=== PATIENT | male | born 1955 | race Caucasian/White ===

== ENCOUNTER → 2023-08-10 12:33 | Outpatient (REF) | payer OTHER, SELFPAY | LOC: RAD 12:33 | PROVIDERS: ATTENDING PHYSICIAN Surgery Vascular Surgery | DX: I73.9 Peripheral vascular disease, unspecified (principal); I65.22 Occlusion and stenosis of left carotid artery | CPT/HCPCS: 93880; 93922; 93925 ==

== ENCOUNTER → 2023-08-12 15:56 | Outpatient (REF) | payer OTHER, SELFPAY | LOC: HWRAD 15:56 | PROVIDERS: ATTENDING PHYSICIAN Family Medicine | DX: R19.7 Diarrhea, unspecified (principal) | CPT/HCPCS: 74176 ==

== ENCOUNTER → 2024-09-11 09:49 | Outpatient (REF) | payer OTHER, SELFPAY | LOC: RAD 09:49 | PROVIDERS: ATTENDING PHYSICIAN Surgery Vascular Surgery | DX: I73.9 Peripheral vascular disease, unspecified (principal); I65.22 Occlusion and stenosis of left carotid artery | CPT/HCPCS: 93880; 93922; 93925 ==

== ENCOUNTER 2024-10-18 18:34 | Inpatient (IN) | payer OTHER, SELFPAY ==
[2024-10-18] VITALS (15 sets, daily range): BP systolic 136–200; BP diastolic 73–108; BMI 31.2
--- NOTE | 2024-10-18 12:24 | ED.GENMED ---
History of Present Illness
General
Chief Complaint: Abdominal Pain
Source: patient
Exam Limitations: none
Time Seen by Provider: 10/18/24 12:06
History of Present Illness
History of Present Illness:
69-year-old male with history of A-fib, CHF presents with 4 days worth of nausea vomiting and diarrhea. He notes multiple episodes of loose stool which she describes water like consistency daily. He denies any black color to the vomit of the
stool. He notes chills and sweats but no measurable fever. He notes persistent and worsening lower abdominal pain. He was initially seen at the urgent care and sent in for further evaluation. No known sick contacts. No other complaints at this
time he has a history of diverticulitis requiring colon resection and reanastomosis
Past History
Past History
ED Past Medical History: HTN
ED Past Surgical History: None
Social History
Tobacco: Non-smoker
Alcohol: None
Phy Exam
Physical Exam
Physical Exam:
General: Well-appearing male no acute respiratory distress HEENT: Normocephalic atraumatic
Heart: Regular rate and rhythm
Lungs: Clear no wheeze
Abdomen is soft tender to the right mid abdomen no guarding or rebound tenderness.
Extremities: No cyanosis
Course
Orders/Labs/Results
Orders:
Orders
10/18/24 12:19
Ondansetron Injectable [Zofran] 4 mg IV NOW STA
10/18/24 12:20
CT Abd/pelvis W Iv Cont Urgent
Comment:
Reason For Exam: lower abdominal pain
10/18/24 12:23
Complete Blood Count/With Diff Urgent
Comprehensive Metabolic Panel Urgent
Lipase Urgent
Abnormal Lab Results
10/18/24
12:23
WBC 11.0 H 10^3/uL
(4.8-10.8)
Hgb 18.1 H g/dL
(13.0-18.0)
MCH 32.0 H pg
(27.0-31.0)
Absolute Neuts (auto) 8.1 H 10^3/uL
(1.4-6.5)
Absolute Monos (auto) 1.7 H 10^3/uL
(0.1-0.6)
Lymphocytes % 10.5 L %
(20.5-51.1)
Monocytes % 15.2 H %
(1.7-9.3)
Carbon Dioxide 21 L mmol/L
(22-30)
BUN 25 H mg/dl
(9-20)
Glucose 145 H mg/dl
(70-99)
Total Bilirubin 2.0 H mg/dl
(0.2-1.3)
AST 104 H U/L
(17-59)
ALT 149 H U/L
(0-50)
Alkaline Phosphatase 158 H U/L
(38-126)
Total Protein 8.3 H g/dl
(6.3-8.2)
10/18/24 12:23
10/18/24 12:23
Vital Signs
Initial and Last Documented VS:
Initial Vital Signs
Temp Pulse Resp BP Pulse Ox
97.8 F 113 20 166/93 96
10/18/24 10:59 10/18/24 10:59 10/18/24 10:59 10/18/24 10:59 10/18/24 10:59
Last Documented Vital Signs
Temp Pulse Resp BP Pulse Ox
97.8 F 98 25 172/105 94
10/18/24 10:59 10/18/24 15:00 10/18/24 15:00 10/18/24 15:00 10/18/24 14:45
MDM/Problems Addressed
Differential Diagnosis Includes:
Patient with nausea vomiting diarrhea with abdominal pain. Consider viral illness versus electrolyte abnormality versus bowel obstruction check labs. Fluids ordered Zofran ordered CT pending
*Critical Care Note
Total Time (30-74mins, 75-104mins- exclusive of procedures): Not Applicable
Update Note
Update Note:
Liver functions are elevated. Gallbladder is distended. The common bile duct is also dilated at 1.[address] scan. Lipase is normal no sign of pancreatitis. Reassessment to still provide some tenderness to the right mid to lower abdomen.
Concern for possible common bile duct stone. Will admit to hospital for further evaluation
ED Attending Note
-
Portions of this chart may have been created with voice recognition software.� Occasional wrong word or��sound alike� substitutions may have occurred due to the inherent limitations of voice recognition software.
Discharge Plan
Departure
Patient Disposition: Admit
Date of Disposition: 10/18/24
Time of Disposition: 16:20
Presentation/result/management discussed w/ accepting MD/DO: Hospitalist
Discharge Problem:
Elevated LFTs, Common bile duct dilatation
Prescriptions:
No Action
metformin 500 MG tablet
1,000 mg PO BID
cilostazol 100 MG tablet
100 mg PO BID
glipizide 5 MG tablet
10 mg PO BID
sotalol 80 MG tablet
80 mg PO BID Qty: 60 3RF
metoprolol succinate 50 MG tablet extended release 24 hr
50 mg PO BID
potassium chloride 20 MEQ tablet extended release
20 meq PO DAILY
empagliflozin [Jardiance] 10 MG tablet
10 mg PO DAILY
multivitamin 1 EACH tablet
1 ea PO DAILY
omeprazole [Prilosec] 10 MG capsule,delayed release(DR/EC)
20 mg PO DAILY
methotrexate sodium 2.5 MG tablet
150 mg PO Q7D
Patient Comments:
take 2.5 mg 6 tabs every week
rosuvastatin 5 MG tablet
5 mg PO DAILY
omega 5-dko-yjk-fish oil [Fish Oil] 1 EACH capsule
1 ea PO DAILY
apixaban [Eliquis] 5 MG tablet
5 mg PO BID
clopidogrel 75 MG tablet
75 mg PO DAILY Qty: 30 0RF
prednisone 10 MG tablet
10 mg PO DIRECTED Qty: 45 0RF
Rx Instructions:
5 tab day 1-3, 4 tab day 4-6, 3 tab day 7-9, 2 tab day 10-12, 1 tab day 13-15
albuterol sulfate [Proventil HFA] 90 MCG/PUFF HFA aerosol inhaler
1 puff inhalation Q4HPRN PRN (Reason: shortness of breath) Qty: 1 0RF
Codeine Phosphate/Guaifenesin [Codeine-Guaifen 10-100 Mg/5 Ml] 5 ML Liquid
5 ml PO BID PRN (Reason: Cough) Qty: 1 0RF
Codeine Phosphate/Guaifenesin [Codeine-Guaifen 10-100 Mg/5 Ml] 5 ML Liquid
5 ml PO BID PRN (Reason: cough) Qty: 200 0RF
Referrals:
Romeo Duarte MD [Family Provider] -
Interventions
Interventions:
*Risk Screen - Suicide Last Done: 10/18/24 10:59
*General Assessment Last Done: 10/18/24 10:59
*Neglect/Abuse Screening Last Done: 10/18/24 10:59
*ED- Fall Risk Assessment Last Done: 10/18/24 11:54
QD-Tqvper-Smgwkpuckt Assessment Last Done: 10/18/24 11:54
Discharge Date and Time
Print Language: GEORGIAN
[2024-10-18] MEDS: ZOFRAN 4 MG IV (12:25)
[2024-10-18 12:33] LABS: % Basophils 0.2 % (0-2); % Eosinophils 0.2 % (0-6); % Immature Granulocytes 0.3 % (0-0.5); % Lymphocytes 10.5 % (20.5-51.1); % Monocytes 15.2 % (1.7-9.3); % Neutrophils 73.6 % (42.2-75.2); Absolute Lymphocytes 1.2 10^3/uL (1.2-3.4); Absolute Monocytes 1.7 10^3/uL (0.1-0.6); Absolute Neutrophils 8.1 10^3/uL (1.4-6.5); Hematocrit 51.8 % (39.0-52.0); Hemoglobin 18.1 g/dL (13.0-18.0); Mean Corp Hgb Conc. 34.9 g/dL (33.0-37.0); Mean Corpuscular Volume 91.5 fL (80.0-94.0); Mean Platelet Volume 10.1 fL (7.4-10.4); Nucleated Red Blood Cells % 0 % (-); Platelet Count 200 10^3/uL (130-400); Red Blood Cell Count 5.66 10^6/uL (4.70-6.10); Red Cell Dist. Width 13.1 % (11.5-14.5)
[2024-10-18 13:00] LABS: ALT (SGPT) 149 U/L (0-50); AST (SGOT) 104 U/L (17-59); Albumin 4.8 g/dl (3.5-5.0); Alkaline Phosphatase 158 U/L (38-126); Blood Urea Nitrogen 25 mg/dl (9-20); Calcium 9.5 mg/dl (8.4-10.2); Carbon Dioxide 21 mmol/L (22-30); Chloride 102 mmol/L (98-107); Estimated Creatinine Clearance 105 ml/min; Glucose 145 mg/dl (70-99); Lipase 92 U/L (23-300); Potassium 4.1 mmol/L (3.5-5.1); Sodium 139 mmol/L (135-145); Total Protein 8.3 g/dl (6.3-8.2); eGFR > 60.00
--- NOTE | 2024-10-18 17:28 | HPS.HSE ---
Family Physician
-
Family Physician: Romeo Duarte
Chief Complaint
-
Nausea, vomiting, diarrhea
History of Present Illness
69-year-old male complaining 4 days of nausea, vomiting, diarrhea with multiple episodes of loose stool watery in consistency daily. He reports after eating a meatball sandwich from a temple event he immediately began sick. His and the
neighbor that brought the food are not sick with any of the symptoms. He does state he did have a crab cake the night before on Tuesday. He states the vomiting and diarrhea have subsided today. During his symptoms he also reports chills and
sweats but no fever . He was sent in urgent care sent into the ER for further evaluation. The patient denies fever, chest pain, cough, shortness of breath, urinary symptoms. He denies recent travel, raw foods, IV drug use. He has past medical
history of A-fib paroxysmal Dx 6 years ago on Eliquis, PAD with stent to right leg by Dr. Jauregui, hypertension, diverticulitis requiring colon resection and reanastomosis, class I obesity, former smoker 47-year 3 pack a day stopped 2019, HLD, GERD,
gastric ulcer 10 years ago, DM 2, former alcohol abuse daily drinker stopped early 30s, former cocaine user snorting in his 20s to 30s
Medical History
Past Medical History
Past Medical History: Reports Other
Additional Past Medical History:
A-fib paroxysmal Dx 6 years ago on Eliquis
PAD with stent to right leg by Dr. Jauregui
hypertension,
diverticulitis requiring colon resection and reanastomosis
class I obesity
former smoker 47-year 3 pack a day stopped 2019
HLD,
GERD
gastric ulcer 10 years ago
DM 2
former alcohol abuse daily drinker stopped early 30s
former cocaine user snorting in his 20s to 30s
Past Surgical History: Reports Other
Additional Past Surgical History:
PAD with stent to right leg by Dr. Jauregui
Left femur cliff 1975
Quadricep tendon repair right
Cardiac ablation�A-fib
Social History
Tobacco: Former Smoker (47-year 3 pack a day stopped 2019)
Alcohol: Former (Drink daily alcohol stop end of 30s)
Drug: Cocaine (Snorted frequently during his 20s and 30s)
Personal:
Living: With Family ( Antonietta)
Employment: Retired
Family History
Family History: Other (Mother 72 [place] 20 days after his father, father of pulmonary asbestosis age 72, no family history of gallstones)
Allergies / Home Medications
Allergies reflects when Allergies were last updated in [employer].
Home Medications with original date entered in [employer]
Allergy/Medication List:
Allergies
Allergy/AdvReac Type Severity Reaction Status Date / Time
Penicillins Allergy Itching Verified 10/18/24 11:03
Home Medications
cilostazol 100 mg tablet 100 mg PO BID 08/10/19
sotalol 80 mg tablet 80 mg PO BID #60 tabs 08/20/19
metoprolol succinate 50 mg tablet,extended release 24 hr 100 mg PO DAILY 01/08/20
potassium chloride 20 mEq tablet,extended release 20 meq PO DAILY 01/08/20
apixaban 5 mg tablet (Eliquis) 5 mg PO BID 04/16/20
rosuvastatin 5 mg tablet 5 mg PO DAILY 04/16/20
albuterol sulfate 90 mcg/actuation aerosol inhaler 2 puff inhalation R Q6HPRN PRN sob 10/18/24
clobetasol 0.05 % topical ointment 1 applic topical DAILYPRN PRN psoriasis 10/18/24
empagliflozin 25 mg tablet (Jardiance) 25 mg PO DAILY 10/18/24
glipizide 10 mg tablet, extended release 24 hr 10 mg PO BID 10/18/24
omega 1-byd-uqd-fish oil 1,200 mg (144 mg-216 mg) capsule (Fish Oil) 1 cap PO DAILY 10/18/24
omeprazole magnesium 20 mg tablet,delayed release (Prilosec OTC) 20 mg PO DAILY 10/18/24
risankizumab-rzaa 75 mg/0.83 mL subcutaneous syringe 150 mg SC Q12W 10/18/24
therapeutic multivitamin 1 tab PO DAILY 10/18/24
Review of Systems
-
History Source: Patient
A 12 point ROS was completed and negative except as noted: Yes
Constitutional: Reports Chills; Denies Fever or Fatigue
EENT: Denies Sore Throat or Runny Nose
Respiratory: Denies Cough or Trouble Breathing
Cardiac: Denies Chest Pain, Diaphoresis, Palpitations or Syncope
Abdomen/GI: Reports Nausea, Vomiting and Diarrhea (Watery in color); Denies Constipated, Bloody Stools, Black Stools or Anorexia
: Denies Dysuria, Frequency, Flank Pain, Incontinence, Difficulty Voiding, Urgency or Bleeding
Musculoskeletal: Reports Edema (Bilateral lower legs trace to +1); Denies Joint Pain
Skin: Denies Itching or Rash
Neurological: Denies Dizzy, Headache or Weakness
Endocrine: Reports No Symptoms
Hematologic/Lymphatic: Reports No Symptoms
Psych: Reports Calm
Physical Exam
Vital Signs
Vital Signs
Temp Pulse Resp BP Pulse Ox
97.8 F 98 25 172/105 94
10/18/24 10:59 10/18/24 15:00 10/18/24 15:00 10/18/24 15:00 10/18/24 14:45
Physical Exam
General: Conversant; No Fever or Chills
HEENT: NormoCephalic, Anicteric, Moist mucous membranes, PERRLA, [place] Conjunctivae and No Ptosis
Respiratory: Clear; No Wheezes, Rales or Rhonchi
Cardiac: S1/S2, Regular Rhythm and Peripheral Edema (Bilateral lower legs trace to +1); No Murmur, Rub or Gallop
Breast: Deferred by me
GI: Soft, Normal Bowel Sounds, Tender (Epigastric to left upper quadrant on palpation), Distended (Slight distention but soft) and Other (Protuberant abdomen did not palpate liver or spleen)
Rectal: Deferred by Provider
Genito-urinary: Deferred by me
Musculoskeletal: No Clubbing, No Cyanosis, Edema, Left Lower Extremity (Trace to +1) and Edema, Right Lower Extremity (Trace to +1); No Edema, Left Upper Extremity or Edema, Right Upper Extremity
Skin: Warm and Dry; No Rash or Jaundice
Neuro: AO x 3, No Motor Deficits, Nonfocal/grossly intact, Cranial Nerves Intact and No Sensory Deficits; No Slurred Speech, Facial Droop, Tremors or Sedated
Psych: Calm
Laboratory Results
-
10/18/24 12:23
10/18/24 12:23
Laboratory Results
Total Bilirubin 2.0 mg/dl (0.2-1.3) H 10/18/24 12:23
AST 104 U/L (17-59) H 10/18/24 12:23
ALT 149 U/L (0-50) H 10/18/24 12:23
Alkaline Phosphatase 158 U/L (38-126) H 10/18/24 12:23
Lipase 92 U/L (23-300) 10/18/24 12:23
Impression/Plan
-
Impression/plan:
Admit to MedSurg
#CBD dilation /acute transaminitis concern for obstructing CBD stone
CBD dilation up to 1.3 cm
Follow CMP
- MRI
-MRCP
-N.p.o. except meds
-IV NSS 100 cc per hour
- IV Protonix 40 mg daily
- Check stool cultures, stool WBC if diarrhea returns
- Consult GI Dr. Dk Rowe made aware
CT abdomen/pelvis with IV contrast:
1. Dilation of the common bile duct. Mild intrahepatic biliary dilation. Mild distention of the gallbladder. No common bile duct filling defect identified. All these findings are new as compared with previous examination
and could be further evaluated with MRCP or ERCP.
2. Unchanged benign 3 mm left lower lobe nodule.
3. Hepatomegaly and hepatic fatty infiltration.
4. Diverticulosis without diverticulitis. Post sigmoid resection with anastomosis. No bowel obstruction.
5. Subacute to chronic fracture anterior right seventh rib.
#A-fib paroxysmal Dx 6 years ago
#History of cardiac ablation
- Patient follows with [facility] cardiology
- Hold Eliquis 5 mg twice daily, sotalol 80 mg twice daily with hold parameters
- Continue metoprolol succinate 100 mg daily with hold parameters
#DM2
Accu-Cheks with SSI low
-Hold glipizide 10 mg twice daily, Jardiance 25 mg daily
#PAD with stent to right leg by Dr. Jauregui
- Continue Crestor 5 mg daily
- Continue Pletal
#Subacute or chronic fracture anterior right seventh rib-likely old fracture due to no pain
- No pain right seventh rib area
#Hepatomegaly and hepatic fatty liver
#3 mm left lower lobe nodule unchanged
#Former smoker 47 years 3 pack a day stopped 2019
#HTN�benign
BP 172/105 > 136/84
-cont Metoprolol succinate 100 mg daily
- cont Sotalol 80 mg twice daily
#HLD
Check lipid profile
Continue Crestor 5 mg at bedtime
#GERD
#Hx gastric ulcer 10 years ago had colonoscopy with follow-up
-Hold OTC Prilosec
#Diverticulitis requiring colon resection and reanastomosis.
#Former alcohol abuse daily drinker stopped early 30s
#Former cocaine user�snorting in his 20s and 30s
DVT prophylaxis
Hold Eliquis
SCDs
Full code
--- NOTE | 2024-10-18 18:02 | W.PN.UPDATE ---
Addendum entered and electronically signed by Tadeo Jefferson MD 10/18/24 18:04:
Hold Luis.
Original Note:
Update Note
Progress Note Update
This is an addendum to H&P written by Selena Solano on 10/18/2024. Patient seen and examined independently with THERMITE WELDER.
69-year-old male past medical history of persistent atrial fibrillation, chronic HFpEF, hypertension, hyperlipidemia, diabetes, peripheral arterial disease, diverticulitis status post colon resection reanastomosis, presenting with 4 days of nausea
and vomiting and diarrhea and lower abdominal pain. Symptoms started after eating parm 4 days ago.
Blood pressure 170s. Labs show leukocytosis. Transaminitis with total bilirubin of 2.
CT abdomen pelvis shows dilation of the common bile duct. Mild intrahepatic biliary dilatation. Mild distention of the gallbladder. There is unchanged 3 mm left lower lobe nodule, hepatomegaly and hepatic fatty infiltration. Diverticulosis,
subacute to chronic fracture of the anterior right seventh rib.
Patient with likely viral gastroenteritis. There is also concern for choledocholithiasis. Clear liquid diet as tolerated. Follow LFTs. Check MRI/MRCP. GI consulted.
[2024-10-18 18:29] LABS: HDL Cholesterol 61 mg/dl; LDL Cholesterol, Calculated 77 mg/dl; Total Cholesterol 160 mg/dl (50-199); Triglyceride 113 mg/dl (10-149); Very Low Density Lipoprotein 22 mg/dl (0-30)
--- NOTE | 2024-10-18 21:00 | PTCARENOTE ---
Patient arrived from ED, AAO x 4. Denies pain. Nausea but no vomiting. Last BM 10/18/24--per patient bowel movements have been loose and liquid. Stool sample ordered. OOB ad yumiko. Skin CDI. IVF running at 100 ml/hr. Patient to be NPO in anticipation
of MRI, 10/19. MRI did speak with patient, over the phone, for MRI clearance. Patient oriented to room. SCDs on and working. Bed in lowest position. Call callaway and personal belongings within reach.
[2024-10-18] MEDS: PLETAL 100 MG PO ×2 (21:30)
[2024-10-18] MEDS: BETAPACE 80 MG PO (21:30)
[2024-10-18] MEDS: NSS 1000 IV (21:31)
[2024-10-18 21:47] LABS: Glucose - Point of Care 68 mg/dl (70-99)
--- NOTE | 2024-10-18 21:58 | PTCARENOTE ---
Patient hypoglycemia--BG 68. Patient is NPO. Provider notified. Administering IV dextrose. Recheck accucheck at [phone]
[2024-10-18] MEDS: DEXTROSE 50% SYRINGE 12.5 GRAMS IV (21:59)
[2024-10-18 22:19] LABS: Glucose - Point of Care 113 mg/dl (70-99)
[2024-10-19 00:13] LABS: Glucose - Point of Care 72 mg/dl (70-99)
[2024-10-19] MEDS: D5/0.9% SODIUM CHLORIDE 1000 IV ×3 (00:24→22:38)
--- NOTE | 2024-10-19 00:38 | PTCARENOTE ---
Blood sugar 72 @ 0015. Per protocol, no interventions yet, this RN sent message to provider recommending IV solution with dextrose, in anticipation of hypoglycemia at 0200 finger stick. D5NSS ordered and initiated.
[2024-10-19 02:35] LABS: Glucose - Point of Care 88 mg/dl (70-99)
[2024-10-19 03:49] LABS: Glucose - Point of Care 87 mg/dl (70-99)
[2024-10-19 05:27] VITALS: BMI 31.5
[2024-10-19 06:29] LABS: Glucose - Point of Care 98 mg/dl (70-99)
[2024-10-19 07:00] VITALS: BP 141/91
[2024-10-19 07:20] LABS: Hematocrit 43.5 % (39.0-52.0); Hemoglobin 15.4 g/dL (13.0-18.0); Mean Corp Hgb Conc. 35.4 g/dL (33.0-37.0); Mean Corpuscular Hgb 32.7 pg (27.0-31.0); Mean Corpuscular Volume 92.4 fL (80.0-94.0); Mean Platelet Volume 9.9 fL (7.4-10.4); Platelet Count 141 10^3/uL (130-400); Red Blood Cell Count 4.71 10^6/uL (4.70-6.10); Red Cell Dist. Width 13.2 % (11.5-14.5); White Blood Cell Count 6.8 10^3/uL (4.8-10.8)
[2024-10-19 07:38] LABS: ALT (SGPT) 101 U/L (0-50); AST (SGOT) 48 U/L (17-59); Albumin 3.9 g/dl (3.5-5.0); Alkaline Phosphatase 120 U/L (38-126); Blood Urea Nitrogen 17 mg/dl (9-20); Calcium 8.6 mg/dl (8.4-10.2); Carbon Dioxide 24 mmol/L (22-30); Chloride 105 mmol/L (98-107); Estimated Creatinine Clearance 119 ml/min; Glucose 95 mg/dl (70-99); Potassium 3.5 mmol/L (3.5-5.1); Sodium 140 mmol/L (135-145); Total Bilirubin 1.3 mg/dl (0.2-1.3); Total Protein 6.5 g/dl (6.3-8.2); eGFR > 60.00
--- NOTE | 2024-10-19 08:02 | CON.GI ---
Addendum entered and electronically signed by Adalid Rowe DO 10/19/24 14:41:
I saw and examined the patient.
The SLIP COVER CUTTER's note was reviewed and I agree with the note.
Comment: Mr Young is a 69 y.o male with past medical history as listed below found to have elevated LFTs and recent MRI/MRCP revealing choledocholithiasis. Clinically, he reports improving symptoms and recent LFTs improving on repeat labs. He is
without any other signs or symptoms concerning for cholangitis and remains on IV abx as well. Initially, planning for tentative ERCP tomorrow as would need to allow for 2-day washout for Eliquis (last dose 10/18- ) however given recent dose of Pletal
(Cilostazol) this AM favor holding for two days given need for sphincterotomy with ERCP. Discussed risks and benefits of ERCP with patient this afternoon and amenable to proceeding. Plan for tentative ERCP next week on 10/22/24. Okay for CLD
today. Rest of ongoing supportive care as outlined below.
GI will continue to follow.
Original Note:
Consultation
-
Date/Time Consultation Requested: 10/18/24 1730
Date/Time Consultation Performed: 10/19/24 1030
Requesting Provider: JESSE Mensah
Performing Provider: JESSE Milian, Adalid Rowe DO
Reason for Consultation: abnormal imaging
Medical History
Chief Complaint / HPI
Chief Complaint: nausea, vomiting, abdominal pain, diarrhea
History of Present Illness:
Pt is a 69yo presents with hx Afib On Eliquis, PAD with prior stent, HTN, diverticulitis, obesity, former tobacco use, HLD, GERD, distant hx pancreatitis - ETOH related, fatty liver, bowel resection for diverticular disease, gastric ulcers, DM,
COPD, carotid stenosis, mod MR/TR with onset of abdominal pain, with nausea, vomiting and diarrhea. On admission noted with WBC 11,000, paul 2, AST 104, ALT 149, alk phos 159, lipase 92 with improvement after admission. Ct on admission with
dilation of CBD with mild intrahepatic dilatation and mild GB distention no filling defect, lung nodule, HM with fatty liver, diverticulosis with prior resection, subacute to chronic rib fx. Follow up MRI with choledocholithiasis, cholelithiasis HSM
and hepatic steatosis. follow up MRI/MRCP with choledocholithiasis with intra and extrahepatic biliary dilation, cholelithiasis and HSM with hepatic steatosis.
In review with patient hx similar admission to [place] in 2019 with etiology unclear. He recall EGD but no clear etiology. He now notes symptoms for several days with wt loss, decreased oral intakes, dry heaves/vomiting small amount bile,
yellow liquid stools, RLQ pain but also admit to some epigastric pain. He also admits to periods of sweats and chills prior to admission. He denies issues with odynophagia, GERD, constipation or rectal bleeding. Hx EGD [facility] 2018 did not
recall any abnormality and colonoscopy last 2019 overdue for follow up with new hx brother with stage III colon Ca.
Past Medical History
Past Medical History: Arrhythmias (PAF on Eliquis ), Cancer (left eye ), COPD, GERD, HTN, Hypercholesterolemia, NIDDM, Valvular Disease (moder MR, TR) and Other (PAD with LE stent, diverticulitis, obesity, prior tobacco use, gastric ulcers, former
ETOH use, former cocaine use, carotid stenosis, pancreatitis x 2 in past with ETOH use, fatty liver)
Past Surgical History: Bowel Resection (for diverticular disease ), Cardiac (ablation ) and Orthopedic (femoral cliff 1975, quad tendon repair)
Social History
Tobacco: Former Smoker
Alcohol: Former
Drug: Former User
Personal:
Living: With Family
Employment: Retired
Family History
Family History: Other (brother with stage III colon CA)
Allergies / Home Medications
Allergy/AdvReac Type Severity Reaction Status Date / Time
Penicillins Allergy Itching Verified 10/18/24 11:03
�Medication �Instructions �Recorded
cilostazol 100 mg tablet 100 mg PO BID 08/10/19
sotalol 80 mg tablet 80 mg PO BID #60 tabs 08/20/19
metoprolol succinate 50 mg 100 mg PO DAILY 01/08/20
tablet,extended release 24 hr
potassium chloride 20 mEq 20 meq PO DAILY 01/08/20
tablet,extended release
apixaban 5 mg tablet (Eliquis) 5 mg PO BID 04/16/20
rosuvastatin 5 mg tablet 5 mg PO DAILY 04/16/20
albuterol sulfate 90 mcg/actuation 2 puff inhalation R Q6HPRN PRN sob 10/18/24
aerosol inhaler
clobetasol 0.05 % topical ointment 1 applic topical DAILYPRN PRN 10/18/24
psoriasis
empagliflozin 25 mg tablet 25 mg PO DAILY 10/18/24
(Jardiance)
glipizide 10 mg tablet, extended 10 mg PO BID 10/18/24
release 24 hr
omega 1-ugc-gtx-fish oil 1,200 mg 1 cap PO DAILY 10/18/24
(144 mg-216 mg) capsule (Fish Oil)
omeprazole magnesium 20 mg 20 mg PO DAILY 10/18/24
tablet,delayed release (Prilosec
OTC)
risankizumab-rzaa 75 mg/0.83 mL 150 mg SC Q12W 10/18/24
subcutaneous syringe
therapeutic multivitamin 1 tab PO DAILY 10/18/24
Review of Systems
-
History Source: Patient
Constitutional: Reports Chills (prior to admission)
EENT: Reports No Symptoms
Respiratory: Reports No Symptoms
Cardiac: Reports No Symptoms
Abdomen/GI: Reports Abdominal Pain, Nausea, Vomiting and Diarrhea
: Reports No Symptoms
Musculoskeletal: Reports No Symptoms
Skin: Reports No Symptoms
Neurological: Reports Weakness
Endocrine: Reports No Symptoms
Hematologic/Lymphatic: Reports No Symptoms
Vital Signs
Temp Pulse Resp BP Pulse Ox
97.5 F 84 18 136/73 96
04/17/25 23:30 10/18/24 23:30 10/18/24 23:30 10/18/24 23:30 10/18/24 23:30
Physical Exam
Exam
General: Well Developed, Well Nourished and No Apparent Distress
HEENT: Other (jaundice )
Respiratory: Clear
Cardiac: Regular Rhythm
GI: Soft, Non Distended and Tender (RUQ and epigastric area )
Musculoskeletal: No Clubbing and No Cyanosis
Skin: Warm and Dry
Neuro: Awake, Alert and AO x 3
Psych: Calm
Results
WBC 6.8 10^3/uL (4.8-10.8) 10/19/24 06:31
Hgb 15.4 g/dL (13.0-18.0) 10/19/24 06:31
Hct 43.5 % (39.0-52.0) 10/19/24 06:31
MCV 92.4 fL (80.0-94.0) 10/19/24 06:31
Plt Count 141 10^3/uL (130-400) D 10/19/24 06:31
Absolute Neuts (auto) 8.1 10^3/uL (1.4-6.5) H 10/18/24 12:23
Sodium 140 mmol/L (135-145) 10/19/24 06:31
Potassium 3.5 mmol/L (3.5-5.1) 10/19/24 06:31
Chloride 105 mmol/L (98-107) 10/19/24 06:31
Carbon Dioxide 24 mmol/L (22-30) 10/19/24 06:31
BUN 17 mg/dl (9-20) 10/19/24 06:31
Creatinine 0.8 mg/dL (0.7-1.3) 10/19/24 06:31
Calcium 8.6 mg/dl (8.4-10.2) 10/19/24 06:31
Total Bilirubin 1.3 mg/dl (0.2-1.3) 10/19/24 06:31
AST 48 U/L (17-59) 10/19/24 06:31
ALT 101 U/L (0-50) H 10/19/24 06:31
Alkaline Phosphatase 120 U/L (38-126) 10/19/24 06:31
Lipase 92 U/L (23-300) 10/18/24 12:23
Diagnostic Image Results:
10/18/24 CT Abd/pelvis W Iv Cont
1. Dilation of the common bile duct. Mild intrahepatic biliary dilation. Mild distention of the gallbladder. No common bile duct filling defect identified. All these findings are new as compared with previous examination and could be further
evaluated with MRCP or ERCP.
2. Unchanged benign 3 mm left lower lobe nodule.
3. Hepatomegaly and hepatic fatty infiltration.
4. Diverticulosis without diverticulitis. Post sigmoid resection with anastomosis. No bowel obstruction.
5. Subacute to chronic fracture anterior right seventh rib.
10/19/24 MR Abdomen W/o & W Contrast
MRCP evidence for choledocholithiasis, intrahepatic and extrahepatic bile duct dilatation.
Cholelithiasis.
Hepatosplenomegaly and hepatic steatosis.
Prior GI Procedures:
EGD: 2019 recall as stable at [facility]
Colonoscopy: 2019 recalls as stable
Assessment / Plan
-
Pt is a 69yo presents with hx Afib On Eliquis, PAD with prior stent, HTN, diverticulitis, obesity, former tobacco use, HLD, GERD, distant hx pancreatitis - ETOH related, fatty liver, bowel resection for diverticular disease, gastric ulcers, DM,
COPD, carotid stenosis, mod MR/TR with onset of chills, sweats, abdominal pain, with nausea, vomiting and diarrhea. On admission noted with WBC 11,000, paul 2, AST 104, ALT 149, alk phos 159, lipase 92 with improvement after admission. Ct on
admission with dilation of CBD with mild intrahepatic dilatation and mild GB distention no filling defect, lung nodule, HM with fatty liver, diverticulosis with prior resection, subacute to chronic rib fx. Follow up MRI with choledocholithiasis,
cholelithiasis HSM and hepatic steatosis. follow up MRI/MRCP with choledocholithiasis with intra and extrahepatic biliary dilation, cholelithiasis and HSM with hepatic steatosis. In review with patient hx similar admission to [place] in 2019 with
etiology unclear. He recall EGD but no clear etiology. He now notes symptoms for several days with wt loss, decreased oral intakes, dry heaves/vomiting small amount bile, yellow liquid stools, Hx EGD [facility] 2018 did not recall any abnormality
and colonoscopy last 2019 overdue for follow up with new hx brother with stage III colon Ca.
-choledocholithiasis
-cholelithiasis
-N/V/D/abdomen pain/sweats on admission
-afib on Eliquis prior to admission
-PAD with prior stent on Pletal prior to admission
-leukocytosis
other med problems:
-HTN
-diverticulitis with prior colon resection
-obesity
-GERD
-hx ETOH pancreatitis in past
-gastric ulcer
-COPD
-carotid stenosis
-fatty liver
-MR/TR
PLAN:
etiology of symptoms likely related to CBD stone noted on imaging
will need ERCP- will review timing with Dr. Rowe with recent Eliquis/pletal use
- last Eliquis 10/18 AM, last Pletal 10/19 AM (no placed on hold)
ok for clear diet
LFt's trending down
will consult surgery to eval for dann
reviewed with hospitalist for abx
pt going on cruise 11/03- discussed low fat diet on discharge
OP follow up for colonoscopy
-
-
Thank you for consultation and allowing me to participate in the patient's care. Please call the relationship mgr GI physician during the after hours with any questions or concerns.
[2024-10-19 08:03] LABS: Absolute Neutrophils -Man Diff 4.1 10^3/uL (1.4-6.5); Band Neutrophils 1 % (0-3); Eosinophils 1 % (0-6); Lymphocytes 18 % (20-51); Monocytes 20 % (2-9); Platelets Checked Yes; Segmented Neutrophils 60 % (42-75)
[2024-10-19 08:04] LABS: Normal RBC Morphology Yes; Total Cells Counted 100
--- NOTE | 2024-10-19 08:36 | W.PN.HOSP.TC ---
Addendum entered and electronically signed by Arie Mckeon MD 10/19/24 19:24:
Attending Addendum-
I saw and evaluated the patient. I reviewed the resident�s note and agree with findings and plan as documented in the resident�s note. Sub: Complains of abd pain. Denies N/V fevers chills. Full 12 point ROS reviewed and negative except as documented
Exam: Vitals reviewed in chart GEN-NAD heart RRR lungs clear abd obese soft TTP RLQ and LLQ no rebound/guarding LE no edema
Plan:
#Choledocholithiasis
-MRCP 10/19-choledocholithiasis, intrahepatic and extrahepatic bile duct dilatation. Cholelithiasis.
-no signs of cholangitis
-t bili and LFTs trending down
-advance to clears
-start abx per GI
-ERCP scheduled for 10/22-tuesday
-surg c/s- Laparoscopic cholecystectomy with intraoperative cholangiogram after ERCP during this hospitalization
-hold eliquis and pletal
#A-fib paroxysmal Dx 6 years ago
#History of cardiac ablation
- Patient follows with [facility]
- Hold Eliquis 5
- Continue metoprolol and sotalol
# Prolonged qtc
- avoid qtc prolonging meds
#DM2
-Accu-Checks with SSI low
-Hold glipizide 10 mg twice daily,
-cont Jardiance->farxiga
#PAD with stent to right leg by Dr. Jauregui
- Continue Crestor 5 mg daily
- holdPletal
#Subacute or chronic fracture anterior right seventh rib-likely old fracture due to no pain
- No pain right seventh rib area
#Hepatomegaly and hepatic fatty liver
#3 mm left lower lobe nodule unchanged-d/w patient
#Former smoker 47 years 3 pack a day stopped 2019
#HTN�benign
- cont Metoprolol and sotalol
#HLD
Check lipid profile
Continue Crestor
#GERD
#Hx gastric ulcer 10 years ago had colonoscopy with follow-up
-cont protonix
#Diverticulitis requiring colon resection and reanastomosis.
#Former alcohol abuse daily drinker stopped early 30s
#Former cocaine user�snorting in his 20s and 30s
DVT prophylaxis
Hold Eliquis
SCDs
ACP
Patient consented to discuss, was alone, time spent explanation of advance directives, changes in health status, patient�s health care wishes if the patient becomes unable to make health decisions, goals of care, code status, and prognosis- 16
minutes
Time spent coordinating care, review of plan of care with resident, personally reviewed previous records in EMR, med rec, labs, radiology, d/w nursing, GI, surg, family total time documented is exclusive of any additional time listed that was spent
in advance care planning discussion -�51 minutes
Original Note:
Today's Communication/Plan
-
Plan for ERCP
Hold Eliquis and Pletal
Start Zosyn
Surgery and GI input appreciated
Assessment / Plan
Assessment / Plan
69-year-old former smoker male with history of A-fib on Eliquis, CHF, hypertension, PAD with stent to right leg presenting with 4 days of nausea vomiting and diarrhea - water like consistency daily. He notes chills and sweats but no measurable
fever. Currently reports no fever, chills, abdominal pain.
# Choledocholithiasis and gallstones
- Elevated LFTs, CBD dilation (1.3 cm) on CT scan
- Total Bilirubin 2.0 --> 1.3, AST 104 --> 48, ALT 149 --> 101, Alkaline Phos 158 --> 120
- Lipase normal
- CT abdomen/pelvis with IV contrast: 1. Dilation of the common bile duct. Mild intrahepatic biliary dilation. Mild distention of the gallbladder. No common bile duct filling defect identified.
- Abdomen MRI suggestive of choledocholithiasis, gallstones without wall thickening.
- GI on board, tentative plan for ERCP on Tuesday
- Eliquis and Pletal on hold
- Cleared for clear liquid diet by GI
- Continue zofran prn
- Started IV Zosyn for concern for cholangitis (hx of chills), although less likely with no fever and no leukocytosis. Discussed plan with pharmacy and GI
- Surgery on board, tentative plan for cholecystectomy next week after ERCP
# Diarrhea
- Likely viral gastroenteritis
- s/p IVF
- Stool Cx pending, Stool wbcs neg, norovirus neg
- Continue to monitor electrolytes
# Paroxysmal A-fib
- s/p cardiac ablation
- Patient follows with [facility]
- Continue Sotalol 80 mg twice daily with hold parameters
- Continue metoprolol succinate 100 mg daily with hold parameters
- Eliquis held
# HFpEF
- Continue metoprolol succinate 50 daily, rosuvastatin
- Empagliflozin held
# Diabetes
- Glipizide and empagliflozin held
- Continue SSI, Accu-Checks
- HbA1c pending
# HTN
- Blood pressures stable
- Continue Metoprolol succinate 100 mg daily
# HLD
- Continue Crestor 5 mg at bedtime
#PAD with stent to right leg
- Continue Crestor 5 mg daily
- Pletal held
# GERD, hx gastric ulcer
- on IV protonix
# Tobacco use, former
- 47-year 3 pack a day, quit 2019
- Recommended outpt f/u for 3mm LLL nodule noted on CT
#Diverticulitis requiring colon resection and reanastomosis
- Stable
# Subacute to chronic fracture anterior right seventh rib
- Stable, likely chronic
- Pain management
#Former alcohol abuse daily drinker stopped early 30s
#Hepatomegaly and hepatic fatty liver
#Former cocaine user�snorting in his 20s and 30s
# Polycythemia
- Likely 2/2 tobacco use
# QTc prolonged (506)
- On Sotalol and Pletal (currently held)
- Continue to monitor
DVT prophylaxis
Eliquis held
SCDs
Anticipated Discharge: > 48 hours
Subjective/Interval History
-
Date of Service: October 19, 2024
Objective Data
-
Labs:
Laboratory Results
10/19/24
06:31
WBC 6.8
Hgb 15.4
Hct 43.5
Plt Count 141 D
Sodium 140
Potassium 3.5
Chloride 105
Carbon Dioxide 24
BUN 17
Creatinine 0.8
Glucose 95
Calcium 8.6
Total Bilirubin 1.3
AST 48
ALT 101 H
Alkaline Phosphatase 120
Vital Signs:
Vital Signs
Temp Pulse Resp BP Pulse Ox
97.5 F 84 18 136/73 96
10/18/24 23:30 10/18/24 23:30 10/18/24 23:30 10/18/24 23:30 10/18/24 23:30
I&O
10/18/24 10/19/24 10/20/24
06:59 06:59 06:59
Intake Total 60 / 60
Balance 60 / 60
Review of Systems
-
History Source: Patient
Constitutional: Reports No Symptoms; Denies Fever or Chills
EENT: Reports No Symptoms Reported
Respiratory: Reports No Symptoms
Cardiac: Reports No Symptoms
Abdomen/GI: Reports Diarrhea (watery bowel movements); Denies Nausea or Vomiting
Breast: Reports No Symptoms
Genitourinary: Reports No Symptoms
Musculoskeletal: Reports No Symptoms
Skin: Reports No Symptoms
Neuro: Reports No Symptoms
Endocrine: Reports No Symptoms
Hematologic / Lymphatic: Reports No Symptoms
Allergy / Immunology: Reports No Symptoms
Physical Exam
-
General: Well Developed, Well Nourished, No Apparent Distress and Comfortable; Negative Pain, Fever or Chills
HEENT: Normocephalic
Respiratory: Clear to Auscultation
Cardiac: Regular Rhythm and S1/S2
GI: Soft, Nondistended, Normal Bowel Sounds, Tender (RLQ and LLQ, without rebound/guarding) and Organomegaly
Genito-urinary: No Costovertebral Tender
Musculoskeletal: No Clubbing, No Cyanosis and No Edema
Skin: Warm and Rash (Psoriatic rashes on b/l LE)
Neuro: Awake, Alert, Oriented and AO x 3
Psych: Calm
[2024-10-19 09:19] LABS: Glycohemoglobin (HgbA1c) 7.3 % (4.0-5.6)
[2024-10-19] MEDS: TOPROL XL 100 MG PO (09:57)
[2024-10-19] MEDS: THERAGRAN 1 TABLET PO (09:57)
[2024-10-19] MEDS: FARXIGA 10 MG PO (09:57)
[2024-10-19] MEDS: PROTONIX IV 40 MG IV (10:01)
[2024-10-19] MEDS: NSS (PRESERVATIVE FREE) 10 ML IV (10:03)
[2024-10-19] MEDS: FLUSH (NSS) 1 FLUSH IV (10:04)
[2024-10-19] MEDS: PLETAL 100 MG PO (10:07)
[2024-10-19] MEDS: BETAPACE 80 MG PO ×2 (10:09→20:30)
[2024-10-19 11:00] VITALS: BP 141/77
[2024-10-19 11:07] VITALS: BMI 31.5
[2024-10-19 11:48] LABS: Glucose - Point of Care 121 mg/dl (70-99)
--- NOTE | 2024-10-19 11:53 | CON.GS ---
Addendum entered and electronically signed by Dk Paula MD 10/19/24 16:57:
Patient seen and examined with surgical RESIDENTIAL SALES MANAGER in follow-up consultation. at bedside.
HPI: 69-year-old male who developed the acute onset of epigastric and mid abdominal pain radiating to the back after eating meatball sandwich. His symptoms improved a bit but then he had banana pudding which caused the symptoms to return with
nausea/vomiting and diarrhea. This prompted emergency department evaluation which is notable for cholelithiasis and choledocholithiasis. He is on therapeutic anticoagulation and took his last dose of Eliquis yesterday.
Past medical history notable for P A-fib, CHF with preserved ejection fraction, COPD, GERD, hypertension, NIDDM, hepatic steatosis, PAD, carotid stenosis. Retinal artery embolism and psoriatic arthritis.
Past abdominal surgical history notable for open sigmoidectomy. Multiple additional orthopedic procedures.
AFVSS
NAD AAO x 3
ABD: Soft, obese but not distended. Tenderness to palpation supraumbilical and right upper quadrant. No rebound or guarding. Lower midline laparotomy surgical scar from suprapubic to umbilicus.
CT/MR imaging reviewed. Cholelithiasis but no signs of acute calculus cholecystitis. Choledocholithiasis.
Assessment/plan: 69-year-old male with choledocholithiasis and cholelithiasis.
Reviewed with patient and his indications for consideration of cholecystectomy. We discussed the typical timing of surgery which is after clearance of the common bile duct with ERCP but at this index hospitalization which is his preference.
Laparoscopic cholecystectomy with intraoperative cholangiogram was reviewed in detail including the operative technique utilizing a diagram and drawing, alternative treatment options benefits and potential risks.
Timing of surgery pending ERCP completion with GI service
Will follow peripherally pending the above and reengage to schedule cholecystectomy after ERCP
Original Note:
Consultation
-
Date/Time Consultation Performed: 10/19/24 5905
Medical History
-
Chief Complaint: abdominal pain
History of Present Illness:
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
abdominal pain for the past 5 days which developed after eating a meatball sandwich accompanied by nausea, vomiting and diarrhea. He denies fevers or chills. He was initially seen at an urgent care but referred to the ER for further work up and
treatment. He has noted tenderness currently to the epigastrium. He is currently without complaints of nausea.
Past Medical History
Past Medical History: Arrhythmias (PAF on Eliquis LD 10/18/24 ), Cancer (left eye), CHF (HFpEF), COPD, Diverticulitis, GERD, HTN, NIDDM and Other (PUD, pancreatitis, hepatic steatosis, PAD, obesity, Carotid stenosis, Embolism involving retinal
artery, Arthropathic psoriasis on Skyrizi)
Past Surgical History: Bowel Resection (sigmoid resection (open)), Orthopedic (femoral cliff 1975, quad tendon repair) and Other (right SFA PTCA /stent 2019)
Social History
Tobacco: Former Smoker (prior heavy smoker, quit 2019)
Alcohol: Former
Drug: Former User (cocaine)
Personal:
Living: With Family
Family History
Family History: Reviewed & Not Pertinent
Allergies / Home Medications
Allergy/AdvReac Type Severity Reaction Status Date / Time
Penicillins Allergy Itching Verified 10/18/24 11:03
�Medication �Instructions �Recorded �Confirmed �Type
cilostazol 100 mg tablet 100 mg PO BID 08/10/19 10/18/24 History
sotalol 80 mg tablet 80 mg PO BID #60 tabs 08/20/19 10/18/24 Rx
metoprolol succinate 50 mg 100 mg PO DAILY 01/08/20 10/18/24 History
tablet,extended release 24 hr
potassium chloride 20 mEq 20 meq PO DAILY 01/08/20 10/18/24 History
tablet,extended release
apixaban 5 mg tablet (Eliquis) 5 mg PO BID 10/14/20 04/17/25 History
rosuvastatin 5 mg tablet 5 mg PO DAILY 04/16/20 10/18/24 History
albuterol sulfate 90 mcg/actuation 2 puff inhalation R Q6HPRN PRN sob 10/18/24 10/18/24 History
aerosol inhaler
clobetasol 0.05 % topical ointment 1 applic topical DAILYPRN PRN 10/18/24 10/18/24 History
psoriasis
empagliflozin 25 mg tablet 25 mg PO DAILY 10/18/24 10/18/24 History
(Jardiance)
glipizide 10 mg tablet, extended 10 mg PO BID 10/18/24 10/18/24 History
release 24 hr
omega 5-qco-vxj-fish oil 1,200 mg 1 cap PO DAILY 10/18/24 10/18/24 History
(144 mg-216 mg) capsule (Fish Oil)
omeprazole magnesium 20 mg 20 mg PO DAILY 10/18/24 10/18/24 History
tablet,delayed release (Prilosec
OTC)
risankizumab-rzaa 75 mg/0.83 mL 150 mg SC Q12W 10/18/24 10/18/24 History
subcutaneous syringe
therapeutic multivitamin 1 tab PO DAILY 10/18/24 10/18/24 History
Review of Systems
-
History Source: Patient
All other systems: Negative unless noted
A 10 point review of systems was completed, and was negative except as per HPI.
Physical Exam
Vital Signs
Temp Pulse Resp BP Pulse Ox
97.5 F 86 18 141/91 95
10/19/24 07:00 10/19/24 07:00 10/19/24 07:00 10/19/24 07:00 10/19/24 07:00
10/18/24 10/19/24 10/20/24
06:59 06:59 06:59
Actual Weight 111.215 kg
Body Mass Index (BMI) 31.5
Lab Results
10/19/24 06:31
10/19/24:
WBC 6.8 10^3/uL (4.8-10.8) 10/19/24 06:
Hgb 15.4 g/dL (13.0-18.0) 10/19/24 06:
Hct 43.5 % (39.0-52.0) 10/19/24 06:
Plt Count 141 10^3/uL (130-400) D 10/19/24:
Abs Immat Gran (auto) 0.0 10^3/uL (0-0.05) 10/18/24 12:23
Neutrophils % 73.6 % (42.2-75.2) 10/18/24 12:23
Physical Exam
General: Well Developed and Well Nourished
HEENT: Moist Mucous Membranes
Respiratory: Non Labored Respirations
GI: Soft and Tender (epigastrium)
Skin: Warm and Dry
Neuro: Awake, Alert and AO x 3
Psych: Calm
Data Reviewed
-
CT Scan: Image Personally Visualized and interpreted, Report Reviewed by me, Discussed with Physician and Discussed with Patient
MRI: Image Personally Visualized and interpreted, Report Reviewed by me, Discussed with Physician and Discussed with Patient
Labs: Labs Reviewed by me, Discussed with Physician and Discussed with Patient
Old Records: Reviewed
Assessment / Plan
-
69 yo male presenting with 5 days of epigastric/upper abdominal pain with intermittent n/v/d. Mild leukocytosis on presentation, now resolved off abx. Bilirubin elevated to 2.0 on admission, now down to 1.3. Mild transaminitis. Lipase wnl. CT with
cholelithiasis and some mild gallbladder distention but no evidence of cholecystitis such as wall thickening or pericholecystic stranding. CBD/intrahepatic ducts with dilation. Incidentally, there is a subacute right 7th rib fracture. MRCP in
follow up demonstrating choledocholithiasis, again no cholecystitis noted. Afebrile with stable vital signs. Tender to the epigastrium, no RUQ tenderness.
Discussed with GI MAL, ERCP being scheduled tentatively this vs Tuesday after Eliquis washout. Pletal now on hold as well.
Discussed the role of cholecystectomy with patient for prevention of future episodes. Timing TBD. ERCP will need to be first. He would like to proceed with surgery this admission.
--Continue with Eliquis/Pletal on hold
--Diet as per GI
--Timing of cholecystectomy TBD pending ERCP findings
--- NOTE | 2024-10-19 12:53 | CM ---
CM reviewed chart, patient seen bedside, initial assessment completed. Patient resides with his in a split level home, two steps to enter. Patient is independent with ADLs/IADLs, denies use of DME. Patient denies history of VN/SNF. Patient PCP
Romeo Duarte, patient reports he will changing providers soon. Patient confirms pharmacy [facility] in [place], confirms prescription coverage. CM will continue to follow for all discharge planning needs.
Plan; home no needs likely.
[2024-10-19 15:00] VITALS: BP 149/76
[2024-10-19 17:12] LABS: Glucose - Point of Care 90 mg/dl (70-99)
[2024-10-19] MEDS: ZOSYN 50 IV (18:36)
[2024-10-19 20:17] VITALS: BP 132/70
[2024-10-19 22:24] LABS: Glucose - Point of Care 144 mg/dl (70-99)
[2024-10-19 23:09] VITALS: BP 132/80
[2024-10-20] VITALS (8 sets, daily range): BP systolic 141–188; BP diastolic 78–107; BMI 31.5
[2024-10-20] MEDS: ZOSYN 50 IV ×5 (00:24→23:10)
--- NOTE | 2024-10-20 06:31 | PTCARENOTE ---
IV fluids at 0859. Once bag is completed, order is to be discontinued.
[2024-10-20] MEDS: D5/0.9% SODIUM CHLORIDE IV (06:38)
[2024-10-20 07:24] LABS: Hematocrit 41.8 % (39.0-52.0); Hemoglobin 14.6 g/dL (13.0-18.0); Mean Corp Hgb Conc. 34.9 g/dL (33.0-37.0); Mean Corpuscular Hgb 32.6 pg (27.0-31.0); Mean Corpuscular Volume 93.3 fL (80.0-94.0); Platelet Count 137 10^3/uL (130-400); Red Blood Cell Count 4.48 10^6/uL (4.70-6.10); Red Cell Dist. Width 12.9 % (11.5-14.5); White Blood Cell Count 5.8 10^3/uL (4.8-10.8)
[2024-10-20 07:43] LABS: ALT (SGPT) 72 U/L (0-50); AST (SGOT) 33 U/L (17-59); Albumin 3.5 g/dl (3.5-5.0); Alkaline Phosphatase 108 U/L (38-126); Blood Urea Nitrogen 8 mg/dl (9-20); Calcium 8.6 mg/dl (8.4-10.2); Carbon Dioxide 26 mmol/L (22-30); Chloride 104 mmol/L (98-107); Estimated Creatinine Clearance 119 ml/min; Glucose 127 mg/dl (70-99); Potassium 3.5 mmol/L (3.5-5.1); Sodium 140 mmol/L (135-145); Total Bilirubin 1.1 mg/dl (0.2-1.3); Total Protein 6.1 g/dl (6.3-8.2); eGFR > 60.00
[2024-10-20 07:55] LABS: Glucose - Point of Care 129 mg/dl (70-99)
[2024-10-20] MEDS: BETAPACE 80 MG PO ×2 (07:59→20:01)
[2024-10-20] MEDS: THERAGRAN 1 TABLET PO (07:59)
[2024-10-20] MEDS: NSS (PRESERVATIVE FREE) 10 ML IV (07:59)
[2024-10-20] MEDS: PROTONIX IV 40 MG IV (07:59)
[2024-10-20] MEDS: FARXIGA 10 MG PO (07:59)
[2024-10-20] MEDS: TOPROL XL 100 MG PO (07:59)
[2024-10-20 08:01] LABS: INR 1.08; PT 14.3 Sec (11.4-14.6)
--- NOTE | 2024-10-20 08:34 | W.PN.HOSP.TC ---
Addendum entered and electronically signed by Kandice Pickering MD 10/20/24 12:16:
Addendum
Pt is having pain after eating
will cut back to full liquid
will give PRN IV Dilaudid
Original Note:
Today's Communication/Plan
-
IV Abx
Stop IVF
Assessment / Plan
Assessment / Plan
Physical Exam
General: Well Developed, Well Nourished, No Apparent Distress and Comfortable; Negative Pain, Fever or Chills
HEENT: Normocephalic
Respiratory: Clear to Auscultation
Cardiac: Regular Rhythm and S1/S2
GI: Soft, Nondistended, Normal Bowel Sounds, not Tender
Genito-urinary: No Costovertebral Tender
Musculoskeletal: No Clubbing, No Cyanosis and No Edema
Skin: Warm and Rash (Psoriatic rashes on b/l LE)
Neuro: Awake, Alert, Oriented and AO x 3
Psych: Calm
69-year-old former smoker male with history of A-fib on Eliquis, CHF, hypertension, PAD with stent to right leg presenting with 4 days of nausea vomiting and diarrhea - water like consistency daily. He notes chills and sweats but no measurable
fever. Currently reports no fever, chills, abdominal pain.
# Choledocholithiasis and gallstones
No abdominal pain over night, no nausea, tolerating oral intake
- Elevated LFTs, CBD dilation (1.3 cm) on CT scan
- Total Bilirubin 2.0 --> 1.3, AST 104 --> 48, ALT 149 --> 101, Alkaline Phos 158 --> 120
- Lipase normal
- CT abdomen/pelvis with IV contrast: 1. Dilation of the common bile duct. Mild intrahepatic biliary dilation. Mild distention of the gallbladder. No common bile duct filling defect identified.
- Abdomen MRI suggestive of choledocholithiasis, gallstones without wall thickening.
- GI on board, tentative plan for ERCP on Tuesday after Eliquis washout
- Eliquis and Pletal on hold
- Cleared for clear liquid diet by GI
- Continue zofran prn
-Stop IVF
- Started IV Zosyn for concern for cholangitis (hx of chills), although less likely with no fever and no leukocytosis. Discussed plan with pharmacy and GI
- Surgery on board, tentative plan for cholecystectomy next week after ERCP
# Diarrhea
- Likely viral gastroenteritis
- s/p IVF
- Stool Cx pending, Stool wbcs neg, norovirus neg
- Continue to monitor electrolytes
# Paroxysmal A-fib
- s/p cardiac ablation
- Patient follows with [facility]ology
- Continue Sotalol 80 mg twice daily with hold parameters
- Continue metoprolol succinate 100 mg daily with hold parameters
- Eliquis held
# HFpEF
- Continue metoprolol succinate 50 daily, rosuvastatin
- Empagliflozin held
# Diabetes
- Glipizide and empagliflozin held
- Continue SSI, Accu-Checks
- HbA1c pending
# Essential HTN
- Continue Metoprolol succinate 100 mg daily
# HLD
- Continue Crestor 5 mg at bedtime
#PAD with stent to right leg
- Holding Crestor 5 mg daily
- Pletal held
# GERD, hx gastric ulcer
- on IV Protonix
# Tobacco use, former
- 47-year 3 pack a day, quit 2019
- Recommended outpt f/u for 3mm LLL nodule noted on CT
#Diverticulitis requiring colon resection and reanastomosis
# Subacute to chronic fracture anterior right seventh rib
- Stable, likely chronic
- Pain management
#Former alcohol abuse daily drinker stopped early 30s
#Hepatomegaly and hepatic fatty liver
#Former cocaine user�snorting in his 20s and 30s
# Polycythemia
- Likely 2/2 tobacco use
# QTc prolonged (506)
- On Sotalol and Pletal (currently held)
- Continue to monitor
DVT prophylaxis
Eliquis held
SCDs
Total time spent to see the patient, examine the patient, review data and lab result, discuss treatment plan with patient, nursing staff around 55 minutes
Anticipated Discharge: > 48 hours
Subjective/Interval History
-
Date of Service: October 20, 2024
No abd pain
No sob
No nausea
Tolerating oral intake
Objective Data
-
Labs:
Laboratory Results
10/20/24
06:59
WBC 5.8
Hgb 14.6
Hct 41.8
Plt Count 137
PT 14.3
INR 1.08
Sodium 140
Potassium 3.5
Chloride 104
Carbon Dioxide 26
BUN 8 L
Creatinine 0.8
Glucose 127 H
Calcium 8.6
Total Bilirubin 1.1
AST 33
ALT 72 H
Alkaline Phosphatase 108
Vital Signs:
Vital Signs
Temp Pulse Resp BP Pulse Ox
97.9 F 88 18 141/78 96
10/20/24 03:45 10/20/24 03:45 10/20/24 03:45 10/20/24 03:45 10/20/24 03:45
I&O
10/19/24 10/20/24 10/21/24
06:59 06:59 06:59
Intake Total 60 60 4635 / 4635
Balance 60 / 60 4635 / 4635
--- NOTE | 2024-10-20 10:06 | W.PN.GI.CBS2 ---
Today's Communication / Plan
-
LFTs improving without worsening abd pain. Plan for ERCP on Tuesday, 10/22, for further management of choledocholithiasis. See rest of care as outlined below.
Assessment / Plan
-
Mr. Young is a 69yo presents with hx Afib On Eliquis, PAD with prior stent, HTN, diverticulitis, obesity, former tobacco use, HLD, GERD, distant hx pancreatitis - ETOH related, fatty liver, bowel resection for diverticular disease, gastric
ulcers, DM, COPD, carotid stenosis, mod MR/TR with onset of chills, sweats, abdominal pain, with nausea, vomiting and diarrhea. On admission noted with WBC 11,000, paul 2, AST 104, ALT 149, alk phos 159, lipase 92 with improvement after admission.
Ct on admission with dilation of CBD with mild intrahepatic dilatation and mild GB distention no filling defect, lung nodule, HM with fatty liver, diverticulosis with prior resection, subacute to chronic rib fx. Follow up MRI with
choledocholithiasis, cholelithiasis HSM and hepatic steatosis. follow up MRI/MRCP with choledocholithiasis with intra and extrahepatic biliary dilation, cholelithiasis and HSM with hepatic steatosis. In review with patient hx similar admission to
[place] in 2018 with etiology unclear. He recall EGD but no clear etiology. He now notes symptoms for several days with wt loss, decreased oral intakes, dry heaves/vomiting small amount bile, yellow liquid stools, Hx EGD [place] 2018 did not
recall any abnormality and colonoscopy last 2019 overdue for follow up with new hx brother with stage III colon Ca.
#Choledocholithiasis
#Cholelithiasis
#Nausea/Vomiting #Abd Pain
#A Fib (on Eliquis, last dose 10/18- )
#PAD (on Pletal, last dose 10/19- )
#Leukocytosis- Resolved
Impression: have elevated LFTs and recent MRI/MRCP revealing choledocholithiasis. Clinically, he reports improving symptoms and recent LFTs improving on repeat labs. He is without any other signs or symptoms concerning for cholangitis and remains on
IV abx as well along with down-trending LFTs without worsening hyperbilirubinemia.
Recommendations:
- Okay for low-fat diet as tolerated over weekend. Keep NPO on Tuesday at [place]
- If worsening abd pain, would de-escalate back to liquids
- Trend serial LFTs and total fractionated T bili
- Continue empiric IV abx for now
- Plan for ERCP for further management of choledocholithiasis tentatively on Tuesday, 10/22.
- Continue to hold eliquis and pletal
- Surgery following for lap dann this admission
- Pain control and anti-emetics PRN
- Rest of care as per primary team
Discussed with primary internal medicine team this AM. GI will continue to follow.
Subjective
Subjective
Date of Service: October 20, 2024
- No acute events overnight, remains afebrile and HD-stable
- LFTs improving on repeat AM labs
Feeling well, resting comfortably this AM. Still with mild epigastric and RUQ abd discomfort but no other nausea or vomiting. Tolerating diet without difficulty. No other fevers, chills or other constitutional symptoms.
Objective
Data Reviewed
Laboratory Data:
Laboratory Results
10/20/24 06:59
10/20/24 06:59
Laboratory Results
PT 14.3 Sec (11.4-14.6) 10/20/24 06:59
INR 1.08 10/20/24 06:59
Total Bilirubin 1.1 mg/dl (0.2-1.3) 10/20/24 06:59
AST 33 U/L (17-59) 10/20/24 06:59
ALT 72 U/L (0-50) H 10/20/24 06:59
Alkaline Phosphatase 108 U/L (38-126) 10/20/24 06:59
Lipase 92 U/L (23-300) 10/18/24 12:23
Vital Signs and I&O:
Vital Signs
Temp Pulse Resp BP Pulse Ox
97.8 F 80 20 161/87 95
10/20/24 07:45 10/20/24 07:45 10/20/24 07:45 10/20/24 07:45 10/20/24 07:45
I&O
10/19/24 10/20/24 10/21/24
06:59 06:59 06:59
Intake Total 60 / 60 4635 / 4635
Balance 60 / 60 4635 / 4635
Physical Exam
Physical Exam
HEENT: Anicteric and Moist mucous membranes
Cardiology: Normal Sinus Rhythm
Pulmonary: Other (Normal WOB on room air)
GI: Soft, Distended (Protuberant, obese abdomen) and Tender (Mild TTP in epigastric region)
Extremities: Warm
Neuro: Non Focal
[2024-10-20 10:17] LABS: Absolute Neutrophils -Man Diff 3.1 10^3/uL (1.4-6.5); Band Neutrophils 0 % (0-3); Eosinophils 4 % (0-6); Lymphocytes 29 % (20-51); Monocytes 12 % (2-9); Platelets Checked Yes; Segmented Neutrophils 55 % (42-75)
[2024-10-20 10:18] LABS: Normal RBC Morphology Yes; Total Cells Counted 100
[2024-10-20 11:55] LABS: Glucose - Point of Care 128 mg/dl (70-99)
[2024-10-20] MEDS: ZOFRAN 4 MG IV (12:20)
[2024-10-20] MEDS: DILAUDID 0.5 MG IV ×3 (12:21→22:19)
--- NOTE | 2024-10-20 15:01 | PTCARENOTE ---
Reports 02/10 'chest pain' but pointing to epigastric area, the same place where he reported abdominal pain earlier in day. BP elevated. Dr. Pickering aware, ordered PRN Dilaudid, given. Patient reports a tolerable level of pain now, 09/10. BP remains
elevated, 185/107. Dr. Pickering aware.
[2024-10-20] MEDS: APRESOLINE 5 MG PO (15:16)
[2024-10-20 16:15] LABS: Glucose - Point of Care 133 mg/dl (70-99)
--- NOTE | 2024-10-20 16:43 | W.PN.UPDATE ---
Update Note
Progress Note Update
Worsening epigastric pain after eating
Went to see the patient because he is having abdominal pain
Patient started to have upper epigastric abdominal pain since eating. Given Dilaudid but still having discomfort. Mild nausea but no vomiting.
Will rule out cardiac origin due to location of the pain/lower chest/upper epigastric blood pressure elevated 185 /107 . He received low-dose oral hydralazine
Order stat troponin, CT angio of the chest to rule out blood clots/aortic dissection
Stat EKG, unchanged from prior with right bundle branch block
Will give IV hydralazine and press on pain control. Diet was discontinued.
Will follow
[2024-10-20] MEDS: APRESOLINE 10 MG IV (17:19)
[2024-10-20] MEDS: NSS 1000 IV (17:22)
--- NOTE | 2024-10-20 17:29 | PTCARENOTE ---
Dr. Pickering assessed patient at bedside. EKG taken, troponins drawn and pending. CT chest ordered, taken awaiting results. BP remains elevated, 199/116, HR 90s. Medicated w/ x1 dose hydralazine and dilaudid for 6/10 epigastric pain.
[2024-10-20 17:46] LABS: Troponin I 0.032 ng/ml
[2024-10-20] MEDS: COZAAR 50 MG PO (18:44)
[2024-10-20 21:27] LABS: Glucose - Point of Care 118 mg/dl (70-99)
[2024-10-20 22:06] LABS: Troponin I 0.084 ng/ml
[2024-10-21] VITALS (8 sets, daily range): BP systolic 145–169; BP diastolic 76–87; BMI 30.9
[2024-10-21] MEDS: APRESOLINE 10 MG IV ×3 (03:07→20:25)
[2024-10-21 04:04] LABS: % Basophils 0.4 % (0-2); % Immature Granulocytes 0.3 % (0-0.5); % Lymphocytes 14.7 % (20.5-51.1); % Monocytes 15.1 % (1.7-9.3); % Neutrophils 68.5 % (42.2-75.2); Absolute Eosinophils 0.1 10^3/uL (0-0.7); Absolute Lymphocytes 1.1 10^3/uL (1.2-3.4); Absolute Monocytes 1.2 10^3/uL (0.1-0.6); Absolute Neutrophils 5.3 10^3/uL (1.4-6.5); Hematocrit 43.9 % (39.0-52.0); Hemoglobin 15.6 g/dL (13.0-18.0); Mean Corp Hgb Conc. 35.5 g/dL (33.0-37.0); Mean Corpuscular Hgb 32.6 pg (27.0-31.0); Mean Corpuscular Volume 91.8 fL (80.0-94.0); Mean Platelet Volume 9.9 fL (7.4-10.4); Nucleated Red Blood Cells % 0 % (-); Platelet Count 146 10^3/uL (130-400); Red Blood Cell Count 4.78 10^6/uL (4.70-6.10); Red Cell Dist. Width 12.8 % (11.5-14.5); White Blood Cell Count 7.8 10^3/uL (4.8-10.8)
[2024-10-21 04:18] LABS: ALT (SGPT) 271 U/L (0-50); AST (SGOT) 200 U/L (17-59); Albumin 3.9 g/dl (3.5-5.0); Alkaline Phosphatase 320 U/L (38-126); Blood Urea Nitrogen 8 mg/dl (9-20); Calcium 8.9 mg/dl (8.4-10.2); Carbon Dioxide 22 mmol/L (22-30); Chloride 103 mmol/L (98-107); Estimated Creatinine Clearance > 125 ml/min; Glucose 89 mg/dl (70-99); Potassium 3.3 mmol/L (3.5-5.1); Sodium 140 mmol/L (135-145); Total Bilirubin 3.2 mg/dl (0.2-1.3); Total Protein 6.6 g/dl (6.3-8.2); eGFR > 60.00
[2024-10-21 04:26] LABS: Troponin I 0.068 ng/ml
[2024-10-21] MEDS: ZOSYN 50 IV ×3 (05:42→18:07)
[2024-10-21 06:08] LABS: Glucose - Point of Care 95 mg/dl (70-99)
[2024-10-21] MEDS: NOVOLOG FLEXPEN-LOW RESISTANCE SC ×3 (06:10→18:12)
--- NOTE | 2024-10-21 06:36 | W.PN.GI.CBS2 ---
Today's Communication / Plan
-
Suspect worsening biliary colic from previous solid food with rise in LFTs, likely from ball-valving CBD stones. Still without signs of cholangitis. Plan for ERCP tomorrow, 10/22/24, and keep NPO at [place]. See rest of care as outlined below.
Assessment / Plan
-
Mr. Young is a 69yo presents with hx Afib On Eliquis, PAD with prior stent, HTN, diverticulitis, obesity, former tobacco use, HLD, GERD, distant hx pancreatitis - ETOH related, fatty liver, bowel resection for diverticular disease, gastric
ulcers, DM, COPD, carotid stenosis, mod MR/TR with onset of chills, sweats, abdominal pain, with nausea, vomiting and diarrhea. On admission noted with WBC 11,000, paul 2, AST 104, ALT 149, alk phos 159, lipase 92 with improvement after admission.
Ct on admission with dilation of CBD with mild intrahepatic dilatation and mild GB distention no filling defect, lung nodule, HM with fatty liver, diverticulosis with prior resection, subacute to chronic rib fx. Follow up MRI with
choledocholithiasis, cholelithiasis HSM and hepatic steatosis. follow up MRI/MRCP with choledocholithiasis with intra and extrahepatic biliary dilation, cholelithiasis and HSM with hepatic steatosis. In review with patient hx similar admission to
[place] in 2019 with etiology unclear. He recall EGD but no clear etiology. He now notes symptoms for several days with wt loss, decreased oral intakes, dry heaves/vomiting small amount bile, yellow liquid stools, Hx EGD [place] 2018 did not
recall any abnormality and colonoscopy last 2019 overdue for follow up with new hx brother with stage III colon Ca.
#Choledocholithiasis
#Cholelithiasis
#Nausea/Vomiting #Abd Pain
#A Fib (on Eliquis, last dose 10/18- )
#PAD (on Pletal, last dose 10/19- )
#Leukocytosis- Resolved
Impression: have elevated LFTs and recent MRI/MRCP revealing choledocholithiasis. Clinically, he reports improving symptoms and recent LFTs improving on repeat labs. He is without any other signs or symptoms concerning for cholangitis and remains on
IV abx as well along with down-trending LFTs without worsening hyperbilirubinemia. However, developed worsening epigastric pain and rise in LFTs after eating solid food concerning ball-valving CBD stones resulting in symptoms. Otherwise, remains
afebrile without leukocytosis.
Recommendations:
- Okay with sips of clears, keep NPO at [place]
- Trend serial LFTs and total fractionated T bili
- Continue empiric IV abx for now
- Discussed/reviewed risks and benefits of ERCP with patient this AM
- Plan for ERCP for further management of choledocholithiasis tentatively tomorrow on 10/22
- Continue to hold eliquis and pletal
- Surgery following for lap dann this admission
- Pain control and anti-emetics PRN
- Rest of care as per primary team
Discussed with both patient and primary internal medicine team this AM. GI will continue to follow.
Subjective
Subjective
Date of Service: October 21, 2024
- Worsening epigastric pain after eating, CT Chest (-) PE, aortic dissection/aneurysm, or pneumonia, elevated troponin 0.084 -> 0.068
- Rise in LFTs with T Bili 1.1 -> 3.2 and mild increase in transaminases, otherwise no leukocytosis and remains afebrile
Feeling better this morning, reports less abdominal / epigastric discomfort without any nausea/vomiting. No other fevers or chills or other constitutional symptoms.
Objective
Data Reviewed
Laboratory Data:
Laboratory Results
10/21/24 03:53
10/21/24 03:53
Laboratory Results
PT 14.3 Sec (11.4-14.6) 10/20/24 06:59
INR 1.08 10/20/24 06:59
Total Bilirubin 3.2 mg/dl (0.2-1.3) H D 10/21/24 03:53
AST 200 U/L (17-59) H 10/21/24 03:53
ALT 271 U/L (0-50) H 10/21/24 03:53
Alkaline Phosphatase 320 U/L (38-126) H 10/21/24 03:53
Lipase 92 U/L (23-300) 10/18/24 12:23
Vital Signs and I&O:
Vital Signs
Temp Pulse Resp BP Pulse Ox
97.9 F 81 14 163/84 96
10/21/24 03:38 10/21/24 03:38 10/21/24 03:38 10/21/24 03:38 10/21/24 03:38
I&O
10/19/24 10/20/24 10/21/24
06:59 06:59 06:59
Intake Total 60 / 60 4635 / 4635 1405 / 1405
Balance 60 / 60 4635 / 4635 1405 / 1405
Physical Exam
Physical Exam
HEENT: Anicteric and Moist mucous membranes
Pulmonary: Other (Normal WOB on room air)
GI: Soft, Distended (Protuberant obese abdomen) and Tender (Mild to moderate TTP in epigastric region)
Extremities: No Edema
Neuro: Non Focal
[2024-10-21 07:36] LABS: Glucose - Point of Care 88 mg/dl (70-99)
[2024-10-21] MEDS: COZAAR 50 MG PO (08:00)
[2024-10-21] MEDS: KCL 20 MEQ PO (08:00)
[2024-10-21] MEDS: FARXIGA 10 MG PO (08:00)
[2024-10-21] MEDS: NSS 1000 IV ×2 (08:00→20:26)
[2024-10-21] MEDS: BETAPACE 80 MG PO ×2 (08:00→20:19)
[2024-10-21] MEDS: KCL 270 MEQ IV (08:00)
[2024-10-21] MEDS: THERAGRAN 1 TABLET PO (08:01)
[2024-10-21] MEDS: PROTONIX IV 40 MG IV (08:01)
[2024-10-21] MEDS: TOPROL XL 100 MG PO (08:01)
[2024-10-21] MEDS: NSS (PRESERVATIVE FREE) 10 ML IV (08:01)
--- NOTE | 2024-10-21 08:49 | W.PN.HOSP.TC ---
Addendum entered and electronically signed by Kandice Pickering MD 10/21/24 09:04:
Hypokalemia
Original Note:
Today's Communication/Plan
-
Replace K
c/w IV Abx
c/w BB & Losartan
Aspirin, will discuss
IVF/ NPO ( ok for medications and sips)
Assessment / Plan
Assessment / Plan
Physical Exam
General: Well Developed, Well Nourished, No Apparent Distress and Comfortable; Negative Pain, Fever or Chills
HEENT: Normocephalic
Respiratory: Clear to Auscultation
Cardiac: Regular Rhythm and S1/S2
GI: Soft, Nondistended, Normal Bowel Sounds, mild discomfort in RUQ
Genito-urinary: No Costovertebral Tender
Musculoskeletal: No Clubbing, No Cyanosis and No Edema
Skin: Warm and Rash (Psoriatic rashes on b/l LE)
Neuro: Awake, Alert, Oriented and AO x 3
Psych: Calm
69-year-old former smoker male with history of A-fib on Eliquis, CHF, hypertension, PAD with stent to right leg presenting with 4 days of nausea vomiting and diarrhea - water like consistency daily. He notes chills and sweats but no measurable
fever. Currently reports no fever, chills, abdominal pain.
# HTN Urgency
Started on losartan
Continue with metoprolol, continue with as needed hydralazine
# Positive troponin
Patient started to have chest pain. It was hard to distinguish because at the same time he was having biliary pain
With elevation in bilirubin and liver enzyme it seems consistent with biliary issue
Patient has significant coronary artery disease,. Per patient, has blockages 60 to 70%, no records available
Troponin elevation consistent with nonischemic myocardial injury
Will consult cardiology, appreciate input
EKG underlying conduction defect with bundle branch block
Troponin peaked at 0.08 and then came down to 0.06
# Choledocholithiasis and gallstones
Patient did not tolerate diet and like to abdominal pain with worsening liver function tests and hyperbilirubinemia
N.p.o. with sips of clear
Continue with IV antibiotic
As needed pain medicine and as needed nausea medicine
Discussed with GI doctor, plan for ERCP Tuesday after Eliquis washout
# Diarrhea
Resolved
Negative norovirus
# Paroxysmal A-fib
- s/p cardiac ablation
- Patient follows with [facility] cardiology
- Continue Sotalol 80 mg twice daily with hold parameters
- Continue metoprolol succinate 100 mg daily with hold parameters
- Eliquis held
# Chronic HFpEF
- Continue metoprolol succinate 50 daily, rosuvastatin
- Empagliflozin held
# Diabetes
- Glipizide on hold
- Continue SSI, Accu-Checks
- HbA1c 7.3
# HLD
Holding Crestor with elevation liver enzymes
#PAD with stent to right leg
- Holding Crestor 5 mg daily
- Pletal held
# GERD, hx gastric ulcer
- on IV Protonix
# Tobacco use, former
- 49-year 3 pack a day, quit 2019
- Recommended outpt f/u for 3mm LLL nodule noted on CT
#Diverticulitis requiring colon resection and reanastomosis
# Subacute to chronic fracture anterior right seventh rib
- Stable, likely chronic
- Pain management
#Former alcohol abuse daily drinker stopped early 30s
#Hepatomegaly and hepatic fatty liver
#Former cocaine user�snorting in his 20s and 30s
# Polycythemia
- Likely 2/2 tobacco use
# QTc prolonged (506)
- On Sotalol and Pletal (currently held)
- Continue to monitor
DVT prophylaxis
Eliquis held
SCDs
Total time spent to see the patient, examine the patient, review data and lab result, discuss treatment plan with patient, GI doctor, nursing staff around 57 minutes
Anticipated Discharge: > 48 hours
Subjective/Interval History
-
Date of Service: October 21, 2024
No chest pain
No sob
Less abdominal discomfort
Objective Data
-
Labs:
Laboratory Results
10/21/24
03:53
WBC 7.8
Hgb 15.6
Hct 43.9
Plt Count 146
Sodium 140
Potassium 3.3 L
Chloride 103
Carbon Dioxide 22
BUN 8 L
Creatinine 0.7
Glucose 89
Calcium 8.9
Total Bilirubin 3.2 H D
AST 200 H
ALT 271 H
Alkaline Phosphatase 320 H
Vital Signs:
Vital Signs
Temp Pulse Resp BP Pulse Ox
97.5 F 74 20 147/76 96
10/21/24 07:58 10/21/24 07:58 10/21/24 07:58 10/21/24 07:58 10/21/24 07:58
I&O
10/20/24 10/21/24 10/22/24
06:59 06:59 06:59
Intake Total 4635 / 4635 1405 / 1405
Balance 4635 / 4635 1405 / 1405
[2024-10-21 11:54] LABS: Glucose - Point of Care 90 mg/dl (70-99)
--- NOTE | 2024-10-21 13:11 | CON.CAR ---
Addendum entered and electronically signed by Liu Hill MD 10/21/24 15:57:
ECG with new RBBB. Should have stress test outpatient. This does not need to be done prior to ERCP.
Original Note:
Consultation
Consultation Request
Date/Time Consultation Requested: 10/21/24 @ 6:37
Date/Time Consultation Performed: 10/21/24 @ 1:11 PM
Requesting Provider: Cami Pickering MD
Performing Provider: Liu Hill MD
Reason for Consultation: troponin elevation
Medical History
-
Chief Complaint: Trop elevation
History of Present Illness:
Eze Young is a 69-year-old gentleman with HFpEF, paroxysmal atrial fibrillation (s/p PVI '20), long-standing diabetes, dyslipidemia, PAD (Dr. Jauregui), hypertension, STACI (can't tolerate CPAP), and incomplete right bundle-branch block.� He presented
with abdominal pain found to have choledocholithiasis. Cardiology is consulted for elevated troponin. He reports that when he first developed abdominal pain, he could not tell if it was chest or abdominal pain. His pain has improved. Prior to
developing the abdominal pain, he had been in his usual state of health without any chest pain/pressure or dyspnea on exertion. He walked the halls today and was asymptomatic.
Past Medical History
Past Medical History: Other (As above)
Social History
Living: With Family
Family History
Family History: Reviewed & Not Pertinent
Allergies / Home Medications
Allergy/AdvReac Type Severity Reaction Status Date / Time
Penicillins Allergy Itching Verified 10/18/24 11:03
�Medication �Instructions �Recorded �Confirmed �Type
cilostazol 100 mg tablet 100 mg PO BID 08/10/19 10/18/24 History
sotalol 80 mg tablet 80 mg PO BID #60 tabs 08/20/19 10/18/24 Rx
metoprolol succinate 50 mg 100 mg PO DAILY 01/08/20 10/18/24 History
tablet,extended release 24 hr
potassium chloride 20 mEq 20 meq PO DAILY 01/08/20 10/18/24 History
tablet,extended release
apixaban 5 mg tablet (Eliquis) 5 mg PO BID 04/16/20 10/18/24 History
rosuvastatin 5 mg tablet 5 mg PO DAILY 04/16/20 10/18/24 History
albuterol sulfate 90 mcg/actuation 2 puff inhalation R Q6HPRN PRN sob 10/18/24 10/18/24 History
aerosol inhaler
clobetasol 0.05 % topical ointment 1 applic topical DAILYPRN PRN 10/18/24 10/18/24 History
psoriasis
empagliflozin 25 mg tablet 25 mg PO DAILY 10/18/24 10/18/24 History
(Jardiance)
glipizide 10 mg tablet, extended 10 mg PO BID 10/18/24 10/18/24 History
release 24 hr
omega 8-roi-zya-fish oil 1,200 mg 1 cap PO DAILY 10/18/24 10/18/24 History
(144 mg-216 mg) capsule (Fish Oil)
omeprazole magnesium 20 mg 20 mg PO DAILY 10/18/24 10/18/24 History
tablet,delayed release (Prilosec
OTC)
risankizumab-rzaa 75 mg/0.83 mL 150 mg SC Q12W 10/18/24 10/18/24 History
subcutaneous syringe
therapeutic multivitamin 1 tab PO DAILY 10/18/24 10/18/24 History
Review of Systems
-
All other systems: Negative unless noted
Physical Exam
Vital Signs
Temp Pulse Resp BP Pulse Ox
97.5 F 70 16 154/80 97
10/21/24 11:10 10/21/24 11:53 10/21/24 11:10 10/21/24 11:53 10/21/24 11:10
Lab Results
10/21/24 03:53
10/21/24 03:53
Troponin I 0.068 ng/ml H* 10/21/24 03:53
Physical Exam
General: Well Developed and Well Nourished
Respiratory: Clear
Cardiac: S1/S2 and Regular Rhythm; Negative Murmur or Peripheral Edema
Neuro: AO x 3
Impression / Plan
-
Eze Young is a 69-year-old gentleman with HFpEF, paroxysmal atrial fibrillation (s/p PVI '20), long-standing diabetes, dyslipidemia, PAD (Dr. Jauregui), hypertension, STACI (can't tolerate CPAP), and incomplete right bundle-branch block.� He presented
with abdominal pain found to have choledocholithiasis. Cardiology is consulted for elevated troponin.
Elevated troponin
-Likely nonischemic myocardial injury due to infection with choledocholithiasis and hypertension. Troponin 0.032 -> 0.084 -> 0.068. Asymptomatic. ECG nonischemic.
-Okay to stop trending
-He is able to complete 4 METS of activity without symptoms and does not need any further cardiovascular testing prior to ERCP tomorrow
Chronic HFpEF
-Examines euvolemic
- Continue SGLT2 inhibitor
Hypertension
-BP has been high here
-Continue metoprolol 100 mg daily and losartan 50 mg daily. Uptitrate as tolerated.
Paroxysmal atrial fibrillation
-Continue sotalol and metoprolol
-Apixaban held. Does not need heparin bridging. Resume when safe from a GI standpoint
Dyslipidemia: Continue statin
Cardiology will sign off at this time. Please call with any additional questions or concerns.
Data Reviewed
-
EKG: Tracing Personally Visualized and interpreted, Discussed with Physician and Discussed with Patient
CT Scan: Report Reviewed by me
Medical Tests (Nuc Med, Echo etc): Report Reviewed by me
Labs: Labs Reviewed by me, Discussed with Physician and Discussed with Patient
Old Records: Reviewed
[2024-10-21 18:11] LABS: Glucose - Point of Care 78 mg/dl (70-99)
[2024-10-21 18:47] LABS: Glucose - Point of Care 90 mg/dl (70-99)
[2024-10-21] MEDS: DILAUDID 0.5 MG IV (22:43)
[2024-10-21 23:59] LABS: Glucose - Point of Care 79 mg/dl (70-99)
[2024-10-22] VITALS (13 sets, daily range): BP systolic 144–197; BP diastolic 75–108; BMI 30.6
[2024-10-22] MEDS: NOVOLOG FLEXPEN-LOW RESISTANCE SC ×4 (00:17→17:02)
[2024-10-22] MEDS: ZOSYN 50 IV ×5 (00:18→23:07)
[2024-10-22 05:59] LABS: Glucose - Point of Care 84 mg/dl (70-99)
--- NOTE | 2024-10-22 07:03 | W.PN.HOSP.TC ---
Addendum entered and electronically signed by Yohannes Blevins MD 10/23/24 15:46:
S/p lap dann with surgery
Returned with postoperative labs demonstrating a metabolic acidosis start bicarb drip once bicarb around 18 can go ahead discontinue.
Has no abdominal pain the lipase is greater than 4000. This is likely related to ERCP. Resident team discussed this with who recommend LR to reduce bacterial translocation into acid base normalization. Discontinue bicarb drip
Start clear liquid diet
Per GI hold Eliquis until 72 hours post ERCP
Original Note:
Today's Communication/Plan
-
ERCP
Continue IV antibiotic
Assessment / Plan
Assessment / Plan
69-year-old former smoker male with history of A-fib on Eliquis, CHF, hypertension, PAD with stent to right leg presenting with 4 days of nausea vomiting and diarrhea - water like consistency daily. He notes chills and sweats but no measurable
fever. Currently reports no fever, chills, abdominal pain.
# Choledocholithiasis and gallstones
- Patient did not tolerate low-fat diet over the weekend, developed increased abdominal pain with worsening liver function tests and hyperbilirubinemia
- N.p.o. with sips of clear for ERCP today
- Continue with empiric IV antibiotic
- Can start clear liquid diet after ERCP today
- Continue to hold Eliquis for 72 hours post ERCP
# Diarrhea
- Now resolved
- Negative norovirus, stool culture
# Paroxysmal A-fib
- s/p cardiac ablation
- Patient follows with [facility]
- Continue Sotalol 80 mg twice daily with hold parameters
- Continue metoprolol succinate 100 mg daily with hold parameters
- Continue to hold Eliquis for 72 hours post ERCP
# HTN urgency
- Started on losartan
- Continue with metoprolol, continue with as needed hydralazine
# Nonischemic myocardial injury
- Patient had chest pain over the weekend
- Troponin elevated (peaked at 0.08), EKG no ischemic changes but new RBBB, consistent with nonischemic myocardial injury
- Cardiology recommending outpatient stress test
# Chronic HFpEF
- Continue metoprolol succinate 50 daily, rosuvastatin, Farxiga
- Empagliflozin held
# Diabetes
- Glipizide on hold
- Continue SSI, Accu-Checks
- HbA1c 7.3
# HLD
- Holding Crestor with elevation liver enzymes
#PAD with stent to right leg
- Holding Crestor 5 mg daily
- Pletal held
# GERD, hx gastric ulcer
- on IV Protonix
# Tobacco use, former
- 47-year 3 pack a day, quit 2019
- Recommended outpt f/u for 3mm LLL nodule noted on CT
#Diverticulitis requiring colon resection and reanastomosis
# Subacute to chronic fracture anterior right seventh rib
- Stable, likely chronic
- Pain management
#Former alcohol abuse daily drinker stopped early 30s
#Hepatomegaly and hepatic fatty liver
#Former cocaine user�snorting in his 20s and 30s
# Polycythemia
- Likely 2/2 tobacco use
# QTc prolonged (506)
- On Sotalol and Pletal (currently held)
- Continue to monitor
DVT prophylaxis
Eliquis held
SCDs
Total time spent to see the patient, examine the patient, review data and lab result, discuss treatment plan with patient, GI doctor, nursing staff around 57 minutes
Anticipated Discharge: > 48 hours
Subjective/Interval History
-
Date of Service: October 22, 2024
Objective Data
-
Labs:
Laboratory Results
10/22/24
06:00
WBC Pending
Hgb Pending
Hct Pending
Plt Count Pending
Sodium Pending
Potassium Pending
Chloride Pending
Carbon Dioxide Pending
BUN Pending
Creatinine Pending
Glucose Pending
Calcium Pending
Total Bilirubin Pending
AST Pending
ALT Pending
Alkaline Phosphatase Pending
Vital Signs:
Vital Signs
Temp Pulse Resp BP Pulse Ox
97.5 F 70 14 153/75 96
10/22/24 03:42 10/22/24 03:42 10/22/24 03:42 10/22/24 03:42 10/22/24 03:42
I&O
10/21/24 10/22/24 10/23/24
06:59 06:59 06:59
Intake Total 1405 / 1405 1330 / 1330
Balance 1405 / 1405 1330 / 1330
Physical Exam
-
General: Well Developed, Well Nourished, No Apparent Distress and Comfortable
HEENT: Normocephalic
Respiratory: Clear to Auscultation
Cardiac: Regular Rhythm and S1/S2
GI: Soft, Nondistended, Normal Bowel Sounds and Tender (Left lower quadrant and right upper quadrant, without guarding or rebound tenderness)
Musculoskeletal: No Clubbing, No Cyanosis and No Edema
Skin: Warm and Rash (Psoriatic rashes on bilateral lower extremities)
Neuro: Awake, Alert, Oriented and AO x 3
Psych: Calm
[2024-10-22] MEDS: COZAAR 50 MG PO (08:07)
[2024-10-22] MEDS: THERAGRAN 1 TABLET PO (08:07)
[2024-10-22] MEDS: BETAPACE 80 MG PO ×2 (08:07→20:01)
[2024-10-22] MEDS: TOPROL XL 100 MG PO (08:07)
[2024-10-22] MEDS: FARXIGA 10 MG PO (08:07)
[2024-10-22] MEDS: PROTONIX IV 40 MG IV (08:08)
[2024-10-22] MEDS: NSS (PRESERVATIVE FREE) 10 ML IV (08:08)
[2024-10-22 09:32] LABS: Hematocrit 46.2 % (39.0-52.0); Mean Corp Hgb Conc. 34.6 g/dL (33.0-37.0); Mean Corpuscular Hgb 32.5 pg (27.0-31.0); Mean Corpuscular Volume 93.7 fL (80.0-94.0); Platelet Count 153 10^3/uL (130-400); Red Blood Cell Count 4.93 10^6/uL (4.70-6.10); Red Cell Dist. Width 13.1 % (11.5-14.5); White Blood Cell Count 6.2 10^3/uL (4.8-10.8)
[2024-10-22] MEDS: NSS 1000 IV (09:39)
[2024-10-22 09:52] LABS: % Basophils 0.3 % (0-2); % Eosinophils 2.3 % (0-6); % Immature Granulocytes 0.5 % (0-0.5); % Lymphocytes 19.7 % (20.5-51.1); % Monocytes 12.6 % (1.7-9.3); % Neutrophils 64.6 % (42.2-75.2); Absolute Eosinophils 0.1 10^3/uL (0-0.7); Absolute Lymphocytes 1.2 10^3/uL (1.2-3.4); Absolute Monocytes 0.8 10^3/uL (0.1-0.6); Nucleated Red Blood Cells % 0 % (-)
[2024-10-22 09:55] LABS: ALT (SGPT) 288 U/L (0-50); AST (SGOT) 197 U/L (17-59); Albumin 3.9 g/dl (3.5-5.0); Alkaline Phosphatase 370 U/L (38-126); Blood Urea Nitrogen 9 mg/dl (9-20); Calcium 8.7 mg/dl (8.4-10.2); Carbon Dioxide 24 mmol/L (22-30); Chloride 101 mmol/L (98-107); Estimated Creatinine Clearance > 125 ml/min; Glucose 96 mg/dl (70-99); Potassium 3.8 mmol/L (3.5-5.1); Sodium 139 mmol/L (135-145); Total Bilirubin 2.3 mg/dl (0.2-1.3); Total Protein 6.6 g/dl (6.3-8.2); eGFR > 60.00
[2024-10-22 12:19] LABS: Glucose - Point of Care 89 mg/dl (70-99)
--- NOTE | 2024-10-22 14:57 | CM ---
CM reviewed chart, patient off floor. CM received call from Thao, nurse mental health case manager through [facility] regarding assistance with discharge planning ([phone]). CM will continue to follow for all discharge planning needs.
Plan; home no needs likely
[2024-10-22 14:58] LABS: Glucose - Point of Care 111 mg/dl (70-99)
[2024-10-22 15:49] LABS: Glucose - Point of Care 105 mg/dl (70-99)
[2024-10-22] MEDS: APRESOLINE 10 MG IV ×2 (16:00→23:07)
[2024-10-22] MEDS: ZOFRAN 4 MG IV (17:39)
[2024-10-22 20:48] LABS: Glucose - Point of Care 122 mg/dl (70-99)
[2024-10-22] MEDS: DILAUDID 0.5 MG IV (21:27)
[2024-10-23] VITALS (11 sets, daily range): BP systolic 105–157; BP diastolic 62–88; BMI 29.9
[2024-10-23] MEDS: NOVOLOG FLEXPEN-LOW RESISTANCE SC ×2 (00:30→17:26)
[2024-10-23 05:46] LABS: Glucose - Point of Care 161 mg/dl (70-99)
[2024-10-23] MEDS: NOVOLOG FLEXPEN-LOW RESISTANCE 1 UNITS SC ×2 (05:46→12:05)
[2024-10-23] MEDS: ZOSYN 50 IV ×4 (05:47→23:10)
[2024-10-23] MEDS: ZOFRAN 4 MG IV ×2 (05:50→23:09)
--- NOTE | 2024-10-23 06:01 | W.PN.GI.CBS2 ---
Today's Communication / Plan
-
Repeat labs still pending this AM. Plan for lap dann this AM with general surgery. See rest of care as outlined below.
Assessment / Plan
-
Mr. Young is a 69yo presents with hx Afib On Eliquis, PAD with prior stent, HTN, diverticulitis, obesity, former tobacco use, HLD, GERD, distant hx pancreatitis - ETOH related, fatty liver, bowel resection for diverticular disease, gastric
ulcers, DM, COPD, carotid stenosis, mod MR/TR with onset of chills, sweats, abdominal pain, with nausea, vomiting and diarrhea. On admission noted with WBC 11,000, paul 2, AST 104, ALT 149, alk phos 159, lipase 92 with improvement after admission.
Ct on admission with dilation of CBD with mild intrahepatic dilatation and mild GB distention no filling defect, lung nodule, HM with fatty liver, diverticulosis with prior resection, subacute to chronic rib fx. Follow up MRI with
choledocholithiasis, cholelithiasis HSM and hepatic steatosis. follow up MRI/MRCP with choledocholithiasis with intra and extrahepatic biliary dilation, cholelithiasis and HSM with hepatic steatosis. In review with patient hx similar admission to
[place] in 2019 with etiology unclear. He recall EGD but no clear etiology. He now notes symptoms for several days with wt loss, decreased oral intakes, dry heaves/vomiting small amount bile, yellow liquid stools, Hx EGD [place] 2018 did not
recall any abnormality and colonoscopy last 2019 overdue for follow up with new hx brother with stage III colon Ca.
#Choledocholithiasis
#Cholelithiasis
#Nausea/Vomiting #Abd Pain
#A Fib (on Eliquis, last dose 10/18- )
#PAD (on Pletal, last dose 10/19- )
#Leukocytosis- Resolved
Impression: Found to have elevated LFTs and recent MRI/MRCP revealing choledocholithiasis. Clinically, he reports improving symptoms and recent LFTs improving on repeat labs. He is without any other signs or symptoms concerning for cholangitis and
remains on IV abx as well along with down-trending LFTs without worsening hyperbilirubinemia. However, developed worsening epigastric pain and rise in LFTs after eating solid food concerning ball-valving CBD stones resulting in symptoms. Otherwise,
remains afebrile without leukocytosis.
S/p ERCP 10/22: Choledocholithiasis was found within the distal CBD resulting in proximal biliary dilation, managed with biliary sphincterotomy and balloon extraction where four stones and sludge were removed.
Pending repeat LFTs this AM with plans for lap dann with general surgery on 10/23. Mild nausea overnight but improved and without any worsening abdominal pain or epigastric discomfort after ERCP.
Recommendations:
- NPO, okay to restart diet as per general surgery after lap dann
- F/u repeat LFTs and T Bili on AM labs, continue to trend daily
- Continue empiric IV abx Zosyn
- Plan for lap dann today with Dr. Jackson, will f/u surgical note later today
- Continue to hold eliquis and pletal after recent sphincterotomy, okay to restart in 72 hrs from ERCP given sphincterotomy (may resume on 10/25)
- Surgery following, appreciate recs
- Pain control and anti-emetics PRN
- Rest of care as per primary team
Subjective
Subjective
Date of Service: October 23, 2024
- S/p ERCP 10/22: Choledocholithiasis was found within the distal CBD resulting in proximal biliary dilation, managed with biliary sphincterotomy and balloon extraction where four stones and sludge were removed
- Mild nausea overnight, otherwise no acute events overnight
- Repeat labs this AM still pending
Seen in pre-op area prior to planned lap dann with general surgery. Resting comfortably and denies any epigastric discomfort or abdominal pain. No further nausea or episodes of emesis this AM. Notes recent fall in bathroom as he notes he was dizzy,
has been NPO all day yesterday. Denies LOC. No chest pain or SOB.
Objective
Data Reviewed
Laboratory Data:
Laboratory Results
PT 14.3 Sec (11.4-14.6) 10/20/24 06:59
INR 1.08 10/20/24 06:59
Total Bilirubin 2.3 mg/dl (0.2-1.3) H 10/22/24 08:34
AST 197 U/L (17-59) H 10/22/24 08:34
ALT 288 U/L (0-50) H 10/22/24 08:34
Alkaline Phosphatase 370 U/L (38-126) H 10/22/24 08:34
Lipase 92 U/L (23-300) 10/18/24 12:23
Vital Signs and I&O:
Vital Signs
Temp Pulse Resp BP Pulse Ox
97.4 F 89 18 151/84 97
10/23/24 03:37 10/23/24 03:37 10/23/24 03:37 10/23/24 03:37 10/23/24 03:37
I&O
10/21/24 10/22/24 10/23/24
06:59 06:59 06:59
Intake Total 1405 / 1405 1330 / 1330 680 / 680
Balance 1405 / 1405 1330 / 1330 680 / 680
Physical Exam
Physical Exam
HEENT: Anicteric and Moist mucous membranes
Cardiology: Other (RR on tele)
Pulmonary: Other (Normal WOB on room air)
GI: Soft, Distended (Protuberant obese abdomen) and Non Tender
Extremities: No Edema and Warm
Neuro: Non Focal
--- NOTE | 2024-10-23 07:24 | W.SUR.PREOP ---
Pre-Operative Surgical Note
-
I have examined this patient prior to the performance of the scheduled procedure.
The patient's condition is unchanged from the time of the current History and
Physical and the patient is able to undergo the scheduled procedure.
--- NOTE | 2024-10-23 07:24 | W.PN.GS2 ---
Today's Communication / Plan
-
-- Laparoscopic cholecystectomy with possible IOC
Assessment / Plan
-
Patient is a 69 yo M p/w choledocholithiasis and likely chronic cholecystitis
AVSS
Repeat labs pending
No worsening abdominal pain post ERCP
The natural history and pathophysiology of biliary and stone disease was discussed. Anatomy and workup and management during this admission were reviewed. Role of cholecystectomy in preventing future episodes of cholecystitis, choledocholithiasis,
or gallstone pancreatitis were reviewed. Recommend and plan for a laparoscopic cholecystectomy.
Plan for a laparoscopic cholecystectomy with possible cholangiogram. The procedure itself, as well as the risks, benefits, and alternatives was discussed. Specifically, we discussed the risks of bleeding, infection, injury to surrounding
structures (bowel, bile ducts), CBD injury, need for open procedure. Typical postprocedural recovery including activity restrictions and a 10 to 20% risks of fluctuations in GI function with fatty foods was discussed. All questions answered.
Consent signed.
-- Laparoscopic cholecystectomy with possible IOC
-- NPO, IVF
-- Antibiotics: Zosyn
Subjective Data
-
Date of Service: October 23, 2024
Denies any worsening abdominal pain. No nausea or vomiting. No fevers. States that current episode initially began last Tuesday. He is lost significant amount of weight over the past week. Denies any chest pain or shortness of breath.
Objective Data
-
Intake and Output
10/22/24 10/23/24 10/24/24
06:59 06:59 06:59
Intake Total 1330 / 1330 680 / 680
Balance 1330 / 1330 680 / 680
Intake:
Oral fluids 480 / 480 480 / 480
IV fluids (Total) 800 / 800 100 / 100
LR 100 / 100
IV piggybacks 50 / 50 100 / 100
Other:
Number of approximated MODERATE 3 2
amounts of urine
Vital Signs
Temp Pulse Resp BP Pulse Ox
97.4 F 89 18 151/84 97
10/23/24 03:37 10/23/24 03:37 10/23/24 03:37 10/23/24 03:37 10/23/24 03:37
Calcium 8.7 mg/dl (8.4-10.2) 10/22/24 08:34
Total Bilirubin 2.3 mg/dl (0.2-1.3) H 10/22/24 08:34
AST 197 U/L (17-59) H 10/22/24 08:34
ALT 288 U/L (0-50) H 10/22/24 08:34
Alkaline Phosphatase 370 U/L (38-126) H 10/22/24 08:34
Total Protein 6.6 g/dl (6.3-8.2) 10/22/24 08:34
Albumin 3.9 g/dl (3.5-5.0) 10/22/24 08:34
Physical Exam
-
Gen: NAD
Abd: soft, obese, NT, ND, non-peritoneal, prior lower midline incision well healed
Patient has a mcgee catheter: No
Patient has a central line: No
--- NOTE | 2024-10-23 08:51 | W.PN.HOSP.TC ---
Addendum entered and electronically signed by Yohannes Blevins MD 10/23/24 15:46:
S/p lap dann with surgery
Returned with postoperative labs demonstrating a metabolic acidosis start bicarb drip once bicarb around 18 can go ahead discontinue.
Has no abdominal pain the lipase is greater than 4000. This is likely related to ERCP. Resident team discussed this with who recommend LR to reduce bacterial translocation into acid base normalization. Discontinue bicarb drip
Start clear liquid diet
Per GI hold Eliquis until 72 hours post ERCP
Original Note:
Today's Communication/Plan
-
Plan for laparoscopic cholecystectomy today
Assessment / Plan
Assessment / Plan
69-year-old former smoker male with history of A-fib on Eliquis, CHF, hypertension, PAD with stent to right leg presenting with 4 days of nausea vomiting and diarrhea - water like consistency daily. He notes chills and sweats but no measurable
fever. Currently reports no fever, chills, abdominal pain.
# Choledocholithiasis and gallstones
- Status post ERCP, without complications
- Continue with empiric IV antibiotic
- Continue to hold Eliquis for 72 hours post ERCP
- N.p.o. for lap cholecystectomy today
# Diarrhea
- Now resolved
- Negative norovirus, stool culture
# Paroxysmal A-fib
- s/p cardiac ablation
- Patient follows with [facility]
- Continue Sotalol 80 mg twice daily with hold parameters
- Continue metoprolol succinate 100 mg daily with hold parameters
- Continue to hold Eliquis for 72 hours post ERCP
# HTN urgency
- Started on losartan
- Continue with metoprolol, continue with as needed hydralazine
# Nonischemic myocardial injury
- Patient had chest pain over the weekend
- Troponin elevated (peaked at 0.08), EKG no ischemic changes but new RBBB, consistent with nonischemic myocardial injury
- Cardiology recommending outpatient stress test
# Chronic HFpEF
- Continue metoprolol succinate 50 daily, rosuvastatin, Farxiga
- Empagliflozin held
# Diabetes
- Glipizide on hold
- Continue SSI, Accu-Checks
- HbA1c 7.3
# HLD
- Holding Crestor with elevation liver enzymes
#PAD with stent to right leg
- Holding Crestor 5 mg daily
- Pletal held
# GERD, hx gastric ulcer
- on IV Protonix
# Tobacco use, former
- 49-year 3 pack a day, quit 2019
- Recommended outpt f/u for 3mm LLL nodule noted on CT
#Diverticulitis requiring colon resection and reanastomosis
# Subacute to chronic fracture anterior right seventh rib
- Stable, likely chronic
- Pain management
#Former alcohol abuse daily drinker stopped early 30s
#Hepatomegaly and hepatic fatty liver
#Former cocaine user�snorting in his 20s and 30s
# Polycythemia
- Likely 2/2 tobacco use
# QTc prolonged (506)
- On Sotalol and Pletal (currently held)
- Continue to monitor
DVT prophylaxis
Eliquis held
SCDs
Total time spent to see the patient, examine the patient, review data and lab result, discuss treatment plan with patient, GI doctor, nursing staff around 57 minutes
Anticipated Discharge: Within 24 hours
Subjective/Interval History
-
Date of Service: October 23, 2024
Objective Data
-
Labs:
Laboratory Results
10/23/24
06:00
WBC Pending
Hgb Pending
Hct Pending
Plt Count Pending
Sodium Pending
Potassium Pending
Chloride Pending
Carbon Dioxide Pending
BUN Pending
Creatinine Pending
Glucose Pending
Calcium Pending
Total Bilirubin Pending
AST Pending
ALT Pending
Alkaline Phosphatase Pending
Vital Signs:
Vital Signs
Temp Pulse Resp BP Pulse Ox
97.4 F 89 18 151/84 97
10/23/24 03:37 10/23/24 03:37 10/23/24 03:37 10/23/24 03:37 10/23/24 03:37
I&O
10/22/24 10/23/24 10/24/24
06:59 06:59 06:59
Intake Total 1330 / 1330 680 / 680
Balance 1330 / 1330 680 / 680
Review of Systems
-
History Source: Patient
Constitutional: Reports Sleep Disturbance
Respiratory: Reports No Symptoms
Cardiac: Reports No Symptoms
Abdomen/GI: Reports Abdominal Pain (Not worsened post ERCP) and Nausea
Breast: Reports No Symptoms
Genitourinary: Reports No Symptoms
Musculoskeletal: Reports No Symptoms
Skin: Reports No Symptoms
Neuro: Reports No Symptoms
Endocrine: Reports No Symptoms
Hematologic / Lymphatic: Reports No Symptoms
Allergy / Immunology: Reports No Symptoms
Physical Exam
-
General: Well Developed, Well Nourished, No Apparent Distress and Comfortable
HEENT: Normocephalic
Respiratory: Clear to Auscultation
Cardiac: Regular Rhythm and S1/S2
GI: Soft, Nondistended and Normal Bowel Sounds
Genito-urinary: No Costovertebral Tender
Musculoskeletal: No Clubbing, No Cyanosis and No Edema
Skin: Warm
Neuro: Awake, Alert, Oriented and AO x 3
Psych: Calm
--- NOTE | 2024-10-23 08:59 | W.IMMPOSTOP ---
Surgical Immed Post Op Note
-
Primary Surgeon: Renetta
Assisting Surgeon: None
Pre-op Diagnosis: Choledocholithiasis
Post-op Diagnosis: Choledocholithiasis
Procedure Performed: Laparoscopic cholecystectomy, modified 22 obesity
Anesthesia Type: General
Specimen / Cultures:
1. Gallbladder
Estimated Blood Loss: 7 cc
Complications: None
Operative Findings:
1. Fatty liver, retroperitoneal fat limiting exposure and visualization
2. Gallbladder distended, thin wall, fatty infiltrate, no acute inflammation
3. Critical view of safety
4. Duct and artery taken with clips
[2024-10-23 09:08] LABS: Glucose - Point of Care 174 mg/dl (70-99)
[2024-10-23] MEDS: NSS 1000 IV (09:51)
[2024-10-23] MEDS: NSS (PRESERVATIVE FREE) 10 ML IV (09:55)
[2024-10-23] MEDS: PROTONIX IV 40 MG IV (09:56)
[2024-10-23 10:55] LABS: % Basophils 0.3 % (0-2); % Eosinophils 0.1 % (0-6); % Lymphocytes 4.7 % (20.5-51.1); % Monocytes 8.4 % (1.7-9.3); % Neutrophils 85.5 % (42.2-75.2); Absolute Basophils 0.1 10^3/uL (0-0.2); Absolute Immature Granulocytes 0.2 10^3/uL (0-0.05); Absolute Lymphocytes 0.9 10^3/uL (1.2-3.4); Absolute Monocytes 1.6 10^3/uL (0.1-0.6); Absolute Neutrophils 15.9 10^3/uL (1.4-6.5); Hematocrit 51.1 % (39.0-52.0); Hemoglobin 17.3 g/dL (13.0-18.0); Mean Corp Hgb Conc. 33.9 g/dL (33.0-37.0); Mean Corpuscular Hgb 32.2 pg (27.0-31.0); Mean Platelet Volume 9.8 fL (7.4-10.4); Nucleated Red Blood Cells % 0 % (-); Platelet Count 187 10^3/uL (130-400); Red Blood Cell Count 5.38 10^6/uL (4.70-6.10); Red Cell Dist. Width 13.5 % (11.5-14.5); White Blood Cell Count 18.6 10^3/uL (4.8-10.8)
[2024-10-23 11:18] LABS: Glucose - Point of Care 156 mg/dl (70-99)
[2024-10-23 11:50] LABS: Alkaline Phosphatase 300 U/L (38-126); Blood Urea Nitrogen 25 mg/dl (9-20); Chloride 105 mmol/L (98-107); Estimated Creatinine Clearance 64 ml/min; Glucose 192 mg/dl (70-99); Potassium 4.5 mmol/L (3.5-5.1); Sodium 141 mmol/L (135-145); eGFR > 60.00
[2024-10-23 11:51] LABS: ALT (SGPT) 315 U/L (0-50); AST (SGOT) 173 U/L (17-59); Albumin 3.9 g/dl (3.5-5.0); Calcium 8.9 mg/dl (8.4-10.2); Total Bilirubin 5.1 mg/dl (0.2-1.3)
[2024-10-23 11:53] LABS: Carbon Dioxide 9 mmol/L (22-30)
[2024-10-23] MEDS: THERAGRAN 1 TABLET PO (12:01)
[2024-10-23] MEDS: COZAAR 50 MG PO (12:01)
[2024-10-23] MEDS: FARXIGA 10 MG PO (12:02)
[2024-10-23] MEDS: TYLENOL 650 MG PO ×4 (12:02→23:09)
[2024-10-23] MEDS: TOPROL XL 100 MG PO (12:04)
[2024-10-23] MEDS: BETAPACE 80 MG PO ×3 (12:09→19:59)
[2024-10-23] MEDS: TORADOL 10 MG IV (12:10)
[2024-10-23 13:17] LABS: Venous Blood Gas B.E. -12.6 mmol/L (-4 to +4); Venous Blood Gas pCO2 45 mmHg (35-48); Venous Blood Gas pO2 46 mmHg (30-50)
[2024-10-23 13:19] LABS: Venous Blood Gas pH 7.16 (7.32-7.43)
[2024-10-23 13:30] LABS: Lactic Acid 1.3 mmol/L (0.7-2.0)
[2024-10-23 13:32] LABS: Blood Urea Nitrogen 23 mg/dl (9-20); Carbon Dioxide 14 mmol/L (22-30); Chloride 104 mmol/L (98-107); Estimated Creatinine Clearance 69 ml/min; Glucose 164 mg/dl (70-99); Potassium 4.6 mmol/L (3.5-5.1); Sodium 142 mmol/L (135-145); eGFR > 60.00
[2024-10-23 13:53] LABS: Lipase > 4000 U/L (23-300)
[2024-10-23] MEDS: SODIUM BICARBONATE 1050 MEQ IV (14:05)
[2024-10-23] MEDS: ROXICODONE 5 MG PO ×2 (15:13→23:10)
--- NOTE | 2024-10-23 16:01 | W.PN.UPDATE ---
Update Note
Progress Note Update
Brief GI Note:
Re-evaluated patient later this afternoon around 1300 along with general surgery this afternoon given recent labs after lap-dann. Reviewed op-note as well. Patient continues to feel well except for mild discomfort near his incisions from recent lap
dann and nausea. Denied any epigastric pain or worsening nausea/vomiting, although did have nausea overnight. Abdominal exam also reassuring this afternoon without any epigastric TTP or other rebound tenderness / guarding. Lactic acid also
reassuring. Suspect elevated lipase in setting of small/flat papilla along with multiple sweeps given significant debris/stones resulting in papillary edema. He reports feeling better this afternoon and denies any fevers, chills, night sweats or
other constitutional or localizing symptoms. D/w primary internal medicine team as well this afternoon and agree with IV LR for volume expansion along with trending serial LFTs. Okay to continue to have CLD and would defer from advancing until
tomorrow pending patient's clinical course.
GI will continue to follow.
[2024-10-23] MEDS: LOVENOX 40 MG SC (17:21)
[2024-10-23 17:27] LABS: Glucose - Point of Care 143 mg/dl (70-99)
[2024-10-23 17:53] LABS: ALT (SGPT) 300 U/L (0-50); AST (SGOT) 131 U/L (17-59); Alkaline Phosphatase 291 U/L (38-126); Blood Urea Nitrogen 23 mg/dl (9-20); Calcium 8.9 mg/dl (8.4-10.2); Carbon Dioxide 11 mmol/L (22-30); Chloride 106 mmol/L (98-107); Estimated Creatinine Clearance 76 ml/min; Glucose 174 mg/dl (70-99); Potassium 4.5 mmol/L (3.5-5.1); Sodium 140 mmol/L (135-145); Total Protein 6.8 g/dl (6.3-8.2); eGFR > 60.00
[2024-10-23] MEDS: LR 1000 IV (18:39)
[2024-10-23] MEDS: BICITRA 30 ML PO (20:00)
[2024-10-23 21:37] LABS: Glucose - Point of Care 186 mg/dl (70-99)
[2024-10-24] MEDS: DILAUDID 0.5 MG IV ×4 (01:36→15:40)
[2024-10-24] MEDS: LR 1000 IV ×3 (01:36→16:48)
[2024-10-24 03:18] VITALS: BP 124/68
[2024-10-24] MEDS: ZOSYN 50 IV ×3 (05:26→17:42)
[2024-10-24] MEDS: BICITRA 30 ML PO ×2 (05:26→11:28)
[2024-10-24] MEDS: TYLENOL 650 MG PO ×4 (05:26→20:31)
--- NOTE | 2024-10-24 05:51 | W.PN.GI.CBS2 ---
Addendum entered and electronically signed by JESSE Turk 10/24/24 09:56:
labs with improved WBC 18.6--- 15, improved LFT's now bili 3, d bili 2,.1. AST 86, ALT 243, alk phos 281. Still with some mild abdominal pain, back pain but ambulating and slow improvement. Encouraged OOB, ambulation, clear diet. Will continue to
follow. All questions answered.
Original Note:
Today's Communication / Plan
-
Symptoms appear to be improving pending repeat LFTs and T Bili from AM labs. Continue CLD and IV LR along with rest of supportive care as below. Continue to hold eliquis today. See rest of care as outlined below.
Assessment / Plan
-
Mr. Young is a 69yo presents with hx Afib On Eliquis, PAD with prior stent, HTN, diverticulitis, obesity, former tobacco use, HLD, GERD, distant hx pancreatitis - ETOH related, fatty liver, bowel resection for diverticular disease, gastric
ulcers, DM, COPD, carotid stenosis, mod MR/TR with onset of chills, sweats, abdominal pain, with nausea, vomiting and diarrhea. On admission noted with WBC 11,000, paul 2, AST 104, ALT 149, alk phos 159, lipase 92 with improvement after admission.
Ct on admission with dilation of CBD with mild intrahepatic dilatation and mild GB distention no filling defect, lung nodule, HM with fatty liver, diverticulosis with prior resection, subacute to chronic rib fx. Follow up MRI with
choledocholithiasis, cholelithiasis HSM and hepatic steatosis. follow up MRI/MRCP with choledocholithiasis with intra and extrahepatic biliary dilation, cholelithiasis and HSM with hepatic steatosis. In review with patient hx similar admission to
[place] in 2019 with etiology unclear. He recall EGD but no clear etiology. He now notes symptoms for several days with wt loss, decreased oral intakes, dry heaves/vomiting small amount bile, yellow liquid stools, Hx EGD [place] 2018 did not
recall any abnormality and colonoscopy last 2019 overdue for follow up with new hx brother with stage III colon Ca.
#Choledocholithiasis
#Cholelithiasis
#Nausea/Vomiting #Abd Pain
#A Fib (on Eliquis, last dose 10/18- )
#PAD (on Pletal, last dose 10/19- )
#Leukocytosis- Resolved
Impression: Found to have elevated LFTs and recent MRI/MRCP revealing choledocholithiasis. Clinically, he reports improving symptoms and recent LFTs improving on repeat labs. He is without any other signs or symptoms concerning for cholangitis and
remains on IV abx as well along with down-trending LFTs without worsening hyperbilirubinemia. However, developed worsening epigastric pain and rise in LFTs after eating solid food concerning ball-valving CBD stones resulting in symptoms. Otherwise,
remains afebrile without leukocytosis.
S/p ERCP 10/22: Choledocholithiasis was found within the distal CBD resulting in proximal biliary dilation, managed with biliary sphincterotomy and balloon extraction where four stones and sludge were removed. S/p eventual lap dann with general
surgery on 10/23. Found to have an elevated lipase and abdominal discomfort concerning for post-ERCP pancreatitis after lap dann on 10/23. Suspect secondary to edema from small/flat papilla and multiple stones/sludge requiring multiple balloon
sweeps. Fortunately, his abdominal exam is reassuring and tolerating CLD along with a down-trending leukocytosis secondary to suspected mild PEP and pending repeat LFTs this AM.
Recommendations:
- Continue CLD today, would defer advancing for now
- Continue IV Lactated Ringers to maintain euvolemia / volume expansion
- F/u AM labs still pending repeat LFTs and T Bili, suspect slight bump in T bili from contrast injection
- No IOC performed during lap dann on 10/23, previous cholangiogram during ERCP (-) for additional filling defects
- Continue empiric IV abx Zosyn
- Hold eliquis and okay to restart in 72 hrs from ERCP given sphincterotomy (may resume on 10/25)
- Pain control and IV anti-emetics as needed
- Surgery following, appreciate recs
- Rest of care as per primary team
Discussed with primary internal medicine team this AM. GI will continue to follow while inpatient.
Subjective
Subjective
Date of Service: October 24, 2024
- No acute events overnight
Resting comfortably, denies any worsening epigastric abdominal pain or recent vomiting. Reports improving nausea without any fevers, chills, night sweats or other constitutional symptoms. Still with RUQ discomfort from his recent surgery and
epigastric pain. Remains on IVF and tolerated water nice last evening.
Objective
Data Reviewed
Laboratory Data:
Laboratory Results
PT 14.3 Sec (11.4-14.6) 10/20/24 06:59
INR 1.08 10/20/24 06:59
Total Bilirubin 5.0 mg/dl (0.2-1.3) H 10/23/24 17:20
AST 131 U/L (17-59) H 10/23/24 17:20
ALT 300 U/L (0-50) H 10/23/24 17:20
Alkaline Phosphatase 291 U/L (38-126) H 10/23/24 17:20
Lipase > 4000 U/L (23-300) H* 10/23/24 13:02
Vital Signs and I&O:
Vital Signs
Temp Pulse Resp BP Pulse Ox
97.4 F 78 16 124/68 95
10/24/24 03:18 10/24/24 03:18 10/24/24 03:18 10/24/24 03:18 10/24/24 03:18
I&O
10/22/24 10/23/24 10/24/24
06:59 06:59 06:59
Intake Total 1330 / 1330 680 / 680 340 / 340
Output Total 500 / 500
Balance 1330 / 1330 680 / 680 -160 / -160
Physical Exam
Physical Exam
HEENT: Anicteric and Moist mucous membranes
Cardiology: Normal Sinus Rhythm, S1, S2 and Other
Pulmonary: Other (Normal WOB on room air)
GI: Soft, Non Distended and Tender (Mild to moderate TTP in RUQ and epigastric region, incisions c/d/i )
Extremities: No Edema and Warm
Neuro: Non Focal
[2024-10-24 06:00] VITALS: BMI 30.4
[2024-10-24] MEDS: PROTONIX IV 40 MG IV (07:12)
[2024-10-24] MEDS: NSS (PRESERVATIVE FREE) 10 ML IV (07:12)
[2024-10-24 07:13] LABS: Glucose - Point of Care 127 mg/dl (70-99)
[2024-10-24 07:41] VITALS: BP 184/97
[2024-10-24] MEDS: NOVOLOG FLEXPEN-LOW RESISTANCE SC ×2 (08:09→16:47)
[2024-10-24] MEDS: FARXIGA 10 MG PO (08:10)
[2024-10-24] MEDS: COZAAR 50 MG PO (08:10)
[2024-10-24] MEDS: TOPROL XL 100 MG PO (08:10)
[2024-10-24] MEDS: THERAGRAN 1 TABLET PO (08:10)
--- NOTE | 2024-10-24 08:10 | W.PN.GS2 ---
Today's Communication / Plan
-
s/o
Assessment / Plan
-
Patient is a 69 yo M p/w choledocholithiasis and likely chronic cholecystitis POD1 s/p lap dann now with post-ERCP pancreatitis
AVSS
Repeat labs pending
-- OK for CLD
-- Antibiotics: Zosyn, OK to DC 24 hrs post-op
-- Pancreatitis mgmt per GI
-- Pls call with ?s
Subjective Data
-
Date of Service: October 24, 2024
AFVSS, abd pain and nausea remain, feels 'about the same,' no issues with CLD
Objective Data
-
Intake and Output
10/23/24 10/24/24 10/25/24
06:59 06:59 06:59
Intake Total 680 / 680 2720 / 2720
Output Total 850 / 850
Balance 680 / 680 1870 / 1870
Intake:
Oral fluids 480 / 480 720 / 720
IV fluids (Total) 100 / 100 1850 / 1850
LR 100 / 100
normosol 50 / 50
IV piggybacks 100 / 100 150 / 150
Output:
Urine, Voided 850 / 850
Other:
Number of approximated MODERATE 2 3
amounts of urine
Vital Signs
Temp Pulse Resp BP Pulse Ox
98.3 F 81 21 184/97 96
10/24/24 07:41 10/24/24 07:41 10/24/24 07:41 10/24/24 07:41 10/24/24 07:41
Calcium Cancelled 10/23/24 18:00
Total Bilirubin 5.0 mg/dl (0.2-1.3) H 10/23/24 17:20
AST 131 U/L (17-59) H 10/23/24 17:20
ALT 300 U/L (0-50) H 10/23/24 17:20
Alkaline Phosphatase 291 U/L (38-126) H 10/23/24 17:20
Total Protein 6.8 g/dl (6.3-8.2) 10/23/24 17:20
Albumin 4.0 g/dl (3.5-5.0) 10/23/24 17:20
Physical Exam
-
Gen: NAd
Abd: soft, mild-mod ttp to epigastrium and RUQ, incisions cdi with glue
Patient has a mcgee catheter: No
Patient has a central line: No
[2024-10-24] MEDS: BETAPACE 80 MG PO ×2 (08:21→20:31)
[2024-10-24 08:27] LABS: % Basophils 0.3 % (0-2); % Eosinophils 0.1 % (0-6); % Immature Granulocytes 0.7 % (0-0.5); % Lymphocytes 3.9 % (20.5-51.1); % Monocytes 5.3 % (1.7-9.3); % Neutrophils 89.7 % (42.2-75.2); Absolute Immature Granulocytes 0.1 10^3/uL (0-0.05); Absolute Lymphocytes 0.6 10^3/uL (1.2-3.4); Absolute Monocytes 0.8 10^3/uL (0.1-0.6); Absolute Neutrophils 13.4 10^3/uL (1.4-6.5); Hematocrit 47.6 % (39.0-52.0); Hemoglobin 16.8 g/dL (13.0-18.0); Mean Corp Hgb Conc. 35.3 g/dL (33.0-37.0); Mean Corpuscular Hgb 32.8 pg (27.0-31.0); Mean Platelet Volume 9.8 fL (7.4-10.4); Nucleated Red Blood Cells % 0 % (-); Platelet Count 143 10^3/uL (130-400); Red Blood Cell Count 5.12 10^6/uL (4.70-6.10); Red Cell Dist. Width 13.6 % (11.5-14.5)
[2024-10-24 09:14] LABS: ALT (SGPT) 243 U/L (0-50); AST (SGOT) 86 U/L (17-59); Albumin 3.6 g/dl (3.5-5.0); Alkaline Phosphatase 281 U/L (38-126); Blood Urea Nitrogen 20 mg/dl (9-20); Calcium 8.7 mg/dl (8.4-10.2); Carbon Dioxide 18 mmol/L (22-30); Chloride 106 mmol/L (98-107); Direct Bilirubin 2.1 mg/dl (0.0-0.4); Estimated Creatinine Clearance 104 ml/min; Glucose 131 mg/dl (70-99); Potassium 3.7 mmol/L (3.5-5.1); Sodium 140 mmol/L (135-145); Total Protein 6.4 g/dl (6.3-8.2); eGFR > 60.00
--- NOTE | 2024-10-24 10:42 | CM ---
CM reviewed chart, patient seen bedside, reports no needs to CM at this time. Plan remains home no needs at this time, will continue to follow for all discharge planning needs.
Plan; home no needs.
[2024-10-24 10:54] LABS: Glucose - Point of Care 173 mg/dl (70-99)
[2024-10-24 11:05] VITALS: BP 181/105
[2024-10-24] MEDS: NOVOLOG FLEXPEN-LOW RESISTANCE 1 UNITS SC (11:27)
[2024-10-24] MEDS: APRESOLINE 10 MG IV ×3 (11:29→22:32)
[2024-10-24 14:55] VITALS: BP 173/97
[2024-10-24 15:13] LABS: Blood Urea Nitrogen 16 mg/dl (9-20); Calcium 8.6 mg/dl (8.4-10.2); Carbon Dioxide 21 mmol/L (22-30); Chloride 104 mmol/L (98-107); Estimated Creatinine Clearance 117 ml/min; Glucose 113 mg/dl (70-99); Potassium 3.5 mmol/L (3.5-5.1); Sodium 140 mmol/L (135-145); eGFR > 60.00
--- NOTE | 2024-10-24 15:44 | W.PN.HOSP.TC ---
Addendum entered and electronically signed by Yohannes Blevins MD 10/24/24 16:05:
S/p lap dann. Tolerated procedure well. Has some pain.
Passed gas once earlier this morning however not since then.
Has not had a bowel movement.
Tolerating clear liquid diet well
Abdomen is soft nondistended nontender
Metabolic acidosis with a delta gap of greater than 10 demonstrating a high anion gap metabolic acidosis with a primary metabolic alkalosis. Suspect related to surgery with normal osmole and CO2 cephalization. Initially started on bicarb drip
however this was discontinued per GI recommendation started on LR. Since then LR has been continued for for treatment of acute pancreatitis. In terms of the acidemia Bicitra was added with improvement in serum bicarb. Therefore at this time is
greater than 18 we will go ahead and discontinue oral Bicitra and monitor acidosis
Dispo Home
Original Note:
Today's Communication/Plan
-
Continue IV antibiotic
Clear liquid diet
Continue LR
Assessment / Plan
Assessment / Plan
69-year-old former smoker male with history of A-fib on Eliquis, CHF, hypertension, PAD with stent to right leg presenting with 4 days of nausea vomiting and diarrhea - water like consistency daily. He notes chills and sweats but no measurable
fever. Currently reports no fever, chills, abdominal pain.
# Choledocholithiasis and gallstones
- Status post ERCP, without complications
- S/p laparoscopic cholecystectomy
- Continue with empiric IV antibiotic
- Continue to hold Eliquis for today
- GI and surgery following, continue clear diet
# Postop metabolic acidosis
- Likely secondary to Normosol during cholecystectomy
- Initially started on bicarb drip, now discontinued
- Started Bicitra and LR in discussion with GI
- Bicarb improving
# Constipation, postop
- Passed flatus, no bowel movement
- Obstruction series shows mild gaseous distention of the small bowel and colon favored to represent adynamic ileus
- Advised ambulation
- Per GI, okay to start MiraLAX
# Paroxysmal A-fib
- s/p cardiac ablation
- Patient follows with [facility]
- Continue Sotalol 80 mg twice daily with hold parameters
- Continue metoprolol succinate 100 mg daily with hold parameters
- Continue to hold Eliquis for today
# HTN urgency
- Started on losartan
- Continue with metoprolol, continue with as needed hydralazine
# Nonischemic myocardial injury
- Patient had chest pain over the weekend
- Troponin elevated (peaked at 0.08), EKG no ischemic changes but new RBBB, consistent with nonischemic myocardial injury
- Cardiology recommending outpatient stress test
# Chronic HFpEF
- Continue metoprolol succinate 50 daily, rosuvastatin, Farxiga
- Empagliflozin held
# Diabetes
- Glipizide on hold
- Continue SSI, Accu-Checks
- HbA1c 7.3
# HLD
- Holding Crestor with elevation liver enzymes
#PAD with stent to right leg
- Holding Crestor 5 mg daily
- Pletal held
# GERD, hx gastric ulcer
- on IV Protonix
# Tobacco use, former
- 47-year 3 pack a day, quit 2019
- Recommended outpt f/u for 3mm LLL nodule noted on CT
#Diverticulitis requiring colon resection and reanastomosis
# Subacute to chronic fracture anterior right seventh rib
- Stable, likely chronic
- Pain management
#Former alcohol abuse daily drinker stopped early 30s
#Hepatomegaly and hepatic fatty liver
#Former cocaine user�snorting in his 20s and 30s
# Polycythemia
- Likely 2/2 tobacco use
# QTc prolonged (506)
- On Sotalol and Pletal (currently held)
- Continue to monitor
DVT prophylaxis
Eliquis held
SCDs
Total time spent to see the patient, examine the patient, review data and lab result, discuss treatment plan with patient, GI doctor, nursing staff around 57 minutes
Anticipated Discharge: Within 24 hours
Subjective/Interval History
-
Date of Service: October 24, 2024
Objective Data
-
Labs:
Laboratory Results
10/24/24 10/24/24
07:34 14:38
WBC 15.0 H
Hgb 16.8
Hct 47.6
Plt Count 143 D
Sodium 140 140
Potassium 3.7 3.5
Chloride 106 104
Carbon Dioxide 18 L 21 L
BUN 20 16
Creatinine 0.9 0.8
Glucose 131 H 113 H
Calcium 8.7 8.6
Total Bilirubin 3.0 H
AST 86 H
ALT 243 H
Alkaline Phosphatase 281 H
Vital Signs:
Vital Signs
Temp Pulse Resp BP Pulse Ox
98.1 F 87 18 173/97 98
10/24/24 14:55 10/24/24 14:55 10/24/24 14:55 10/24/24 14:55 10/24/24 14:55
I&O
10/23/24 10/24/24 10/25/24
06:59 06:59 06:59
Intake Total 680 / 680 2720 / 2720
Output Total 850 / 850
Balance 680 / 680 1870 / 1870
Review of Systems
-
History Source: Patient
EENT: Reports No Symptoms Reported
Respiratory: Reports No Symptoms
Cardiac: Reports No Symptoms
Abdomen/GI: Reports Abdominal Pain and Constipated; Denies Nausea or Vomiting
Genitourinary: Reports No Symptoms
Musculoskeletal: Reports No Symptoms
Skin: Reports No Symptoms
Neuro: Reports No Symptoms
Endocrine: Reports No Symptoms
Hematologic / Lymphatic: Reports No Symptoms
Allergy / Immunology: Reports No Symptoms
Physical Exam
-
General: Well Developed, Well Nourished, No Apparent Distress and Comfortable
HEENT: Normocephalic
Respiratory: Clear to Auscultation
Cardiac: Regular Rhythm and S1/S2
GI: Soft, Normal Bowel Sounds, Tender (RUQ tenderness, no guarding/rebound) and Distended
Musculoskeletal: No Clubbing, No Cyanosis and No Edema
Skin: Warm
Neuro: Awake, Alert, Oriented and AO x 3
Psych: Calm
[2024-10-24] MEDS: TYLENOL PO (16:32)
[2024-10-24 16:42] LABS: Glucose - Point of Care 110 mg/dl (70-99)
[2024-10-24] MEDS: ROXICODONE 5 MG PO (16:51)
[2024-10-24] MEDS: LOVENOX 40 MG SC (17:42)
[2024-10-24 19:40] VITALS: BP 161/87
[2024-10-24 22:26] LABS: Glucose - Point of Care 86 mg/dl (70-99)
[2024-10-24] MEDS: FLUSH (NSS) 2 FLUSH IV ×2 (22:32→22:45)
[2024-10-24] MEDS: TORADOL 10 MG IV (22:44)
[2024-10-24] MEDS: MIRALAX 17 GRAMS PO (22:46)
[2024-10-24 23:24] VITALS: BP 172/98
[2024-10-25] VITALS (8 sets, daily range): BP systolic 99–190; BP diastolic 70–98; BMI 30.6
[2024-10-25] MEDS: LR 1000 IV ×4 (00:05→20:11)
[2024-10-25] MEDS: TYLENOL 650 MG PO ×6 (00:05→20:11)
[2024-10-25] MEDS: ZOSYN 50 IV ×5 (00:06→23:50)
--- NOTE | 2024-10-25 01:27 | PTCARENOTE ---
Patient continues to c/o epigastric pain. He is not passing flatus. Activity encouraged and patient did ambulate in shen. Miralax per prn order. +BS, Abdomen round distended. Sleeping after prn Toradol. Now states discomfort to lower
quadrants and is passing flatus. Offer of additional pain med declined. IVF and Abx per order.
--- NOTE | 2024-10-25 03:24 | DOWNTIME ---
There was a [employer] Clerk Downtime on 10/25/2024 from 0200 to 10/26/2023 at 0318 . Downtime documentation of patient's care, including medication administrations, has been reconciled in the electronic record per guidelines. Refer to the
patient's paper chart under the miscellaneous tab to see printed paper medication records and downtime forms.
[2024-10-25] MEDS: TORADOL 10 MG IV ×2 (05:30→21:24)
[2024-10-25] MEDS: FLUSH (NSS) 2 FLUSH IV (05:31)
--- NOTE | 2024-10-25 07:24 | W.PN.HOSP.TC ---
Addendum entered and electronically signed by Yohannes Blevins MD 10/25/24 16:20:
NAD
Scleral Anicteric
MMM
No JVD
CTABL
RRR, S1/S2
Soft, NT, ND, BS+
Warm, Dry
Choledocholithiasis with evidence concerning for cholecystitis
S/p ERCP without complications and laparoscopic cholecystectomy
Transaminitis improving as expected
Abdominal exam reassuring
Passing some flatus, no bowel movement though he does have a mild ileus
Continue empiric IV antibiotics
Plan to resume Eliquis tomorrow morning
Per GI can start MiraLAX
Clear liquid diet advance diet as tolerated to low flat
Postop metabolic acidosis
As bicarb began trending down again today after discontinuation of Bicitra will go ahead resume at lower dose of 15 mg every 8 hours
Leukocytosis likely reactive in the setting of ileus however low caution on the side of her obtain blood cultures though remains afebrile
Consult infectious diseases
Continue IV antibiotics
If worsening white count or febrile would obtain repeat CAT scan of abdomen pelvis
Hypokalemia
Replete
Paroxysmal atrial fibrillation
S/p ablation continue sotalol beta-fide
Plan to remove Eliquis tomorrow
Chronic HFpEF
Continue beta-fide
SGLT2 inhibitor on hold as of right now, can likely resume in the a.m.
Can start MRA as hypertensive but would do low-dose as this hypertension could be related to pain
Hypertension
Continue with hypertensives
Original Note:
Today's Communication/Plan
-
ID consult
Blood cultures sent
Continue clear diet, advance as tolerated
Restart Bicitra 15 q8
Replete potassium
Assessment / Plan
Assessment / Plan
69-year-old former smoker male with history of A-fib on Eliquis, CHF, hypertension, PAD with stent to right leg presenting with 4 days of nausea vomiting and diarrhea - water like consistency daily. He notes chills and sweats but no measurable
fever. Currently reports no fever, chills, abdominal pain.
# Choledocholithiasis and gallstones
- Status post ERCP, without complications
- S/p laparoscopic cholecystectomy
- Continue with empiric IV antibiotic
- Continue to hold Eliquis for today
- GI and surgery following, continue clear diet, advance as tolerated
- LFTs continue to downtrend
# Postop metabolic acidosis
- Likely secondary to Normosol during cholecystectomy
- Initially started on bicarb drip, now discontinued
- Started Bicitra and LR in discussion with GI
- Bicarb improving --> downtrended after discontinuing Bicitra, will resume Bicitra 15 mg q8h
# Leukocytosis
- White count trending up, 18.5 today
- No change on exam, no fever detected
- On Zosyn, will consult ID for further management
- Blood cultures x 2 sent
# Hypokalemia
- Likely secondary to poor oral intake
- Replete as needed
# Constipation, postop
- Passed flatus, no bowel movement
- Obstruction series shows mild gaseous distention of the small bowel and colon favored to represent adynamic ileus
- Advised ambulation
- Per GI, okay to start MiraLAX
# Paroxysmal A-fib
- s/p cardiac ablation
- Patient follows with [facility]
- Continue Sotalol 80 mg twice daily with hold parameters
- Continue metoprolol succinate 100 mg daily with hold parameters
- Continue to hold Eliquis for today
# HTN urgency
- Started on losartan
- Continue with metoprolol, continue with as needed hydralazine
# Nonischemic myocardial injury
- Patient had chest pain over the weekend
- Troponin elevated (peaked at 0.08), EKG no ischemic changes but new RBBB, consistent with nonischemic myocardial injury
- Cardiology recommending outpatient stress test
# Chronic HFpEF
- Continue metoprolol succinate 50 daily, rosuvastatin, Farxiga
- Empagliflozin held
# Diabetes
- Glipizide on hold
- Continue SSI, Accu-Checks
- HbA1c 7.3
# HLD
- Holding Crestor with elevation liver enzymes
#PAD with stent to right leg
- Holding Crestor 5 mg daily
- Pletal held
# GERD, hx gastric ulcer
- on IV Protonix
# Tobacco use, former
- 47-year 3 pack a day, quit 2019
- Recommended outpt f/u for 3mm LLL nodule noted on CT
#Diverticulitis requiring colon resection and reanastomosis
# Subacute to chronic fracture anterior right seventh rib
- Stable, likely chronic
- Pain management
#Former alcohol abuse daily drinker stopped early 30s
#Hepatomegaly and hepatic fatty liver
#Former cocaine user�snorting in his 20s and 30s
# Polycythemia
- Likely 2/2 tobacco use
# QTc prolonged (506)
- On Sotalol and Pletal (currently held)
- Continue to monitor
DVT prophylaxis
Eliquis held
SCDs
Total time spent to see the patient, examine the patient, review data and lab result, discuss treatment plan with patient, GI doctor, nursing staff around 57 minutes
Anticipated Discharge: 24 - 48 hours
Subjective/Interval History
-
Date of Service: October 25, 2024
Objective Data
-
Labs:
Laboratory Results
10/25/24
06:00
WBC Pending
Hgb Pending
Hct Pending
Plt Count Pending
Sodium Pending
Potassium Pending
Chloride Pending
Carbon Dioxide Pending
BUN Pending
Creatinine Pending
Glucose Pending
Calcium Pending
Total Bilirubin Pending
AST Pending
ALT Pending
Alkaline Phosphatase Pending
Vital Signs:
Vital Signs
Temp Pulse Resp BP Pulse Ox
97.0 F 91 18 149/75 98
10/25/24 03:57 10/25/24 03:57 10/25/24 03:57 10/25/24 03:57 10/25/24 03:57
I&O
10/24/24 10/25/24 10/26/24
06:59 06:59 06:59
Intake Total 2720 / 2720 3190 / 3190
Output Total 850 / 850
Balance 187 / 1870 3190 / 3190
Review of Systems
-
History Source: Patient
Constitutional: Denies Fever
EENT: Reports No Symptoms Reported
Respiratory: Reports No Symptoms
Cardiac: Reports No Symptoms
Abdomen/GI: Reports Abdominal Pain; Denies Nausea or Vomiting
Genitourinary: Reports No Symptoms
Musculoskeletal: Reports No Symptoms
Skin: Reports No Symptoms
Neuro: Reports No Symptoms
Endocrine: Reports No Symptoms
Hematologic / Lymphatic: Reports No Symptoms
Physical Exam
-
General: Well Developed, Well Nourished, No Apparent Distress, Comfortable and Pain; Negative Fever
HEENT: Normocephalic
Respiratory: Clear to Auscultation
Cardiac: Regular Rhythm and S1/S2
GI: Soft, Normal Bowel Sounds, Tender (No guarding or rebound tenderness) and Distended
Musculoskeletal: No Clubbing, No Cyanosis and Edema, Right Upper Extrem
Skin: Warm
Neuro: Awake, Alert, Oriented and AO x 3
[2024-10-25] MEDS: BETAPACE 80 MG PO ×2 (07:59→20:10)
[2024-10-25] MEDS: FARXIGA 10 MG PO (07:59)
[2024-10-25] MEDS: TOPROL XL 100 MG PO (07:59)
[2024-10-25] MEDS: COZAAR 50 MG PO (08:00)
[2024-10-25] MEDS: THERAGRAN 1 TABLET PO (08:00)
[2024-10-25] MEDS: PROTONIX IV 40 MG IV (08:00)
[2024-10-25] MEDS: NSS (PRESERVATIVE FREE) 10 ML IV (08:00)
[2024-10-25] MEDS: NOVOLOG FLEXPEN-LOW RESISTANCE SC ×3 (08:07→16:36)
[2024-10-25 08:08] LABS: Glucose - Point of Care 90 mg/dl (70-99)
[2024-10-25 09:04] LABS: % Basophils 0.1 % (0-2); % Eosinophils 0.3 % (0-6); % Immature Granulocytes 0.5 % (0-0.5); % Monocytes 6.2 % (1.7-9.3); % Neutrophils 87.9 % (42.2-75.2); Absolute Eosinophils 0.1 10^3/uL (0-0.7); Absolute Immature Granulocytes 0.1 10^3/uL (0-0.05); Absolute Lymphocytes 0.9 10^3/uL (1.2-3.4); Absolute Monocytes 1.2 10^3/uL (0.1-0.6); Absolute Neutrophils 16.3 10^3/uL (1.4-6.5); Hematocrit 44.7 % (39.0-52.0); Hemoglobin 15.5 g/dL (13.0-18.0); Mean Corp Hgb Conc. 34.7 g/dL (33.0-37.0); Mean Corpuscular Hgb 32.4 pg (27.0-31.0); Mean Corpuscular Volume 93.3 fL (80.0-94.0); Mean Platelet Volume 10.8 fL (7.4-10.4); Nucleated Red Blood Cells % 0 % (-); Platelet Count 130 10^3/uL (130-400); Red Blood Cell Count 4.79 10^6/uL (4.70-6.10); Red Cell Dist. Width 13.6 % (11.5-14.5); White Blood Cell Count 18.5 10^3/uL (4.8-10.8)
[2024-10-25 09:56] LABS: ALT (SGPT) 155 U/L (0-50); AST (SGOT) 50 U/L (17-59); Albumin 3.4 g/dl (3.5-5.0); Alkaline Phosphatase 256 U/L (38-126); Blood Urea Nitrogen 11 mg/dl (9-20); Calcium 8.5 mg/dl (8.4-10.2); Carbon Dioxide 16 mmol/L (22-30); Chloride 104 mmol/L (98-107); Estimated Creatinine Clearance > 125 ml/min; Glucose 83 mg/dl (70-99); Potassium 3.4 mmol/L (3.5-5.1); Sodium 137 mmol/L (135-145); Total Bilirubin 2.1 mg/dl (0.2-1.3); Total Protein 6.1 g/dl (6.3-8.2); eGFR > 60.00
--- NOTE | 2024-10-25 10:14 | W.PN.GI.CBS2 ---
Addendum entered and electronically signed by Adalid Rowe DO 10/25/24 13:57:
I saw and examined the patient.
The REFUSE LABORER's note was reviewed and I agree with the note.
Comment: Appears to be improving slowly from a GI standpoint, does note improving abdominal discomfort and passing flatus this morning. LFTs continuing to improve and down-trending T Bili. Suspect previous slight bump/rise from previous contrast
injection given significant dilatation within distal CBD to ensure no further filling defects during cholangiogram. Still with persistent leukocytosis but suspect reactive from post-ERCP pancreatitis (PEP). Otherwise, his abdominal exam is
reassuring and without any worsening abdominal pain, nausea/vomiting, fevers/chills or other localizing symptoms at this time and would defer further cross-sectional imaging. Would continue CLD and slowly advance as tolerated to low-fat diet.
Encourage frequent ambulation as tolerated and ongoing bowel regimen for treatment of mild ileus likely secondary from anesthesia and component of opioids as well. May resume anticoagulation today along with pletal. Continue ongoing supportive care
and hopeful for ongoing improvement in the next 24-48 hrs. See rest of recommendations as outlined below.
GI will continue to follow while inpatient.
Original Note:
Today's Communication / Plan
-
slow improvement in LFT's and pain but still some hiccups and has not tolerated much liquid without fever and slight rise in WBC's
abdominal exam stable with some pain but no distension and passing flatus
abd film 10/24 with mild ileus
encouraged to trial clears-- then advance as tolerated
cont IVF per medical team with metabolic acidosis -
replete K per medical team
ok to resume Pletal/Eliquis from GI standpoint
encouraged OOB, ambulate, limit narcs as able ok to cont Lovenox
trend CBC
surgery following
Assessment / Plan
-
Mr. Young is a 69yo presents with hx Afib On Eliquis, PAD -Pletal with prior stent, HTN, diverticulitis, obesity, former tobacco use, HLD, GERD, distant hx pancreatitis - ETOH related, fatty liver, bowel resection for diverticular disease,
gastric ulcers, DM, COPD, carotid stenosis, mod MR/TR with onset of chills, sweats, abdominal pain, with nausea, vomiting and diarrhea. On admission noted with WBC 11,000, paul 2, AST 104, ALT 149, alk phos 159, lipase 92 with improvement after
admission. Ct on admission with dilation of CBD with mild intrahepatic dilatation and mild GB distention no filling defect, lung nodule, HM with fatty liver, diverticulosis with prior resection, subacute to chronic rib fx. Follow up MRI with
choledocholithiasis, cholelithiasis HSM and hepatic steatosis. follow up MRI/MRCP with choledocholithiasis with intra and extrahepatic biliary dilation, cholelithiasis and HSM with hepatic steatosis. In review with patient hx similar admission to
[place] in 2019 with etiology unclear. He recall EGD but no clear etiology. He now notes symptoms for several days with wt loss, decreased oral intakes, dry heaves/vomiting small amount bile, yellow liquid stools, Hx EGD [place] 2018 did not
recall any abnormality and colonoscopy last 2019 overdue for follow up with new hx brother with stage III colon Ca.
S/p ERCP 10/22: Choledocholithiasis was found within the distal CBD resulting in proximal biliary dilation, managed with biliary sphincterotomy and balloon extraction where four stones and sludge were removed. S/p eventual lap dann with general
surgery on 10/23. Found to have an elevated lipase and abdominal discomfort concerning for post-ERCP pancreatitis after lap dann on 10/23.- No IOC performed during lap dann on 10/23, previous cholangiogram during ERCP (-) for additional filling
defects
10/24/24 obs series
Mild gaseous distention of the small bowel and colon favored to represent adynamic ileus.
#Choledocholithiasis with some rise in lipase Suspect secondary to edema from small/flat papilla and multiple stones/sludge requiring multiple balloon sweeps vs post ERCP panc
#Cholelithiasis
# metabolic acidosis
#Nausea/Vomiting
#Abd Pain slow improvement
#A Fib (on Eliquis, last dose 10/18- )
#PAD (on Pletal, last dose 10/19- )
#Leukocytosis
# mild ileus per imaging
PLAN:
slow improvement in LFT's and pain but still some hiccups and has not tolerated much liquid without fever and slight rise in WBC's
abdominal exam stable with some pain but no distension and passing flatus
abd film 10/24 with mild ileus
encouraged to trial clears-- then advance as tolerated
cont IVF per medical team with metabolic acidosis -
replete K per medical team
ok to resume Pletal/Eliquis from GI standpoint
encouraged OOB, ambulate, limit narcs as able ok to cont Lovenox
trend CBC
surgery following
Subjective
Subjective
Date of Service: October 25, 2024
still with some pain and nausea but admits to slow improvement, no stool but + flatus + hiccups-- willing to try liquid diet again as did not tolerate much yesterday
Objective
Data Reviewed
Laboratory Data:
Laboratory Results
10/25/24 07:42
10/25/24 07:42
Laboratory Results
PT 14.3 Sec (11.4-14.6) 10/20/24 06:59
INR 1.08 10/20/24 06:59
Total Bilirubin 2.1 mg/dl (0.2-1.3) H 10/25/24 07:42
AST 50 U/L (17-59) 10/25/24 07:42
ALT 155 U/L (0-50) H 10/25/24 07:42
Alkaline Phosphatase 256 U/L (38-126) H 10/25/24 07:42
Lipase > 4000 U/L (23-300) H* 10/23/24 13:02
Vital Signs and I&O:
Vital Signs
Temp Pulse Resp BP Pulse Ox
97.4 F 84 18 190/98 97
10/25/24 07:15 10/25/24 07:59 10/25/24 07:15 10/25/24 07:59 10/25/24 07:15
I&O
10/24/24 10/25/24 10/26/24
06:59 06:59 06:59
Intake Total 2720 / 2720 3190 / 3190
Output Total 850 / 850
Balance 1870 / 1870 3190 / 3190
Physical Exam
Physical Exam
HEENT: Other (less jaundice )
Cardiology: Normal Sinus Rhythm
Pulmonary: Clear
GI: Soft, Non Distended and Tender (mild at incision sites )
Extremities: No Edema
Neuro: Non Focal
[2024-10-25] MEDS: KCL 40 MEQ PO (10:28)
--- NOTE | 2024-10-25 11:29 | VATNOTE ---
patient right arm swollen 3/5. denies pain, numbness/tingling, change in sensation. two peripheral IV's removed and restarted one in the left arm. Primary RN aware to continue monitoring the right arm- elevated. Possible U/S order needed if swelling
does not resolve by end of day.
[2024-10-25] MEDS: LR IV (12:10)
[2024-10-25 12:28] LABS: Glucose - Point of Care 102 mg/dl (70-99)
[2024-10-25] MEDS: APRESOLINE 10 MG IV ×2 (15:37→21:27)
[2024-10-25 16:08] LABS: Glucose - Point of Care 122 mg/dl (70-99)
--- NOTE | 2024-10-25 17:20 | CON.ID ---
Consultation
-
Date/Time Consultation Requested: 10/25/24 10:11
Date/Time Consultation Performed: 10/25/24 17:29
Requesting Provider: Dr Hopkins
Performing Provider: Dr Cortes
Reason for Consultation: choledocolithiasis
Chief Complaint / Past History
Chief Complaint
Nausea, vomiting, diarrhea
History of Present Illness
Mr Young is a 69 y.o male with past medical history notable for diverticulitis s/p partial bowel resection, prior pancreatitis due to EtOH use, found to have elevated LFTs and recent MRI/MRCP revealing choledocholithiasis; he does recall a similar
presentation at [place] [id number] and EGD then nonrevealing. On arrival here with weight loss, decreased oral intake, dry heaves/vomiting small amount of bile, yellow liquid stools, RLQ pain and some epigastric pain. He also admits to periods of
sweats and chills prior to admission.
Has a reported penicillin allergy - pruritus but has been tolerating zosyn without apparent adverse effect.
Since arrival here he underwent ERCP 10/22. Since then he has been afebrile, bp stable to hypertensive, post operatively with leukocytosis that has persisted, hgb 15, plt 130, L shift is noted, t bili 2.1, ast 50, alt 155, alk phos downtrending to
256, lipse 10/23 >4000; reports some mild onoing abdominal pain at this point. On zosyn which he is tolerating. ID is consutled for assistance with management.
Past History
Additional Past Medical History:
Arrhythmias (PAF on Eliquis ), Cancer (left eye ), COPD, GERD, HTN, Hypercholesterolemia, NIDDM, Valvular Disease (moder MR, TR) and Other (PAD with LE stent, diverticulitis, obesity, prior tobacco use, gastric ulcers, former ETOH use, former
cocaine use, carotid stenosis, pancreatitis x 2 in past with ETOH use, fatty liver)
Additional Past Surgical History:
Bowel Resection (for diverticular disease 1980's ), Cardiac (ablation ) and Orthopedic (femoral cliff 1975, quad tendon repair)
Allergy History:
Penicillins Allergy (Mild, Verified 10/25/24 15:05)
Itching
Medications Reviewed: Yes
Social History
Tobacco: Former Smoker
Alcohol: Former
Drug: Former User
Family History
Family History: Not Pertinent
Review of Systems
Review of Systems
General: Negative Fever or Chills
All systems: All other systems were reviewed and were negative
Vital Signs
Temp Pulse Resp BP Pulse Ox
97.3 F 87 18 183/87 96
10/25/24 15:35 10/25/24 15:37 10/25/24 15:35 10/25/24 15:37 10/25/24 15:35
Physical Exam
Physical Exam
Constitutional: No Acute Distress
Cardiovascular: Regular Rate and S1/S2; Negative Murmur or Rub
Pulmonary: Clear and Symmetric; Negative Wheezes, Rales or Rhonchi
Gastrointestinal: Soft, Tender, Non Distended and Normal Bowel Sounds
Skin: Warm and Dry; Negative Rash or Jaundice
Lab / Diagnostic Study Results
10/25/24 07:42
10/25/24 07:42
Abs Immat Gran (auto) 0.1 10^3/uL (0-0.05) H 10/25/24 07:42
Absolute Neuts (auto) 16.3 10^3/uL (1.4-6.5) H 10/25/24 07:42
Absolute Lymphs (auto) 0.9 10^3/uL (1.2-3.4) L 10/25/24 07:42
Absolute Monos (auto) 1.2 10^3/uL (0.1-0.6) H 10/25/24 07:42
Absolute Basos (auto) 0.0 10^3/uL (0-0.2) 10/25/24 07:42
Total Counted 100 10/20/24 06:59
Immature Gran % 0.5 % (0-0.5) 10/25/24 07:42
Neutrophils % 87.9 % (42.2-75.2) H 10/25/24 07:42
Lymphocytes % 5.0 % (20.5-51.1) L 10/25/24 07:42
Monocytes % 6.2 % (1.7-9.3) 10/25/24 07:42
Eosinophils % 0.3 % (0-6) 10/25/24 07:42
Basophils % 0.1 % (0-2) 10/25/24 07:42
Abs Neuts (Manual) 3.1 10^3/uL (1.4-6.5) 10/20/24 06:59
Segmented Neutrophils 55 % (42-75) 10/20/24 06:59
Band Neutrophils 0 % (0-3) 10/20/24 06:59
Lymphocytes (Manual) 29 % (20-51) 10/20/24 06:59
Eosinophils (Manual) 4 % (0-6) 10/20/24 06:59
PT 14.3 Sec (11.4-14.6) 10/20/24 06:59
INR 1.08 10/20/24 06:59
Lactic Acid 1.3 mmol/L (0.7-2.0) 10/23/24 13:02
Microbiology Results
Micro:
10/25/24 11:52 Blood Culture - Pending
Blood/Venous
10/25/24 11:09 Blood Culture - Pending
Blood/Venous
10/19/24 00:42 Salmonella/Shigella Culture - Final
Feces/Stool No Salmonella, Shigella, Aeromonas or Plesiomonas species
isolated.
Campylobacter Culture - Final
No Campylobacter species isolated.
Shiga Toxin Test - Final
No E. coli Shiga Toxin 1 or 2 detected.
10/19/24 00:42 - Final
Feces/Stool Negative for Norovirus GI and GII.
10/19/24 00:42 Stool Leukocytes - Final
Feces/Stool
Assessment / Plan
Post Operative Leukocytosis
Choledocolithiasis s/p ERCP 10/23
Gallstone Pancreatitis
Reported low risk penicillin allergy - tolerating zosyn
- blood cultures x2 in progress no growth to date
- leukocytosis expected post operatively and with pancreatitis
- tolerating zosyn, may consider challenge with augmentin in the coming days vs alternatives vs completing a course; plan to continue antibiotics at least 5 days post operatively through 10/28
Care Review
Plan reviewed with: Physician (Dr Rowe - abx selection, leukocytosis)
[2024-10-25] MEDS: BICITRA 15 ML PO ×2 (17:34→22:24)
[2024-10-25] MEDS: ALDACTONE 12.5 MG PO (17:36)
[2024-10-25] MEDS: LOVENOX 40 MG SC (17:39)
[2024-10-25] MEDS: DILAUDID 0.5 MG IV (22:27)
[2024-10-25 22:36] LABS: Glucose - Point of Care 101 mg/dl (70-99)
[2024-10-25] MEDS: TYLENOL PO (23:53)
[2024-10-26] MEDS: ROXICODONE 5 MG PO (00:26)
[2024-10-26] MEDS: DILAUDID 0.5 MG IV ×4 (02:41→23:26)
[2024-10-26] MEDS: LR 1000 IV (02:41)
[2024-10-26 03:28] VITALS: BP 173/71
[2024-10-26] MEDS: TYLENOL 650 MG PO ×6 (04:06→23:26)
[2024-10-26] MEDS: ZOSYN 50 IV (05:45)
[2024-10-26 06:00] VITALS: BMI 30.8
[2024-10-26] MEDS: APRESOLINE 10 MG IV ×3 (06:48→23:24)
[2024-10-26 07:13] VITALS: BP 182/89
[2024-10-26 07:47] LABS: Glucose - Point of Care 105 mg/dl (70-99)
--- NOTE | 2024-10-26 07:52 | W.PN.HOSP.TC ---
Addendum entered and electronically signed by Yohannes Blevins MD 10/27/24 10:11:
Read, reviewed, and agree. See same day progress note for additional details. Time spent reviewing records in EMR, med rec, consults, notes, d/w consultants, nursing, family, and CM
Original Note:
Today's Communication/Plan
-
Advance diet as tolerated
Discontinue Zosyn and switch to Augmentin
Discontinue IV fluids
Replete potassium as needed, recheck BMP this p.m.
Assessment / Plan
Assessment / Plan
69-year-old former smoker male with history of A-fib on Eliquis, CHF, hypertension, PAD with stent to right leg presenting with 4 days of nausea vomiting and diarrhea - water like consistency daily. He notes chills and sweats but no measurable
fever. Currently reports no fever, chills, abdominal pain.
# Choledocholithiasis and gallstones
- Status post ERCP, without complications
- S/p laparoscopic cholecystectomy
- Continue with empiric IV antibiotic --> ID consulted, suggesting transition to Augmentin. Will discontinue Zosyn and start Augmentin today.
- Restarted Eliquis
- GI and surgery following, advance diet to full liquids and low-fat as tolerated
- LFTs continue to downtrend
# Postop metabolic acidosis
- Likely secondary to Normosol during cholecystectomy
- Initially started on bicarb drip, now discontinued
- Bicarb improving --> will discontinue Bicitra and IV fluids
# Hypokalemia
- Likely secondary to poor oral intake and Bicitra
- Replete as needed
- Check BMP this p.m.
# Leukocytosis
- White count downtrending, 15.9 today
- No change on exam, no fever detected
- ID following
- Blood cultures no growth in 24 hours
# Hypokalemia
- Likely secondary to poor oral intake
- Replete as needed
# Constipation, postop
- On bowel regimen
- Now resolved, has had 3 bowel movements since yesterday
- Obstruction series shows mild gaseous distention of the small bowel and colon favored to represent adynamic ileus
- Advised ambulation
# Paroxysmal A-fib
- s/p cardiac ablation
- Patient follows with [facility]
- Continue Sotalol 80 mg twice daily with hold parameters
- Continue metoprolol succinate 100 mg daily with hold parameters
- Resumed Eliquis today
# HTN urgency
- Started on losartan
- Continue with metoprolol, continue with as needed hydralazine
# Nonischemic myocardial injury
- Patient had chest pain over the weekend
- Troponin elevated (peaked at 0.08), EKG no ischemic changes but new RBBB, consistent with nonischemic myocardial injury
- Cardiology recommending outpatient stress test
# Chronic HFpEF
- Continue metoprolol succinate 50 daily, rosuvastatin, Farxiga
- Empagliflozin held
- Started on dapagliflozin
# Diabetes
- Glipizide on hold
- Continue SSI, Accu-Checks
- HbA1c 7.3
# HLD
- Holding Crestor with elevation liver enzymes
#PAD with stent to right leg
- Holding Crestor 5 mg daily
- Resumed Pletal per GI
# GERD, hx gastric ulcer
- on IV Protonix
# Tobacco use, former
- 49-year 3 pack a day, quit 2019
- Recommended outpt f/u for 3mm LLL nodule noted on CT
#Diverticulitis requiring colon resection and reanastomosis
# Subacute to chronic fracture anterior right seventh rib
- Stable, likely chronic
- Pain management
#Former alcohol abuse daily drinker stopped early 30s
#Hepatomegaly and hepatic fatty liver
#Former cocaine user�snorting in his 20s and 30s
# Polycythemia
- Likely 2/2 tobacco use
# QTc prolonged (506)
- On Sotalol and Pletal (currently held)
- Continue to monitor
DVT prophylaxis
Eliquis
Total time spent to see the patient, examine the patient, review data and lab result, discuss treatment plan with patient, GI doctor, nursing staff around 57 minutes
Anticipated Discharge: Within 24 hours
Subjective/Interval History
-
Date of Service: October 26, 2024
Objective Data
-
Labs:
Laboratory Results
10/26/24
07:16
WBC Pending
Hgb Pending
Hct Pending
Plt Count Pending
Sodium Pending
Potassium Pending
Chloride Pending
Carbon Dioxide Pending
BUN Pending
Creatinine Pending
Glucose Pending
Calcium Pending
Total Bilirubin Pending
AST Pending
ALT Pending
Alkaline Phosphatase Pending
Vital Signs:
Vital Signs
Temp Pulse Resp BP Pulse Ox
98.0 F 85 16 169/87 96
10/26/24 03:28 10/26/24 06:48 10/26/24 03:28 10/26/24 06:48 10/26/24 03:28
I&O
10/25/24 10/26/24 10/27/24
06:59 06:59 06:59
Intake Total 3190 / 3190 2860 / 2860
Balance 3190 / 3190 2860 / 2860
Review of Systems
-
History Source: Patient
Constitutional: Reports No Symptoms
EENT: Reports No Symptoms Reported
Respiratory: Reports No Symptoms
Cardiac: Reports No Symptoms
Abdomen/GI: Reports Abdominal Pain; Denies Nausea, Vomiting or Constipated
Genitourinary: Reports No Symptoms
Musculoskeletal: Reports No Symptoms
Skin: Reports No Symptoms
Neuro: Reports No Symptoms
Endocrine: Reports No Symptoms
Hematologic / Lymphatic: Reports No Symptoms
Physical Exam
-
General: Well Developed, Well Nourished, No Apparent Distress and Comfortable
HEENT: Normocephalic
Respiratory: Clear to Auscultation
Cardiac: Regular Rhythm and S1/S2
GI: Soft, Nondistended, Normal Bowel Sounds and Tender (No guarding or rebound)
Genito-urinary: No Costovertebral Tender
Musculoskeletal: No Clubbing, No Cyanosis and No Edema
Skin: Warm
Neuro: Awake, Alert, Oriented and AO x 3
Psych: Calm
[2024-10-26] MEDS: NOVOLOG FLEXPEN-LOW RESISTANCE SC ×2 (08:15→16:31)
[2024-10-26] MEDS: ALDACTONE 12.5 MG PO ×2 (08:32→09:59)
[2024-10-26] MEDS: THERAGRAN 1 TABLET PO (08:32)
[2024-10-26] MEDS: PROTONIX IV 40 MG IV (08:32)
[2024-10-26] MEDS: FARXIGA 10 MG PO (08:32)
[2024-10-26] MEDS: BICITRA 15 ML PO ×3 (08:32→22:19)
[2024-10-26] MEDS: NSS (PRESERVATIVE FREE) 10 ML IV (08:32)
[2024-10-26] MEDS: BETAPACE 80 MG PO ×2 (08:33→20:04)
[2024-10-26] MEDS: COZAAR 50 MG PO (08:33)
[2024-10-26] MEDS: TOPROL XL 100 MG PO (08:33)
[2024-10-26 08:38] LABS: Hemoglobin 14.9 g/dL (13.0-18.0); Mean Corp Hgb Conc. 34.7 g/dL (33.0-37.0); Mean Corpuscular Hgb 32.3 pg (27.0-31.0); Mean Corpuscular Volume 93.1 fL (80.0-94.0); Mean Platelet Volume 10.3 fL (7.4-10.4); Platelet Count 119 10^3/uL (130-400); Red Blood Cell Count 4.62 10^6/uL (4.70-6.10); Red Cell Dist. Width 13.8 % (11.5-14.5); White Blood Cell Count 15.9 10^3/uL (4.8-10.8)
[2024-10-26 09:15] LABS: ALT (SGPT) 108 U/L (0-50); AST (SGOT) 32 U/L (17-59); Albumin 3.2 g/dl (3.5-5.0); Alkaline Phosphatase 220 U/L (38-126); Blood Urea Nitrogen 7 mg/dl (9-20); Calcium 8.5 mg/dl (8.4-10.2); Carbon Dioxide 18 mmol/L (22-30); Chloride 102 mmol/L (98-107); Estimated Creatinine Clearance > 125 ml/min; Glucose 75 mg/dl (70-99); Sodium 137 mmol/L (135-145); Total Bilirubin 1.9 mg/dl (0.2-1.3); Total Protein 5.9 g/dl (6.3-8.2); eGFR > 60.00
[2024-10-26] MEDS: LR IV (09:43)
[2024-10-26] MEDS: KCL 40 MEQ PO (09:56)
[2024-10-26] MEDS: KCL 270 MEQ IV (09:56)
[2024-10-26] MEDS: ELIQUIS 5 MG PO ×2 (09:56→20:01)
--- NOTE | 2024-10-26 10:19 | W.PN.GI.CBS2 ---
Today's Communication / Plan
-
advance diet, monitor labs
Assessment / Plan
-
Mr. Young is a 69yo presents with hx Afib On Eliquis, PAD -Pletal with prior stent, HTN, diverticulitis, obesity, former tobacco use, HLD, GERD, distant hx pancreatitis - ETOH related, fatty liver, bowel resection for diverticular disease,
gastric ulcers, DM, COPD, carotid stenosis, mod MR/TR with onset of chills, sweats, abdominal pain, with nausea, vomiting and diarrhea. On admission noted with WBC 11,000, paul 2, AST 104, ALT 149, alk phos 159, lipase 92 with improvement after
admission. Ct on admission with dilation of CBD with mild intrahepatic dilatation and mild GB distention no filling defect, lung nodule, HM with fatty liver, diverticulosis with prior resection, subacute to chronic rib fx. Follow up MRI with
choledocholithiasis, cholelithiasis HSM and hepatic steatosis. follow up MRI/MRCP with choledocholithiasis with intra and extrahepatic biliary dilation, cholelithiasis and HSM with hepatic steatosis. In review with patient hx similar admission to
[facility] in 2019 with etiology unclear. He recall EGD but no clear etiology. He now notes symptoms for several days with wt loss, decreased oral intakes, dry heaves/vomiting small amount bile, yellow liquid stools, Hx EGD [facility] 2019 did not
recall any abnormality and colonoscopy last 2019 overdue for follow up with new hx brother with stage III colon Ca.
S/p ERCP 10/22: Choledocholithiasis was found within the distal CBD resulting in proximal biliary dilation, managed with biliary sphincterotomy and balloon extraction where four stones and sludge were removed. S/p eventual lap dann with general
surgery on 10/23. Found to have an elevated lipase and abdominal discomfort concerning for post-ERCP pancreatitis after lap dann on 10/23.- No IOC performed during lap dann on 10/23, previous cholangiogram during ERCP (-) for additional filling
defects
10/24/24 obs series
Mild gaseous distention of the small bowel and colon favored to represent adynamic ileus.
#Choledocholithiasis with some rise in lipase Suspect secondary to edema from small/flat papilla and multiple stones/sludge requiring multiple balloon sweeps vs post ERCP panc
#Cholelithiasis
# metabolic acidosis
#Nausea/Vomiting
#Abd Pain slow improvement
#A Fib (on Eliquis, resumed)
#PAD (on Pletal, resumed )
#Leukocytosis
# mild ileus per imaging
PLAN:
slow improvement in LFT's
Pain improving - advance to full liquids if tolerates adv to low fat
abd film 10/24 with mild ileus but passing flatus and small stool
encouraged to trial clears-- then advance as tolerated
encouraged OOB, ambulate, limit narcs as able ok to cont Lovenox
WBC improving, ID consulted as well by primary team, on antibiotics
If continues to improve potential discharge over weekend
Subjective
Subjective
Date of Service: October 26, 2024
Pain improving
No n/v tolerating clears
No fevers
Objective
Data Reviewed
Laboratory Data:
Laboratory Results
10/26/24 07:16
Laboratory Results
PT 14.3 Sec (11.4-14.6) 10/20/24 06:59
INR 1.08 10/20/24 06:59
Total Bilirubin 1.9 mg/dl (0.2-1.3) H 10/26/24 07:16
AST 32 U/L (17-59) 10/26/24 07:16
ALT 108 U/L (0-50) H 10/26/24 07:16
Alkaline Phosphatase 220 U/L (38-126) H 10/26/24 07:16
Lipase > 4000 U/L (23-300) H* 10/23/24 13:02
Vital Signs and I&O:
Vital Signs
Temp Pulse Resp BP Pulse Ox
97.4 F 96 20 173/95 98
10/26/24 07:13 10/26/24 09:59 10/26/24 07:13 10/26/24 09:59 10/26/24 07:13
I&O
10/25/24 10/26/24 10/27/24
06:59 06:59 06:59
Intake Total 3190 / 3190 2860 / 2860
Balance 3190 / 3190 2860 / 2860
Physical Exam
Physical Exam
GI: Non Distended, Non Tender and Normal Bowel Sounds
[2024-10-26 11:11] VITALS: BP 183/95
--- NOTE | 2024-10-26 11:36 | VATNOTE ---
Swelling to right arm has diminished per patient. Continues to deny any discomfort. Right upper extremity continues to have slight swelling. Arm soft and warm to touch.
[2024-10-26 11:58] LABS: Glucose - Point of Care 165 mg/dl (70-99)
--- NOTE | 2024-10-26 12:03 | CM ---
CM reviewed chart, plan advance diet. Plan remains home no needs when stable for discharge. CM will continue to follow for all discharge planning needs.
Plan; home no needs when stable.
[2024-10-26] MEDS: TORADOL 10 MG IV (12:06)
[2024-10-26] MEDS: NOVOLOG FLEXPEN-LOW RESISTANCE 1 UNITS SC (12:07)
[2024-10-26] MEDS: ZOSYN IV (12:26)
--- NOTE | 2024-10-26 15:06 | W.PN.UPDATE ---
Update Note
Progress Note Update
I got called by nursing patient having 8 out of 10 abdominal pain unable to tolerate p.o. Will get CT scan to ensure no necrotizing pancreatitis or other complication. I sent an update to the team as well.
--- NOTE | 2024-10-26 15:08 | W.PN.ID1 ---
Date of Service
Date of Service: October 26, 2024
Today's Communication
Continue antibiotics.
Assessment / Plan
Post Operative Leukocytosis
Choledocholithiasis; s/p ERCP 10/23
Gallstone Pancreatitis
Reported low risk penicillin allergy - tolerating zosyn
- blood cultures x2 in progress no growth to date
- leukocytosis expected post operatively and with pancreatitis; improved today.
- tolerating zosyn, may consider challenge with augmentin in the coming days vs alternatives vs completing a course; plan to continue antibiotics at least 5 days post operatively through 10/28
- Await findings from repeat CT given abdominal pain today.
Chief Complaint
-: Other (Choledocholithiasis)
Subjective / Review of Systems
Patient seen and examined. No difficulty with antibiotics. Abdominal pain noted today.
Vital Signs / Physical Exam
Vital Signs
Vital Signs
Temp Pulse Resp BP Pulse Ox
97.7 F 87 20 183/95 97
10/26/24 11:11 10/26/24 11:11 10/26/24 11:11 10/26/24 11:11 10/26/24 11:11
Physical Exam
Constitutional: No Acute Distress, Comfortable and Non-toxic
Eyes: Sclera Anicteric
Cardiovascular: S1/S2; Negative S3/S4
Pulmonary: Coarse and Non Labored
Gastrointestinal: Soft, Distended, No Rebound and No Guarding
Skin: Negative Rash
Neurological: Awake and Alert
Psychological: Calm
Objective Data
Lab Data
Lab Results
10/26/24 07:16
PT 14.3 Sec (11.4-14.6) 10/20/24 06:59
INR 1.08 10/20/24 06:59
Estimated Creat Clear > 125 ml/min 10/26/24 07:16
Lactic Acid 1.3 mmol/L (0.7-2.0) 10/23/24 13:02
Total Bilirubin 1.9 mg/dl (0.2-1.3) H 10/26/24 07:16
AST 32 U/L (17-59) 10/26/24 07:16
ALT 108 U/L (0-50) H 10/26/24 07:16
Alkaline Phosphatase 220 U/L (38-126) H 10/26/24 07:16
Most recent labs reviewed.
Micro Results:
10/25/24 11:52 Blood Culture - Preliminary
Blood/Venous No Growth in 24 hours- Final report to follow
10/25/24 11:09 Blood Culture - Preliminary
Blood/Venous No Growth in 24 hours- Final report to follow
10/19/24 00:42 Salmonella/Shigella Culture - Final
Feces/Stool No Salmonella, Shigella, Aeromonas or Plesiomonas species
isolated.
Campylobacter Culture - Final
No Campylobacter species isolated.
Shiga Toxin Test - Final
No E. coli Shiga Toxin 1 or 2 detected.
10/19/24 00:42 - Final
Feces/Stool Negative for Norovirus GI and GII.
10/19/24 00:42 Stool Leukocytes - Final
Feces/Stool
[2024-10-26 15:13] LABS: Blood Urea Nitrogen 6 mg/dl (9-20); Calcium 8.4 mg/dl (8.4-10.2); Carbon Dioxide 22 mmol/L (22-30); Chloride 104 mmol/L (98-107); Estimated Creatinine Clearance > 125 ml/min; Glucose 96 mg/dl (70-99); Potassium 3.9 mmol/L (3.5-5.1); Sodium 137 mmol/L (135-145); eGFR > 60.00
[2024-10-26 15:56] VITALS: BP 173/86
[2024-10-26] MEDS: OMNIPAQUE 50 ML PO (16:08)
[2024-10-26 16:26] LABS: Glucose - Point of Care 120 mg/dl (70-99)
[2024-10-26 19:00] VITALS: BP 188/95
[2024-10-26] MEDS: AUGMENTIN 500 MG/125 MG 1 TABLET PO (20:01)
[2024-10-26] MEDS: SENOKOT-S 1 TABLET PO (20:05)
[2024-10-26] MEDS: PLETAL 100 MG PO (20:05)
[2024-10-26 21:53] LABS: Glucose - Point of Care 163 mg/dl (70-99)
[2024-10-26 23:23] VITALS: BP 167/93
[2024-10-27] MEDS: DILAUDID 0.5 MG IV ×7 (02:26→21:22)
[2024-10-27] MEDS: TYLENOL 650 MG PO ×6 (03:12→23:27)
[2024-10-27 03:13] VITALS: BP 127/76
[2024-10-27 06:00] VITALS: BMI 30.4
[2024-10-27 07:11] VITALS: BP 155/87
[2024-10-27 07:46] LABS: Glucose - Point of Care 107 mg/dl (70-99)
[2024-10-27] MEDS: NOVOLOG FLEXPEN-LOW RESISTANCE SC ×3 (08:09→17:00)
[2024-10-27] MEDS: PROTONIX IV 40 MG IV (08:25)
[2024-10-27] MEDS: NSS (PRESERVATIVE FREE) 10 ML IV (08:25)
[2024-10-27] MEDS: THERAGRAN 1 TABLET PO (08:26)
[2024-10-27] MEDS: AUGMENTIN 500 MG/125 MG 1 TABLET PO (08:26)
[2024-10-27] MEDS: BETAPACE 80 MG PO ×2 (08:26→20:09)
[2024-10-27] MEDS: ALDACTONE 25 MG PO (08:26)
[2024-10-27] MEDS: COZAAR 50 MG PO (08:26)
[2024-10-27] MEDS: TOPROL XL 100 MG PO (08:26)
[2024-10-27] MEDS: FARXIGA 10 MG PO (08:26)
[2024-10-27] MEDS: BICITRA 15 ML PO ×3 (08:26→21:20)
[2024-10-27] MEDS: SENOKOT-S 1 TABLET PO ×2 (08:26→20:11)
[2024-10-27] MEDS: ELIQUIS 5 MG PO ×2 (08:27→20:11)
[2024-10-27] MEDS: PLETAL 100 MG PO ×2 (08:27→20:11)
[2024-10-27] MEDS: FLUSH (NSS) 1 FLUSH IV (08:34)
[2024-10-27 08:52] LABS: % Basophils 0.2 % (0-2); % Immature Granulocytes 0.5 % (0-0.5); % Lymphocytes 8.5 % (20.5-51.1); % Monocytes 10.2 % (1.7-9.3); % Neutrophils 79.6 % (42.2-75.2); Absolute Eosinophils 0.2 10^3/uL (0-0.7); Absolute Immature Granulocytes 0.1 10^3/uL (0-0.05); Absolute Lymphocytes 1.2 10^3/uL (1.2-3.4); Absolute Monocytes 1.5 10^3/uL (0.1-0.6); Absolute Neutrophils 11.6 10^3/uL (1.4-6.5); Hematocrit 43.4 % (39.0-52.0); Hemoglobin 15.1 g/dL (13.0-18.0); Mean Corp Hgb Conc. 34.8 g/dL (33.0-37.0); Mean Corpuscular Hgb 32.2 pg (27.0-31.0); Mean Corpuscular Volume 92.5 fL (80.0-94.0); Mean Platelet Volume 9.6 fL (7.4-10.4); Nucleated Red Blood Cells % 0 % (-); Platelet Count 143 10^3/uL (130-400); Red Blood Cell Count 4.69 10^6/uL (4.70-6.10); Red Cell Dist. Width 13.6 % (11.5-14.5); White Blood Cell Count 14.6 10^3/uL (4.8-10.8)
[2024-10-27 09:02] LABS: ALT (SGPT) 82 U/L (0-50); AST (SGOT) 28 U/L (17-59); Alkaline Phosphatase 214 U/L (38-126); Blood Urea Nitrogen 6 mg/dl (9-20); Calcium 8.9 mg/dl (8.4-10.2); Carbon Dioxide 19 mmol/L (22-30); Chloride 102 mmol/L (98-107); Estimated Creatinine Clearance > 125 ml/min; Glucose 98 mg/dl (70-99); Potassium 3.3 mmol/L (3.5-5.1); Sodium 137 mmol/L (135-145); Total Bilirubin 1.4 mg/dl (0.2-1.3); Total Protein 5.9 g/dl (6.3-8.2); eGFR > 60.00
--- NOTE | 2024-10-27 10:11 | W.PN.HOSP.TC ---
Addendum entered and electronically signed by Yohannes Blevins MD 10/27/24 12:26:
Evidence of necrosis. Did not mean Evidence of abscess. This was a dictation error
Original Note:
Today's Communication/Plan
-
Assessment / Plan
Assessment / Plan
NAD
Scleral Anicteric
MMM
No JVD
CTABL
RRR, S1/S2
Soft, epigastric tenderness, ND, BS+
Warm, Dry
AAOx3
Calm
New�acute pancreatitis
- Clear liquid diet
- IV fluids with LR at a rate of 200 cc/h
- Evidence of abscess therefore p.o. antibiotics were discontinued started on IV antibiotics and ID ordered meropenem
- GI following
Choledocholithiasis and gallstone pancreatitis
- S/p ERCP with stones and sludge removed
- S/p lap dann on 10/23
- Surgery following
Metabolic acidosis
Improving continue Bicitra
Expect further improvement with being initiated on LR in the setting of pancreatitis
Hypokalemia in the setting of receiving alkali therapy
Replete
Paroxysmal atrial fibrillation
S/p ablation continue sotalol beta-fide
Plan to remove Eliquis tomorrow
Chronic HFpEF
Continue beta-fide
SGLT2 inhibitor on hold as of right now, can likely resume in the a.m.
Can start MRA as hypertensive but would do low-dose as this hypertension could be related to pain
Hypertension
Continue with hypertensives
Anticipated Discharge: > 48 hours
Subjective/Interval History
-
Date of Service: October 27, 2024
Seen and examined. No new concern. No acute overnight events.
Still having abdominal pain however is tolerating his diet
Reviewed CT findings with him about acute pancreatitis
Objective Data
-
Labs:
Laboratory Results
04/26/25
08:12
WBC 14.6 H
Hgb 15.1
Hct 43.4
Plt Count 143 D
Sodium 137
Potassium 3.3 L
Chloride 102
Carbon Dioxide 19 L
BUN 6 L
Creatinine 0.5 L
Glucose 98
Calcium 8.9
Total Bilirubin 1.4 H
AST 28
ALT 82 H
Alkaline Phosphatase 214 H
Vital Signs:
Vital Signs
Temp Pulse Resp BP Pulse Ox
97.6 F 94 18 155/87 97
10/27/24 07:11 10/27/24 07:11 10/27/24 07:11 10/27/24 07:11 10/27/24 07:11
I&O
10/26/24 10/27/24 10/28/24
06:59 06:59 06:59
Intake Total 2860 / 2860 480 / 480
Balance 2860 / 2860 480 / 480
--- NOTE | 2024-10-27 10:32 | W.PN.ID1 ---
Date of Service
Date of Service: October 27, 2024
Today's Communication
Start meropenem.
Assessment / Plan
New necrotizing pancreatitis
Gallstone Pancreatitis
Leukocytosis -persists
Choledocholithiasis; s/p ERCP 10/23
- blood cultures x2 in progress no growth to date
- DC amoxicillin/clav.
- Start meropenem 500mg IV q6h.
- If condition worsens, fine needle aspiration of necrotic fluid.
- Follow wbc/temps and clinically.
Chief Complaint
-: Other (Choledocholithiasis, pancreatitis)
Subjective / Review of Systems
+ abdominal pain
Vital Signs / Physical Exam
Vital Signs
Vital Signs
Temp Pulse Resp BP Pulse Ox
97.6 F 94 18 155/87 97
10/27/24 07:11 10/27/24 07:11 10/27/24 07:11 10/27/24 07:11 10/27/24 07:11
Objective Data
Lab Data
Lab Results
10/27/24 08:12
10/27/24 08:12
PT 14.3 Sec (11.4-14.6) 10/20/24 06:59
INR 1.08 10/20/24 06:59
Estimated Creat Clear > 125 ml/min 10/27/24 08:12
Lactic Acid 1.3 mmol/L (0.7-2.0) 10/23/24 13:02
Total Bilirubin 1.4 mg/dl (0.2-1.3) H 10/27/24 08:12
AST 28 U/L (17-59) 10/27/24 08:12
ALT 82 U/L (0-50) H 10/27/24 08:12
Alkaline Phosphatase 214 U/L (38-126) H 10/27/24 08:12
Most recent labs reviewed.
Micro Results:
10/25/24 11:52 Blood Culture - Preliminary
Blood/Venous No Growth in 24 hours- Final report to follow
10/25/24 11:09 Blood Culture - Preliminary
Blood/Venous No Growth in 24 hours- Final report to follow
10/19/24 00:42 Salmonella/Shigella Culture - Final
Feces/Stool No Salmonella, Shigella, Aeromonas or Plesiomonas species
isolated.
Campylobacter Culture - Final
No Campylobacter species isolated.
Shiga Toxin Test - Final
No E. coli Shiga Toxin 1 or 2 detected.
10/19/24 00:42 - Final
Feces/Stool Negative for Norovirus GI and GII.
10/19/24 00:42 Stool Leukocytes - Final
Feces/Stool
10/26/24 CT a/p: ACUTE PANCREATITIS which appears new from 10/19/2024. Acute peripancreatic necrotic fluid collections superior to the pancreatic neck and body. Mild extrahepatic biliary dilatation with suggestion of acute cholangitis.
Care Review
Plan reviewed with: Physician (Dr. Rafi Blevins)
[2024-10-27] MEDS: STERILE WATER FOR INJECTION 10 ML IV ×3 (10:39→21:22)
[2024-10-27] MEDS: LR 1000 IV ×3 (10:39→20:13)
[2024-10-27] MEDS: MERREM 500 MG IV ×3 (10:39→21:22)
--- NOTE | 2024-10-27 11:10 | W.PN.GI.CBS2 ---
Today's Communication / Plan
-
monitor pain, fever/wbc curve, clears for now
Assessment / Plan
-
Mr. Young is a 69yo presents with hx Afib On Eliquis, PAD -Pletal with prior stent, HTN, diverticulitis, obesity, former tobacco use, HLD, GERD, distant hx pancreatitis - ETOH related, fatty liver, bowel resection for diverticular disease,
gastric ulcers, DM, COPD, carotid stenosis, mod MR/TR with onset of chills, sweats, abdominal pain, with nausea, vomiting and diarrhea. On admission noted with WBC 11,000, paul 2, AST 104, ALT 149, alk phos 159, lipase 92 with improvement after
admission. Ct on admission with dilation of CBD with mild intrahepatic dilatation and mild GB distention no filling defect, lung nodule, HM with fatty liver, diverticulosis with prior resection, subacute to chronic rib fx. Follow up MRI with
choledocholithiasis, cholelithiasis HSM and hepatic steatosis. follow up MRI/MRCP with choledocholithiasis with intra and extrahepatic biliary dilation, cholelithiasis and HSM with hepatic steatosis. In review with patient hx similar admission to
[place] in 2019 with etiology unclear. He recall EGD but no clear etiology. He now notes symptoms for several days with wt loss, decreased oral intakes, dry heaves/vomiting small amount bile, yellow liquid stools, Hx EGD [place] 2018 did not
recall any abnormality and colonoscopy last 2019 overdue for follow up with new hx brother with stage III colon Ca.
S/p ERCP 10/22: Choledocholithiasis was found within the distal CBD resulting in proximal biliary dilation, managed with biliary sphincterotomy and balloon extraction where four stones and sludge were removed. S/p eventual lap dann with general
surgery on 10/23. Found to have an elevated lipase and abdominal discomfort concerning for post-ERCP pancreatitis after lap dann on 10/23.- No IOC performed during lap dann on 10/23, previous cholangiogram during ERCP (-) for additional filling
defects
10/24/24 obs series
Mild gaseous distention of the small bowel and colon favored to represent adynamic ileus.
10/26 CT
1. ACUTE PANCREATITIS which appears new from 10/19/2024.
2. Acute peripancreatic necrotic fluid collections superior to the pancreatic neck and body.
3. Mild extrahepatic biliary dilatation with suggestion of acute cholangitis.
4. Recent cholecystectomy.
5. Severe diffuse hepatic steatosis.
6. Mild hepatosplenomegaly.
7. Previous sigmoidectomy.
8. Mildly enlarged prostate gland and mildly distended urinary bladder.
9. Severe calcific atherosclerotic plaque in the abdominal aorta, renal, and common iliac arteries.
10. Minimal bilateral pleural effusions.
11. Severe lower lumbar discogenic degenerative disease and facet joint arthrosis.
Patient with post ERCP pancreatitis due to difficult anatomy. Underwent CT scan as above which shows necrosis which I do not think is infected. His white blood cell count is trending down and he has no fever; no gas on CT.
Had BM yesterday.
Recommendations:
- Clears today will try advancing tomorrow; add on Ensure clears; if cannot tolerate diet may need NGT Tuesday
- Pain control
- I d/w ID. Likely meropenem not needed at this juncture as do not think he has infected necrotic pancreatitis as above but we can continue until he improves/inflammation calms down
- Will need repeat imaging to re-evaluate the peripancreatic fluid collections outpatient 4-8 weeks
Subjective
Subjective
Date of Service: October 27, 2024
I was messaged last night by the nurse that patient was having 8 out of 10 abdominal pain unable to tolerate the liquid diet. Therefore, I ordered CT scan as below. Discussed with patient today, pain persist unchanged also with hiccups.
Objective
Data Reviewed
Laboratory Data:
Laboratory Results
10/27/24 08:12
10/27/24 08:12
Laboratory Results
PT 14.3 Sec (11.4-14.6) 10/20/24 06:59
INR 1.08 10/20/24 06:59
Total Bilirubin 1.4 mg/dl (0.2-1.3) H 10/27/24 08:12
AST 28 U/L (17-59) 10/27/24 08:12
ALT 82 U/L (0-50) H 10/27/24 08:12
Alkaline Phosphatase 214 U/L (38-126) H 10/27/24 08:12
Lipase > 4000 U/L (23-300) H* 10/23/24 13:02
Vital Signs and I&O:
Vital Signs
Temp Pulse Resp BP Pulse Ox
97.6 F 94 18 155/87 97
10/27/24 07:11 10/27/24 07:11 10/27/24 07:11 10/27/24 07:11 10/27/24 07:11
I&O
10/26/24 10/27/24 10/28/24
06:59 06:59 06:59
Intake Total 2860 / 2860 480 / 480
Balance 2860 / 2860 480 / 480
Physical Exam
Physical Exam
GI: Distended and Tender (epigastric)
[2024-10-27] MEDS: KCL 270 MEQ IV (11:32)
[2024-10-27 11:45] VITALS: BP 136/67
[2024-10-27 12:02] LABS: Glucose - Point of Care 129 mg/dl (70-99)
[2024-10-27 15:53] VITALS: BP 151/82
[2024-10-27 17:00] LABS: Glucose - Point of Care 95 mg/dl (70-99)
[2024-10-27 19:00] VITALS: BP 155/84
[2024-10-27 22:29] LABS: Glucose - Point of Care 94 mg/dl (70-99)
[2024-10-27 23:35] VITALS: BP 176/92
[2024-10-27] MEDS: APRESOLINE 10 MG IV (23:37)
[2024-10-28] MEDS: DILAUDID 0.5 MG IV ×7 (00:27→23:14)
[2024-10-28] MEDS: LR 1000 IV ×5 (01:16→23:15)
[2024-10-28 03:00] VITALS: BP 174/87
[2024-10-28] MEDS: MERREM 500 MG IV ×4 (03:31→21:49)
[2024-10-28] MEDS: STERILE WATER FOR INJECTION 10 ML IV ×4 (03:32→21:49)
[2024-10-28] MEDS: TYLENOL 650 MG PO ×6 (03:37→23:14)
[2024-10-28] MEDS: APRESOLINE 10 MG IV ×2 (03:45→16:36)
[2024-10-28 06:00] VITALS: BMI 30.7
[2024-10-28 07:00] VITALS: BP 160/85
[2024-10-28 08:05] LABS: Glucose - Point of Care 104 mg/dl (70-99)
[2024-10-28] MEDS: PLETAL 100 MG PO ×2 (08:09→20:12)
[2024-10-28] MEDS: THERAGRAN 1 TABLET PO (08:09)
[2024-10-28] MEDS: BETAPACE 80 MG PO ×2 (08:09→20:11)
[2024-10-28] MEDS: SENOKOT-S 1 TABLET PO ×2 (08:09→20:11)
[2024-10-28] MEDS: BICITRA 15 ML PO ×3 (08:09→21:49)
[2024-10-28] MEDS: COZAAR 50 MG PO (08:10)
[2024-10-28] MEDS: PROTONIX IV 40 MG IV (08:11)
[2024-10-28] MEDS: ELIQUIS 5 MG PO ×2 (08:11→20:11)
[2024-10-28] MEDS: ALDACTONE 25 MG PO (08:11)
[2024-10-28] MEDS: FARXIGA 10 MG PO (08:11)
[2024-10-28] MEDS: NSS (PRESERVATIVE FREE) 10 ML IV (08:11)
[2024-10-28] MEDS: TOPROL XL 100 MG PO (08:11)
[2024-10-28] MEDS: NOVOLOG FLEXPEN-LOW RESISTANCE SC ×3 (08:12→16:47)
--- NOTE | 2024-10-28 09:50 | W.PN.HOSP.TC ---
Today's Communication/Plan
-
IV fluids at a rate of 200 cc/h
Continue meropenem
Analgesic support
Clear liquid diet
Advance as tolerated
GI and ID following
Surgery signed off
Assessment / Plan
Assessment / Plan
NAD
Scleral Anicteric
MMM
No JVD
CTABL
RRR, S1/S2
Soft, epigastric tenderness, ND, BS+
Warm, Dry
AAOx3
Calm
New�acute pancreatitis
- Clear liquid diet
- IV fluids with LR at a rate of 200 cc/h
- Evidence of abscess therefore p.o. antibiotics were discontinued started on IV antibiotics and ID ordered meropenem
- GI following
Choledocholithiasis and gallstone pancreatitis
- S/p ERCP with stones and sludge removed
- S/p lap dann on 10/23
- Surgery following
Metabolic acidosis
Improving continue Bicitra
Expect further improvement with being initiated on LR in the setting of pancreatitis
Hypokalemia in the setting of receiving alkali therapy
Replete
Paroxysmal atrial fibrillation
S/p ablation continue sotalol beta-fide
Plan to remove Eliquis tomorrow
Chronic HFpEF
Continue beta-fide
SGLT2 inhibitor on hold as of right now, can likely resume in the a.m.
Can start MRA as hypertensive but would do low-dose as this hypertension could be related to pain
Hypertension
Continue with hypertensives
Anticipated Discharge: > 48 hours
Subjective/Interval History
-
Date of Service: October 28, 2024
Seen and examined. No new complaints. No acute overnight events.
States he is keeping some of his clear liquid diet down.
Abdominal pain still present slightly improved no vomiting. Had couple loose bowel movements
Objective Data
-
Vital Signs:
Vital Signs
Temp Pulse Resp BP Pulse Ox
97.6 F 91 18 160/85 97
10/28/24 03:00 10/28/24 08:10 10/28/24 03:00 10/28/24 08:10 10/28/24 03:00
I&O
10/27/24 10/28/24 10/29/24
06:59 06:59 06:59
Intake Total 480 / 480 5590 / 5590
Balance 480 / 480 5590 / 5590
[2024-10-28 11:00] VITALS: BP 151/88
--- NOTE | 2024-10-28 13:01 | W.PN.ID1 ---
Date of Service
Date of Service: October 28, 2024
Today's Communication
Continue meropenem for now.
Assessment / Plan
Acute and chronic cholecystitis
Choledocholithiasis s/p ERCP 10/22, s/p lap dann 10/23
Necrotizing pancreatitis
Leukocytosis
- blood cultures x2 neg
- Continue meropenem 500mg IV q6h (d2; d10 abx).
- If condition worsens, fine needle aspiration of necrotic fluid.
- Follow wbc/temps and clinically.
Chief Complaint
-: Other (Choledocholithiasis, pancreatitis)
Subjective / Review of Systems
Abdominal pain is the same, not better yet.
! episode of diarrhea today.
Vital Signs / Physical Exam
Vital Signs
Vital Signs
Temp Pulse Resp BP Pulse Ox
98.2 F 91 18 160/85 98
10/28/24 07:00 10/28/24 08:10 10/28/24 07:00 10/28/24 08:10 10/28/24 07:00
Physical Exam
Constitutional: No Acute Distress
Cardiovascular: Regular Rate and S1/S2
Pulmonary: Clear
Gastrointestinal: Soft, Tender (diffuse moderate) and Other (hyperactive bowel sounds)
Extremities: Negative Edema
Neurological: AO x 3
Objective Data
Lab Data
PT 14.3 Sec (11.4-14.6) 10/20/24 06:59
INR 1.08 10/20/24 06:59
Estimated Creat Clear > 125 ml/min 10/27/24 08:12
Lactic Acid 1.3 mmol/L (0.7-2.0) 10/23/24 13:02
Total Bilirubin 1.4 mg/dl (0.2-1.3) H 10/27/24 08:12
AST 28 U/L (17-59) 10/27/24 08:12
ALT 82 U/L (0-50) H 10/27/24 08:12
Alkaline Phosphatase 214 U/L (38-126) H 10/27/24 08:12
Most recent labs reviewed.
Micro Results:
10/25/24 11:52 Blood Culture - Preliminary
Blood/Venous No Growth in 72 hours- Final report to follow
10/25/24 11:09 Blood Culture - Preliminary
Blood/Venous No Growth in 72 hours- Final report to follow
10/19/24 00:42 Salmonella/Shigella Culture - Final
Feces/Stool No Salmonella, Shigella, Aeromonas or Plesiomonas species
isolated.
Campylobacter Culture - Final
No Campylobacter species isolated.
Shiga Toxin Test - Final
No E. coli Shiga Toxin 1 or 2 detected.
10/19/24 00:42 - Final
Feces/Stool Negative for Norovirus GI and GII.
10/19/24 00:42 Stool Leukocytes - Final
Feces/Stool
10/26/24 CT a/p: ACUTE PANCREATITIS which appears new from 10/19/2024. Acute peripancreatic necrotic fluid collections superior to the pancreatic neck and body. Mild extrahepatic biliary dilatation with suggestion of acute cholangitis.
--- NOTE | 2024-10-28 13:01 | W.PN.GI.CBS2 ---
Today's Communication / Plan
-
pain control, hope to adv diet tomorrow
Assessment / Plan
-
Mr. Young is a 69yo presents with hx Afib On Eliquis, PAD -Pletal with prior stent, HTN, diverticulitis, obesity, former tobacco use, HLD, GERD, distant hx pancreatitis - ETOH related, fatty liver, bowel resection for diverticular disease,
gastric ulcers, DM, COPD, carotid stenosis, mod MR/TR with onset of chills, sweats, abdominal pain, with nausea, vomiting and diarrhea. On admission noted with WBC 11,000, paul 2, AST 104, ALT 149, alk phos 159, lipase 92 with improvement after
admission. Ct on admission with dilation of CBD with mild intrahepatic dilatation and mild GB distention no filling defect, lung nodule, HM with fatty liver, diverticulosis with prior resection, subacute to chronic rib fx. Follow up MRI with
choledocholithiasis, cholelithiasis HSM and hepatic steatosis. follow up MRI/MRCP with choledocholithiasis with intra and extrahepatic biliary dilation, cholelithiasis and HSM with hepatic steatosis. In review with patient hx similar admission to
[place] in 2019 with etiology unclear. He recall EGD but no clear etiology. He now notes symptoms for several days with wt loss, decreased oral intakes, dry heaves/vomiting small amount bile, yellow liquid stools, Hx EGD [place] 2019 did not
recall any abnormality and colonoscopy last 2019 overdue for follow up with new hx brother with stage III colon Ca.
S/p ERCP 10/22: Choledocholithiasis was found within the distal CBD resulting in proximal biliary dilation, managed with biliary sphincterotomy and balloon extraction where four stones and sludge were removed. S/p eventual lap dann with general
surgery on 10/23. Found to have an elevated lipase and abdominal discomfort concerning for post-ERCP pancreatitis after lap dann on 10/23.- No IOC performed during lap dann on 10/23, previous cholangiogram during ERCP (-) for additional filling
defects
10/24/24 obs series
Mild gaseous distention of the small bowel and colon favored to represent adynamic ileus.
10/26 CT
1. ACUTE PANCREATITIS which appears new from 10/19/2024.
2. Acute peripancreatic necrotic fluid collections superior to the pancreatic neck and body.
3. Mild extrahepatic biliary dilatation with suggestion of acute cholangitis.
4. Recent cholecystectomy.
5. Severe diffuse hepatic steatosis.
6. Mild hepatosplenomegaly.
7. Previous sigmoidectomy.
8. Mildly enlarged prostate gland and mildly distended urinary bladder.
9. Severe calcific atherosclerotic plaque in the abdominal aorta, renal, and common iliac arteries.
10. Minimal bilateral pleural effusions.
11. Severe lower lumbar discogenic degenerative disease and facet joint arthrosis.
Patient with post ERCP pancreatitis due to difficult anatomy. Underwent CT scan as above which shows necrosis which I do not think is infected. His white blood cell count is trending down and he has no fever; no gas on CT. I d/w surgery as well.
Having BM.
Recommendations:
- Clears today discussed advancing pt not ready, ensure clear added on ; if cannot tolerate diet may need NGT Tuesday; reviewing full liquid with pt perhaps best to go with BRAT tomorrow he felt full liquid was problematic
- Pain control
- needs daily labs I ordered today
- I d/w ID yesterday. Likely meropenem not needed at this juncture as do not think he has infected necrotic pancreatitis as above but we can continue until he improves/inflammation calms down
- Will need repeat imaging to re-evaluate the peripancreatic fluid collections outpatient 4-8 weeks
Subjective
Subjective
Date of Service: October 28, 2024
pain unchanged
Objective
Data Reviewed
Laboratory Data:
Laboratory Results
PT 14.3 Sec (11.4-14.6) 10/20/24 06:59
INR 1.08 10/20/24 06:59
Total Bilirubin 1.4 mg/dl (0.2-1.3) H 10/27/24 08:12
AST 28 U/L (17-59) 10/27/24 08:12
ALT 82 U/L (0-50) H 10/27/24 08:12
Alkaline Phosphatase 214 U/L (38-126) H 10/27/24 08:12
Lipase > 4000 U/L (23-300) H* 10/23/24 13:02
Vital Signs and I&O:
Vital Signs
Temp Pulse Resp BP Pulse Ox
98.2 F 91 18 160/85 98
10/28/24 07:00 10/28/24 08:10 10/28/24 07:00 10/28/24 08:10 10/28/24 07:00
I&O
10/27/24 10/28/24 10/29/24
06:59 06:59 06:59
Intake Total 480 / 480 5590 / 5590
Balance 480 / 480 5590 / 5590
Physical Exam
Physical Exam
GI: Distended and Tender
[2024-10-28 13:10] LABS: Glucose - Point of Care 110 mg/dl (70-99)
[2024-10-28 13:50] LABS: % Basophils 0.4 % (0-2); % Eosinophils 1.7 % (0-6); % Immature Granulocytes 0.5 % (0-0.5); % Lymphocytes 9.4 % (20.5-51.1); % Monocytes 10.4 % (1.7-9.3); % Neutrophils 77.6 % (42.2-75.2); Absolute Basophils 0.1 10^3/uL (0-0.2); Absolute Eosinophils 0.2 10^3/uL (0-0.7); Absolute Immature Granulocytes 0.1 10^3/uL (0-0.05); Absolute Lymphocytes 1.1 10^3/uL (1.2-3.4); Absolute Monocytes 1.2 10^3/uL (0.1-0.6); Absolute Neutrophils 9.1 10^3/uL (1.4-6.5); Hematocrit 40.8 % (39.0-52.0); Hemoglobin 14.2 g/dL (13.0-18.0); Mean Corp Hgb Conc. 34.8 g/dL (33.0-37.0); Mean Corpuscular Hgb 32.5 pg (27.0-31.0); Mean Corpuscular Volume 93.4 fL (80.0-94.0); Mean Platelet Volume 9.5 fL (7.4-10.4); Nucleated Red Blood Cells % 0 % (-); Platelet Count 132 10^3/uL (130-400); Red Blood Cell Count 4.37 10^6/uL (4.70-6.10); Red Cell Dist. Width 13.4 % (11.5-14.5); White Blood Cell Count 11.7 10^3/uL (4.8-10.8)
[2024-10-28 14:11] LABS: ALT (SGPT) 55 U/L (0-50); AST (SGOT) 25 U/L (17-59); Albumin 2.8 g/dl (3.5-5.0); Alkaline Phosphatase 159 U/L (38-126); Blood Urea Nitrogen 5 mg/dl (9-20); Calcium 8.3 mg/dl (8.4-10.2); Carbon Dioxide 24 mmol/L (22-30); Chloride 101 mmol/L (98-107); Direct Bilirubin 0.6 mg/dl (0.0-0.4); Estimated Creatinine Clearance > 125 ml/min; Glucose 111 mg/dl (70-99); Potassium 3.3 mmol/L (3.5-5.1); Sodium 136 mmol/L (135-145); Total Bilirubin 1.2 mg/dl (0.2-1.3); Total Protein 5.6 g/dl (6.3-8.2); eGFR > 60.00
[2024-10-28] MEDS: ZOFRAN 4 MG IV (14:26)
[2024-10-28] MEDS: LIORESAL 2.5 MG PO (14:52)
[2024-10-28] MEDS: KCL 40 MEQ PO ×2 (14:52→20:12)
[2024-10-28 15:00] VITALS: BP 181/91
[2024-10-28 16:40] LABS: Glucose - Point of Care 143 mg/dl (70-99)
[2024-10-28 19:25] VITALS: BP 167/87
[2024-10-28 21:49] LABS: Glucose - Point of Care 106 mg/dl (70-99)
[2024-10-28 23:35] VITALS: BP 151/76
[2024-10-29] MEDS: LR 1000 IV ×5 (02:46→23:14)
[2024-10-29] MEDS: DILAUDID 0.5 MG IV ×4 (02:46→23:17)
[2024-10-29 03:42] VITALS: BP 146/83
[2024-10-29] MEDS: STERILE WATER FOR INJECTION 10 ML IV ×2 (05:06→10:37)
[2024-10-29] MEDS: TYLENOL 650 MG PO ×5 (05:06→19:52)
[2024-10-29] MEDS: MERREM 500 MG IV ×2 (05:07→10:36)
[2024-10-29 05:51] VITALS: BMI 30.8
[2024-10-29 07:31] LABS: Glucose - Point of Care 95 mg/dl (70-99)
[2024-10-29 07:54] VITALS: BP 167/90
--- NOTE | 2024-10-29 08:14 | W.PN.HOSP.TC ---
Addendum entered and electronically signed by Jairon Quintero MD 10/29/24 17:24:
Seen and examined by me independently in collaboration with the medical office manager.
Lab data and imaging data reviewed.
Addendum as below :
Improving abdominal pain and starting to tolerate solid diet.
Continue antibiotics per ID
DC planning
Original Note:
Today's Communication/Plan
-
Advanced diet to brat
Pain management
Continue to monitor labs
Assessment / Plan
Assessment / Plan
69-year-old former smoker male with history of A-fib on Eliquis, CHF, hypertension, PAD with stent to right leg presenting with 4 days of nausea vomiting and diarrhea - water like consistency daily. He notes chills and sweats but no measurable
fever. Currently reports intermittent abdominal pain.
# Necrotizing pancreatitis, acute
- GI following, advanced diet to brat
- IV fluids with LR at a rate of 200 cc/h
- Evidence of peripancreatic necrotic fluid collections on CT scan. Will need repeat CT scan in 4 to 8 weeks as outpatient.
- ID following, started meropenem, now discontinued after 7 days of antibiotic treatment
- Monitor daily CRP
- Increased oxycodone to 10mg q4prn for severe pain
# Choledocholithiasis and gallstones
- Status post ERCP, without complications
- S/p laparoscopic cholecystectomy
- ID following, discontinued antibiotics
- GI following, advanced diet to brat
- LFTs continue to downtrend
# Postop metabolic acidosis
- Likely secondary to Normosol during cholecystectomy
- Initially started on bicarb drip, now discontinued
- Bicarb normal --> will discontinue Bicitra
# Hypokalemia
- Likely secondary to poor oral intake and Bicitra
- Replete as needed
# Leukocytosis
- White count downtrending, 11.2 today
- No change on exam, no fever detected
- ID following
- Blood cultures no growth in 4 days
# Hypokalemia
- Likely secondary to poor oral intake
- Replete as needed
# Constipation, postop
- On bowel regimen
- Obstruction series shows mild gaseous distention of the small bowel and colon favored to represent adynamic ileus
- Advised ambulation
- Now resolved
# Paroxysmal A-fib
- s/p cardiac ablation
- Patient follows with [facility]
- Continue Sotalol 80 mg twice daily with hold parameters
- Continue metoprolol succinate 100 mg daily with hold parameters
- Continue Eliquis
# HTN urgency
- Started on losartan
- Continue with metoprolol, continue with as needed hydralazine
# Nonischemic myocardial injury
- Patient had chest pain over the weekend
- Troponin elevated (peaked at 0.08), EKG no ischemic changes but new RBBB, consistent with nonischemic myocardial injury
- Cardiology recommending outpatient stress test
# Chronic HFpEF
- Continue metoprolol succinate 50 daily, rosuvastatin, Farxiga
- Empagliflozin held
- Started on dapagliflozin
# Diabetes
- Glipizide on hold
- Continue SSI, Accu-Checks
- HbA1c 7.3
# HLD
- Holding Crestor with elevation liver enzymes
#PAD with stent to right leg
- Holding Crestor 5 mg daily
- Continue Pletal
# GERD, hx gastric ulcer
- on IV Protonix
# Tobacco use, former
- 49-year 3 pack a day, quit 2019
- Recommended outpt f/u for 3mm LLL nodule noted on CT
#Diverticulitis requiring colon resection and reanastomosis
# Subacute to chronic fracture anterior right seventh rib
- Stable, likely chronic
- Pain management
#Former alcohol abuse daily drinker stopped early 30s
#Hepatomegaly and hepatic fatty liver
#Former cocaine user�snorting in his 20s and 30s
# Polycythemia
- Likely 2/2 tobacco use
# QTc prolonged (506)
- On Sotalol and Pletal (currently held)
- Continue to monitor
# History of allergy to penicillin
- Patient tolerated Zosyn, Augmentin this admission
DVT prophylaxis
Eliquis
Anticipated Discharge: 24 - 48 hours
Subjective/Interval History
-
Date of Service: October 29, 2024
Objective Data
-
Labs:
Laboratory Results
10/29/24
07:35
WBC Pending
Hgb Pending
Hct Pending
Plt Count Pending
Sodium Pending
Potassium Pending
Chloride Pending
Carbon Dioxide Pending
BUN Pending
Creatinine Pending
Glucose Pending
Calcium Pending
Total Bilirubin Pending
AST Pending
ALT Pending
Alkaline Phosphatase Pending
Vital Signs:
Vital Signs
Temp Pulse Resp BP Pulse Ox
97.4 F 83 16 167/90 97
10/29/24 07:54 10/29/24 07:54 10/29/24 07:54 10/29/24 07:54 10/29/24 07:54
I&O
10/28/24 10/29/24 10/30/24
06:59 06:59 06:59
Intake Total 5590 / 5590 960 / 960
Balance 5590 / 5590 960 / 960
Review of Systems
-
History Source: Patient
Constitutional: Reports No Symptoms
EENT: Reports No Symptoms Reported
Respiratory: Reports No Symptoms
Cardiac: Reports No Symptoms
Abdomen/GI: Reports Abdominal Pain; Denies Nausea, Vomiting or Constipated
Genitourinary: Reports No Symptoms
Musculoskeletal: Reports No Symptoms
Skin: Reports No Symptoms
Neuro: Reports No Symptoms
Endocrine: Reports No Symptoms
Hematologic / Lymphatic: Reports No Symptoms
Allergy / Immunology: Reports No Symptoms
Physical Exam
-
General: Well Developed, Well Nourished, No Apparent Distress and Comfortable
HEENT: Normocephalic
Respiratory: Clear to Auscultation
Cardiac: Regular Rhythm and S1/S2
GI: Soft, Nondistended, Normal Bowel Sounds and Tender
Genito-urinary: No Costovertebral Tender
Musculoskeletal: No Clubbing, No Cyanosis and No Edema
Skin: Warm
Neuro: Awake, Alert, Oriented and AO x 3
Psych: Calm
[2024-10-29 08:27] LABS: Hematocrit 40.4 % (39.0-52.0); Mean Corp Hgb Conc. 34.7 g/dL (33.0-37.0); Mean Corpuscular Hgb 32.5 pg (27.0-31.0); Mean Corpuscular Volume 93.7 fL (80.0-94.0); Mean Platelet Volume 10.1 fL (7.4-10.4); Platelet Count 134 10^3/uL (130-400); Red Blood Cell Count 4.31 10^6/uL (4.70-6.10); Red Cell Dist. Width 13.6 % (11.5-14.5); White Blood Cell Count 11.2 10^3/uL (4.8-10.8)
[2024-10-29] MEDS: NOVOLOG FLEXPEN-LOW RESISTANCE SC ×2 (08:37→18:11)
[2024-10-29] MEDS: TOPROL XL 100 MG PO (08:37)
[2024-10-29] MEDS: THERAGRAN 1 TABLET PO (08:37)
[2024-10-29] MEDS: FARXIGA 10 MG PO (08:37)
[2024-10-29] MEDS: PROTONIX IV 40 MG IV (08:38)
[2024-10-29] MEDS: ELIQUIS 5 MG PO ×2 (08:38→19:47)
[2024-10-29] MEDS: NSS (PRESERVATIVE FREE) 10 ML IV (08:38)
[2024-10-29] MEDS: BICITRA 15 ML PO ×2 (08:38→15:33)
[2024-10-29] MEDS: SENOKOT-S 1 TABLET PO ×2 (08:39→19:47)
[2024-10-29] MEDS: ALDACTONE 25 MG PO (08:40)
[2024-10-29] MEDS: BETAPACE 80 MG PO ×2 (08:40→19:48)
[2024-10-29] MEDS: PLETAL 100 MG PO ×2 (08:40→19:47)
[2024-10-29] MEDS: COZAAR 50 MG PO (08:40)
[2024-10-29] MEDS: PROTONIX PO (08:52)
[2024-10-29 09:15] LABS: ALT (SGPT) 48 U/L (0-50); AST (SGOT) 25 U/L (17-59); Albumin 2.9 g/dl (3.5-5.0); Alkaline Phosphatase 177 U/L (38-126); Blood Urea Nitrogen 4 mg/dl (9-20); Calcium 8.4 mg/dl (8.4-10.2); Carbon Dioxide 23 mmol/L (22-30); Chloride 100 mmol/L (98-107); Direct Bilirubin 0.6 mg/dl (0.0-0.4); Estimated Creatinine Clearance > 125 ml/min; Glucose 94 mg/dl (70-99); Potassium 3.5 mmol/L (3.5-5.1); Sodium 138 mmol/L (135-145); Total Protein 5.7 g/dl (6.3-8.2); eGFR > 60.00
[2024-10-29 09:26] VITALS: BP 158/76
--- NOTE | 2024-10-29 11:03 | CM ---
CM reviewed chart, patient seen bedside, reports no needs at this time. Patient remains on IV antibiotics, GI and ID following. CM will continue to follow for all discharge planning needs.
Plan; home no needs likely.
--- NOTE | 2024-10-29 11:24 | W.PN.ID1 ---
Date of Service
Date of Service: October 29, 2024
Today's Communication
- on meropenem 500mg IV q6h, it is day 7 of effective antibiotics, will stop
- agree with GI comment that early infection of pancreatic necrosis is uncommon particularly given that patient was already on antibiotics for another indication - choledocholithiasis; note that if patient later develops new infectious symptoms in
the next several weeks a secondary infection of the fluid could be reconsidered. Judicious antibiotic use now will preserve functionality for future use if needed
Assessment / Plan
Acute and chronic cholecystitis
Choledocholithiasis s/p ERCP 10/22, s/p lap dann 10/23
Necrotizing pancreatitis
Leukocytosis
Ruled out penicillin allergy
- patient tolerated augmentin 10/26/24 - he is not allergic to penicillin - allergy history updated
- blood cultures x2 neg
- on meropenem 500mg IV q6h, it is day 7 of effective antibiotics, will stop
- agree with GI comment that early infection of pancreatic necrosis is uncommon particularly given that patient was already on antibiotics for another indication - choledocholithiasis; note that if patient later develops new infectious symptoms in
the next several weeks a secondary infection of the fluid could be reconsidered. Judicious antibiotic use now will preserve functionality for future use if needed
- Follow wbc/temps and clinically.
Chief Complaint
-: Other (Choledocholithiasis, pancreatitis)
Subjective / Review of Systems
afebrile
bp stable
intermittent abdominal pain ongoing
no new complaints
Vital Signs / Physical Exam
Vital Signs
Vital Signs
Temp Pulse Resp BP Pulse Ox
97.4 F 83 16 158/76 97
10/29/24 07:54 10/29/24 09:26 10/29/24 07:54 10/29/24 09:26 10/29/24 08:00
Physical Exam
Constitutional: No Acute Distress
Cardiovascular: Regular Rate and S1/S2; Negative Murmur or Rub
Pulmonary: Clear and Symmetric; Negative Wheezes or Rales
Gastrointestinal: Soft, Non Tender, Non Distended and Normal Bowel Sounds
Skin: Warm and Dry; Negative Rash or Jaundice
Objective Data
Lab Data
Lab Results
10/29/24 07:35
10/29/24 07:35
PT 14.3 Sec (11.4-14.6) 10/20/24 06:59
INR 1.08 10/20/24 06:59
Estimated Creat Clear > 125 ml/min 10/29/24 07:35
Lactic Acid 1.3 mmol/L (0.7-2.0) 10/23/24 13:02
Total Bilirubin 1.0 mg/dl (0.2-1.3) 10/29/24 07:35
AST 25 U/L (17-59) 10/29/24 07:35
ALT 48 U/L (0-50) 10/29/24 07:35
Alkaline Phosphatase 177 U/L (38-126) H 10/29/24 07:35
C-Reactive Protein 162.80 mg/L (0.0-10.00) H 10/29/24 07:35
Most recent labs reviewed.
Micro Results:
10/25/24 11:09 Blood Culture - Preliminary
Blood/Venous No Growth in 4 days- Final report to follow
10/25/24 11:52 Blood Culture - Preliminary
Blood/Venous No Growth in 72 hours- Final report to follow
10/19/24 00:42 Salmonella/Shigella Culture - Final
Feces/Stool No Salmonella, Shigella, Aeromonas or Plesiomonas species
isolated.
Campylobacter Culture - Final
No Campylobacter species isolated.
Shiga Toxin Test - Final
No E. coli Shiga Toxin 1 or 2 detected.
10/19/24 00:42 - Final
Feces/Stool Negative for Norovirus GI and GII.
10/19/24 00:42 Stool Leukocytes - Final
Feces/Stool
10/26/24 CT a/p: ACUTE PANCREATITIS which appears new from 10/19/2024. Acute peripancreatic necrotic fluid collections superior to the pancreatic neck and body. Mild extrahepatic biliary dilatation with suggestion of acute cholangitis.
[2024-10-29 11:26] VITALS: BP 149/77
--- NOTE | 2024-10-29 12:57 | W.PN.GI.CBS2 ---
Today's Communication / Plan
-
trial of BRAT diet, monitor labs, pain control
Assessment / Plan
-
Mr. Young is a 69yo presents with hx Afib On Eliquis, PAD -Pletal with prior stent, HTN, diverticulitis, obesity, former tobacco use, HLD, GERD, distant hx pancreatitis - ETOH related, fatty liver, bowel resection for diverticular disease,
gastric ulcers, DM, COPD, carotid stenosis, mod MR/TR with onset of chills, sweats, abdominal pain, with nausea, vomiting and diarrhea. On admission noted with WBC 11,000, paul 2, AST 104, ALT 149, alk phos 159, lipase 92 with improvement after
admission. Ct on admission with dilation of CBD with mild intrahepatic dilatation and mild GB distention no filling defect, lung nodule, HM with fatty liver, diverticulosis with prior resection, subacute to chronic rib fx. Follow up MRI with
choledocholithiasis, cholelithiasis HSM and hepatic steatosis. follow up MRI/MRCP with choledocholithiasis with intra and extrahepatic biliary dilation, cholelithiasis and HSM with hepatic steatosis. In review with patient hx similar admission to
[place] in 2019 with etiology unclear. He recall EGD but no clear etiology. He now notes symptoms for several days with wt loss, decreased oral intakes, dry heaves/vomiting small amount bile, yellow liquid stools, Hx EGD [place] 2018 did not
recall any abnormality and colonoscopy last 2019 overdue for follow up with new hx brother with stage III colon Ca.
S/p ERCP 10/22: Choledocholithiasis was found within the distal CBD resulting in proximal biliary dilation, managed with biliary sphincterotomy and balloon extraction where four stones and sludge were removed. S/p eventual lap dann with general
surgery on 10/23. Found to have an elevated lipase and abdominal discomfort concerning for post-ERCP pancreatitis after lap dann on 10/23.- No IOC performed during lap dann on 10/23, previous cholangiogram during ERCP (-) for additional filling
defects
10/24/24 obs series
Mild gaseous distention of the small bowel and colon favored to represent adynamic ileus.
10/26 CT
1. ACUTE PANCREATITIS which appears new from 10/19/2024.
2. Acute peripancreatic necrotic fluid collections superior to the pancreatic neck and body.
3. Mild extrahepatic biliary dilatation with suggestion of acute cholangitis.
4. Recent cholecystectomy.
5. Severe diffuse hepatic steatosis.
6. Mild hepatosplenomegaly.
7. Previous sigmoidectomy.
8. Mildly enlarged prostate gland and mildly distended urinary bladder.
9. Severe calcific atherosclerotic plaque in the abdominal aorta, renal, and common iliac arteries.
10. Minimal bilateral pleural effusions.
11. Severe lower lumbar discogenic degenerative disease and facet joint arthrosis.
Patient with post ERCP pancreatitis due to difficult anatomy. Underwent CT scan as above which shows necrosis which I do not think is infected. His white blood cell count is trending down and he has no fever; no gas on CT.
Having BM.
Recommendations:
- Brat Diet advance as tolerated
- Pain control
- needs daily labs; CRP 162
- I d/w ID previously. Likely meropenem not needed at this juncture as do not think he has infected necrotic pancreatitis as above but we can continue until he improves/inflammation calms down
- Will need repeat imaging to re-evaluate the peripancreatic fluid collections outpatient 4-8 weeks
Subjective
Subjective
Date of Service: October 29, 2024
still with pain
Objective
Data Reviewed
Laboratory Data:
Laboratory Results
10/29/24 07:35
10/29/24 07:35
Laboratory Results
PT 14.3 Sec (11.4-14.6) 10/20/24 06:59
INR 1.08 10/20/24 06:59
Total Bilirubin 1.0 mg/dl (0.2-1.3) 10/29/24 07:35
AST 25 U/L (17-59) 10/29/24 07:35
ALT 48 U/L (0-50) 10/29/24 07:35
Alkaline Phosphatase 177 U/L (38-126) H 10/29/24 07:35
Lipase > 4000 U/L (23-300) H* 10/23/24 13:02
Vital Signs and I&O:
Vital Signs
Temp Pulse Resp BP Pulse Ox
97.1 F 92 16 149/77 97
10/29/24 11:26 10/29/24 11:26 10/29/24 11:26 10/29/24 11:26 10/29/24 11:26
I&O
10/28/24 10/29/24 10/30/24
06:59 06:59 06:59
Intake Total 5590 / 5590 960 / 960
Balance 5590 / 5590 960 / 960
Physical Exam
Physical Exam
GI: Distended and Tender
[2024-10-29 13:13] LABS: Glucose - Point of Care 170 mg/dl (70-99)
[2024-10-29] MEDS: NOVOLOG FLEXPEN-LOW RESISTANCE 1 UNITS SC (13:16)
[2024-10-29] MEDS: ROXICODONE 10 MG PO (15:36)
[2024-10-29 17:09] VITALS: BP 146/79
[2024-10-29 18:08] LABS: Glucose - Point of Care 104 mg/dl (70-99)
[2024-10-29] MEDS: PROTONIX 40 MG PO (19:52)
[2024-10-29] MEDS: MYLICON 80 MG PO (20:25)
[2024-10-29 22:21] LABS: Glucose - Point of Care 166 mg/dl (70-99)
[2024-10-29 23:25] VITALS: BP 170/88
[2024-10-30] MEDS: TYLENOL PO ×3 (00:34→23:18)
[2024-10-30] MEDS: REGLAN 10 MG IV (01:13)
[2024-10-30] MEDS: DILAUDID 0.5 MG IV ×3 (04:00→21:33)
[2024-10-30] MEDS: LR 1000 IV (04:01)
[2024-10-30 04:15] VITALS: BP 182/99
[2024-10-30] MEDS: APRESOLINE 10 MG IV (04:18)
[2024-10-30 05:29] VITALS: BMI 30.9
--- NOTE | 2024-10-30 06:27 | PTCARENOTE ---
Pt. c/o abd pain and swallowing issues overnight. Pt. stated that he was 'unable to swallow' but was then observed swallowing water with his PM medications. Belly remains round and distended with hypoactive bowel sounds. Pt. also complaining of
hiccups which started after eating. Provider notified and came to bedside to assess pt. Pt. denies nausea. BPs elevated; PRN hydralazine administered. Pt. resting comfortably at this time, plan of care ongoing.
--- NOTE | 2024-10-30 06:42 | W.PN.UPDATE ---
Update Note
Progress Note Update
RN reported patient c/o hiccups and indigestion, Simethicone ordered
around MN patient reported hiccups again and stated he was having difficulty swallowing.
Patient seen and evaluated. reports he gets hiccups and gassy pain which is not new, but difficulty with swallowing is new.
Patient did stated he chewed and swallowed his simethicone without difficulty earlier. mouth clean dry and intact, no redness swelling noted, able to move tongue around without any problems.
denies difficulty breathing or feeling tightness in the throat. NIH 0, patient is alert, responsive and shows no evidence of stroke related symptoms.
will keep him NPO and will consult speech therapy.
IV Reglan ordered once
[2024-10-30 07:00] VITALS: BP 185/90
[2024-10-30 07:42] LABS: Glucose - Point of Care 114 mg/dl (70-99)
[2024-10-30 07:52] LABS: Hematocrit 41.6 % (39.0-52.0); Hemoglobin 14.5 g/dL (13.0-18.0); Mean Corp Hgb Conc. 34.9 g/dL (33.0-37.0); Mean Corpuscular Hgb 32.4 pg (27.0-31.0); Mean Corpuscular Volume 93.1 fL (80.0-94.0); Mean Platelet Volume 9.7 fL (7.4-10.4); Platelet Count 156 10^3/uL (130-400); Red Blood Cell Count 4.47 10^6/uL (4.70-6.10); Red Cell Dist. Width 13.3 % (11.5-14.5); White Blood Cell Count 10.7 10^3/uL (4.8-10.8)
[2024-10-30 08:19] LABS: Blood Urea Nitrogen 2 mg/dl (9-20); Calcium 8.4 mg/dl (8.4-10.2); Carbon Dioxide 25 mmol/L (22-30); Chloride 100 mmol/L (98-107); Estimated Creatinine Clearance > 125 ml/min; Glucose 116 mg/dl (70-99); Potassium 3.3 mmol/L (3.5-5.1); Sodium 138 mmol/L (135-145); eGFR > 60.00
--- NOTE | 2024-10-30 08:29 | W.PN.HOSP.TC ---
Addendum entered and electronically signed by Jairon Quintero MD 10/30/24 14:46:
Seen and examined by me independently in collaboration with the medical operations supervisor.
Lab data and imaging data reviewed.
Addendum as below :
Last night patient had hiccups, indigestion and could not sleep well. Persist to have abdominal pain but no worse.
No diarrhea.
Afebrile and nontoxic. Abdomen with epigastric area tenderness but no rebound guarding rigidity.
Off of abx now -follow clinically.
Hiccups may be sec to infradiaphragmatic process /pancrease inflammation. Prn chlropromazine at HS .
Resume liquid diet and follow tolerance of diet. If persistent GI symptoms consider reimaging of abdomen
Original Note:
Today's Communication/Plan
-
Start clear liquid diet, appreciate GI input
Replete K as needed
Added chlorpromazine prn for hiccups
Assessment / Plan
Assessment / Plan
69-year-old former smoker male with history of A-fib on Eliquis, CHF, hypertension, PAD with stent to right leg presenting with 4 days of nausea vomiting and diarrhea - water like consistency daily. He notes chills and sweats but no measurable
fever. Currently reports intermittent abdominal pain.
# Necrotizing pancreatitis, acute
- GI following, advanced diet to brat 10/29, did not tolerate, started clear liquids today
- IV fluids with LR at a rate of 200 cc/h --> discontinued
- Evidence of peripancreatic necrotic fluid collections on CT scan. Will need repeat CT scan in 4 to 8 weeks as outpatient.
- ID following, completed course of antibiotic treatment
- Monitor daily labs
- Increased oxycodone to 10mg q4prn for severe pain, patient says does not help much with pain relief
# Intractable hiccups
- Patient was complaining of hiccups and difficulty swallowing last night
- Was given one dose reglan, simethicone, and made NPO
- Likely related to diaphragm irritation secondary to peripancreatic fluid collection
- Speech therapy requested, cleared patient for regular diet and thin liquids, f/u with GI to r/o esophageal dysphagia
- Started clear liquids for now
- Started chlorpromazine 25mg HS as needed for intractable hiccups
- Educated patient on maneuvers to terminate hiccups
# HTN urgency
- Started on losartan and aldactone
- Continue with metoprolol, continue with as needed hydralazine
- Patient still hypertensive, can be secondary to pain. Can consider increasing losartan dose.
# Choledocholithiasis and gallstones
- Status post ERCP, without complications
- S/p laparoscopic cholecystectomy
- ID following, completed course of antibiotic treatment
- GI following, advanced diet to brat 10/29, did not tolerate, started clear liquids today
# Postop metabolic acidosis
- Likely secondary to Normosol during cholecystectomy
- Initially started on bicarb drip, now discontinued
- Bicarb normal, now resolved
# Leukocytosis
- White count downtrending
- No change on exam, no fever detected
- ID following
- Blood cultures no growth in 4 days
- Now resolved
# Hypokalemia
- Likely secondary to poor oral intake
- Replete as needed
# Constipation, postop
- On bowel regimen
- Obstruction series shows mild gaseous distention of the small bowel and colon favored to represent adynamic ileus
- Advised ambulation
- Now resolved
# Paroxysmal A-fib
- s/p cardiac ablation
- Patient follows with [facility] cardiology
- Continue Sotalol 80 mg twice daily with hold parameters
- Continue metoprolol succinate 100 mg daily with hold parameters
- Continue Eliquis
# Nonischemic myocardial injury
- Patient had chest pain over the weekend
- Troponin elevated (peaked at 0.08), EKG no ischemic changes but new RBBB, consistent with nonischemic myocardial injury
- Cardiology recommending outpatient stress test
# Chronic HFpEF
- Continue metoprolol succinate 50 daily, rosuvastatin, Farxiga
- Empagliflozin held
- Started on dapagliflozin
# Diabetes
- Glipizide on hold
- Continue SSI, Accu-Checks
- HbA1c 7.3
# HLD
- Holding Crestor with elevation liver enzymes
#PAD with stent to right leg
- Holding Crestor 5 mg daily
- Continue Pletal
# GERD, hx gastric ulcer
- on IV Protonix
# Tobacco use, former
- 49-year 3 pack a day, quit 2019
- Recommended outpt f/u for 3mm LLL nodule noted on CT
#Diverticulitis requiring colon resection and reanastomosis
# Subacute to chronic fracture anterior right seventh rib
- Stable, likely chronic
- Pain management
#Former alcohol abuse daily drinker stopped early 30s
#Hepatomegaly and hepatic fatty liver
#Former cocaine user�snorting in his 20s and 30s
# Polycythemia
- Likely 2/2 tobacco use
# QTc prolonged (506)
- On Sotalol and Pletal (currently held)
- Continue to monitor
# History of allergy to penicillin
- Patient tolerated Zosyn, Augmentin this admission
DVT prophylaxis
Eliquis
Anticipated Discharge: 24 - 48 hours
Subjective/Interval History
-
Date of Service: October 30, 2024
Objective Data
-
Labs:
Laboratory Results
10/30/24
07:11
WBC 10.7
Hgb 14.5
Hct 41.6
Plt Count 156
Sodium 138
Potassium 3.3 L
Chloride 100
Carbon Dioxide 25
BUN 2 L
Creatinine 0.4 L
Glucose 116 H
Calcium 8.4
Vital Signs:
Vital Signs
Temp Pulse Resp BP Pulse Ox
97.4 F 100 18 185/90 96
10/30/24 07:00 10/30/24 07:00 10/30/24 07:00 10/30/24 07:00 10/30/24 07:00
I&O
10/29/24 10/30/24 10/31/24
06:59 06:59 06:59
Intake Total 960 / 960 5640 / 5640
Balance 960 / 960 5640 / 5640
Review of Systems
-
History Source: Patient
Constitutional: Reports Sleep Disturbance
EENT: Reports Other (Hiccups, dry throat)
Respiratory: Reports No Symptoms
Cardiac: Reports No Symptoms
Abdomen/GI: Reports Abdominal Pain (sharp epigastric pain) and Indigestion; Denies Nausea or Vomiting
Genitourinary: Reports No Symptoms
Musculoskeletal: Reports No Symptoms
Skin: Reports Rash
Neuro: Reports No Symptoms
Endocrine: Reports No Symptoms
Hematologic / Lymphatic: Reports No Symptoms
Allergy / Immunology: Reports No Symptoms
Physical Exam
-
General: Well Developed, Well Nourished, No Apparent Distress and Comfortable
HEENT: Normocephalic and Other (No pharyngeal edema); Negative Pharyngeal Erythema
Respiratory: Clear to Auscultation and Non Labored Respirations
Cardiac: Regular Rhythm and S1/S2
GI: Soft, Nondistended, Normal Bowel Sounds and Tender
Musculoskeletal: No Clubbing, No Cyanosis and No Edema
Skin: Warm and Rash (psoriatic rashes on b/l lower extremities)
Neuro: Awake, Alert, Oriented and AO x 3
Psych: Calm
[2024-10-30] MEDS: NOVOLOG FLEXPEN-LOW RESISTANCE SC ×3 (08:35→16:38)
[2024-10-30] MEDS: PROTONIX 40 MG PO ×2 (08:37→20:10)
[2024-10-30] MEDS: ALDACTONE 25 MG PO (08:37)
[2024-10-30] MEDS: TYLENOL 650 MG PO ×4 (08:37→20:10)
[2024-10-30] MEDS: ELIQUIS 5 MG PO ×2 (08:37→20:10)
[2024-10-30] MEDS: COZAAR 50 MG PO (08:37)
[2024-10-30] MEDS: PLETAL 100 MG PO ×2 (08:37→20:10)
[2024-10-30] MEDS: BETAPACE 80 MG PO ×2 (08:37→20:10)
[2024-10-30] MEDS: THERAGRAN 1 TABLET PO (08:38)
[2024-10-30] MEDS: TOPROL XL 100 MG PO (08:39)
[2024-10-30 09:49] VITALS: BP 142/81
--- NOTE | 2024-10-30 10:48 | PTOTSP ---
Dysphagia Eval
No signs of oral/pharyngeal dysphagia or aspiration. Please reconsult as appropriate.
Recommend:
1. Regular, Thin
2. Meds as best tolerated
3. General aspiration and reflux precautions
4. Continue to follow with GI and r/o esophageal dysphagia as appropriate
--- NOTE | 2024-10-30 10:49 | W.PN.ID1 ---
Date of Service
Date of Service: October 30, 2024
Today's Communication
- patient tolerated augmentin 10/26/24
- delayed rash - possibly psoriasis patient reports hes over due for his syyrizi, less likely benign cutaneous T cell reaction, which is not a contraindication to future penicillin use
- blood cultures x2 neg
- observe off of antibiotics
- ideally would like to see Skyrizi held at least another 2-3 weeks if possible
- Follow up with GI
Assessment / Plan
Acute and chronic cholecystitis
Choledocholithiasis s/p ERCP 10/22, s/p lap dann 10/23
Necrotizing pancreatitis
Leukocytosis - resolved
Ruled out penicillin allergy
Psoriasis
- patient tolerated augmentin 10/26/24
- delayed rash - possibly psoriasis patient reports hes over due for his syyrizi, less likely benign cutaneous T cell reaction, which is not a contraindication to future penicillin use
- blood cultures x2 neg
- observe off of antibiotics
- ideally would like to see Skyrizi held at least another 2-3 weeks if possible
- Follow up with GI
Chief Complaint
-: Other (Choledocholithiasis, pancreatitis)
Subjective / Review of Systems
afebrile
bp stable
hiccups overnight, new difficulty swallowing - for swallow evaluation
Vital Signs / Physical Exam
Vital Signs
Vital Signs
Temp Pulse Resp BP Pulse Ox
97.4 F 100 18 142/81 96
10/30/24 07:00 10/30/24 08:37 10/30/24 07:00 10/30/24 09:49 10/30/24 08:00
Physical Exam
Constitutional: No Acute Distress
Cardiovascular: Regular Rate and S1/S2; Negative Murmur or Rub
Pulmonary: Clear and Symmetric; Negative Wheezes or Rales
Gastrointestinal: Soft, Non Tender, Non Distended and Normal Bowel Sounds
Skin: Warm, Dry and Rash (small diffuse, flat, plaques, a few with early scaling ); Negative Jaundice
Objective Data
Lab Data
Lab Results
10/30/24 07:11
10/30/24 07:11
PT 14.3 Sec (11.4-14.6) 10/20/24 06:59
INR 1.08 10/20/24 06:59
Estimated Creat Clear > 125 ml/min 10/30/24 07:11
Lactic Acid 1.3 mmol/L (0.7-2.0) 10/23/24 13:02
Total Bilirubin 1.0 mg/dl (0.2-1.3) 10/29/24 07:35
AST 25 U/L (17-59) 10/29/24 07:35
ALT 48 U/L (0-50) 10/29/24 07:35
Alkaline Phosphatase 177 U/L (38-126) H 10/29/24 07:35
C-Reactive Protein 162.80 mg/L (0.0-10.00) H 10/29/24 07:35
Most recent labs reviewed.
Micro Results:
10/25/24 11:52 Blood Culture - Preliminary
Blood/Venous No Growth in 4 days- Final report to follow
10/25/24 11:09 Blood Culture - Preliminary
Blood/Venous No Growth in 4 days- Final report to follow
10/19/24 00:42 Salmonella/Shigella Culture - Final
Feces/Stool No Salmonella, Shigella, Aeromonas or Plesiomonas species
isolated.
Campylobacter Culture - Final
No Campylobacter species isolated.
Shiga Toxin Test - Final
No E. coli Shiga Toxin 1 or 2 detected.
10/19/24 00:42 - Final
Feces/Stool Negative for Norovirus GI and GII.
10/19/24 00:42 Stool Leukocytes - Final
Feces/Stool
10/26/24 CT a/p: ACUTE PANCREATITIS which appears new from 10/19/2024. Acute peripancreatic necrotic fluid collections superior to the pancreatic neck and body. Mild extrahepatic biliary dilatation with suggestion of acute cholangitis.
Care Review
Plan reviewed with: Physician ( letter to PCP Dr Duarte)
[2024-10-30] MEDS: FARXIGA 10 MG PO (11:45)
[2024-10-30] MEDS: KCL 40 MEQ PO (11:45)
[2024-10-30] MEDS: SENOKOT-S 1 TABLET PO ×2 (11:45→20:10)
[2024-10-30 11:47] LABS: Glucose - Point of Care 111 mg/dl (70-99)
[2024-10-30 15:00] VITALS: BP 151/81
[2024-10-30] MEDS: THORAZINE 25 MG PO (16:06)
[2024-10-30 16:36] LABS: Glucose - Point of Care 89 mg/dl (70-99)
--- NOTE | 2024-10-30 16:41 | W.PN.GI.CBS2 ---
Addendum entered and electronically signed by Lou Prieto MD 10/30/24 19:54:
I saw and examined the patient.
The [employer] or PA's note was reviewed and I agree with the note.
Comment:
Pt bothered by hiccups, getting first dose of thorazine now, minimal abdominal pain
abd: soft,
impression
pancreatitis
hiccups
plan:
need to start to advance diet. add supplements and if tolerates clears would advance
thorazine for hiccups
imaging in 1-2 months
outpatient colonoscopy
OOB
Original Note:
Today's Communication / Plan
-
slow improvement in LFT's and pain but still some hiccups-- WBC normal no fever
abdominal exam stable with less distention and still some pain but no distension and passing flatus and stools
clear diet will add supplement daily advance as tolerated
needs daily labs and CRP; CRP 162-- 173.8
replete K per medical team
encouraged OOB, ambulate, limit narcs as able ok to cont Lovenox
support give with prolonged course
- Will need repeat imaging to re-evaluate the peripancreatic fluid collections outpatient 4-8 weeks
-eventual OP colonoscopy when improved
Assessment / Plan
-
Mr. Young is a 69yo presents with hx Afib On Eliquis, PAD -Pletal with prior stent, HTN, diverticulitis, obesity, former tobacco use, HLD, GERD, psoriasis with skyrizi use distant hx pancreatitis - ETOH related, fatty liver, bowel resection for
diverticular disease, gastric ulcers, DM, COPD, carotid stenosis, mod MR/TR with onset of chills, sweats, abdominal pain, with nausea, vomiting and diarrhea. On admission noted with WBC 11,000, paul 2, AST 104, ALT 149, alk phos 159, lipase 92
with improvement after admission. Ct on admission with dilation of CBD with mild intrahepatic dilatation and mild GB distention no filling defect, lung nodule, HM with fatty liver, diverticulosis with prior resection, subacute to chronic rib fx.
Follow up MRI with choledocholithiasis, cholelithiasis HSM and hepatic steatosis. follow up MRI/MRCP with choledocholithiasis with intra and extrahepatic biliary dilation, cholelithiasis and HSM with hepatic steatosis. In review with patient hx
similar admission to [place] in 2019 with etiology unclear. He recall EGD but no clear etiology. He now notes symptoms for several days with wt loss, decreased oral intakes, dry heaves/vomiting small amount bile, yellow liquid stools, Hx EGD
[place] 2019 did not recall any abnormality and colonoscopy last 2019 overdue for follow up with new hx brother with stage III colon Ca.
S/p ERCP 10/22: Choledocholithiasis was found within the distal CBD resulting in proximal biliary dilation, managed with biliary sphincterotomy and balloon extraction where four stones and sludge were removed. S/p eventual lap dann with general
surgery on 10/23. Found to have an elevated lipase and abdominal discomfort concerning for post-ERCP pancreatitis after lap dann on 10/23.- No IOC performed during lap dann on 10/23, previous cholangiogram during ERCP (-) for additional filling
defects
10/24/24 obs series
Mild gaseous distention of the small bowel and colon favored to represent adynamic ileus.
10/26 CT
1. ACUTE PANCREATITIS which appears new from 10/19/2024.
2. Acute peripancreatic necrotic fluid collections superior to the pancreatic neck and body.
3. Mild extrahepatic biliary dilatation with suggestion of acute cholangitis.
4. Recent cholecystectomy.
5. Severe diffuse hepatic steatosis.
6. Mild hepatosplenomegaly.
7. Previous sigmoidectomy.
8. Mildly enlarged prostate gland and mildly distended urinary bladder.
9. Severe calcific atherosclerotic plaque in the abdominal aorta, renal, and common iliac arteries.
10. Minimal bilateral pleural effusions.
11. Severe lower lumbar discogenic degenerative disease and facet joint arthrosis.
#Choledocholithiasis s/p post ERCP with difficult anatomy and dann
# post ERCP pancreatitis with peripancreatic fluid collection, elevated CRP
#Cholelithiasis s/p dann
# mild ileus- improving with + stools
# metabolic acidosis - improved
#Abd Pain slow improvement
#A Fib Eliquis resumed
#PAD Pletal resumed
#Leukocytosis- resolving
# rash - likely psoriasis overdue for skyrizi
#hepatic steatosis
PLAN:
slow improvement in LFT's and pain but still some hiccups-- WBC normal no fever
abdominal exam stable with less distention and still some pain but no distension and passing flatus and stools
clear diet will add supplement daily advance as tolerated
needs daily labs and CRP; CRP 162-- 173.8
replete K per medical team
encouraged OOB, ambulate, limit narcs as able ok to cont Lovenox
support give with prolonged course
- Will need repeat imaging to re-evaluate the peripancreatic fluid collections outpatient 4-8 weeks
-eventual OP colonoscopy when improved
Subjective
Subjective
Date of Service: October 30, 2024
10/28 brown stool on clear diet still with hiccups and variable pain, no fever
Objective
Data Reviewed
Laboratory Data:
Laboratory Results
10/30/24 07:11
10/30/24 07:11
Laboratory Results
PT 14.3 Sec (11.4-14.6) 10/20/24 06:59
INR 1.08 10/20/24 06:59
Total Bilirubin 1.0 mg/dl (0.2-1.3) 10/29/24 07:35
AST 25 U/L (17-59) 10/29/24 07:35
ALT 48 U/L (0-50) 10/29/24 07:35
Alkaline Phosphatase 177 U/L (38-126) H 10/29/24 07:35
Lipase > 4000 U/L (23-300) H* 10/23/24 13:02
Vital Signs and I&O:
Vital Signs
Temp Pulse Resp BP Pulse Ox
97.7 F 86 18 151/81 96
10/30/24 15:00 10/30/24 15:00 10/30/24 15:00 10/30/24 15:00 10/30/24 15:00
I&O
10/29/24 10/30/24 10/31/24
06:59 06:59 06:59
Intake Total 960 / 960 5640 / 5640
Balance 960 / 960 5640 / 5640
Physical Exam
Physical Exam
HEENT: Anicteric and Moist mucous membranes
Cardiology: Normal Sinus Rhythm
Pulmonary: Clear
GI: Soft and Distended (mild but improving per patient )
Extremities: No Edema and Other (some LE rash )
Neuro: Non Focal
[2024-10-30 19:54] VITALS: BP 119/75
[2024-10-30 22:39] LABS: Glucose - Point of Care 145 mg/dl (70-99)
[2024-10-30 23:41] VITALS: BP 124/66
[2024-10-31] MEDS: DILAUDID 0.5 MG IV (01:18)
[2024-10-31 03:58] VITALS: BP 135/94
[2024-10-31] MEDS: TYLENOL PO (04:18)
[2024-10-31] MEDS: ROXICODONE 10 MG PO ×2 (05:51→20:07)
[2024-10-31 07:00] VITALS: BP 154/72
[2024-10-31 07:42] LABS: Glucose - Point of Care 108 mg/dl (70-99)
--- NOTE | 2024-10-31 07:51 | W.PN.HOSP.TC ---
Addendum entered and electronically signed by Jairon Quintero MD 10/31/24 16:04:
Seen and examined by me independently in collaboration with the medical corps officer.
Lab data and imaging data reviewed.
Addendum as below :
Currently on low-fat diet which he has tolerated without nausea or increasing abdominal pain. Still has some discomfort in the abdomen or abdomen but his main problem is hiccups.
No fever. Abdomen soft with the epigastric area tenderness but no rebound guarding rigidity. Nontoxic looking. Chest clear.
White count has normalized and remains normal.
Clinically seems improving from ERCP related pancreatitis. Will try to treat hiccups with medication-avoid Thorazine due to QTc prolongation and sotalol use. Add baclofen.
QTc on EKG today is 545-will touch base with the canvas cutter hand regarding the dosage of his sotalol. Correct hypokalemia. Check magnesium level.
Original Note:
Today's Communication/Plan
-
Advance diet, appreciate GI input
Replete K as needed
Possible discharge later today
Assessment / Plan
Assessment / Plan
69-year-old former smoker male with history of A-fib on Eliquis, CHF, hypertension, PAD with stent to right leg presenting with 4 days of nausea vomiting and diarrhea - water like consistency daily. No overnight events.
# Necrotizing pancreatitis, acute
- GI following, advanced diet to brat 10/29, did not tolerate, started clear liquids today
- IV fluids with LR at a rate of 200 cc/h --> discontinued
- Evidence of peripancreatic necrotic fluid collections on CT scan. Will need repeat CT scan in 4 to 8 weeks as outpatient.
- ID following, completed course of antibiotic treatment
- Monitor daily labs - CRP decreasing
- Increased oxycodone to 10mg q4prn for severe pain, patient says does not help much with pain relief
# Intractable hiccups
- Was given one dose reglan, simethicone, and made NPO 4/29
- Likely related to diaphragm irritation secondary to peripancreatic fluid collection
- Speech therapy requested, cleared patient for regular diet and thin liquids, f/u with GI to r/o esophageal dysphagia
- Tolerating clear liquids --> discussed with GI to advance diet
- Started chlorpromazine 25mg HS as needed for intractable hiccups
- Educated patient on maneuvers to terminate hiccups. Patient reports cold water/drinks helps him.
# HTN urgency
- Started on losartan and aldactone
- Continue with metoprolol, continue with as needed hydralazine
- Can be secondary to pain
- Improving today
# Hypokalemia
- Likely secondary to poor oral intake
- Replete as needed
# Choledocholithiasis and gallstones
- Status post ERCP, without complications
- S/p laparoscopic cholecystectomy
- ID following, completed course of antibiotic treatment
- GI following
# Postop metabolic acidosis
- Likely secondary to Normosol during cholecystectomy
- Initially started on bicarb drip, now discontinued
- Bicarb normal, now resolved
# Leukocytosis
- White count downtrending
- No change on exam, no fever detected
- ID following
- Blood cultures no growth in 4 days
- Now resolved
# Hypokalemia
- Likely secondary to poor oral intake
- Replete as needed
# Constipation, postop
- On bowel regimen
- Obstruction series shows mild gaseous distention of the small bowel and colon favored to represent adynamic ileus
- Advised ambulation
- Now resolved
# Paroxysmal A-fib
- s/p cardiac ablation
- Patient follows with [facility] cardiology
- Continue Sotalol 80 mg twice daily with hold parameters
- Continue metoprolol succinate 100 mg daily with hold parameters
- Continue Eliquis
# Nonischemic myocardial injury
- Patient had chest pain over the weekend
- Troponin elevated (peaked at 0.08), EKG no ischemic changes but new RBBB, consistent with nonischemic myocardial injury
- Cardiology recommending outpatient stress test
# Chronic HFpEF
- Continue metoprolol succinate 50 daily, rosuvastatin, Farxiga
- Empagliflozin held
- Started on dapagliflozin
# Diabetes
- Glipizide on hold
- Continue SSI, Accu-Checks
- HbA1c 7.3
# HLD
- Holding Crestor with elevation liver enzymes
#PAD with stent to right leg
- Holding Crestor 5 mg daily
- Continue Pletal
# GERD, hx gastric ulcer
- on IV Protonix
# Tobacco use, former
- 49-year 3 pack a day, quit 2019
- Recommended outpt f/u for 3mm LLL nodule noted on CT
#Diverticulitis requiring colon resection and reanastomosis
# Subacute to chronic fracture anterior right seventh rib
- Stable, likely chronic
- Pain management
#Former alcohol abuse daily drinker stopped early 30s
#Hepatomegaly and hepatic fatty liver
#Former cocaine user�snorting in his 20s and 30s
# Polycythemia
- Likely 2/2 tobacco use
# QTc prolonged (506)
- On Sotalol and Pletal (currently held)
- Continue to monitor
# History of allergy to penicillin
- Patient tolerated Zosyn, Augmentin this admission
DVT prophylaxis
Eliquis
Anticipated Discharge: Within 24 hours
Subjective/Interval History
-
Date of Service: October 31, 2024
Objective Data
-
Labs:
Laboratory Results
10/31/24
07:46
WBC Pending
Hgb Pending
Hct Pending
Plt Count Pending
Sodium Pending
Potassium Pending
Chloride Pending
Carbon Dioxide Pending
BUN Pending
Creatinine Pending
Glucose Pending
Calcium Pending
Total Bilirubin Pending
AST Pending
ALT Pending
Alkaline Phosphatase Pending
Vital Signs:
Vital Signs
Temp Pulse Resp BP Pulse Ox
97.6 F 81 18 135/94 96
10/31/24 03:58 10/31/24 03:58 10/31/24 03:58 10/31/24 03:58 10/31/24 03:58
I&O
10/30/24 10/31/24 11/01/24
06:59 06:59 06:59
Intake Total 5640 / 5640 720 / 720
Balance 5640 / 5640 720 / 720
Review of Systems
-
History Source: Patient
Constitutional: Reports No Symptoms
EENT: Reports No Symptoms Reported
Respiratory: Reports No Symptoms
Cardiac: Reports No Symptoms
Abdomen/GI: Reports Abdominal Pain and Other (Hiccups); Denies Nausea or Vomiting
Genitourinary: Reports No Symptoms
Musculoskeletal: Reports No Symptoms
Skin: Reports No Symptoms
Neuro: Reports No Symptoms
Endocrine: Reports No Symptoms
Hematologic / Lymphatic: Reports No Symptoms
Allergy / Immunology: Reports No Symptoms
Physical Exam
-
General: Well Developed, Well Nourished, No Apparent Distress and Comfortable
HEENT: Normocephalic
Respiratory: Clear to Auscultation
Cardiac: Regular Rhythm and S1/S2
GI: Soft, Nondistended, Normal Bowel Sounds and Tender
Genito-urinary: No Costovertebral Tender
Musculoskeletal: No Clubbing, No Cyanosis and No Edema
Skin: Warm and Rash
Neuro: Awake, Alert, Oriented and AO x 3
Psych: Calm
[2024-10-31 08:19] LABS: Hematocrit 39.9 % (39.0-52.0); Hemoglobin 13.7 g/dL (13.0-18.0); Mean Corp Hgb Conc. 34.3 g/dL (33.0-37.0); Mean Corpuscular Volume 93.2 fL (80.0-94.0); Mean Platelet Volume 9.8 fL (7.4-10.4); Platelet Count 145 10^3/uL (130-400); Red Blood Cell Count 4.28 10^6/uL (4.70-6.10); Red Cell Dist. Width 13.3 % (11.5-14.5); White Blood Cell Count 7.4 10^3/uL (4.8-10.8)
[2024-10-31] MEDS: ELIQUIS 5 MG PO ×2 (08:39→20:08)
[2024-10-31] MEDS: TYLENOL 650 MG PO ×4 (08:39→20:08)
[2024-10-31] MEDS: TOPROL XL 100 MG PO (08:39)
[2024-10-31] MEDS: FARXIGA 10 MG PO (08:39)
[2024-10-31] MEDS: COZAAR 50 MG PO (08:39)
[2024-10-31] MEDS: NOVOLOG FLEXPEN-LOW RESISTANCE SC ×2 (08:39→12:09)
[2024-10-31] MEDS: PROTONIX 40 MG PO ×2 (08:40→20:08)
[2024-10-31] MEDS: PLETAL 100 MG PO (08:40)
[2024-10-31] MEDS: BETAPACE 80 MG PO (08:40)
[2024-10-31] MEDS: THERAGRAN 1 TABLET PO (08:40)
[2024-10-31] MEDS: ALDACTONE 25 MG PO (08:40)
[2024-10-31] MEDS: SENOKOT-S 1 TABLET PO ×2 (08:40→20:08)
[2024-10-31 08:49] LABS: ALT (SGPT) 37 U/L (0-50); AST (SGOT) 24 U/L (17-59); Alkaline Phosphatase 142 U/L (38-126); Blood Urea Nitrogen 4 mg/dl (9-20); Calcium 8.4 mg/dl (8.4-10.2); Carbon Dioxide 27 mmol/L (22-30); Chloride 99 mmol/L (98-107); Direct Bilirubin 0.5 mg/dl (0.0-0.4); Estimated Creatinine Clearance > 125 ml/min; Glucose 118 mg/dl (70-99); Potassium 3.2 mmol/L (3.5-5.1); Sodium 139 mmol/L (135-145); Total Bilirubin 0.9 mg/dl (0.2-1.3); Total Protein 5.8 g/dl (6.3-8.2); eGFR > 60.00
[2024-10-31] MEDS: KCL 40 MEQ PO (09:32)
--- NOTE | 2024-10-31 10:09 | W.PN.GI.CBS2 ---
Addendum entered and electronically signed by JESSE Turk 10/31/24 11:31:
updated pt on appt for November 15 at 2:30pm. Reviewed to call or return for any abd pain, fever, nausea, vomiting or problems. All questions answered
Original Note:
Today's Communication / Plan
-
low fat diet
Assessment / Plan
-
Pt with hiccups, ercp related pancreatitis, doing much better:
Plan:
low fat diet
OOB
- Will need repeat imaging to re-evaluate the peripancreatic fluid collections outpatient 4-8 weeks
-eventual OP colonoscopy when improved
Subjective
Subjective
Date of Service: October 31, 2024
Pt without abdominal pain, wants to eat. states still has hiccups intermittently, did get thorazine
Objective
Data Reviewed
Laboratory Data:
Laboratory Results
10/31/24 07:46
10/31/24 07:46
Laboratory Results
PT 14.3 Sec (11.4-14.6) 10/20/24 06:59
INR 1.08 10/20/24 06:59
Total Bilirubin 0.9 mg/dl (0.2-1.3) 10/31/24 07:46
AST 24 U/L (17-59) 10/31/24 07:46
ALT 37 U/L (0-50) 10/31/24 07:46
Alkaline Phosphatase 142 U/L (38-126) H 10/31/24 07:46
Lipase > 4000 U/L (23-300) H* 10/23/24 13:02
Vital Signs and I&O:
Vital Signs
Temp Pulse Resp BP Pulse Ox
97.7 F 92 20 154/72 94
10/31/24 07:00 10/31/24 07:00 10/31/24 07:00 10/31/24 07:00 10/31/24 07:00
I&O
10/30/24 10/31/24 11/01/24
06:59 06:59 06:59
Intake Total 5640 / 5640 720 / 720
Balance 5640 / 5640 720 / 720
Physical Exam
Physical Exam
GI: Soft, Non Distended and Non Tender
Neuro: Non Focal
--- NOTE | 2024-10-31 10:34 | W.PN.ID1 ---
Addendum entered and electronically signed by Leonarda Cortes MD 10/31/24 15:46:
Spoke with Dr Dominguez today
described the necrotizing pancreatitis and about 30% risk of eventual development of secondary infection
unfortunately antibiotics now will no prevent secondary infection
he indicates that he feels that the skyrizi can likely be safely held a few weeks; he will see Mr Holcomb outpatient and fully assess.
Add on code [id number] - care coordination
Original Note:
Date of Service
Date of Service: October 31, 2024
Today's Communication
- added topical clobetasol PRN for psoriasis
- ideally would like to see Skyrizi held at least another 2-3 weeks if possible; final decision will be per his shipbuilding draftsperson Dr Dominguez - Ashlee left a message with his office - [phone]
- Follow up with GI and dermatology
Assessment / Plan
Acute and chronic cholecystitis
Choledocholithiasis s/p ERCP 10/22, s/p lap dann 10/23
Necrotizing pancreatitis
Leukocytosis - resolved
Ruled out penicillin allergy
Psoriasis
- patient tolerated augmentin 10/26/24
- delayed rash - possibly psoriasis patient reports hes over due for his syyrizi, less likely benign cutaneous T cell reaction, which is not a contraindication to future penicillin use
- blood cultures x2 neg
- added topical clobetasol PRN for psoriasis
- ideally would like to see Skyrizi held at least another 2-3 weeks if possible; final decision will be per his shipbuilding draftsperson Dr Alberto Avila I left a message with his office - [phone]
- Follow up with GI and dermatology
Chief Complaint
-: Other (Choledocholithiasis, pancreatitis)
Subjective / Review of Systems
afebrile
bp stable
no compalints
rash is stable
Vital Signs / Physical Exam
Vital Signs
Vital Signs
Temp Pulse Resp BP Pulse Ox
97.7 F 92 20 154/72 94
10/31/24 07:00 10/31/24 07:00 10/31/24 07:00 10/31/24 07:00 10/31/24 07:00
Physical Exam
Constitutional: No Acute Distress
Cardiovascular: Regular Rate and S1/S2; Negative Murmur or Rub
Pulmonary: Clear and Symmetric; Negative Wheezes or Rales
Gastrointestinal: Soft, Non Tender, Non Distended and Normal Bowel Sounds
Skin: Warm, Dry and Rash (raised, pruritic, plaques some with early silvery scaling ); Negative Jaundice
Objective Data
Lab Data
Lab Results
10/31/24 07:46
10/31/24 07:46
PT 14.3 Sec (11.4-14.6) 10/20/24 06:59
INR 1.08 10/20/24 06:59
Estimated Creat Clear > 125 ml/min 10/31/24 07:46
Lactic Acid 1.3 mmol/L (0.7-2.0) 10/23/24 13:02
Total Bilirubin 0.9 mg/dl (0.2-1.3) 10/31/24 07:46
AST 24 U/L (17-59) 10/31/24 07:46
ALT 37 U/L (0-50) 10/31/24 07:46
Alkaline Phosphatase 142 U/L (38-126) H 10/31/24 07:46
C-Reactive Protein 137.30 mg/L (0.0-10.00) H 10/31/24 07:46
Most recent labs reviewed.
Micro Results:
10/25/24 11:52 Blood Culture - Final
Blood/Venous No Growth - Final Report
10/25/24 11:09 Blood Culture - Final
Blood/Venous No Growth - Final Report
10/19/24 00:42 Salmonella/Shigella Culture - Final
Feces/Stool No Salmonella, Shigella, Aeromonas or Plesiomonas species
isolated.
Campylobacter Culture - Final
No Campylobacter species isolated.
Shiga Toxin Test - Final
No E. coli Shiga Toxin 1 or 2 detected.
10/19/24 00:42 - Final
Feces/Stool Negative for Norovirus GI and GII.
10/19/24 00:42 Stool Leukocytes - Final
Feces/Stool
10/26/24 CT a/p: ACUTE PANCREATITIS which appears new from 10/19/2024. Acute peripancreatic necrotic fluid collections superior to the pancreatic neck and body. Mild extrahepatic biliary dilatation with suggestion of acute cholangitis.
--- NOTE | 2024-10-31 10:41 | CM ---
Chart reviewed and case manager specialist met with patient bella am per physician plan is to advance diet, then home when stable.
Plan; Home when stable, no needs.
[2024-10-31 11:00] VITALS: BP 140/78
[2024-10-31 11:56] LABS: Glucose - Point of Care 144 mg/dl (70-99)
[2024-10-31] MEDS: THORAZINE 25 MG PO (13:43)
[2024-10-31 15:00] VITALS: BP 119/69
[2024-10-31 16:57] LABS: Glucose - Point of Care 151 mg/dl (70-99)
[2024-10-31] MEDS: LIORESAL 5 MG PO ×2 (17:25→22:07)
[2024-10-31] MEDS: NOVOLOG FLEXPEN-LOW RESISTANCE 1 UNITS SC (17:34)
[2024-10-31 20:10] VITALS: BP 118/74
[2024-10-31 22:02] LABS: Glucose - Point of Care 142 mg/dl (70-99)
[2024-10-31] MEDS: REGLAN 10 MG IV (22:07)
[2024-10-31 23:15] VITALS: BP 147/71
[2024-11-01] MEDS: TYLENOL PO (00:12)
[2024-11-01] MEDS: TYLENOL 650 MG PO ×3 (04:11→11:55)
[2024-11-01] MEDS: APRESOLINE 10 MG IV (04:15)
[2024-11-01] MEDS: ROXICODONE 10 MG PO (04:17)
[2024-11-01 04:20] VITALS: BP 187/102
[2024-11-01 07:15] VITALS: BP 161/87
--- NOTE | 2024-11-01 07:37 | W.PN.HOSP.TC ---
Addendum entered and electronically signed by Jairon Quintero MD 11/01/24 14:37:
Correction
Patient completed the course of antibiotics and is stable.
DC home .
Addendum entered and electronically signed by Jairon Quintero MD 11/01/24 14:32:
Seen and examined by me independently in collaboration with the medical researcher.
Lab data and imaging data reviewed.
Addendum as below :
Improved GI symptoms-no further hiccups today. Tolerating diet. No nausea vomiting. No diarrhea. No fever or chills. Denies shortness of breath.
Chest clear.
Abdomen soft with some epigastric discomfort but no rebound guarding rigidity.
EKG noted with prolonged QTc
Patient improved GI function. Using lesser pain medication. Cleared for discharge from GI standpoint. Follow-up scheduled with GI as an outpatient.
Will check with ID about switch of antibiotics orally. Patient advised to hold Skyrizi till seen by his head of sales.
Multiple blood pressure readings are not under goal. Unclear if related to acute medical illness, pain and being in the hospital as patient says his blood pressure is well-controlled on metoprolol. Patient is agreeable to go on amlodipine for now
and follow-up with PCP next week and adjust medication or discontinue medications as appropriate.
His QTc has been prolonged progressively this visit. Discussed with Dr. Gaffney cardiology on-call who recommends to hold sotalol till seen by cardiology. It needs to supervise reinitiation again if needed. Patient made aware of this plan.
Medically stable for discharge.
Total time of discharge 32 minutes
Original Note:
Today's Communication/Plan
-
Replete potassium
Repeat EKG this afternoon
Continue current diet
Potential discharge later today after EKG
Assessment / Plan
Assessment / Plan
69-year-old former smoker male with history of A-fib on Eliquis, CHF, hypertension, PAD with stent to right leg presenting with 4 days of nausea vomiting and diarrhea - water like consistency daily.
# Necrotizing pancreatitis, acute
- GI following, c/w low fat, lactose free diet, tolerating
- IV fluids with LR at a rate of 200 cc/h --> discontinued
- Evidence of peripancreatic necrotic fluid collections on CT scan. Will need repeat CT scan in 4 to 8 weeks as outpatient.
- ID following, completed course of antibiotic treatment
- Monitor daily labs
- Continue with oxycodone to 10mg q4prn for severe pain and tylenol as needed
- Outpt follow-up with GI
# Intractable hiccups
- Was given one dose reglan, simethicone, and made NPO 10/30
- Likely related to diaphragm irritation secondary to peripancreatic fluid collection
- Speech therapy requested, cleared patient for regular diet and thin liquids, f/u with GI to r/o esophageal dysphagia
- Tolerating diet --> c/w low fat, lactose free diet
- Educated patient on maneuvers to terminate hiccups
- Started chlorpromazine 25mg HS as needed for intractable hiccups --> discontinued yesterday with prolonged QTc, started baclofen 5 tid, seems to have provided relief
# HTN urgency
- Started on losartan and aldactone
- Continue with metoprolol, continue with as needed hydralazine
- Can be secondary to pain
- Patient reports high blood pressure (190/100) around 4am when woke up from sleep, also notes has white coat syndrome. Continue current meds for now
# Hypokalemia
- Likely secondary to poor oral intake
- Replete as needed
# Choledocholithiasis and gallstones
- Status post ERCP, without complications
- S/p laparoscopic cholecystectomy
- ID following, completed course of antibiotic treatment
- GI following
# Postop metabolic acidosis
- Likely secondary to Normosol during cholecystectomy
- Initially started on bicarb drip, now discontinued
- Now resolved
# Leukocytosis
- White count downtrending
- No change on exam, no fever detected
- ID following
- Blood cultures no growth in 4 days
- Now resolved
# Hypokalemia
- Likely secondary to poor oral intake
- Replete as needed
# Constipation, postop
- On bowel regimen
- Obstruction series shows mild gaseous distention of the small bowel and colon favored to represent adynamic ileus
- Advised ambulation
- Now resolved
# Paroxysmal A-fib
- s/p cardiac ablation
- Patient follows with [facility] cardiology
- Continue Sotalol 80 mg twice daily with hold parameters -- hold sotalol for now with prolonged QTc and repeat EKG this afternoon
- Continue metoprolol succinate 100 mg daily with hold parameters
- Continue Eliquis
# Nonischemic myocardial injury
- Patient had chest pain over the weekend
- Troponin elevated (peaked at 0.08), EKG no ischemic changes but new RBBB, consistent with nonischemic myocardial injury
- Cardiology recommending outpatient stress test
# Chronic HFpEF
- Continue metoprolol succinate 50 daily, rosuvastatin, Farxiga
- Empagliflozin held
- Started on dapagliflozin
# Diabetes
- Glipizide on hold
- Continue SSI, Accu-Checks
- HbA1c 7.3
# HLD
- Holding Crestor with elevation liver enzymes
#PAD with stent to right leg
- Holding Crestor 5 mg daily
- Continue Pletal
# GERD, hx gastric ulcer
- on IV Protonix
# Tobacco use, former
- 49-year 3 pack a day, quit 2019
- Recommended outpt f/u for 3mm LLL nodule noted on CT
#Diverticulitis requiring colon resection and reanastomosis
# Subacute to chronic fracture anterior right seventh rib
- Stable, likely chronic
- Pain management
#Former alcohol abuse daily drinker stopped early 30s
#Hepatomegaly and hepatic fatty liver
#Former cocaine user�snorting in his 20s and 30s
# Polycythemia
- Likely 2/2 tobacco use
# QTc prolonged
- On Sotalol and Pletal (currently held)
- Continue to monitor
- Hold sotalol for now with prolonged QTc and repeat EKG this afternoon
# History of allergy to penicillin
- Patient tolerated Zosyn, Augmentin this admission
DVT prophylaxis
Eliquis
Anticipated Discharge: Within 24 hours
Subjective/Interval History
-
Date of Service: November 01, 2024
Objective Data
-
Labs:
Laboratory Results
11/01/24
07:18
WBC Pending
Hgb Pending
Hct Pending
Plt Count Pending
Sodium Pending
Potassium Pending
Chloride Pending
Carbon Dioxide Pending
BUN Pending
Creatinine Pending
Glucose Pending
Calcium Pending
Vital Signs:
Vital Signs
Temp Pulse Resp BP Pulse Ox
97.9 F 87 18 187/102 100
11/01/24 04:20 11/01/24 04:20 11/01/24 04:20 11/01/24 04:20 11/01/24 04:20
I&O
10/31/24 11/01/24 11/02/24
06:59 06:59 06:59
Intake Total 720 / 720 1919
Balance 720 / 720 1919
Review of Systems
-
History Source: Patient
Constitutional: Reports No Symptoms
EENT: Reports No Symptoms Reported
Respiratory: Reports No Symptoms
Cardiac: Reports No Symptoms
Abdomen/GI: Reports Abdominal Pain; Denies Nausea or Vomiting
Genitourinary: Reports No Symptoms
Musculoskeletal: Reports No Symptoms
Skin: Reports Rash
Neuro: Reports No Symptoms
Endocrine: Reports No Symptoms
Hematologic / Lymphatic: Reports No Symptoms
Allergy / Immunology: Reports No Symptoms
Physical Exam
-
General: Well Developed, Well Nourished, No Apparent Distress and Comfortable
HEENT: Normocephalic
Respiratory: Clear to Auscultation
Cardiac: Regular Rhythm and S1/S2
GI: Soft, Nondistended, Normal Bowel Sounds and Tender (without guarding/rebound)
Musculoskeletal: No Clubbing, No Cyanosis and No Edema
Skin: Warm and Rash
Neuro: Awake, Alert, Oriented and AO x 3
Psych: Calm
[2024-11-01 07:46] LABS: Glucose - Point of Care 114 mg/dl (70-99)
[2024-11-01] MEDS: FARXIGA 10 MG PO (07:53)
[2024-11-01] MEDS: COZAAR 50 MG PO (07:53)
[2024-11-01] MEDS: NOVOLOG FLEXPEN-LOW RESISTANCE SC (07:54)
[2024-11-01] MEDS: THERAGRAN 1 TABLET PO (07:54)
[2024-11-01] MEDS: PROTONIX 40 MG PO (07:54)
[2024-11-01] MEDS: TOPROL XL 100 MG PO (07:54)
[2024-11-01] MEDS: ELIQUIS 5 MG PO (07:54)
[2024-11-01] MEDS: ALDACTONE 25 MG PO (07:55)
[2024-11-01] MEDS: LIORESAL 5 MG PO (07:56)
[2024-11-01] MEDS: SENOKOT-S 1 TABLET PO (07:56)
[2024-11-01 07:58] LABS: Hematocrit 38.6 % (39.0-52.0); Hemoglobin 13.4 g/dL (13.0-18.0); Mean Corp Hgb Conc. 34.7 g/dL (33.0-37.0); Mean Corpuscular Hgb 32.4 pg (27.0-31.0); Mean Corpuscular Volume 93.2 fL (80.0-94.0); Mean Platelet Volume 9.6 fL (7.4-10.4); Platelet Count 142 10^3/uL (130-400); Red Blood Cell Count 4.14 10^6/uL (4.70-6.10); Red Cell Dist. Width 13.2 % (11.5-14.5); White Blood Cell Count 6.4 10^3/uL (4.8-10.8)
--- NOTE | 2024-11-01 08:17 | W.PN.GI.CBS2 ---
Today's Communication / Plan
-
lactose free, low fat diet
outpatient f/u
Assessment / Plan
-
Pt with hiccups, ercp related pancreatitis, doing much better, tolerated low fat diet. walking around
Plan:
-continue low fat diet but avoid ice cream and other lactose
- Will need repeat imaging to re-evaluate the peripancreatic fluid collections outpatient 4-8 weeks
- pt already has card for outpatient appointment on 11/15
-eventual OP colonoscopy when improved
will sign off call with questions
Subjective
Subjective
Date of Service: November 01, 2024
Pt without hiccups although says it comes intermittently. did have gas pain for 10 min last night but ate ice cream and 'over did it for dinner'.
Objective
Data Reviewed
Laboratory Data:
Laboratory Results
11/01/24 07:18
Laboratory Results
PT 14.3 Sec (11.4-14.6) 10/20/24 06:59
INR 1.08 10/20/24 06:59
Total Bilirubin 0.9 mg/dl (0.2-1.3) 10/31/24 07:46
AST 24 U/L (17-59) 10/31/24 07:46
ALT 37 U/L (0-50) 10/31/24 07:46
Alkaline Phosphatase 142 U/L (38-126) H 10/31/24 07:46
Lipase > 4000 U/L (23-300) H* 10/23/24 13:02
Vital Signs and I&O:
Vital Signs
Temp Pulse Resp BP Pulse Ox
97.9 F 87 18 187/102 100
11/01/24 04:20 11/01/24 04:20 11/01/24 04:20 11/01/24 04:20 11/01/24 04:20
I&O
10/31/24 11/01/2425
06:59 06:59 06:59
Intake Total 720 / 720 1919
Balance 720 / 720 1919
Physical Exam
Physical Exam
HEENT: Anicteric
GI: Soft, Non Distended and Non Tender
[2024-11-01 08:40] LABS: Blood Urea Nitrogen 5 mg/dl (9-20); Calcium 8.4 mg/dl (8.4-10.2); Carbon Dioxide 32 mmol/L (22-30); Chloride 101 mmol/L (98-107); Estimated Creatinine Clearance > 125 ml/min; Glucose 127 mg/dl (70-99); Potassium 3.2 mmol/L (3.5-5.1); Sodium 139 mmol/L (135-145); eGFR > 60.00
--- NOTE | 2024-11-01 10:52 | CM ---
CM reviewed chart, patient seen beside, reports no needs at this time. Plan remains home no needs.
Plan; home no needs when medically stable.
--- NOTE | 2024-11-01 11:04 | W.PN.ID1 ---
Date of Service
Date of Service: November 01, 2024
Today's Communication
- ideally would like to see Yamile held at least another 2-3 weeks if possible; final decision will be per his cop winder Dr Alberto Avila I discussed with him 10/31 and tentatively he plans to hold it, he will see patient in follow up
- Follow up with GI and dermatology; stable for dc from ID perspective
Assessment / Plan
Acute and chronic cholecystitis
Choledocholithiasis s/p ERCP 10/22, s/p lap dann 10/23
Necrotizing pancreatitis
Leukocytosis - resolved
Ruled out penicillin allergy
Psoriasis
- patient tolerated augmentin 10/26/24
- delayed rash - possibly psoriasis patient reports hes about 1 week over due for skyrizi, less likely benign cutaneous T cell reaction, which is not a contraindication to future penicillin use
- blood cultures x2 neg
- c/w topical clobetasol PRN for psoriasis
- ideally would like to see Yamile held at least another 2-3 weeks if possible; final decision will be per his cop winder Dr Alberto Avila I discussed with him 10/31 and tentatively he plans to hold it, he will see patient in follow up
- Follow up with GI and dermatology; stable for dc from ID perspective
Chief Complaint
-: Other (Choledocholithiasis, pancreatitis; rash)
Subjective / Review of Systems
afebrile
bp stable
no events overnight
Vital Signs / Physical Exam
Vital Signs
Vital Signs
Temp Pulse Resp BP Pulse Ox
97.5 F 95 16 161/87 98
11/01/24 07:15 11/01/24 07:15 11/01/24 07:15 11/01/24 07:15 11/01/24 07:15
Physical Exam
Constitutional: No Acute Distress
Cardiovascular: Regular Rate
Pulmonary: Symmetric and Non Labored
Gastrointestinal: Non Distended
Skin: Dry and Rash (notably improved with topical steroid); Negative Jaundice
Objective Data
Lab Data
Lab Results
11/01/24 07:18
11/01/24 07:18
PT 14.3 Sec (11.4-14.6) 10/20/24 06:59
INR 1.08 10/20/24 06:59
Estimated Creat Clear > 125 ml/min 11/01/24 07:18
Lactic Acid 1.3 mmol/L (0.7-2.0) 10/23/24 13:02
Total Bilirubin 0.9 mg/dl (0.2-1.3) 10/31/24 07:46
AST 24 U/L (17-59) 10/31/24 07:46
ALT 37 U/L (0-50) 10/31/24 07:46
Alkaline Phosphatase 142 U/L (38-126) H 10/31/24 07:46
C-Reactive Protein 137.30 mg/L (0.0-10.00) H 10/31/24 07:46
Most recent labs reviewed.
Micro Results:
10/25/24 11:52 Blood Culture - Final
Blood/Venous No Growth - Final Report
10/25/24 11:09 Blood Culture - Final
Blood/Venous No Growth - Final Report
10/19/24 00:42 Salmonella/Shigella Culture - Final
Feces/Stool No Salmonella, Shigella, Aeromonas or Plesiomonas species
isolated.
Campylobacter Culture - Final
No Campylobacter species isolated.
Shiga Toxin Test - Final
No E. coli Shiga Toxin 1 or 2 detected.
10/19/24 00:42 - Final
Feces/Stool Negative for Norovirus GI and GII.
10/19/24 00:42 Stool Leukocytes - Final
Feces/Stool
10/26/24 CT a/p: ACUTE PANCREATITIS which appears new from 10/19/2024. Acute peripancreatic necrotic fluid collections superior to the pancreatic neck and body. Mild extrahepatic biliary dilatation with suggestion of acute cholangitis.
[2024-11-01 11:12] VITALS: BP 134/84
[2024-11-01 11:33] LABS: Glucose - Point of Care 177 mg/dl (70-99)
[2024-11-01] MEDS: KCL 40 MEQ PO (11:54)
[2024-11-01] MEDS: NOVOLOG FLEXPEN-LOW RESISTANCE 1 UNITS SC (11:54)
--- NOTE | 2024-11-01 15:33 | W.DCSUMMARY ---
Discharge Summary
Discharge Data
Date of Admission: 10/18/24
Date of Discharge: 11/01/24
-
Pending Results: No
Hospital Course
Discharging Physician : Dr. Samantha Hopkins, Dr. Jairon Quintero
Disposition : Home
Principal Discharge diagnosis :
Choledocholithiasis status post ERCP
Necrotizing pancreatitis
Laparoscopic cholecystectomy
Hypertensive urgency
Hypokalemia
Intractable hiccups
Metabolic acidosis
Postoperative ileus
Non-ischemic myocardial injury
Left lower lobe lung nodule
Polycythemia
Subacute to chronic fracture anterior right seventh rib
Chronic Discharge diagnosis :
Chronic heart failure with preserved ejection fraction
Diabetes
Hyperlipidemia
History of peripheral arterial disease
Gastroesophageal reflux disease
Former tobacco use
History of psoriasis
Hospital Course :
69-year-old male with past medical history as above presented to the ED with nausea, vomiting, chills and diarrhea x4 days.
# Choledocholithiasis status post ERCP and laparoscopic cholecystectomy
# Acute necrotizing pancreatitis
- On initial CT scan, CBD was dilated (1.3 cm). LFTs and total bilirubin were elevated, lipase normal
- Abdomen MRI was obtained, suggestive of choledocholithiasis and gallstones without gallbladder wall thickening.
- Patient had a history of penicillin allergy at age 10. QTc was prolonged. After discussion with pharmacy and GI, Zosyn was started for possible cholangitis.
- GI on board, ERCP was done 10/22/2024. ERCP report as below
- Surgery on board, discussed indications for consideration of laparoscopic cholecystectomy, patient decided to proceed with surgery
- Laparoscopic cholecystectomy was performed 10/23/2024. Operative findings as below
- Patient developed anion gap metabolic acidosis on POD #1, was initially started on bicarb drip, later switched to LR and Bicitra per GI recommendation for treatment of acute pancreatitis. Etiology unclear but suspect related to surgery with
normosol.
- Patient continued to have abdominal pain postoperatively, did not have BMs or gas passage, obstruction series consistent with adynamic ileus, and was not tolerating brat diet.
- Repeat CT scan showed evidence of peripancreatic necrotic fluid collections.
- ID on board, recommended considering challenge with Augmentin while patient was in the hospital.
- Started Augmentin 10/26/2024 and switched to meropenem with necrotizing pancreatitis on CT. All antibiotics were discontinued 10/29/2024 as patient had completed 7 days of effective antibiotics.
- Developed hiccups which were likely due to irritation of diaphragma secondary to pancreatitis. Initially started on chlorpromazine, repeat EKG showed elevation of QTc (545). Thorazine was discontinued and baclofen 5 mg 3 times daily was started.
Patient reported relief of baclofen.
- Patient remained afebrile postoperatively and LFTs returned to baseline, white count initially trended up, blood culture sent resulted negative
- White count down trended thereafter, patient's abdominal pain was improving
- Eventually, patient had bowel movements and tolerated low-fat, lactose-free diet. Was advised to continue that diet at time of discharge
- Outpatient follow-up scheduled with electrical linesworker, Dr. Rowe, for further management of pancreatitis and consideration of repeat CT scan.
# Hypertensive urgency
- Patient did not have a history of hypertension, however blood pressures were consistently elevated in the hospital. Hence, losartan and Aldactone were started with hydralazine as needed.
- Etiology unclear although could be related to pain and white coat syndrome, as patient noted
- Patient was discharged on losartan and amlodipine, was advised to follow-up with cardiology for blood pressure management
# QTc prolongation
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
- QTc on initial EKG 506
- QTc on repeat EKG 545. After discussion with cardiology since, sotalol was held and EKG was repeated the next day.
- QTc on day of discharge 521. Cardiology recommended holding sotalol and outpatient follow-up for eventual resuming of sotalol.
# Nonischemic myocardial injury
- Postoperatively, patient had chest pain. Troponin peaked at 0.08, EKG showed no ischemic changes new RBBB. Findings were consistent with nonischemic myocardial injury
- Cardiology consulted, recommended outpatient stress test
# Diabetes
- HbA1c 7.3
- No changes were made to home meds
# Tobacco use, former
- 47-year 3 pack a day, quit 2019
- Recommended outpt f/u for 3mm LLL nodule seen on CT
# History of penicillin allergy
- Patient tolerated augmentin 10/26/24 - he is not allergic to penicillin - allergy history updated
Important imaging findings :
MRCP (10/19/2024):
MRCP evidence for choledocholithiasis, intrahepatic and extrahepatic bile duct dilatation.
Cholelithiasis.
Hepatosplenomegaly and hepatic steatosis.
Chest CT (10/20/2024):
No evidence of pulmonary embolism.
Pulmonary artery branching order level of the most proximal pulmonary embolism: N/A
No evidence of pneumonia.
No aortic aneurysm or dissection.
Coronary artery calcification.
Obstruction series (10/24/2024):
Mild gaseous distention of the small bowel and colon favored to represent adynamic ileus.
Abdomen pelvic CT (10/26/2024):
1. ACUTE PANCREATITIS which appears new from 10/19/2024.
2. Acute peripancreatic necrotic fluid collections superior to the pancreatic neck and body.
3. Mild extrahepatic biliary dilatation with suggestion of acute cholangitis.
4. Recent cholecystectomy.
5. Severe diffuse hepatic steatosis.
6. Mild hepatosplenomegaly.
7. Previous sigmoidectomy.
8. Mildly enlarged prostate gland and mildly distended urinary bladder.
9. Severe calcific atherosclerotic plaque in the abdominal aorta, renal, and common iliac arteries.
10. Minimal bilateral pleural effusions.
11. Severe lower lumbar discogenic degenerative disease and facet joint arthrosis.
Procedure findings :
ERCP (10/22/2024):
- Choledocholithiasis was found. A total of four stones and sludge were removed. Complete removal was accomplished by biliary sphincterotomy and balloon extraction. The biliary tree was swept multiple times.
- Final balloon cholangiogram without any additional filling defects at the end of the case.
- The major papilla appeared to be small.
- The entire main bile duct was dilated up to 16 mm within the distal common bile duct, secondary to stones and sludge causing an obstruction resulting in proximal dilation of the biliary tree
- The biliary tree was otherwise normal
- The patient received Indomethacin and IV LR to decrease risk of post-ERCP pancreatitis.
Laparoscopic cholecystectomy (10/23/2024):
1. Fatty liver, retroperitoneal fat limiting exposure and visualization
2. Gallbladder distended, thin wall, fatty infiltrate, no acute inflammation
3. Critical view of safety
4. Duct and artery taken with clips
Discharge Plan
-
Patient Disposition: Home (Routine Discharge)
Discharge Diagnosis/Procedures: Choledocholithiasis status post ERCP, necrotizing pancreatitis, laparoscopic cholecystectomy, hypertensive urgency, hypokalemia, intractable hiccups, metabolic acidosis, postoperative ileus, non-ischemic myocardial
injury, left lower lobe lung nodule, polycythemia, chronic heart failure with preserved ejection fraction, diabetes, hyperlipidemia, history of peripheral arterial disease, gastroesophageal reflux disease, former tobacco use, subacute to chronic
fracture anterior right seventh rib, history of psoriasis
Condition: Good
Diet: Low Fat
Additional Diets: Lactose free, low fat diet
Activity: No strenuous activity
Additional Activity: No heavy lifting or strenuous activities for 2 weeks post-op
Driving Restrictions: No driving if too sore or taking narcotics
Bathing Restrictions: OK to Shower
Wound Care: Keep incisions clean and dry. Glue will flake off in 2-3 weeks. Stitches will dissolve. Use ice to the abdomen to reduce bruising or swelling
Activity Restrictions/Additional Instructions:
Call for fevers (>100.5), nausea or vomiting, worsening abdominal pain, yellowing of the eyes or skin
Stand Alone Forms: Return to Work
Referrals:
Romeo Duarte MD [Family Provider] -
Francisco Jackson MD [Active] - in two to four weeks
Adalid Rowe DO [Active] - 11/15/24 2:30 pm (Return to GI to review with recent admission and review for repeat imaging. Call to confirm appt for 11/[address] Rowe. Will need eventual colonoscopy when recovered from current gallbladder
problems. Please call to reschedule if you can not keep this appointment. )
Additional Discharge Medication Instructions: Patient tolerated augmentin 10/26/24 - he is not allergic to penicillin - allergy history updated
You have an outpatient appointment scheduled with your electrical linesworker, Dr. Rowe, on Nov 15 2024.
You should follow-up as outpatient with your PCP for the lung nodule detected on your CT scan.
Prescriptions:
New
baclofen 5 mg Tablet
5 mg PO TID PRN (Reason: hiccups) 3 Days Qty: 9 0RF
losartan 50 mg Tablet
50 mg PO DAILY 30 Days Qty: 30 0RF
amlodipine 5 mg tablet
5 mg PO DAILY 30 Days Qty: 30 0RF
acetaminophen [Tylenol Extra Strength] 500 mg tablet
500 mg PO Q6H PRN (Reason: mild pain) Qty: 1 0RF
oxycodone 5 mg tablet
5 mg PO Q6H PRN (Reason: moderate pain) Qty: 20 0RF
polyethylene glycol 3350 [Miralax] 17 gram powder in packet
17 g PO DAILY Qty: 14 0RF
Rx Instructions:
while on pain medications
Continued
metoprolol succinate 50 MG tablet extended release 24 hr
100 mg PO DAILY
potassium chloride 20 MEQ tablet extended release
20 meq PO DAILY
rosuvastatin 5 MG tablet
5 mg PO DAILY
Eliquis 5 MG tablet
5 mg PO BID
glipizide 10 mg Tablet Extended Release 24hr
10 mg PO BID
therapeutic multivitamin Tablet
1 tab PO DAILY
clobetasol 0.05 % Ointment
1 applic TOPICAL DAILYPRN PRN (Reason: psoriasis)
albuterol sulfate 90 mcg/actuation Hfa Aerosol Inhaler
2 puff INHALATION R Q6HPRN PRN (Reason: sob)
omeprazole magnesium [Prilosec OTC] 20 mg Tablet,Delayed Release (Dr/Ec)
20 mg PO DAILY
omega 3-gxl-skt-fish oil [Fish Oil] 1,200 (144-216) mg Capsule
1 cap PO DAILY
Jardiance 25 mg Tablet
25 mg PO DAILY
Held
cilostazol 100 MG tablet
100 mg PO BID
Hold Instructions: Until seen by your repossessor
sotalol 80 MG tablet
80 mg PO BID Qty: 60 3RF
Hold Instructions: Until seen by your repossessor
risankizumab-rzaa 75 mg/0.83 mL Syringe
150 mg SC Q12W
Hold Instructions: until seen by your community engagement specialist, Dr. Dominguez.
Discharge Orders:
Discharge Patient (As Directed); Ordered 11/01/24
Ordered By: Jairon Quintero
Discharge Date and Time
Discharge Date/Time: 11/01/24 15:49
Print Language: CROATIAN
== END 2024-11-01 15:49 | disposition home or self-care (01) | DRG 417 ==
LOC: 4 WEST ACU 18:34
PROVIDERS: Clinical Nurse Specialist Family Health; Hospitalist; Internal Medicine; Internal Medicine Gastroenterology; Nurse Practitioner Adult Health; Nurse Practitioner Family; Physician Assistant; Radiology Diagnostic Radiology; Student in an Organized Health Care Education/Training Program; Surgery; ADMITTING PHYSICIAN Hospitalist; ATTENDING PHYSICIAN Internal Medicine; CONSULT PHYSICIAN Student in an Organized Health Care Education/Training Program; CONSULT PHYSICIAN Surgery; EMERGENCY PHYSICIAN Emergency Medicine; FAMILY PHYSICIAN Family Medicine; OTHER PHYSICIAN Student in an Organized Health Care Education/Training Program
PROC: 0F798ZZ Dilation of Common Bile Duct, Via Natural or Artificial Opening Endoscopic (ICD-10-PCS; 2024-10-22)
PROC: 0FC98ZZ Extirpation of Matter from Common Bile Duct, Via Natural or Artificial Opening Endoscopic (ICD-10-PCS; 2024-10-22)
PROC: BF131ZZ Fluoroscopy of Gallbladder and Bile Ducts using Low Osmolar Contrast (ICD-10-PCS; 2024-10-22)
PROC: 0FT44ZZ Resection of Gallbladder, Percutaneous Endoscopic Approach (ICD-10-PCS; 2024-10-23)
DX: K80.67 Calculus of gallbladder and bile duct with acute and chronic cholecystitis with obstruction (principal); K85.91 Acute pancreatitis with uninfected necrosis, unspecified; E87.20 Acidosis, unspecified; I50.32 Chronic diastolic (congestive) heart failure; I5A Non-ischemic myocardial injury (non-traumatic); E87.3 Alkalosis; K56.0 Paralytic ileus; K91.89 Other postprocedural complications and disorders of digestive system; J90 Pleural effusion, not elsewhere classified; I48.0 Paroxysmal atrial fibrillation; I11.0 Hypertensive heart disease with heart failure; E66.811 Obesity, class 1; E11.51 Type 2 diabetes mellitus with diabetic peripheral angiopathy without gangrene; F10.11 Alcohol abuse, in remission; F14.91 Cocaine use, unspecified, in remission; K21.9 Gastro-esophageal reflux disease without esophagitis; E78.00 Pure hypercholesterolemia, unspecified; J44.9 Chronic obstructive pulmonary disease, unspecified; R91.1 Solitary pulmonary nodule; D75.1 Secondary polycythemia; N40.0 Benign prostatic hyperplasia without lower urinary tract symptoms; R21 Rash and other nonspecific skin eruption; L40.50 Arthropathic psoriasis, unspecified; I16.0 Hypertensive urgency; K82.8 Other specified diseases of gallbladder; K76.0 Fatty (change of) liver, not elsewhere classified; I25.10 Atherosclerotic heart disease of native coronary artery without angina pectoris; E80.7 Disorder of bilirubin metabolism, unspecified; M47.819 Spondylosis without myelopathy or radiculopathy, site unspecified; R06.6 Hiccough; E87.6 Hypokalemia; Z90.49 Acquired absence of other specified parts of digestive tract; Z87.19 Personal history of other diseases of the digestive system; Z79.84 Long term (current) use of oral hypoglycemic drugs; Z79.01 Long term (current) use of anticoagulants; Z79.02 Long term (current) use of antithrombotics/antiplatelets; Z79.51 Long term (current) use of inhaled steroids; Z79.52 Long term (current) use of systemic steroids; Z87.11 Personal history of peptic ulcer disease; Z87.891 Personal history of nicotine dependence; Z68.29 Body mass index [BMI] 29.0-29.9, adult; Z82.49 Family history of ischemic heart disease and other diseases of the circulatory system; Z83.6 Family history of other diseases of the respiratory system; Z88.0 Allergy status to penicillin; Z80.0 Family history of malignant neoplasm of digestive organs; Z95.5 Presence of coronary angioplasty implant and graft
CPT/HCPCS: 88304; 71275; 74022; 74177; 74178; 74183; 74330; 76000; 80048; 80053; 80061; 80076; 82248; 82805; 82962; 83036; 83605; 83690; 84484; 85025; 85027; 85610; 86140; 87040; 87045; 87046; 87077; 87427; 87798; 89055; 92610; 93005; 96374; 99285; A9575; C1769; Q9967

== ENCOUNTER 2024-11-19 11:50 | Inpatient (IN) | payer OTHER, SELFPAY ==
[2024-11-17 21:23] VITALS: BMI 29.2
[2024-11-17 21:26] VITALS: BP 143/75
[2024-11-17 21:32] LABS: Glucose - Point of Care 150 mg/dl (70-99)
[2024-11-17 21:37] LABS: % Basophils 0.3 % (0-2); % Eosinophils 0.9 % (0-6); % Immature Granulocytes 0.4 % (0-0.5); % Lymphocytes 12.6 % (20.5-51.1); % Monocytes 8.4 % (1.7-9.3); % Neutrophils 77.4 % (42.2-75.2); Absolute Eosinophils 0.1 10^3/uL (0-0.7); Absolute Immature Granulocytes 0.1 10^3/uL (0-0.05); Absolute Lymphocytes 1.7 10^3/uL (1.2-3.4); Absolute Monocytes 1.1 10^3/uL (0.1-0.6); Absolute Neutrophils 10.5 10^3/uL (1.4-6.5); Hematocrit 41.6 % (39.0-52.0); Hemoglobin 14.7 g/dL (13.0-18.0); Mean Corp Hgb Conc. 35.3 g/dL (33.0-37.0); Mean Corpuscular Hgb 32.6 pg (27.0-31.0); Mean Corpuscular Volume 92.2 fL (80.0-94.0); Mean Platelet Volume 9.8 fL (7.4-10.4); Nucleated Red Blood Cells % 0 % (-); Platelet Count 186 10^3/uL (130-400); Red Blood Cell Count 4.51 10^6/uL (4.70-6.10); Red Cell Dist. Width 13.7 % (11.5-14.5); White Blood Cell Count 13.6 10^3/uL (4.8-10.8)
[2024-11-17 21:48] LABS: INR 1.07; PT 14.2 Sec (11.4-14.6)
[2024-11-17 21:49] LABS: APTT 33.8 Sec (23.4-35.0)
[2024-11-17 21:52] LABS: ALT (SGPT) 20 U/L (0-50); AST (SGOT) 25 U/L (17-59); Albumin 4.2 g/dl (3.5-5.0); Alkaline Phosphatase 91 U/L (38-126); Blood Urea Nitrogen 9 mg/dl (9-20); Calcium 8.9 mg/dl (8.4-10.2); Carbon Dioxide 25 mmol/L (22-30); Chloride 101 mmol/L (98-107); Estimated Creatinine Clearance > 125 ml/min; Glucose 155 mg/dl (70-99); Potassium 3.7 mmol/L (3.5-5.1); Sodium 137 mmol/L (135-145); Total Protein 7.8 g/dl (6.3-8.2); eGFR > 60.00
[2024-11-17 22:00] VITALS: BP 157/72
[2024-11-17 22:00] LABS: Troponin I < 0.012 ng/ml
--- NOTE | 2024-11-17 22:08 | ED.CVA ---
History of Present Illness
General
Chief Complaint: CVA/TIA Symptoms
Time Seen by Provider: 11/17/24 21:33
Onset of Stroke Symptoms
Onset of symptoms known: Yes
Date of onset of symptoms: 11/17/24
Time of onset of symptoms: 15:00
History of Present Illness
History of Present Illness:
Patient is a 69-year-old male with history of atrial fibrillation on Eliquis, hypertension, diabetes presenting to the emergency department with weakness and word finding difficulties. Patient states that he had a normal day yesterday. Today at 3
PM came home and noticed that he was having a hard time with his words and did not know who she was. The symptoms did not resolve and around 7:30 PM he had a left-sided headache with worsening of his word finding difficulty some numbness
tingling and some weakness to the left side. He was also confused as to what to do with the remote so patient's brought him in for further evaluation. No traumatic injuries. No history of headaches. This is never happened to him before.
Past History
Past History
ED Past Medical History: HTN
ED Past Surgical History: None
Social History
Tobacco: Non-smoker
Alcohol: None
Phy Exam
Physical Exam
Physical Exam:
GENERAL: in no acute distress
HEENT: normocephalic, extraocular movements intact, moist oral mucosa
NECK: normal inspection
RESPIRATORY: no respiratory distress, clear to auscultation bilaterally
CARDIOVASCULAR: regular rate and rhythm
ABDOMEN/: soft, non-distended, non-tender to palpation, no rebound or guarding
EXTREMITIES: non-tender, no edema/swelling
NEUROLOGIC: NIH 3, pupils equal reactive, slight left-sided facial droop, bilateral upper extremity equal strength with normal sensation, left lower extremity with slight drift, normal sensation to lower extremities, normal [id number]. He did
have some balance difficulties when transferring from wheelchair to stretcher
SKIN: warm
Course
Orders/Labs/Results
Orders:
Orders
11/17/24 21:29
Electrocardiogram (*1) Urgent
Reason for Study: TIA/Stroke
EKG- Treatment ONCE
11/17/24 21:30
Type+Screen Stat
Complete Blood Count/With Diff Stat
Comprehensive Metabolic Panel Stat
PTT Stat
Prothrombin Time Stat
Troponin I Stat
11/17/24 21:37
CT HEAD STROKE ALERT W/o Cont Urgent
Comment:
Reason For Exam: stroke alert headache
11/17/24 21:39
CT BRAIN PERF STROKE ALERT Urgent
Comment:
Reason For Exam: left leg weakness
CT HEAD/NECK ANG STROKE ALERT Urgent
Comment:
Reason For Exam: left leg weakness
11/17/24 22:20
0.9% Sodium Chloride 1000 ml [Nss] 1,000 ml IV BOLUS
Acetaminophen 1000MG/100Ml [Ofirmev] 1,000 mg in 100 ml IV ONCE
Acetaminophen IV Indication:: ED Narcotic Naive Pt-ONCE
Diphenhydramine [Benadryl] 12.5 mg IV NOW STA
Metoclopramide [Reglan] 10 mg IV NOW STA
Abnormal Lab Results
11/17/24
21:30
WBC 13.6 H 10^3/uL
(4.8-10.8)
RBC 4.51 L 10^6/uL
(4.70-6.10)
MCH 32.6 H pg
(27.0-31.0)
Abs Immat Gran (auto) 0.1 H 10^3/uL
(0-0.05)
Absolute Neuts (auto) 10.5 H 10^3/uL
(1.4-6.5)
Absolute Monos (auto) 1.1 H 10^3/uL
(0.1-0.6)
Neutrophils % 77.4 H %
(42.2-75.2)
Lymphocytes % 12.6 L %
(20.5-51.1)
Creatinine 0.6 L mg/dL
(0.7-1.3)
Glucose 155 H mg/dl
(70-99)
POC Glucose 150 H mg/dl
(70-99)
11/17/24 21:30
11/17/24 21:30
Vital Signs
Initial and Last Documented VS:
Initial Vital Signs
Temp
98.4 F
11/17/24 21:23
Last Documented Vital Signs
Temp Pulse Resp BP Pulse Ox
98.4 F 115 20 157/72 98
11/17/24 21:23 11/17/24 22:00 11/17/24 22:00 11/17/24 22:00 11/17/24 22:00
MDM/Problems Addressed
Differential Diagnosis Includes:
Patient is a 69-year-old man presenting to the emergency department with numbness tingling weakness word-finding difficulties with the last known normal before 3 PM. On arrival patient was made a stroke alert as initially it was not clear as to
when his symptoms started. However once got into the room the timing was more clear that he was last seen normal before 3 PM. During my evaluation patient with an NIH of 3 for slight left-sided facial droop expressive aphasia and left lower
extremity drift. I did discuss with telestroke at [facility]. Since patient is on Eliquis and without last known normal and low NIH patient is not a TNK candidate but regardless we will proceed with CT stroke alert scans. Differential otherwise does
consist of a complex migraine or intracranial hemorrhage. Will treat with migraine cocktail after CT scans.
*Critical Care Note
Total Time (30-74mins, 75-104mins- exclusive of procedures): Not Applicable
Update Note
Update Note:
On reevaluation patient states that he has not had any worsened symptoms. I discussed with [facility] neuro who reviewed images. CT scan of the head per my interpretation with no obvious hemorrhage. Per the stroke fellow he does have significant
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 Recommended carotid Doppler studies, head of bed flat for 24 hours, permissive hypertension, hold his Eliquis until further imaging and give with 324 aspirin load.
Will also give patient migraine cocktail to see if that improves any of his symptoms. Of note patient's heart rate is A-fib with RVR in the low 1 teens. He does appear dry. Will give him additional IV fluids. No indications for rate control at
this time as he is asymptomatic with a heart rate in the 1 teens. Discussed with hospitalist accepted patient to their service
ED Attending Note
-
Portions of this chart may have been created with voice recognition software.� Occasional wrong word or��sound alike� substitutions may have occurred due to the inherent limitations of voice recognition software.
Discharge Plan
Departure
Patient Disposition: Admit
Date of Disposition: 11/17/24
Time of Disposition: 22:26
Presentation/result/management discussed w/ accepting MD/DO: Hospitalist
Discharge Problem:
Aphasia, Left leg weakness
Prescriptions:
No Action
cilostazol 100 MG tablet
100 mg PO BID
sotalol 80 MG tablet
80 mg PO BID Qty: 60 3RF
metoprolol succinate 50 MG tablet extended release 24 hr
100 mg PO DAILY
potassium chloride 20 MEQ tablet extended release
20 meq PO DAILY
rosuvastatin 5 MG tablet
5 mg PO DAILY
Eliquis 5 MG tablet
5 mg PO BID
glipizide 10 mg Tablet Extended Release 24hr
10 mg PO BID
therapeutic multivitamin Tablet
1 tab PO DAILY
clobetasol 0.05 % Ointment
1 applic TOPICAL DAILYPRN PRN (Reason: psoriasis)
albuterol sulfate 90 mcg/actuation Hfa Aerosol Inhaler
2 puff INHALATION R Q6HPRN PRN (Reason: sob)
omeprazole magnesium [Prilosec OTC] 20 mg Tablet,Delayed Release (Dr/Ec)
20 mg PO DAILY
omega 5-vaj-cpx-fish oil [Fish Oil] 1,200 (144-216) mg Capsule
1 cap PO DAILY
Jardiance 25 mg Tablet
25 mg PO DAILY
risankizumab-rzaa 75 mg/0.83 mL Syringe
150 mg SC Q12W
baclofen 5 mg Tablet
5 mg PO TID PRN (Reason: hiccups) 3 Days Qty: 9 0RF
losartan 50 mg Tablet
50 mg PO DAILY 30 Days Qty: 30 0RF
amlodipine 5 mg tablet
5 mg PO DAILY 30 Days Qty: 30 0RF
acetaminophen [Tylenol Extra Strength] 500 mg tablet
500 mg PO Q6H PRN (Reason: mild pain) Qty: 1 0RF
oxycodone 5 mg tablet
5 mg PO Q6H PRN (Reason: moderate pain) Qty: 20 0RF
polyethylene glycol 3350 [Miralax] 17 gram powder in packet
17 g PO DAILY Qty: 14 0RF
Rx Instructions:
while on pain medications
Referrals:
NONE,* [Family Provider] -
Interventions
Interventions:
*Risk Screen - Suicide Last Done: 11/17/24 21:23
*General Assessment Last Done: 11/17/24 21:23
*Neglect/Abuse Screening Last Done: 11/17/24 21:23
*ED- Fall Risk Assessment Last Done: 11/17/24 21:23
*ED COVID-19 Vaccine History Last Done: 11/17/24 21:23
ED- Pulmonary Assessment Last Done: 11/17/24 21:23
ED- Neurological Assessment Last Done: 11/17/24 21:23
ED- Cardiac Assessment Last Done: 11/17/24 21:23
ED Swallowing Screen Last Done: 11/17/24 22:12
Discharge Date and Time
Print Language: KENYAN
[2024-11-17] MEDS: OFIRMEV 100 IV (22:32)
[2024-11-17] MEDS: REGLAN 10 MG IV (22:32)
[2024-11-17] MEDS: BENADRYL 12.5 MG IV (22:32)
[2024-11-17] MEDS: NSS 1000 IV (22:34)
--- NOTE | 2024-11-17 22:35 | HPS.HSE ---
Addendum entered and electronically signed by Kin Monson DO 11/17/24 23:34:
Patient seen and examined independently. Agree with findings and plan as set forth by JESSE Funez.
Patient is a 69y M with PMH significant for A-Fib on Eliquis, hypertension and DM-II who presents to ED complaining of L sided headache, word-finding difficulty and confusion. Patient states that he started with L sided headache last PM. Today
he noted that he was somewhat confused and had difficulty completing usual tasks. This afternoon, he was unable to recall his 's name, their pet's name, etc. He had difficulty working the TV remote. noted that patient was having
difficulty 'finding his words' and he was brought to the ED for further evaluation.
Here in the ED, patient states that his headache is improved but not resolved. He continues to have some difficulty with speech / word-finding. No dysarthria. No focal numbness / weakness.
Ass:
CVA / TIA
Headache
Left Carotid Stenosis by CTA
Paroxysmal Atrial Fibrillation
Hypertension
Chronic HFpEF
DM-II
ASCVD / PAD
GERD
Cholelithiasis s/p Cholecystitis, ERCP / Sphincterotomy
Plan:
Observe overnight for further evaluation and treatment.
Patient not a candidate for TNK as symptoms started last PM and he is chronically on OAC.
Hold Eliquis acutely. ASA daily for now.
Check carotid US given 70% stenosis noted on CTA.
Follow for changes in neurologic exam.
MRI in AM.
Neurology evaluation for additional recommendations.
Continue metoprolol with holding parameters (for A-Fib rate control).
Hold other antihypertensive agents (amlodipine, losartan).
Continue statin.
Hold oral DM medications. Follow glucose and cover with SSI as needed.
Original Note:
Family Physician
-
Family Physician: * NONE
Chief Complaint
-
headache
confusion
History of Present Illness
69-year-old male with history of atrial fibrillation on Eliquis, hypertension, diabetes presenting to the emergency department with weakness and word finding difficulties. he was having left sided headache since last night. he was dry heaving as
well. today the headache persisted. patient took Aleve with some relief in his symptoms. today his found him confused as he did not remember her,neighbor or dog's name. he did not how to control the remote.he was also having finding words and
was not able to express. patient complained lightheaded. he felt the pins and needles on his left leg. denied fever, chills, chest pain, sob. denied abdominal pain,n,v,d. denied dysuria or hematuria.
Head CT and CTA with no acute findings. ASA ordered in ER. admitting for further management.
Medical History
Past Medical History
Past Medical History: Reports Other
Additional Past Medical History:
atrial fib
dyslipidemia
type 2 DM
mitral regurgitation
carotid stenosis
HTN
PAD
pulmonary arterial systolic hypertension
PAD
COPD
CHFleft eye cancer
necrotizing pancreatitis
choledocholithiasis
Past Surgical History: Reports Other
Additional Past Surgical History:
left femur surgery
cardioversion
cholecystectomy
Social History
Tobacco: Former Smoker
Alcohol: Former
Drug: None
Personal:
Living: With Family
Family History
Family History: Not pertinent
Allergies / Home Medications
Allergies reflects when Allergies were last updated in [employer].
Home Medications with original date entered in [employer]
Allergy/Medication List:
Allergies
Allergy/AdvReac Type Severity Reaction Status Date / Time
No Known Drug Allergies Allergy Unknown Verified 11/17/24 21:23
Home Medications
cilostazol 100 mg tablet 100 mg PO BID 08/10/19
sotalol 80 mg tablet 80 mg PO BID #60 tabs 08/20/19
metoprolol succinate 50 mg tablet,extended release 24 hr 50 mg PO BID 01/08/20
potassium chloride 20 mEq tablet,extended release 20 meq PO DAILY 01/08/20
apixaban 5 mg tablet (Eliquis) 5 mg PO BID 04/16/20
rosuvastatin 5 mg tablet 5 mg PO DAILY 04/16/20
empagliflozin 25 mg tablet (Jardiance) 25 mg PO DAILY 10/18/24
glipizide 10 mg tablet, extended release 24 hr 10 mg PO BID 10/18/24
omeprazole magnesium 20 mg tablet,delayed release (Prilosec OTC) 20 mg PO DAILY 10/18/24
risankizumab-rzaa 75 mg/0.83 mL subcutaneous syringe 150 mg SC Q12W 10/18/24
polyethylene glycol 3350 17 gram oral powder packet (Miralax) 17 g PO DAILY #14 ea 11/01/24
Review of Systems
-
Constitutional: Reports No Symptoms
EENT: Reports No Symptoms
Respiratory: Reports No Symptoms
Cardiac: Reports No Symptoms
Abdomen/GI: Reports No Symptoms
: Reports No Symptoms
Musculoskeletal: Reports No Symptoms
Skin: Reports No Symptoms
Neurological: Reports Dizzy, Headache and Numbness
Endocrine: Reports No Symptoms
Hematologic/Lymphatic: Reports No Symptoms
Psych: Reports No Symptoms
Physical Exam
Vital Signs
Vital Signs
Temp Pulse Resp BP Pulse Ox
98.4 F 115 20 157/72 98
11/17/24 21:23 11/17/24 22:00 11/17/24 22:00 11/17/24 22:00 11/17/24 22:00
Physical Exam
General: Well Developed, Well Nourished and No Apparent Distress
HEENT: NormoCephalic, Moist mucous membranes and Atraumatic
Respiratory: Clear
Cardiac: S1/S2 and Regular Rhythm; No Murmur or Rub
GI: Soft, Non Tender, Non Distended and Normal Bowel Sounds; No Organomegaly
Rectal: Deferred by Provider
Musculoskeletal: No Clubbing, No Cyanosis and No Edema
Skin: No Rash
Neuro: AO x 3 and Nonfocal/grossly intact
Psych: Calm
Laboratory Results
-
11/17/24 21:30
11/17/24 21:30
Laboratory Results
PT 14.2 Sec (11.4-14.6) 11/17/24 21:30
INR 1.07 11/17/24 21:30
APTT 33.8 Sec (23.4-35.0) 11/17/24 21:30
Total Bilirubin 1.0 mg/dl (0.2-1.3) 11/17/24 21:30
AST 25 U/L (17-59) 11/17/24 21:30
ALT 20 U/L (0-50) 11/17/24 21:30
Alkaline Phosphatase 91 U/L (38-126) 11/17/24 21:30
Troponin I < 0.012 ng/ml 11/17/24 21:30
Data Reviewed
-
CT Scan: Report Reviewed by me
Lab Data: Labs Reviewed by me
Impression/Plan
-
#aphasia/metabolic encephalopathy concern for CVA
-CT head with no acute findings
-CTA with no large vessel occlusion or critical stenosis
-obtain carotid US
-asa continued
-statin continued
-obtain a1c,lipid profile
-neurology consulted
#leukocytosis likely stress reaction
-wbc 13.6
-patient is afebrile
#tachycardia
#hxt of paroxysmal atrial fib
-EKG with sinus tachycardia
-metoprolol continued
- held Eliquis as pe rneuro
# Chronic HFpEF
- patient not in acute exacerbation
-strict I &O,daily weight
# Diabetes type 2
- Glipizide on hold
- Continue SSI, Accu-Checks
- HbA1c 7.3
# HLD
- Holding Crestor
#HTN
-hold Norvasc and losartan
#PAD with stent to right leg
- Crestor 5 mg daily
# GERD, hx gastric ulcer
- PPI
# Tobacco use, former
- 49-year 3 pack a day, quit 2019
#Diverticulitis requiring colon resection and reanastomosis
#Former alcohol abuse daily drinker stopped early 30s
#Hepatomegaly and hepatic fatty liver
#Former cocaine user�snorting in his 20s and 30s
#DVT prophylaxis
Eliquis
[2024-11-17 23:00] VITALS: BP 160/85
[2024-11-17] MEDS: ASPIRIN ENTERIC COATED 325 MG PO (23:13)
[2024-11-17] MEDS: TOPROL XL 50 MG PO (23:13)
[2024-11-18] VITALS (9 sets, daily range): BP systolic 104–140; BP diastolic 61–85; BMI 28.3
[2024-11-18 01:20] LABS: Glucose - Point of Care 117 mg/dl (70-99)
--- NOTE | 2024-11-18 01:35 | PTCARENOTE ---
Patient arrived to 322 from ED via stretcher, stood for weight and ambulated a few steps into the room and into the bed, tolerated well. Denies dizziness or lightheadedness at this time. Patient is awake and alert, appropriate. C/o headache and
'kidney' pain to the back, with rating of 7/10. Initiated on gambling monitor #9. Call callaway is in reach, will monitor.
--- NOTE | 2024-11-18 02:44 | PTCARENOTE ---
machine cementer and folder alarming for HR in 170s. Assessed patient at this time, patient lying in bed, appears to be comfortable, holding conversation with staff. Patient does not appear to be in distress at this time, denies respiratory complications.
Obtained set of vital signs Temp 100.6F Rectal, HR 178, BP 125/82, RR 18, 97% on room air. Obtained EKG, critical results for high HR. HR sustained in 170s for approximately 10 minutes and came down on its own to 115s. Patient at this time c/o
'chest pressure' in the center of his chest but is attributing that to his recent abdominal surgery and subsequent 50 pound weight loss over the past month. Patient states he has not been able to eat much since the GI issues and last hospital
admission. OTM CONSULTANT notified and came to evaluate patient. Will review chart and have cardiology consulted for input. Awaiting orders for pain medication for headache and back pain relief. No new orders at this time, will continue to monitor closely.
[2024-11-18] MEDS: LOPRESSOR 5 MG IV (04:03)
[2024-11-18] MEDS: KCL 40 MEQ PO (04:03)
[2024-11-18] MEDS: NAPROSYN 250 MG PO ×2 (04:05→20:34)
[2024-11-18 05:41] LABS: Hematocrit 35.4 % (39.0-52.0); Hemoglobin 12.6 g/dL (13.0-18.0); Mean Corp Hgb Conc. 35.6 g/dL (33.0-37.0); Mean Corpuscular Hgb 32.9 pg (27.0-31.0); Mean Corpuscular Volume 92.4 fL (80.0-94.0); Mean Platelet Volume 9.9 fL (7.4-10.4); Platelet Count 142 10^3/uL (130-400); Red Blood Cell Count 3.83 10^6/uL (4.70-6.10); Red Cell Dist. Width 13.6 % (11.5-14.5); White Blood Cell Count 10.8 10^3/uL (4.8-10.8)
[2024-11-18 05:56] LABS: HDL Cholesterol 43 mg/dl; LDL Cholesterol, Calculated 38 mg/dl; Total Cholesterol 103 mg/dl (50-199); Triglyceride 111 mg/dl (10-149); Very Low Density Lipoprotein 22 mg/dl (0-30)
[2024-11-18 05:59] LABS: Troponin I < 0.012 ng/ml
[2024-11-18] MEDS: LOW STRENGTH ASPIRIN 81 MG PO (08:29)
[2024-11-18] MEDS: PROTONIX 40 MG PO (08:29)
[2024-11-18] MEDS: TOPROL XL 50 MG PO ×2 (08:29→20:16)
[2024-11-18] MEDS: CRESTOR 5 MG PO (08:29)
[2024-11-18] MEDS: MAGNESIUM SULFATE 100 IV (08:30)
[2024-11-18 08:48] LABS: Glucose - Point of Care 108 mg/dl (70-99)
--- NOTE | 2024-11-18 09:33 | CM ---
Chart reviewed; Pt admitted as OBS for TIA/CVA concern.
Initial assessment completed. Patient resides with his in a split level home, two steps to enter. 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 No history of DME, VN or SNF.
CM will follow to coordinate all identified discharge planning needs. Await PT/OT assessments.
PCP: Dr. Jaramillo; looking to change PCO
Pharmacy: [facility] in [place]
[2024-11-18] MEDS: NOVOLOG FLEXPEN-LOW RESISTANCE SC ×2 (09:37→16:59)
--- NOTE | 2024-11-18 10:10 | PTOTSP ---
Speech Therapy Evaluation:
Swallow:
Pt presents with oropharyngeal swallow that is WFL. No overt s/sx of aspiration across trials. Pt passed 3oz swallow screen, WBC WNL, afebrile, and on room air.
Language:
Pt endorsed word-finding difficulty and confusion, which he expressed has substantially improved since admission. Given this, the Quick Aphasia Battery (QAB) Form 1 was administered. Scores were as follows:
Word Comprehension: 10.00
Sentence Comprehension: 10.00
Word Findin.00
Grammatical Construction: 9.75
Speech Motor Programmin.00
Repetition: 10.00
Readin.50
QAB Overall: 9.77 - no aphasia
Impression: Pt earned an overall score of 9.77 on the QAB, indicative of 'no aphasia' per parameters of this assessment. Pt demonstrated difficulty with reading, however pt reported this is baseline given dx of dyslexia as a child. Suspect's pt's
expressive/receptive language skills are likely at/near baseline.
Recommend:
1. Continue regular solids and thin liquids
2. Medications as tolerated
3. General aspiration precautions
4. DIRECTOR OF INFECTION PREVENTION to follow pending further CVA workup
[2024-11-18 11:44] LABS: Glucose - Point of Care 187 mg/dl (70-99)
--- NOTE | 2024-11-18 11:45 | W.PN.UPDATE ---
Update Note
Progress Note Update
Patient was seen and evaluated personally. I discussed in detail with the resident and formulated the plan of care for the patient.
69-year-old gentleman with history of paroxysmal atrial fibrillation status post A-fib ablation back in 2019, anticoagulated on Eliquis, hypertension, diabetes, moderate left carotid stenosis, with recent choledocholithiasis status post ERCP and
sphincterotomy status post postop pancreatitis who has recovered and was sent home within the last 2 weeks. He presented today with acute confusional state and was thought to have possibility of stroke. He has completely recovered without any
deficit sensory or motor. During his stay he did have a few episodes of atrial flutter with 2-1 AV conduction with fast rhythms. Likely the atrial flutter was not sustained long.
On examination alert and awake without any motor deficit. No obvious sensory deficit noted. Symmetrical motor tone and power. Cardiac examination shows normal sinus rhythm with regular rate and rhythm. No significant murmur.
With his suspected CVA, his Eliquis was held. At this time there is no evidence of stroke or CVA or embolic events. I would resume his Eliquis.
For his atrial flutter/SVT, I would discontinue his amlodipine to limit the rebound tachycardia and increase metoprolol from 50 twice daily to 100 in the morning and 50 mg in the evening. If tolerated and blood pressure remains stable, can increase
to 100 mg twice a day.
Plan to get an echo in the morning.
--- NOTE | 2024-11-18 12:01 | CON.CAR ---
Medical History
-
History of Present Illness:
69 year old male with history of px-Afib s/p ablation in 2019, HFpEF, NIDDM, hyperlipidemia, PAD, GERD, and recent hospitalization for choledocholithiasis, ERCP, laparoscopic cholecystectomy, and necrotizing pancreatitis, who presented with
left-sided headache, confusion, and word finding difficulty. Per ED history, patient also reported some sensory deficits and left-sided weakness, although he states today that he had no new sensory or motor deficits. He recalls being tired on Tuesday
night, but woke up with the above symptoms on Tuesday morning.
Of note, he complains of fatigue since last admission 10/18 - 11/01 and admits to reduced PO intake due to difficulty following the recommended low fat diet. He was not a TNK candidate, and was started on Aspirin. Eliquis was held. His symptoms have
since resolved.
Overnight, He had runs of tachycardia with HR up to 178, lasting 10 minutes. Pt reported no symptoms at the time.
Past Medical History
Past Medical History: Arrhythmias (paroxysmal Afib), CAD, CHF (HFpEF), COPD, GERD, HTN, Hypercholesterolemia, NIDDM and Other (necrotizing pancreatitis, mitral regurgitation, PAD)
Past Surgical History: Cardiac (ablation), Cholecystectomy and Orthopedic (left femur)
Social History
Tobacco: Former Smoker
Alcohol: Former
Drug: None
Personal:
Living: With Family
Family History
Family History: Reviewed & Not Pertinent
Allergies / Home Medications
Allergy/AdvReac Type Severity Reaction Status Date / Time
No Known Drug Allergies Allergy Unknown Verified 11/17/24 21:23
�Medication �Instructions �Recorded �Confirmed �Type
metoprolol succinate 50 mg 50 mg PO BID Blood Pressure 01/08/20 11/17/24 History
tablet,extended release 24 hr
potassium chloride 20 mEq 20 meq PO DAILY Supplement 01/08/20 11/17/24 History
tablet,extended release
apixaban 5 mg tablet (Eliquis) 5 mg PO BID Blood Clot 04/16/20 11/17/24 History
Prevention/Tx
rosuvastatin 5 mg tablet 5 mg PO DAILY High Cholesterol 04/16/20 11/17/24 History
empagliflozin 25 mg tablet 25 mg PO DAILY Diabetes 10/18/24 11/17/24 History
(Jardiance)
glipizide 10 mg tablet, extended 10 mg PO BID Diabetes 10/18/24 11/17/24 History
release 24 hr
omeprazole magnesium 20 mg 20 mg PO DAILY GERD 10/18/24 11/17/24 History
tablet,delayed release (Prilosec
OTC)
risankizumab-rzaa 75 mg/0.83 mL 150 mg SC Q12W Antipsoriatic Agent 10/18/24 10/18/24 History
subcutaneous syringe
polyethylene glycol 3350 17 gram 17 g PO DAILY #14 ea 11/01/24 Rx
oral powder packet (Miralax)
Norvasc Blood Pressure 11/17/24 History
amlodipine 5 mg tablet (Norvasc) 5 mg PO DAILY Blood Pressure 11/17/24 11/17/24 History
losartan 50 mg tablet 50 mg PO DAILY Blood Pressure 11/17/24 11/17/24 History
Review of Systems
-
History Source: Patient
Constitutional: Fatigue
Respiratory: Other (No breathing difficulty)
Cardiac: Other (No chest pain, palpitations or lightheadedness)
Abdomen/GI: Other (No nausea or vomiting)
Musculoskeletal: Other (no edema)
Neurological: Other (no focal weakness, no new numbness/tingling)
Physical Exam
Vital Signs
Temp Pulse Resp BP Pulse Ox
98 F 91 16 104/61 94
11/18/24 10:53 11/18/24 10:53 11/18/24 10:53 11/18/24 10:53 11/18/24 11:15
Lab Results
11/18/24 05:14
11/17/24 21:30
Troponin I < 0.012 ng/ml 11/18/24 05:14
Physical Exam
General: Well Developed, No Apparent Distress and Comfortable; Negative Respiratory Distress
HEENT: Normocephalic, Moist Mucous Membranes and Atraumatic
Respiratory: Clear and Non Labored Respirations; Negative Wheezes, Crackles or Rhonchi
Cardiac: S1/S2 and Regular Rhythm; Negative Murmur, Rub, Peripheral Edema or Calf Tenderness
GI: Soft, Non Distended, Normal Bowel Sounds and Tender (Lower abdominal tenderness)
Musculoskeletal: No Clubbing, No Cyanosis and No Edema
Skin: Warm and Dry
Neuro: Awake, Alert and Oriented
Psych: Calm
Impression / Plan
-
69 year old male with history of px-Afib s/p ablation in 2019, HFpEF, NIDDM, hyperlipidemia, PAD, GERD, and recent hospitalization for choledocholithiasis, ERCP, laparoscopic cholecystectomy, and necrotizing pancreatitis, who presented with
neurological symptoms, and developed tachycardia.
Post op arrhythmia:
- From post-op inflammatory state. SVT on EKG noted. Telemetry data reviewed.
- Discontinue Amlodipine, and can potentially cause reflex tachycardia from vascular relaxation
- Increase Toprol to 100mg AM and 50mg PM
TIA:
- Confusion, word finding difficulty, left-sided weakness. Symptoms appear resolved at this time
- Afib well controlled s/p ablation so mental status changes/TIA unlikely afib related
- Continue Aspirin
- Okay to resume Eliquis
HFpEF:
- Not in acute exacerbation
- Increase Toprol dosing as above
Paroxysmal afib:
- Well controlled after ablation in 2019
- Continue Eliquis
Essential hypertension:
- Discontinue Amlodipine
- Adjust metoprolol as above
- Monitor BP response
Echo 12/2021:
Normal biventricular size and systolic function without regional wall motion
abnormality. LVEF 65%
Mild concentric left ventricular hypertrophy.
Sinus of Valsalva is 3.9 cm and the S-T junction is 3.8 cm.
Thickened mitral valve leaflets with normal leaflet opening and mild mitral
regurgitation.
--- NOTE | 2024-11-18 12:11 | CON.NEURO ---
Neuro Assessment/Plan
Assessment
TIA due to symptomatic left carotid 75% stenosis, presenting with aphasia, apraxia which can localize to left carotid
Afib on anticoagulation
MRI brain imgs reviewed, normal
Plan
Vascular surgery consult for CEA
Consultation
Order
Date of Consultation: 11/18/24
Requesting Provider: Cristine Montes
Reason for Consult: TIA
Subjective/Objective
Subjective Data
Date of Service: November 18, 2024
from h&p:
Patient is a 69y M with PMH significant for A-Fib on Eliquis, hypertension and DM-II who presents to ED complaining of L sided headache, word-finding difficulty and confusion. Patient states that he started with L sided headache last PM. Today
he noted that he was somewhat confused and had difficulty completing usual tasks. This afternoon, he was unable to recall his 's name, their pet's name, etc. He had difficulty working the TV remote. noted that patient was having
difficulty 'finding his words' and he was brought to the ED for further evaluation.
Here in the ED, patient states that his headache is improved but not resolved. He continues to have some difficulty with speech / word-finding. No dysarthria. No focal numbness / weakness.
this morning, patient reports all symptoms resolved
Objective Data
Vital Signs
Temp Pulse Resp BP Pulse Ox
36.6 C 91 16 104/61 94
11/18/24 10:53 11/18/24 10:53 11/18/24 10:53 11/18/24 10:53 11/18/24 11:15
Lab Results
11/18/24 05:14
11/17/24 21:30
PT 14.2 Sec (11.4-14.6) 11/17/24 21:30
INR 1.07 11/17/24 21:30
APTT 33.8 Sec (23.4-35.0) 11/17/24 21:30
Sodium 137 mmol/L (135-145) 11/17/24 21:30
Potassium 3.7 mmol/L (3.5-5.1) 11/17/24 21:30
BUN 9 mg/dl (9-20) 11/17/24 21:30
Glucose 155 mg/dl (70-99) H 11/17/24 21:30
Calcium 8.9 mg/dl (8.4-10.2) 11/17/24 21:30
LDL Cholesterol, Calc 38 mg/dl 11/18/24 05:14
Patient Allergies
No Known Drug Allergies Allergy (Verified 11/17/24 21:23)
Unknown
Physical Exam
-
AAOx3, speech clear, language intact, no apraxia
VFF, EOMI, face symmetric
full strength b/l UE/LE
sensation intact to touch/temp
Medications
-
Active Medications
Generic Name Dose Route Start Last Admin
Trade Name Freq PRN Reason Stop Dose Admin
Acetaminophen 650 mg 11/18/24 02:20
Acetaminophen 650 Mg Rectal Suppository RECTAL 12/16/24 02:19
Q4HPRN PRN
THOMAS, mild pain, or temp >100.4F
Acetaminophen 650 mg 11/18/24 02:20
Acetaminophen 325 Mg Tablet PO 12/16/24 02:19
Q4HPRN PRN
THOMAS, mild pain, or temp >100.4F
Aspirin 81 mg 11/18/24 08:00 11/18/24 08:29
Aspirin 81 Mg Chewable Tablet PO 12/16/24 07:59 81 mg
DAILY FELICITAS Administration
Dextrose 12.5 grams 11/18/24 02:20
Dextrose 50% (0.5 Grams/Ml) 50 Ml Syringe IV 12/16/24 02:19
[id number] PRN
hypoglycemia
Protocol
Glucagon 1 mg 11/18/24 02:20
Glucagon 1 Mg Vial IM 12/16/24 02:19
PRN PRN
hypoglycemia
Protocol
Insulin Aspart 0 units 11/18/24 07:30 11/18/24 09:37
Insulin Aspart Low Resistance 300 Units/3 Ml Pen.Injctr SC 12/16/24 07:29 Not Given
AC FELICITAS
Protocol
Metoprolol Succinate 100 mg 11/19/24 08:00
Metoprolol 100 Mg Extended Release Tablet PO 12/17/24 07:59
DAILY FELICITAS
Metoprolol Succinate 50 mg 11/18/24 20:00
Metoprolol 50 Mg Extended Release Tablet PO 12/16/24 19:59
DAILY@2000 FELICITAS
Metoprolol Tartrate 5 mg 11/18/24 03:26
Metoprolol 5 Mg/5 Ml Vial IV 12/16/24 03:25
Q4HPRN PRN
HR >110
Pantoprazole Sodium 40 mg 11/18/24 08:00 11/18/24 08:29
Pantoprazole 40 Mg Delayed Release Tablet PO 12/16/24 07:59 40 mg
DAILY FELICITAS Administration
Rosuvastatin Calcium 5 mg 11/18/24 08:00 11/18/24 08:29
Rosuvastatin (Crestor) 5 Mg Tablet PO 12/16/24 07:59 5 mg
DAILY FELICITAS Administration
Sodium Chloride 0 flush 11/17/24 23:00
Sodium Chloride 0.9% (Flush) Syringe IV 12/15/24 22:59
PER PROTOCOL FELICITAS
Home Medications
�Medication �Instructions �Recorded
metoprolol succinate 50 mg 50 mg PO BID Blood Pressure 01/08/20
tablet,extended release 24 hr
potassium chloride 20 mEq 20 meq PO DAILY Supplement 01/08/20
tablet,extended release
apixaban 5 mg tablet (Eliquis) 5 mg PO BID Blood Clot 04/16/20
Prevention/Tx
rosuvastatin 5 mg tablet 5 mg PO DAILY High Cholesterol 04/16/20
empagliflozin 25 mg tablet 25 mg PO DAILY Diabetes 10/18/24
(Jardiance)
glipizide 10 mg tablet, extended 10 mg PO BID Diabetes 10/18/24
release 24 hr
omeprazole magnesium 20 mg 20 mg PO DAILY GERD 10/18/24
tablet,delayed release (Prilosec
OTC)
risankizumab-rzaa 75 mg/0.83 mL 150 mg SC Q12W Antipsoriatic Agent 10/18/24
subcutaneous syringe
polyethylene glycol 3350 17 gram 17 g PO DAILY #14 ea 11/01/24
oral powder packet (Miralax)
Norvasc Blood Pressure 11/17/24
amlodipine 5 mg tablet (Norvasc) 5 mg PO DAILY Blood Pressure 11/17/24
losartan 50 mg tablet 50 mg PO DAILY Blood Pressure 11/17/24
--- NOTE | 2024-11-18 12:21 | W.PN.HOSP.TC ---
Addendum entered and electronically signed by Cristine Montes MD 11/18/24 12:30:
ERROR:
pt is NOT on IV heparin as previously thought--cont to hold Eliquis until vascular eval
Original Note:
Today's Communication/Plan
-
await MRI
cont IV heparin
ECHO in AM
vascular consult in AM
Assessment / Plan
Assessment / Plan
pt is a 69 year old male
aphasia/metabolic encephalopathy concern for CVA--head CT neg--CTA with left internal carotid artery with 75% stenosis--await neuro and vascular input--cont IV heparin for now--hold eliquis--cont asa--cont statin--await MRI
leukocytosis likely stress reaction (with low grade fever)--no signs of infection--WBC resolved
tachycardia with history of paroxysmal atrial fib--metoprolol continued--cont IV heparin
Chronic HFpEF- patient not in acute exacerbation-strict I &O,daily weight
Diabetes type 2- Glipizide on hold- Continue SSI, Accu-Checks- HbA1c 7.3
HLD--cont Crestor
Essential HTN--cont Norvasc and losartan
PAD with stent to right leg- Crestor 5 mg daily
GERD, hx gastric ulcer- PPI
Tobacco use, former- 49-year 3 pack a day, quit 2019
Diverticulitis requiring colon resection and reanastomosis
Former alcohol abuse daily drinker stopped early 30s
Hepatomegaly and hepatic fatty liver
Former cocaine user�snorting in his 20s and 30s
DVT prophylaxis--Eliquis
code status--full code
Anticipated Discharge: 24 - 48 hours
Subjective/Interval History
-
Date of Service: November 18, 2024
pt feeling back to normal
Objective Data
-
Labs:
Laboratory Results
11/18/24
05:14
WBC 10.8
Hgb 12.6 L
Hct 35.4 L
Plt Count 142 D
Vital Signs:
max temp for 24 hours
11/18/24
02:50
Temp 100.6 F H
Vital Signs
Temp Pulse Resp BP Pulse Ox
98 F 91 16 104/61 94
11/18/24 10:53 11/18/24 10:53 11/18/24 10:53 11/18/24 10:53 11/18/24 11:15
I&O
11/17/24 11/18/24 11/19/24
06:59 06:59 06:59
Intake Total 220 / 220
Balance 220 / 220
Review of Systems
-
All other systems: Reviewed and negative
Physical Exam
-
General: Well Developed, Well Nourished and No Apparent Distress
HEENT: Normocephalic and Atraumatic; Negative Oxygen
Respiratory: Clear to Auscultation; Negative Wheezes or Rhonchi
Cardiac: Regular Rhythm and S1/S2; Negative Murmur
GI: Soft, Nontender, Nondistended and Normal Bowel Sounds
Musculoskeletal: No Clubbing, No Cyanosis and No Edema
Skin: Warm
Neuro: Awake
[2024-11-18] MEDS: NOVOLOG FLEXPEN-LOW RESISTANCE 1 UNITS SC (12:40)
[2024-11-18] MEDS: TYLENOL 650 MG PO (15:55)
[2024-11-18 16:50] LABS: Glucose - Point of Care 132 mg/dl (70-99)
[2024-11-18 21:21] LABS: Glucose - Point of Care 158 mg/dl (70-99)
[2024-11-19] VITALS (8 sets, daily range): BP systolic 130–154; BP diastolic 73–85; PULSE 86; O2SAT 97; BMI 28.4
[2024-11-19 06:27] LABS: Hematocrit 37.1 % (39.0-52.0); Hemoglobin 12.7 g/dL (13.0-18.0); Mean Corp Hgb Conc. 34.2 g/dL (33.0-37.0); Mean Corpuscular Hgb 31.9 pg (27.0-31.0); Mean Corpuscular Volume 93.2 fL (80.0-94.0); Mean Platelet Volume 10.1 fL (7.4-10.4); Platelet Count 127 10^3/uL (130-400); Red Blood Cell Count 3.98 10^6/uL (4.70-6.10); Red Cell Dist. Width 13.5 % (11.5-14.5); White Blood Cell Count 10.2 10^3/uL (4.8-10.8)
[2024-11-19 06:53] LABS: Blood Urea Nitrogen 8 mg/dl (9-20); Calcium 8.4 mg/dl (8.4-10.2); Carbon Dioxide 26 mmol/L (22-30); Chloride 105 mmol/L (98-107); Estimated Creatinine Clearance > 125 ml/min; Glucose 154 mg/dl (70-99); Magnesium 1.8 mg/dl (1.6-2.3); Sodium 137 mmol/L (135-145); eGFR > 60.00
--- NOTE | 2024-11-19 07:30 | W.PN.HOSP.TC ---
Addendum entered and electronically signed by Cristine Montes MD 11/19/24 15:39:
I saw and evaluated the patient independently. I reviewed the resident�s note and agree with findings and plan as documented by Dr. Mckeon.
GENERAL: well developed, well nourished, male in no apparent distress
HEENT: NC/AT
HEART: regular rate and rhythm, +S1, +S2
LUNGS : clear to auscultation bilaterally
ABDOM: soft, nontender, nondistended, + bowel sounds
EXT: no cyanosis, clubbing, or edema
NEUROLOGIC: nonfocal
aphasia/metabolic encephalopathy concern for CVA--head CT neg--CTA with left internal carotid artery with 75% stenosis--apprec neuro and vascular input--hold eliquis--cont asa--cont statin-- MRI brain neg--plan for CEA Tuesday
weak/numb legs (told to me by therapy that pt feels like he will collapse when he gets to the top of the stairs)--will check C and L/S spine MRI
leukocytosis likely stress reaction (with low grade fever)--no signs of infection--WBC resolved
tachycardia with history of paroxysmal atrial fib--metoprolol continued
Chronic HFpEF- patient not in acute exacerbation-strict I &O,daily weight
Diabetes type 2- restart glipizide- Continue SSI, Accu-Checks- HbA1c 7.3
HLD--cont Crestor
Essential HTN--cont Norvasc and losartan
PAD with stent to right leg- Crestor 5 mg daily
GERD, hx gastric ulcer- PPI
Tobacco use, former- 47-year 3 pack a day, quit 2019
Diverticulitis requiring colon resection and reanastomosis
Former alcohol abuse daily drinker stopped early 30s
Hepatomegaly and hepatic fatty liver
Former cocaine user�snorting in his 20s and 30s
DVT prophylaxis--Eliquis
code status--full code
Original Note:
Today's Communication/Plan
-
vascular consult, CEA to be planned
Assessment / Plan
Assessment / Plan
Impression: Patient is a 69y M with PMH significant for A-Fib on Eliquis, hypertension and DM-II who presents to ED complaining of L sided headache, word-finding difficulty and confusion.
Plan:
#Aphasia/metabolic encephalopathy concern for CVA
-head CT neg--CTA with left internal carotid artery with 75% stenosis
-Neuro consulted, appreciated
-hold Eliquis
-cont asa, cont statin
-MRI 11/18: No acute intracranial abnormality noted
-Duplex US: Calcified plaque within the left carotid bulb, measurements suggestive of 50-69% stenosis. Calcified right carotid bulb plaque, measurements suggestive of less than 50% stenosis
- Vascular consulted: planning for CEA
#Leukocytosis likely stress reaction (with low grade fever)
-no signs of infection
-WBC resolved
#Tachycardia with history of paroxysmal atrial fib
-metoprolol continued
- Eliquis on hold
#Chronic HFpEF
- patient not in acute exacerbation
-strict I &O,daily weight
#Diabetes mellitus type 2
- Glipizide on hold
- Continue SSI, Accu checks
- HbA1c 7.3
#HLD
-cont Crestor
#Essential HTN
-cont Norvasc and losartan
#PAD with stent to right leg
- Crestor 5 mg daily
#GERD, hx gastric ulcer
- PPI
#Tobacco use, former
- 47-year 3 pack a day, quit 2019
#Diverticulitis requiring colon resection and reanastomosis
#Hepatomegaly and hepatic fatty liver
DVT ppx - eliquis on hold, pt mobile
code status--full code
Anticipated Discharge: 24 - 48 hours
Subjective/Interval History
-
Date of Service: November 19, 2024
Patient was comfortable in bed.
Objective Data
-
Labs:
Laboratory Results
11/19/24
05:59
WBC 10.2
Hgb 12.7 L
Hct 37.1 L
Plt Count 127 L
Sodium 137
Potassium 4.0
Chloride 105
Carbon Dioxide 26
BUN 8 L
Creatinine 0.5 L
Glucose 154 H
Calcium 8.4
Vital Signs:
Vital Signs
Temp Pulse Resp BP Pulse Ox
98.8 F 92 18 147/85 95
11/19/24 04:01 11/19/24 04:01 11/19/24 04:01 11/19/24 04:01 11/19/24 04:01
I&O
11/18/24 11/19/24 11/20/24
06:59 06:59 06:59
Intake Total 220 / 220 1080 / 1080 960 / 960
Balance 220 / 220 1080 / 1080 960 / 960
Review of Systems
-
All other systems: Reviewed and negative
Physical Exam
-
General: Well Developed, Well Nourished and No Apparent Distress
HEENT: Normocephalic and Atraumatic; Negative Oxygen
Respiratory: Clear to Auscultation; Negative Wheezes or Rhonchi
Cardiac: Regular Rhythm and S1/S2; Negative Murmur
GI: Soft, Nontender, Nondistended and Normal Bowel Sounds
Musculoskeletal: No Clubbing, No Cyanosis and No Edema
Skin: Warm
Neuro: Awake
[2024-11-19 07:51] LABS: Glucose - Point of Care 160 mg/dl (70-99)
[2024-11-19] MEDS: NOVOLOG FLEXPEN-LOW RESISTANCE 1 UNITS SC ×3 (08:16→17:28)
[2024-11-19] MEDS: PROTONIX 40 MG PO (08:22)
[2024-11-19] MEDS: LOW STRENGTH ASPIRIN 81 MG PO (08:22)
[2024-11-19] MEDS: CRESTOR 5 MG PO (08:22)
[2024-11-19] MEDS: TOPROL XL 100 MG PO (08:22)
[2024-11-19 11:41] LABS: Glucose - Point of Care 157 mg/dl (70-99)
--- NOTE | 2024-11-19 12:02 | PTOTSP ---
Pt presents to OT with good vision, good UB AROM, strength, sensation and coordination and grossly intact cognition. Does report an 8/10 b/l temporal headache. Pt is currently at mod I/I level with all self care, transfers and functional mobility in
room and bathroom without AD. No further skilled OT indicated at this time.
--- NOTE | 2024-11-19 12:17 | PTOTSP ---
Pt is ambulating ad yumiko independently in the hallway without need for any assistive devices. Pt reported intermittent numbness in legs when going up stairs or standing in bathroom. Notified hospitalist of this. PT will sign off at this time.
[2024-11-19] MEDS: NAPROSYN 250 MG PO ×2 (12:27→20:27)
--- NOTE | 2024-11-19 13:30 | CON.VAS ---
Addendum entered and electronically signed by Abram Rowley III, MD 11/19/24 18:13:
This patient was seen and examined in collaboration with JESSE Brower. I agree with the history and physical exam as well as the assessment and plan. I have the following additions:
Patient known to Dr. Jauregui
Followed for carotid stenosis
Presents with symptoms consistent with TIA, left hemisphere
Symptoms have now resolved and he is back to baseline
CT angiogram personally reviewed in detail. Centerline reconstructions performed. Left internal carotid artery stenosis which is by my 75% direct measurement.
Recommending carotid endarterectomy. Technical aspects of this procedure were discussed with him in detail. Benefits and rationale for this approach were discussed with him in detail. Operative risks were discussed with him in detail including
but not limited to stroke, heart attack, bleeding, infection, cranial nerve injury. Also discussed the importance of continued aggressive medical management and the need for postoperative imaging surveillance.
He expressed a clear understanding of our conversation and agrees to proceed with surgery as detailed above.
Signed:
Abram Rowley III, MD
Vascular Surgery
[facility]
Original Note:
Consultation
Consultation Request
Date/Time Consultation Performed: 11/19/2024 1100
Requesting Provider: Hospitalist
Performing Provider: Marla Baeza NP-C for Abram Rowley III, MD
Reason for Consultation: Symptomatic left carotid artery stenosis
Medical History
-
Chief Complaint: Confusion
History of Present Illness:
This is a 69-year-old male [id number] with significant past medical history for atrial fibrillation, dyspnea, diabetes, mitral crepitation, carotid stenosis, hypertension, peripheral artery disease, COPD, necrotizing pancreatitis, diabetes,
and GERD who presented to outside hospital on 11/17/2024 reporting acute onset of confusion accompanied with word finding difficulties, patient is now back to baseline. Of note he is known to our service as Dr. Braxton Jauregui M.D. follows in the
outpatient setting for surveillance of his carotid stenosis. Patient notes that he was watching TV when he had acute onset of confusion and could not operate the remote, his was present and noted that patient was struggling to recall names of
people or verbalize the words he was trying to speak, an accompanying headache. He noted almost complete resolution of confusion and word finding difficulties upon arrival to the ED but had continued headache. He notes now he feels like he is at
his neurological baseline except for continued intermittent left-sided headache. Denies previous history of strokelike or TIA symptoms. To us he denies any accompanying peripheral sensory/motor changes.
Past Medical History
Past Medical History: Arrhythmias (Paroxysmal atrial fibrillation), CAD, CHF (Chronic HFpEF), COPD, GERD, HTN, NIDDM and Other (Left carotid artery stenosis, Cholelithiasis s/p Cholecystitis, ERCP / Sphincterotomy, necrotizing pancreatitis,
peripheral arterial disease, pulmonary arterial systolic hypertension)
Past Surgical History: Cholecystectomy and Other (left femur surgery and cardioversion)
Social History
Tobacco: Former Smoker
Alcohol: Former
Drug: None
Personal:
Living: With Family
Allergies / Home Medications
Allergy/AdvReac Type Severity Reaction Status Date / Time
No Known Drug Allergies Allergy Unknown Verified 11/17/24 21:23
�Medication �Instructions �Recorded �Confirmed �Type
metoprolol succinate 50 mg 50 mg PO BID Blood Pressure 01/08/20 11/17/24 History
tablet,extended release 24 hr
potassium chloride 20 mEq 20 meq PO DAILY Supplement 01/08/20 11/17/24 History
tablet,extended release
apixaban 5 mg tablet (Eliquis) 5 mg PO BID Blood Clot 04/16/20 11/17/24 History
Prevention/Tx
rosuvastatin 5 mg tablet 5 mg PO DAILY High Cholesterol 04/16/20 11/17/24 History
empagliflozin 25 mg tablet 25 mg PO DAILY Diabetes 10/18/24 11/17/24 History
(Jardiance)
glipizide 10 mg tablet, extended 10 mg PO BID Diabetes 10/18/24 11/17/24 History
release 24 hr
omeprazole magnesium 20 mg 20 mg PO DAILY GERD 10/18/24 11/17/24 History
tablet,delayed release (Prilosec
OTC)
risankizumab-rzaa 75 mg/0.83 mL 150 mg SC Q12W Antipsoriatic Agent 10/18/24 10/18/24 History
subcutaneous syringe
polyethylene glycol 3350 17 gram 17 g PO DAILY #14 ea 11/01/24 Rx
oral powder packet (Miralax)
Norvasc Blood Pressure 11/17/24 History
amlodipine 5 mg tablet (Norvasc) 5 mg PO DAILY Blood Pressure 11/17/24 11/17/24 History
losartan 50 mg tablet 50 mg PO DAILY Blood Pressure 11/17/24 11/17/24 History
Review of Systems
-
History Source: Patient
Constitutional: Reports No Symptoms
EENT: Reports No Symptoms
Respiratory: Reports No Symptoms
Cardiac: Reports No Symptoms
Vascular: Reports Leg Pain / Claudication
Abdomen/GI: Reports No Symptoms
: Reports No Symptoms
Musculoskeletal: Reports No Symptoms
Skin: Reports No Symptoms
Neurological: Reports Headache and Other (Confusion)
Endocrine: Reports No Symptoms
Physical Exam
Vital Signs
Temp Pulse Resp BP Pulse Ox
97.4 F 87 17 138/78 97
11/19/24 11:04 11/19/24 11:04 11/19/24 11:04 11/19/24 11:04 11/19/24 11:04
Lab Results
11/19/24 05:59
11/19/24 05:59
Troponin I < 0.012 ng/ml 11/18/24 05:14
Physical Exam
General: No Apparent Distress and Comfortable
HEENT: Normocephalic, Anicteric and Atraumatic
Respiratory: Non Labored Respirations
Cardiac: Negative JVD
GI: Soft, Non Tender and Non Distended
Musculoskeletal: No Edema
Skin: Warm
Neuro: AO x 3
Assessment / Plan
-
Assessment: Six 9-year-old male admitted for TIA evaluation, consider left carotid symptomatic stenosis
Plan:
Obtaining carotid artery duplex, will require carotid endarterectomy would prefer during this admission, final surgical plan per attending
I performed this shared service with the attending. I evaluated the patient [id number] and have entered clinical documentation as shown in the encounter note. I performed the following component(s):�history and physical exam. Note that medical
decision making is not final until attested by vascular attending.
--- NOTE | 2024-11-19 14:16 | W.PN.CD ---
Today's Communication / Plan
-
OK for CEA from cardiac perspective.
Impression / Plan
-
69 year old male with history of px-Afib s/p ablation in 2019, HFpEF, NIDDM, hyperlipidemia, PAD, GERD, and recent hospitalization for choledocholithiasis, ERCP, laparoscopic cholecystectomy, and necrotizing pancreatitis, who presented with
neurological symptoms, and developed tachycardia.
TIA
- May have CEA this admit
- Holding Eliquis
- Tele last 24 hrs just Sinus, no AFib
HFpEF, euvolemic
Paroxysmal afib, doing well since ablation in 2019, RESUME Eliquis when OK with medicine/neurology/vascular surgery
Essential hypertension
Subjective:
No CP or dyspnea.
Echo 12/2021: LVEF 65%, mild cLVH, SOV 3.9, mild MR
Physical Exam
Vital Signs/Labs
Vital Signs
Temp Pulse Resp BP Pulse Ox
97.4 F 87 17 138/78 97
11/19/24 11:04 11/19/24 11:04 11/19/24 11:04 11/19/24 11:04 11/19/24 11:04
11/18/24 11/19/24 11/20/24
06:59 06:59 06:59
Actual Weight 100.017 kg 100.108 kg
11/19/24 05:59
11/19/24 05:59
PT 14.2 Sec (11.4-14.6) 11/17/24 21:30
INR 1.07 11/17/24 21:30
APTT 33.8 Sec (23.4-35.0) 11/17/24 21:30
Magnesium 1.8 mg/dl (1.6-2.3) 11/19/24 05:59
Triglycerides 111 mg/dl (10-149) 11/18/24 05:14
LDL Cholesterol, Calc 38 mg/dl 11/18/24 05:14
VLDL Cholesterol, Calc 22 mg/dl (0-30) 11/18/24 05:14
HDL Cholesterol 43 mg/dl 11/18/24 05:14
LAB Results
11/17/24 11/18/24
21:30 05:14
Troponin I < 0.012 < 0.012
Physical Exam
Constitutional: No acute distress
EENT: Anicteric
Cardiovascular: Rhythm & rate is regular and Pedal edema is absent
Respiratory: Respiratory effort normal and Lungs clear to auscul.
GI: Soft and Distention absent
Neuro/Psych: AO x 3
Data Reviewed
-
Date of Service: November 19, 2024
--- NOTE | 2024-11-19 14:42 | CM ---
Patient seen at bedside on . Patient physicians also present. Patient now changed to INP status. Patient aware that he is for surgery on Tuesday and plan per patient is to go home with no needs. CM will continue to follow for discharge
planning needs.
Plan; pending surgery and post surgery PT/OT for assessment
[2024-11-19 16:36] LABS: Glucose - Point of Care 159 mg/dl (70-99)
[2024-11-19] MEDS: MIRALAX 17 GRAMS PO (18:10)
[2024-11-19] MEDS: TOPROL XL 50 MG PO (20:27)
[2024-11-19 21:42] LABS: Glucose - Point of Care 144 mg/dl (70-99)
[2024-11-20 03:00] VITALS: BP 145/83
[2024-11-20 06:11] VITALS: BMI 28.0
[2024-11-20 07:17] LABS: % Basophils 0.4 % (0-2); % Eosinophils 1.7 % (0-6); % Immature Granulocytes 0.2 % (0-0.5); % Lymphocytes 14.6 % (20.5-51.1); % Monocytes 13.8 % (1.7-9.3); % Neutrophils 69.3 % (42.2-75.2); Absolute Eosinophils 0.1 10^3/uL (0-0.7); Absolute Lymphocytes 1.2 10^3/uL (1.2-3.4); Absolute Monocytes 1.2 10^3/uL (0.1-0.6); Absolute Neutrophils 5.8 10^3/uL (1.4-6.5); Hematocrit 39.2 % (39.0-52.0); Hemoglobin 13.4 g/dL (13.0-18.0); Mean Corp Hgb Conc. 34.2 g/dL (33.0-37.0); Mean Corpuscular Volume 93.6 fL (80.0-94.0); Mean Platelet Volume 10.1 fL (7.4-10.4); Nucleated Red Blood Cells % 0 % (-); Platelet Count 154 10^3/uL (130-400); Red Blood Cell Count 4.19 10^6/uL (4.70-6.10); Red Cell Dist. Width 13.5 % (11.5-14.5); White Blood Cell Count 8.4 10^3/uL (4.8-10.8)
--- NOTE | 2024-11-20 07:18 | W.PN.HOSP.TC ---
Addendum entered and electronically signed by Cristine Montes MD 11/20/24 14:35:
I saw and evaluated the patient independently. I reviewed the resident�s note and agree with findings and plan as documented by Dr. Mckeon.
GENERAL: well developed, well nourished, male in no apparent distress
HEENT: NC/AT
HEART: regular rate and rhythm, +S1, +S2
LUNGS : clear to auscultation bilaterally
ABDOM: soft, nontender, nondistended, + bowel sounds
EXT: no cyanosis, clubbing, or edema
NEUROLOGIC: nonfocal
aphasia/metabolic encephalopathy concern for CVA (resolved)--head CT neg--CTA with left internal carotid artery with 75% stenosis--apprec neuro and vascular input--holding eliquis--cont asa--cont statin-- MRI brain neg--plan for CEA Tuesday
weak/numb legs (told to me by therapy that pt feels like he will collapse when he gets to the top of the stairs)--MRI L/S spine with degenerative changes and mild spinal stenosis L3-4; C spine MRI with mod spinal stenosis C5-6 with disk bulge with
possible compressive myelopathy vs artifact--will need outpt neurosurg eval once recovered from CEA
leukocytosis likely stress reaction (with low grade fever)--no signs of infection--WBC resolved
tachycardia with history of paroxysmal atrial fib--metoprolol continued
Chronic HFpEF- patient not in acute exacerbation--strict I &O, daily weight
Diabetes type 2- restart glipizide- Continue SSI, Accu-Checks- HbA1c 7.3
HLD--cont Crestor
Essential HTN--cont Norvasc and losartan
PAD with stent to right leg- Crestor 5 mg daily
GERD, hx gastric ulcer- PPI
Tobacco use, former- 47-year 3 pack a day, quit 2019
Diverticulitis requiring colon resection and reanastomosis
Former alcohol abuse daily drinker stopped early 30s
Hepatomegaly and hepatic fatty liver
Former cocaine user�snorting in his 20s and 30s
DVT prophylaxis--Eliquis
code status--full code
Original Note:
Today's Communication/Plan
-
CEA tomorrow
Assessment / Plan
Assessment / Plan
Impression: Patient is a 69y M with PMH significant for A-Fib on Eliquis, hypertension and DM-II who presents to ED complaining of L sided headache, word-finding difficulty and confusion.
Plan:
#Aphasia/metabolic encephalopathy concern for CVA
#Left ICA stenosis
-head CT neg--CTA with left internal carotid artery with 75% stenosis
-Neuro consulted, appreciated
-cont asa, cont statin
-MRI 11/18: No acute intracranial abnormality noted
-Duplex US: Calcified plaque within the left carotid bulb, measurements suggestive of 50-69% stenosis. Calcified right carotid bulb plaque, measurements suggestive of less than 50% stenosis
-Eliquis hold until after procedure and vascular clearance
- Vascular consulted: planning for CEA
#Moderate cervical stenosis C5-C6
#Mild lumbar stenosis L3-L4
- Patient states that he was previously following neurosurgery outpatient many years ago but had stopped
� Current leg paresthesia likely due to stenosis
� Neurosurgery outpatient follow-up on discharge
#Leukocytosis likely stress reaction (with low grade fever)�resolved
-no signs of infection
-WBC resolved
#Tachycardia with history of paroxysmal atrial fib
-metoprolol continued
- Eliquis on hold
#Chronic HFpEF
- patient not in acute exacerbation
-strict I &O,daily weight
#Diabetes mellitus type 2
- Glipizide and Jardiance on hold
- Continue SSI, Accu checks
- HbA1c 7.3
- Will resume oral medication after CEA
#HLD
-cont Crestor
#Essential HTN
-cont Norvasc and losartan
#PAD with stent to right leg
- Crestor 5 mg daily
#GERD, hx gastric ulcer
- PPI
#Tobacco use, former
- 47-year 3 pack a day, quit 2019
#Diverticulitis requiring colon resection and reanastomosis
#Hepatomegaly and hepatic fatty liver
DVT ppx - eliquis on hold, pt mobile
code status--full code
Anticipated Discharge: 24 - 48 hours
Subjective/Interval History
-
Date of Service: November 20, 2024
Patient comfortable in bed with no new acute overnight complaints
Objective Data
-
Labs:
Laboratory Results
11/20/24
06:33
WBC 8.4
Hgb 13.4
Hct 39.2
Plt Count 154 D
Sodium Pending
Potassium Pending
Chloride Pending
Carbon Dioxide Pending
BUN Pending
Creatinine Pending
Glucose Pending
Calcium Pending
Vital Signs:
Vital Signs
Temp Pulse Resp BP Pulse Ox
97.5 F 76 16 145/83 97
11/20/24 03:00 11/20/24 03:00 11/20/24 03:00 11/20/24 03:00 11/20/24 03:00
I&O
11/19/24 11/20/24 11/21/24
06:59 06:59 06:59
Intake Total 1080 / 1080 1680 / 1680
Balance 1080 / 1080 1680 / 1680
Review of Systems
-
All other systems: Reviewed and negative
Physical Exam
-
General: Well Developed, Well Nourished and No Apparent Distress
HEENT: Normocephalic and Atraumatic; Negative Oxygen
Respiratory: Clear to Auscultation; Negative Wheezes or Rhonchi
Cardiac: Regular Rhythm and S1/S2; Negative Murmur
GI: Soft, Nontender, Nondistended and Normal Bowel Sounds
Musculoskeletal: No Clubbing, No Cyanosis and No Edema
Skin: Warm
Neuro: Awake
[2024-11-20 07:30] VITALS: BP 136/76
[2024-11-20 07:57] LABS: Blood Urea Nitrogen 8 mg/dl (9-20); Calcium 9.2 mg/dl (8.4-10.2); Carbon Dioxide 30 mmol/L (22-30); Chloride 102 mmol/L (98-107); Estimated Creatinine Clearance > 125 ml/min; Glucose 145 mg/dl (70-99); Potassium 4.2 mmol/L (3.5-5.1); Sodium 138 mmol/L (135-145); eGFR > 60.00
[2024-11-20 08:54] LABS: Glucose - Point of Care 141 mg/dl (70-99)
[2024-11-20] MEDS: CRESTOR 5 MG PO (09:01)
[2024-11-20] MEDS: NOVOLOG FLEXPEN-LOW RESISTANCE SC (09:01)
[2024-11-20] MEDS: TOPROL XL 100 MG PO (09:02)
[2024-11-20] MEDS: PROTONIX 40 MG PO (09:02)
[2024-11-20] MEDS: LOW STRENGTH ASPIRIN 81 MG PO (09:02)
[2024-11-20] MEDS: NAPROSYN 250 MG PO ×2 (09:08→17:35)
[2024-11-20 12:00] VITALS: BP 125/70
[2024-11-20] MEDS: MILK OF MAGNESIA 30 ML PO (12:21)
[2024-11-20 12:25] LABS: Glucose - Point of Care 187 mg/dl (70-99)
[2024-11-20] MEDS: NOVOLOG FLEXPEN-LOW RESISTANCE 1 UNITS SC ×2 (12:25→17:12)
--- NOTE | 2024-11-20 15:43 | CM ---
Patient seen with family and physicians on . Patient stated that he is aware of surgery on tue. and physicians answered all patient and family questions. Patient plan is for discharge home pending medical treatment plan. CM will continue to
follow for discharge planning needs.
Plan; pending surgery and post surgical assessment/ PT/OT recommendations
[2024-11-20 16:00] VITALS: BP 140/77
[2024-11-20 16:51] LABS: Glucose - Point of Care 182 mg/dl (70-99)
[2024-11-20 19:00] VITALS: BP 132/74
[2024-11-20] MEDS: TOPROL XL 50 MG PO (19:37)
[2024-11-20 21:36] LABS: Glucose - Point of Care 175 mg/dl (70-99)
[2024-11-20 23:00] VITALS: BP 143/80
[2024-11-21] MEDS: NAPROSYN 250 MG PO ×3 (02:36→20:41)
[2024-11-21 03:00] VITALS: BP 147/81
[2024-11-21 06:00] VITALS: BMI 28.1
[2024-11-21 06:36] LABS: % Basophils 0.3 % (0-2); % Eosinophils 2.4 % (0-6); % Immature Granulocytes 0.4 % (0-0.5); % Lymphocytes 14.5 % (20.5-51.1); % Monocytes 13.6 % (1.7-9.3); % Neutrophils 68.8 % (42.2-75.2); Absolute Eosinophils 0.2 10^3/uL (0-0.7); Absolute Neutrophils 4.9 10^3/uL (1.4-6.5); Hematocrit 38.6 % (39.0-52.0); Hemoglobin 13.3 g/dL (13.0-18.0); Mean Corp Hgb Conc. 34.5 g/dL (33.0-37.0); Mean Corpuscular Hgb 31.7 pg (27.0-31.0); Mean Corpuscular Volume 92.1 fL (80.0-94.0); Mean Platelet Volume 10.3 fL (7.4-10.4); Nucleated Red Blood Cells % 0 % (-); Platelet Count 155 10^3/uL (130-400); Red Blood Cell Count 4.19 10^6/uL (4.70-6.10); Red Cell Dist. Width 13.4 % (11.5-14.5); White Blood Cell Count 7.1 10^3/uL (4.8-10.8)
[2024-11-21 06:55] LABS: Blood Urea Nitrogen 12 mg/dl (9-20); Carbon Dioxide 28 mmol/L (22-30); Chloride 104 mmol/L (98-107); Estimated Creatinine Clearance > 125 ml/min; Glucose 155 mg/dl (70-99); Potassium 4.1 mmol/L (3.5-5.1); Sodium 138 mmol/L (135-145); eGFR > 60.00
[2024-11-21 07:20] VITALS: BP 138/84
--- NOTE | 2024-11-21 07:23 | W.PN.HOSP.TC ---
Addendum entered and electronically signed by Cristine Montes MD 11/21/24 15:33:
I saw and evaluated the patient independently. I reviewed the resident�s note and agree with findings and plan as documented by Dr. Mckeon.
GENERAL: well developed, well nourished, male in no apparent distress
HEENT: NC/AT
HEART: regular rate and rhythm, +S1, +S2
LUNGS : clear to auscultation bilaterally
ABDOM: soft, nontender, nondistended, + bowel sounds
EXT: no cyanosis, clubbing, or edema
NEUROLOGIC: nonfocal
constipation--pt c/o that he has a small bowel movement but not what he would call significant--abdominal x-ray shows ileus vs early SBO (doubt) pt states passing a lot of gas --downgrade diet to clears and follow
aphasia/metabolic encephalopathy concern for CVA (resolved)--head CT neg--CTA with left internal carotid artery with 75% stenosis--apprec neuro and vascular input--holding eliquis--cont asa--cont statin-- MRI brain neg--plan for CEA
weak/numb legs (told to me by therapy that pt feels like he will collapse when he gets to the top of the stairs)--MRI L/S spine with degenerative changes and mild spinal stenosis L3-4; C spine MRI with mod spinal stenosis C5-6 with disk bulge with
possible compressive myelopathy vs artifact--will need outpt neurosurg eval once recovered from CEA
leukocytosis likely stress reaction (with low grade fever)--no signs of infection--WBC resolved
tachycardia with history of paroxysmal atrial fib--metoprolol continued
Chronic HFpEF- patient not in acute exacerbation--strict I &O, daily weight
Diabetes type 2- restart glipizide- Continue SSI, Accu-Checks- HbA1c 7.3
HLD--cont Crestor
Essential HTN--cont Norvasc and losartan
PAD with stent to right leg- Crestor 5 mg daily
GERD, hx gastric ulcer- PPI
Tobacco use, former- 47-year 3 pack a day, quit 2019
Diverticulitis requiring colon resection and reanastomosis
Former alcohol abuse daily drinker stopped early 30s
Hepatomegaly and hepatic fatty liver
Former cocaine user�snorting in his 20s and 30s
DVT prophylaxis--Eliquis
code status--full code
Original Note:
Today's Communication/Plan
-
clears diet due to xray findings suggestive of ileus
Assessment / Plan
Assessment / Plan
Impression: Patient is a 69y M with PMH significant for A-Fib on Eliquis, hypertension and DM-II who presents to ED complaining of L sided headache, word-finding difficulty and confusion.
Plan:
#Aphasia/metabolic encephalopathy concern for CVA
#Left ICA stenosis
-head CT neg--CTA with left internal carotid artery with 75% stenosis
-Neuro consulted, appreciated
-cont asa, cont statin
-MRI 11/18: No acute intracranial abnormality noted
-Duplex US: Calcified plaque within the left carotid bulb, measurements suggestive of 50-69% stenosis. Calcified right carotid bulb plaque, measurements suggestive of less than 50% stenosis
-Eliquis hold until after procedure and vascular clearance
- Vascular consulted: planning for CEA tomorrow
#Constipation/Nausea-?Ileus
- Last full BM was on 11/18. Miralax taken with no relief
- Patient had a small hard BM today after MoM.
-Abd xray today: Findings most suggestive of ileus. Early small bowel obstruction cannot be definitively excluded, considered less likely.
- Will place clears diet
#Numbness in bilateral legs
#Moderate cervical stenosis C5-C6
#Mild lumbar stenosis L3-L4
- Patient states that he was previously following neurosurgery outpatient many years ago but had stopped
� Current leg paresthesia likely due to stenosis
� Neurosurgery outpatient follow-up on discharge
#Leukocytosis likely stress reaction (with low grade fever)�resolved
-no signs of infection
-WBC resolved
#Tachycardia with history of paroxysmal atrial fib
-metoprolol continued
- Eliquis on hold
#Chronic HFpEF
- patient not in acute exacerbation
-strict I &O,daily weight
#Diabetes mellitus type 2
- Glipizide and Jardiance on hold
- Continue SSI, Accu checks
- HbA1c 7.3
- Will resume oral medication after CEA
#HLD
-cont Crestor
#Essential HTN
-cont Norvasc and losartan
#PAD with stent to right leg
- Crestor 5 mg daily
#GERD, hx gastric ulcer
- PPI
#Tobacco use, former
- 47-year 3 pack a day, quit 2019
#Diverticulitis requiring colon resection and reanastomosis
#Hepatomegaly and hepatic fatty liver
DVT ppx - eliquis on hold, pt mobile
code status--full code
Anticipated Discharge: 24 - 48 hours
Subjective/Interval History
-
Date of Service: November 21, 2024
Patient had an episode of nausea in the morning which resolved shortly after. Admits to feeling bloated with gas. Denied any vomiting or fever.
Objective Data
-
Labs:
Laboratory Results
11/21/24
05:55
WBC 7.1
Hgb 13.3
Hct 38.6 L
Plt Count 155
Sodium 138
Potassium 4.1
Chloride 104
Carbon Dioxide 28
BUN 12
Creatinine 0.5 L
Glucose 155 H
Calcium 9.0
Vital Signs:
Vital Signs
Temp Pulse Resp BP Pulse Ox
97.7 F 75 16 138/84 97
11/21/24 03:00 11/21/24 03:00 11/21/24 03:00 11/21/24 07:20 05/21/25 03:00
I&O
11/20/24 11/21/24 11/22/24
06:59 06:59 06:59
Intake Total 1679
Balance 1679
Review of Systems
-
All other systems: Reviewed and negative
Physical Exam
-
General: Well Developed, Well Nourished and No Apparent Distress
HEENT: Normocephalic and Atraumatic
Respiratory: Clear to Auscultation
Cardiac: Regular Rhythm and S1/S2; Negative Murmur
GI: Soft and Nontender
Musculoskeletal: No Clubbing, No Cyanosis and No Edema
Skin: Warm
Neuro: Awake, Alert and Oriented
[2024-11-21] MEDS: PROTONIX 40 MG PO (07:38)
[2024-11-21] MEDS: TOPROL XL 100 MG PO (07:38)
[2024-11-21] MEDS: CRESTOR 5 MG PO (07:38)
[2024-11-21] MEDS: LOW STRENGTH ASPIRIN 81 MG PO (07:38)
[2024-11-21 07:50] LABS: Glucose - Point of Care 141 mg/dl (70-99)
[2024-11-21] MEDS: NOVOLOG FLEXPEN-LOW RESISTANCE SC (07:55)
--- NOTE | 2024-11-21 08:28 | W.PN.CD ---
Today's Communication / Plan
-
Continue the increased beta fide
Resume Eliquis when OK with medicine/neurology/vascular surgery
Impression / Plan
-
69 year old male with history of px-Afib s/p ablation in 2019, HFpEF, NIDDM, hyperlipidemia, PAD, GERD, and recent hospitalization for choledocholithiasis, ERCP, laparoscopic cholecystectomy, and necrotizing pancreatitis, who presented with
neurological symptoms, and developed tachycardia.
TIA
- CEA this admit is planned
- Holding Eliquis
- Tele no AFib
SVT
- 12 lead EKG 11/18/2024 at 0251 hours was SVT at 173 bpm, mechanism uncertain AT vs reentrant SVT
- His metoprolol dose has been increased, increased since 11/18/2024
HFpEF, euvolemic
Paroxysmal afib, doing well since ablation in 2019, RESUME Eliquis when OK with medicine/neurology/vascular surgery
Essential hypertension
Subjective:
No CP or dyspnea.
Echo 12/2021: LVEF 65%, mild cLVH, SOV 3.9, mild MR
Physical Exam
Vital Signs/Labs
Vital Signs
Temp Pulse Resp BP Pulse Ox
97.5 F 82 18 138/84 98
11/21/24 07:10 11/21/24 07:10 11/21/24 07:10 11/21/24 07:20 11/21/24 07:10
11/20/24 11/21/24 11/22/24
06:59 06:59 06:59
Actual Weight 98.702 kg 99.382 kg
11/21/24 05:55
11/21/24 05:55
PT 14.2 Sec (11.4-14.6) 11/17/24 21:30
INR 1.07 11/17/24 21:30
APTT 33.8 Sec (23.4-35.0) 11/17/24 21:30
Magnesium 1.8 mg/dl (1.6-2.3) 11/19/24 05:59
Triglycerides 111 mg/dl (10-149) 11/18/24 05:14
LDL Cholesterol, Calc 38 mg/dl 11/18/24 05:14
VLDL Cholesterol, Calc 22 mg/dl (0-30) 11/18/24 05:14
HDL Cholesterol 43 mg/dl 11/18/24 05:14
Physical Exam
Constitutional: No acute distress
EENT: Anicteric
Cardiovascular: Rhythm & rate is regular and Pedal edema is absent
Respiratory: Respiratory effort normal and Lungs clear to auscul.
GI: Soft and Distention absent
Neuro/Psych: AO x 3
Data Reviewed
-
Date of Service: November 21, 2024
[2024-11-21] MEDS: MIRALAX 17 GRAMS PO (10:00)
[2024-11-21 11:30] VITALS: BP 120/76
[2024-11-21 12:20] LABS: Glucose - Point of Care 155 mg/dl (70-99)
[2024-11-21] MEDS: NOVOLOG FLEXPEN-LOW RESISTANCE 1 UNITS SC ×2 (12:39→18:04)
--- NOTE | 2024-11-21 15:22 | CM ---
Patient seen at bedside with physicians on . Patient for pending surgery tomorrow per physicians. CM will continue to follow for discharge planning needs.
plan; home with no needs vs home with VN
[2024-11-21 15:30] VITALS: BP 121/70
--- NOTE | 2024-11-21 16:39 | W.PN.UPDATE ---
Update Note
Progress Note Update
Seen and evaluated. Neuro stable. Discussed extensively with patient and his plan for left carotid endarterectomy. (I reviewed CT angiogram images carefully). Discussed procedure at length. Keagan diagrams to facilitate understanding.
Discussed anticipated outcomes/recovery. Discussed risks including but not limited to bleeding, infection, cardiac complication/NE, cranial nerve injury, stroke (in the symptomatic setting 1 to 2% at least). He understands all wishes to proceed.
Plan LEFT carotid endarterectomy tomorrow.
[2024-11-21 17:01] LABS: Glucose - Point of Care 155 mg/dl (70-99)
[2024-11-21 19:53] VITALS: BP 135/70
[2024-11-21] MEDS: TOPROL XL 50 MG PO (20:41)
[2024-11-21 21:58] LABS: Glucose - Point of Care 158 mg/dl (70-99)
[2024-11-21 23:39] VITALS: BP 141/81
[2024-11-22] VITALS (9 sets, daily range): BP systolic 109–175; BP diastolic 67–93; BMI 27.9
[2024-11-22 07:14] LABS: % Basophils 0.4 % (0-2); % Immature Granulocytes 0.1 % (0-0.5); % Lymphocytes 14.1 % (20.5-51.1); % Monocytes 10.8 % (1.7-9.3); % Neutrophils 72.6 % (42.2-75.2); Absolute Eosinophils 0.2 10^3/uL (0-0.7); Absolute Lymphocytes 1.1 10^3/uL (1.2-3.4); Absolute Monocytes 0.8 10^3/uL (0.1-0.6); Absolute Neutrophils 5.5 10^3/uL (1.4-6.5); Hematocrit 42.3 % (39.0-52.0); Hemoglobin 14.7 g/dL (13.0-18.0); Mean Corp Hgb Conc. 34.8 g/dL (33.0-37.0); Mean Corpuscular Hgb 32.4 pg (27.0-31.0); Mean Corpuscular Volume 93.2 fL (80.0-94.0); Mean Platelet Volume 10.6 fL (7.4-10.4); Nucleated Red Blood Cells % 0 % (-); Platelet Count 184 10^3/uL (130-400); Red Blood Cell Count 4.54 10^6/uL (4.70-6.10); Red Cell Dist. Width 13.4 % (11.5-14.5); White Blood Cell Count 7.6 10^3/uL (4.8-10.8)
[2024-11-22 07:16] LABS: Blood Urea Nitrogen 9 mg/dl (9-20); Calcium 9.2 mg/dl (8.4-10.2); Carbon Dioxide 27 mmol/L (22-30); Chloride 102 mmol/L (98-107); Estimated Creatinine Clearance > 125 ml/min; Glucose 181 mg/dl (70-99); Potassium 4.3 mmol/L (3.5-5.1); Sodium 139 mmol/L (135-145); eGFR > 60.00
--- NOTE | 2024-11-22 08:03 | W.PN.HOSP.TC ---
Addendum entered and electronically signed by Cristine Montes MD 11/22/24 12:51:
I saw and evaluated the patient independently. I reviewed the resident�s note and agree with findings and plan as documented by Dr. Mckeon.
GENERAL: well developed, well nourished, male in no apparent distress
HEENT: NC/AT
HEART: regular rate and rhythm, +S1, +S2
LUNGS : clear to auscultation bilaterally
ABDOM: soft, nontender, nondistended, + bowel sounds
EXT: no cyanosis, clubbing, or edema
NEUROLOGIC: nonfocal
constipation--pt c/o that he has a small bowel movement but not what he would call significant--abdominal x-ray shows ileus vs early SBO (doubt) pt states passing a lot of gas--now with multiple formed BMs --resolved
aphasia/metabolic encephalopathy concern for CVA (resolved)--head CT neg--CTA with left internal carotid artery with 75% stenosis--apprec neuro and vascular input--holding eliquis--cont asa--cont statin-- MRI brain neg--plan for CEA today
weak/numb legs (told to me by therapy that pt feels like he will collapse when he gets to the top of the stairs)--MRI L/S spine with degenerative changes and mild spinal stenosis L3-4; C spine MRI with mod spinal stenosis C5-6 with disk bulge with
possible compressive myelopathy vs artifact--will need outpt neurosurg eval once recovered from CEA
leukocytosis likely stress reaction (with low grade fever)--no signs of infection--WBC resolved
tachycardia with history of paroxysmal atrial fib--metoprolol continued
Chronic HFpEF- patient not in acute exacerbation--strict I &O, daily weight
Diabetes type 2- restart glipizide- Continue SSI, Accu-Checks- HbA1c 7.3
HLD--cont Crestor
Essential HTN--cont Norvasc and losartan
PAD with stent to right leg- Crestor 5 mg daily
GERD, hx gastric ulcer- PPI
Tobacco use, former- 49-year 3 pack a day, quit 2019
Diverticulitis requiring colon resection and reanastomosis
Former alcohol abuse daily drinker stopped early 30s
Hepatomegaly and hepatic fatty liver
Former cocaine user�snorting in his 20s and 30s
DVT prophylaxis--Eliquis
code status--full code
Original Note:
Today's Communication/Plan
-
CEA today
Assessment / Plan
Assessment / Plan
Impression: Patient is a 69y M with PMH significant for A-Fib on Eliquis, hypertension and DM-II who presents to ED complaining of L sided headache, word-finding difficulty and confusion.
Plan:
#Aphasia/metabolic encephalopathy concern for CVA
#Left ICA stenosis
-head CT neg--CTA with left internal carotid artery with 75% stenosis
-Neuro consulted, appreciated
-cont asa, cont statin
-MRI 11/18: No acute intracranial abnormality noted
-Duplex US: Calcified plaque within the left carotid bulb, measurements suggestive of 50-69% stenosis. Calcified right carotid bulb plaque, measurements suggestive of less than 50% stenosis
- Eliquis hold until after procedure and vascular clearance
- Vascular consulted: planning for CEA today
#Constipation/Nausea-?Ileus
- Last full BM was on 11/18. Miralax taken with no relief
- Patient had a small hard BM today after MoM.
-Abd xray today: Findings most suggestive of ileus. Early small bowel obstruction cannot be definitively excluded, considered less likely.
- Pt is NPO today for CEA, will resume clears after surgery
#Numbness in bilateral legs
#Moderate cervical stenosis C5-C6
#Mild lumbar stenosis L3-L4
- Patient states that he was previously following neurosurgery outpatient many years ago but had stopped
� Current leg paresthesia likely due to stenosis
� Neurosurgery outpatient follow-up on discharge
#Leukocytosis likely stress reaction (with low grade fever)�resolved
-no signs of infection
-WBC resolved
#Tachycardia with history of paroxysmal atrial fib
- metoprolol continued
- Eliquis on hold
#Chronic HFpEF
- patient not in acute exacerbation
- strict I &O,daily weight
#Diabetes mellitus type 2
- Glipizide and Jardiance on hold
- Continue SSI, Accu checks
- HbA1c 7.3
- Will resume oral medication after CEA
#HLD
-cont Crestor
#Essential HTN
-cont Norvasc and losartan
#PAD with stent to right leg
- Crestor 5 mg daily
#GERD, hx gastric ulcer
- PPI
#Tobacco use, former
- 47-year 3 pack a day, quit 2019
#Diverticulitis requiring colon resection and reanastomosis
#Hepatomegaly and hepatic fatty liver
DVT ppx - eliquis on hold, pt mobile
code status--full code
Anticipated Discharge: 24 - 48 hours
Subjective/Interval History
-
Date of Service: November 22, 2024
Patient had 3 formed bowel movements yesterday. He does state that he still has mild discomfort in RUQ that has been chronic since his cholestectomy.
Objective Data
-
Labs:
Laboratory Results
11/22/24
06:10
WBC 7.6
Hgb 14.7
Hct 42.3
Plt Count 184
Sodium 139
Potassium 4.3
Chloride 102
Carbon Dioxide 27
BUN 9
Creatinine 0.5 L
Glucose 181 H
Calcium 9.2
Vital Signs:
Vital Signs
Temp Pulse Resp BP Pulse Ox
97.6 F 81 17 168/93 98
11/22/24 07:49 11/22/24 07:49 11/22/24 07:49 11/22/24 07:49 11/22/24 07:49
I&O
11/21/24 11/22/24 11/23/24
06:59 06:59 06:59
Intake Total 2239 1280 / 1280
Balance 2239 1280 / 1280
Review of Systems
-
All other systems: Reviewed and negative
Abdomen/GI: Reports Abdominal Pain (mild RUQ discomfort)
Physical Exam
-
General: Well Developed, Well Nourished and No Apparent Distress
HEENT: Normocephalic and Atraumatic
Respiratory: Clear to Auscultation
Cardiac: Regular Rhythm and S1/S2; Negative Murmur
GI: Soft, Nontender and Nondistended
Musculoskeletal: No Clubbing, No Cyanosis and No Edema
Skin: Warm
Neuro: Awake, Alert and Oriented
[2024-11-22] MEDS: CRESTOR 5 MG PO (09:10)
[2024-11-22] MEDS: LOW STRENGTH ASPIRIN 81 MG PO (09:10)
[2024-11-22] MEDS: PROTONIX 40 MG PO (09:10)
[2024-11-22] MEDS: NAPROSYN 250 MG PO (09:11)
[2024-11-22] MEDS: TOPROL XL 100 MG PO (09:12)
[2024-11-22] MEDS: NOVOLOG FLEXPEN-LOW RESISTANCE SC ×3 (09:25→22:05)
[2024-11-22 09:30] LABS: Glucose - Point of Care 152 mg/dl (70-99)
--- NOTE | 2024-11-22 13:26 | CM ---
Patient seen at bedside earlier today with physician on . Patient for surgery today per physician. CM will continue to follow for discharge planning needs.
Plan; pending surgery and will need PT/OT assessment following surgery
[2024-11-22] MEDS: PERIDEX 0.12% ORAL RINSE 15 ML PO (14:25)
[2024-11-22] MEDS: BACTROBAN 2% OINTMENT 1 APPLIC NASAL (14:26)
--- NOTE | 2024-11-22 18:10 | W.SUR.POST ---
Surgical Immediate Post Op
Note
Pre Op Diagnosis: Left carotid symptomatic stenosis
Post Op Diagnosis: Left carotid symptomatic stenosis
Procedure Performed: Left carotid endarterectomy with bovine pericardial patch angioplasty and EEG monitoring
Primary Surgeon: Braxton Jauregui M.D.
election assistant: JESSE Stewart
Anesthesia: GETA
Estimated Blood Loss: 50 mL
Fluids: See anesthesia flowsheet
Drains/Shunts: N/A
Specimens/Cultures: Left carotid plaque
Doppler/Duplex/Angio (Y/N): Yes
Complications: None
Operative Findings: Successful endarterectomy with hemorrhagic appearing plaque, upon waking from anesthesia patient was able to move bilateral upper extremities and lower extremity spontaneously and to command
--- NOTE | 2024-11-22 18:15 | OR.RPT ---
Operative Report
Operative Report
PROCEDURE DATE: 11/22/2024
Preoperative diagnosis: Symptomatic critical left carotid artery stenosis.
Postoperative diagnosis: Same
Procedure: Left carotid endarterectomy with bovine pericardial patch angioplasty and intraoperative EEG/SSEP monitoring.
Surgeon: Juventino
Host/Hostess Head: SHARON Baeza, required for all aspects of procedure including assistance with traction/countertraction, following of suture line, assistance with closure.
Complications: None
Anesthesia: General
Indications for procedure:
Symptomatic critical left carotid artery stenosis. TIA. Risk/benefits/alternatives of revascularization all fully discussed. Patient understood all wished to proceed.
Description of procedure:
Patient was identified brought to the operating room placed on the table in supine position. After the adequate administration of anesthesia and perioperative antibiotics he was prepped and draped in the standard surgical fashion. A standard
preoperative timeout was undertaken and everybody was in agreement the plan. A standard longitudinal incision was made in the left neck that was carried through the skin subcutaneous tissue. Using the electrocautery dissection was carried through
the platysma muscle layer and then alongside the anterior medial border of the sternocleidomastoid muscle. Then using a combination of sharp dissection with the Metzenbaum scissors and electrocautery I dissected along the anterior medial border of
the internal jugular vein. The common facial vein branch was ligated between silk ties and then divided. I then deepened my retraction. The common carotid artery was identified and carefully dissected away from the surrounding structures take
great care to avoid any injury to the structures. A vessel loop was passed around it which was double looped, but not yet tightened. Note the vagus nerve was visualized in its usual location posterior lateral to the common carotid artery, and was
protected from harm's way. I then continued my dissection up the common carotid artery to the bulb staying only on the anterior surface of the carotid artery. Then I carried the dissection up to the internal carotid artery and then to the distal
internal carotid artery. I identified where it was soft and carefully circumferentially dissected the internal carotid artery with minimal mobilization and passed a vessel loop around it. Note I dissected a good 2 cm distal to the origin the
internal carotid artery based on CT scan findings as well as to palpation the presence of plaque. Note the hypoglossal nerve was not visualized and was felt to be cephalad to this location. The patient was given an appropriate dose of heparin 9500
units. Next I dissected the anterior surface of the external carotid artery and superior thyroid branches. These were then carefully circumferentially dissected with minimal mobilization and vessel loops passed around these which were double
looped but not yet tightened. After 3 minutes of heparin circulation time and confirmation of optimization of the blood pressure with my anesthesiology colleagues, I clamped the distal internal carotid artery where it was soft. There was no
immediate EEG or SSEP changes. After 1 minute of test clamp time there was no changes noted. Therefore at this point, the vessel loops on the external carotid artery and superior thyroid branches were tightened and the common carotid artery was
clamped where it was soft proximally. An arteriotomy was made on the common carotid artery with an 11 blade and extended using a Boyd scissor. I extended the arteriotomy onto the mid to distal internal carotid artery. There was a dense severe
stenosis causing plaque, but the posterior portion of the plaque there was a blue hue suggesting hemorrhagic component. And there actually could be seen a posterior wall ulceration in the plaque itself. A Glendo was then used to endarterectomized
the plaque. An endarterectomy plane was created, and the plaque was then endarterectomized. Distally I feathered the plaque out to a nice clean endpoint in the distal internal carotid artery. Next I endarterectomized the intima back to normal
intima in the common carotid artery, and the intima was cut flush there. I then grasped the plaque and everted plaque out of the origin of the external carotid artery. The plaque was then sent off for specimen. The origin of the external carotid
artery was carefully visualized and any fine debris were removed with fine forceps. Proximal and distal endpoints were then carefully inspected. At the proximal endpoint, the intima was seen adherent but I noted that there was some additional
hemorrhagic plaque here. Therefore I ended up having to sequentially move my clamp more proximally (slightly extending the incision caudad and dissecting the artery further proximally). Once I had done this, I was able to use a Glendo again to
better endarterectomized the plaque here and then cut it flush. There was still some intimal thickening. Distally the intima was noted to be nicely adherent. Next any fine debris were removed throughout the endarterectomy bed with fine forceps.
Next, though it was in the direction of blood flow, I placed a couple tacking sutures using 6-0 Prolene to tack the proximal thickened intima area.. I then flushed heparinized saline. I was very satisfied. Then, I used a long bovine pericardial
patch to sew a patch angioplasty with a running 5-0 Prolene suture. Prior to completing and tying down my suture line, I backbled sequentially each branch and reclamped each branch prior to unclamping the next branch. I then irrigated with
heparinized saline. Then I completed and tied down my suture line. We then restored flow in the common carotid and external carotid arteries. Finally, we released flow in the internal carotid artery. There was excellent pulsatile flow in all 3
vessels. There was an excellent Doppler signal in the internal carotid artery distal to the patch with a good normal low resistance Doppler signal. There was a good Doppler signal in the external carotid artery as well. Protamine was given to
reverse the heparin. Hemostasis was completely achieved. We then irrigated and confirmed full hemostasis. I then closed in layers with 2-0 Vicryl layer to reapproximate the sternocleidomastoid muscle, followed by 3-0 Vicryl platysma muscle
running layer, followed by 4-0 Monocryl subcuticular stitch. Dermabond was applied. The patient tolerated procedure well. He awoke moving all extremities to command with tongue in the midline. All sponge, needle, instrument counts were correct
at the end of the case. The patient was transported to recovery room in stable condition.
[2024-11-22 18:41] LABS: Glucose - Point of Care 169 mg/dl (70-99)
[2024-11-22] MEDS: DILAUDID 0.5 MG IV ×2 (18:42→21:41)
[2024-11-22 18:48] LABS: Hematocrit 38.8 % (39.0-52.0); Hemoglobin 13.4 g/dL (13.0-18.0); Mean Corp Hgb Conc. 34.5 g/dL (33.0-37.0); Mean Corpuscular Volume 92.6 fL (80.0-94.0); Mean Platelet Volume 9.9 fL (7.4-10.4); Platelet Count 201 10^3/uL (130-400); Red Blood Cell Count 4.19 10^6/uL (4.70-6.10); Red Cell Dist. Width 13.5 % (11.5-14.5); White Blood Cell Count 9.7 10^3/uL (4.8-10.8)
--- NOTE | 2024-11-22 19:00 | PTCARENOTE ---
Pt received start of shift, HR SR/SB on telemetry. NIH completed w/ outgoing RN; NIH 3 d/t vision loss in R eye and R facial numbness. L eye vision changes resolved. Pt states numbness in R face is improving but still not resolved. Neuro otherwise
intact, WNL. Oriented. Denies any pain, tongue midline. Voiding yellow clear urine in urinal.
[2024-11-22 19:04] LABS: INR 1.07; PT 14.5 Sec (11.4-14.6)
[2024-11-22 19:05] LABS: APTT 30.9 Sec (23.4-35.0)
[2024-11-22 19:08] LABS: Blood Urea Nitrogen 9 mg/dl (9-20); Calcium 8.7 mg/dl (8.4-10.2); Carbon Dioxide 25 mmol/L (22-30); Chloride 104 mmol/L (98-107); Estimated Creatinine Clearance > 125 ml/min; Glucose 188 mg/dl (70-99); Sodium 138 mmol/L (135-145); eGFR > 60.00
--- NOTE | 2024-11-22 19:30 | PTCARENOTE ---
R sided facial numbness resolved. NIH now 2 d/t unchanged vision loss in R eye.
[2024-11-22] MEDS: NSS 1000 IV (19:43)
--- NOTE | 2024-11-22 20:29 | PTCARENOTE ---
Pt admit to ICU from PACU. Neuro intact. Oriented. Equal good strength b/l upper and lower extremities. Tongue midline. Pupils equal, reactive. NSS started at 80ml/hr. A-line zeroed. SBP currently maintaining goal 100-165 without intervention. Pain
rated 5/10 at incision site. 2L NC pox 94%. Incision site glue intact, ice application as ordered.
[2024-11-22] MEDS: TOPROL XL 50 MG PO (22:08)
[2024-11-22 23:05] LABS: Glucose - Point of Care 207 mg/dl (70-99)
[2024-11-22] MEDS: NOVOLOG FLEXPEN 4 UNITS SC (23:07)
[2024-11-23] VITALS (8 sets, daily range): BP systolic 122–162; BP diastolic 69–86; BMI 28.1
--- NOTE | 2024-11-23 00:05 | PTCARENOTE ---
Pt reassessed. Pt neuro remains unchanged. PRN dilaudid for pain at incision site. Incision site intact. Continuing with cold application as ordered.
[2024-11-23] MEDS: ROXICODONE 5 MG PO ×2 (01:07→11:36)
[2024-11-23 02:12] LABS: Glucose - Point of Care 183 mg/dl (70-99)
[2024-11-23] MEDS: NOVOLOG FLEXPEN 1 UNITS SC (02:14)
[2024-11-23] MEDS: DILAUDID 0.5 MG IV ×2 (02:14→06:15)
[2024-11-23 04:29] LABS: INR 1.03
[2024-11-23 04:30] LABS: APTT 30.8 Sec (23.4-35.0)
[2024-11-23 04:39] LABS: % Basophils 0.2 % (0-2); % Immature Granulocytes 0.3 % (0-0.5); % Lymphocytes 7.6 % (20.5-51.1); % Monocytes 6.2 % (1.7-9.3); % Neutrophils 85.7 % (42.2-75.2); Absolute Lymphocytes 0.7 10^3/uL (1.2-3.4); Absolute Monocytes 0.6 10^3/uL (0.1-0.6); Absolute Neutrophils 7.6 10^3/uL (1.4-6.5); Hematocrit 38.9 % (39.0-52.0); Hemoglobin 13.3 g/dL (13.0-18.0); Mean Corp Hgb Conc. 34.2 g/dL (33.0-37.0); Mean Corpuscular Hgb 31.7 pg (27.0-31.0); Mean Corpuscular Volume 92.6 fL (80.0-94.0); Mean Platelet Volume 9.7 fL (7.4-10.4); Nucleated Red Blood Cells % 0 % (-); Platelet Count 172 10^3/uL (130-400); Red Cell Dist. Width 13.3 % (11.5-14.5); White Blood Cell Count 8.9 10^3/uL (4.8-10.8)
[2024-11-23 04:44] LABS: Blood Urea Nitrogen 10 mg/dl (9-20); Calcium 8.9 mg/dl (8.4-10.2); Carbon Dioxide 24 mmol/L (22-30); Chloride 105 mmol/L (98-107); Estimated Creatinine Clearance > 125 ml/min; Glucose 183 mg/dl (70-99); Potassium 4.5 mmol/L (3.5-5.1); Sodium 135 mmol/L (135-145); eGFR > 60.00
--- NOTE | 2024-11-23 06:08 | PTCARENOTE ---
Reassessed pt. PRN pain meds for pain at incision site- see MAR. Incision site dermabond intact. Voiding clear yellow urine.
--- NOTE | 2024-11-23 07:15 | W.PN.VS ---
Addendum entered and electronically signed by Braxton Jauregui MD 11/23/24 07:31:
Seen and examined with SHARON Barrientos. Agree with findings as noted below. Patient without significant complaints. Left neck incision clean dry and intact. No hematoma. Neurologically no focal deficits. Moves all extremities well. Tongue midline.
Plan/as discussed and noted below.
Original Note:
Today's Communication / Plan
-
Seen and assessed with Dr. Jauregui
Assessment/Plan
-
POD 1 left CEA
Plan:
�DC A-line
�DC IV fluids
�Out of bed/ambulate
�P.o. medications
�Increase diet
�Likely okay for DC from vascular standpoint later today
Subjective Data
-
Date of Service: November 23, 2024
Patient seen at bedside exam with Dr. Jauregui. Patient offers no complaints at this time. No events overnight.
Objective Data
-
Vital Signs
Temp Pulse Resp BP Pulse Ox
97.4 F 62 14 162/75 99
11/23/24 03:32 11/23/24 06:30 11/23/24 06:30 11/23/24 05:48 11/23/24 06:30
Intake and Output
11/22/24 11/23/24 11/24/24
06:59 06:59 06:59
Intake Total 1280 / 1280 480 / 480
Output Total 1150 / 1150
Balance 1280 / 1280 -670 / -670
Intake:
Oral fluids 1280 / 1280 480 / 480
Output:
Urine, Voided 1150 / 1150
Other:
Number of approximated MODERATE 2
amounts of urine
Number of approximated LARGE 3
amounts of urine
Lab Results
11/23/24 04:10
11/23/24 04:10
Calcium 8.9 mg/dl (8.4-10.2) 11/23/24 04:10
Magnesium 1.8 mg/dl (1.6-2.3) 11/19/24 05:59
Total Bilirubin 1.0 mg/dl (0.2-1.3) 11/17/24 21:30
AST 25 U/L (17-59) 11/17/24 21:30
ALT 20 U/L (0-50) 11/17/24 21:30
Alkaline Phosphatase 91 U/L (38-126) 11/17/24 21:30
Total Protein 7.8 g/dl (6.3-8.2) 11/17/24 21:30
Albumin 4.2 g/dl (3.5-5.0) 11/17/24 21:30
Physical Exam
-
AAO x 3
No tachypnea on 2 L nasal cannula
No tachycardia
Abdomen soft
Neck site clean, dry, intact, soft, flat
Moves all extremities
Tongue midline
--- NOTE | 2024-11-23 07:50 | PTCARENOTE ---
Assumed care of pt at 0715 following shift report. Pt awake and resting quietly in bed. O2 at 2l/min via NC overnight- per report, pt noted to have some sleep apnea w/ lowered POX. Pt's POx 98% on 2l/min. O2 removed and RA POx 95% Pt encouraged to
notify staff at onset of any SOB. Lt radial Janet present- leveled/zero balanced, waveform WNL. NS infusing at 80ml/hr. Pt using urinal independently to void. Lt neck incision noted- site well approximated w/ surgical adhesive. No edema or
ecchymosis noted. Physical assessment completed as documented. Comfort care provided. Dr Jauregui and Gil MOLINA in room to see pt. Orders received - Janet removed and pressure held at site until hemostasis achieved. IVF d/c'ed. Call cesia w/in pt
reach and safe environment maintained.
--- NOTE | 2024-11-23 08:18 | W.PN.HOSP.TC ---
Addendum entered and electronically signed by Cristine Montes MD 11/23/24 12:50:
I saw and evaluated the patient independently. I reviewed the resident�s note and agree with findings and plan as documented by Dr. Mckeon.
GENERAL: well developed, well nourished, male in no apparent distress
HEENT: NC/AT--neck incision c/d/i
HEART: regular rate and rhythm, +S1, +S2
LUNGS : clear to auscultation bilaterally
ABDOM: soft, nontender, nondistended, + bowel sounds
EXT: no cyanosis, clubbing, or edema
NEUROLOGIC: nonfocal
OK for d/c
constipation--pt c/o that he has a small bowel movement but not what he would call significant--abdominal x-ray shows ileus vs early SBO (doubt) pt states passing a lot of gas--now with multiple formed BMs --resolved
aphasia/metabolic encephalopathy concern for CVA (resolved)--head CT neg--CTA with left internal carotid artery with 75% stenosis--apprec neuro and vascular input--holding eliquis, restart as per vascular--cont asa--cont statin-- MRI brain neg--plan
for CEA today
weak/numb legs (told to me by therapy that pt feels like he will collapse when he gets to the top of the stairs)--MRI L/S spine with degenerative changes and mild spinal stenosis L3-4; C spine MRI with mod spinal stenosis C5-6 with disk bulge with
possible compressive myelopathy vs artifact--will need outpt neurosurg eval once recovered from CEA
leukocytosis likely stress reaction (with low grade fever)--no signs of infection--WBC resolved
tachycardia with history of paroxysmal atrial fib--metoprolol continued
Chronic HFpEF- patient not in acute exacerbation--strict I &O, daily weight
Diabetes type 2- restart glipizide- Continue SSI, Accu-Checks- HbA1c 7.3
HLD--cont Crestor
Essential HTN--cont Norvasc and losartan
PAD with stent to right leg- Crestor 5 mg daily
GERD, hx gastric ulcer- PPI
Tobacco use, former- 47-year 3 pack a day, quit 2019
Diverticulitis requiring colon resection and reanastomosis
Former alcohol abuse daily drinker stopped early 30s
Hepatomegaly and hepatic fatty liver
Former cocaine user�snorting in his 20s and 30s
DVT prophylaxis--Eliquis
code status--full code
Original Note:
Today's Communication/Plan
-
Resume eliquis tonight
disposition to home
Assessment / Plan
Assessment / Plan
Impression: Patient is a 69y M with PMH significant for A-Fib on Eliquis, hypertension and DM-II who presents to ED complaining of L sided headache, word-finding difficulty and confusion.
Plan:
#Aphasia/metabolic encephalopathy concern for CVA
#Left ICA stenosis
-head CT neg--CTA with left internal carotid artery with 75% stenosis
-Neuro consulted, appreciated
-cont asa, cont statin
-MRI 11/18: No acute intracranial abnormality noted
-Duplex US: Calcified plaque within the left carotid bulb, measurements suggestive of 50-69% stenosis. Calcified right carotid bulb plaque, measurements suggestive of less than 50% stenosis
- vascular following
- CEA done on 11/22
- Resume Eliquis tonight
- Pt experienced lightheadedness likely due to surgery and advised slow movements (vascular team made aware)
#Constipation/Nausea-?Ileus
- Patient had a small hard BM today after MoM.
-Abd xray today: Findings most suggestive of ileus. Early small bowel obstruction cannot be definitively excluded, considered less likely.
- RUQ discomfort resolved after previous BM
- resume normal diet
#Numbness in bilateral legs
#Moderate cervical stenosis C5-C6
#Mild lumbar stenosis L3-L4
- Patient states that he was previously following neurosurgery outpatient many years ago but had stopped
� Current leg paresthesia likely due to stenosis
� Neurosurgery outpatient follow-up on discharge
#Leukocytosis likely stress reaction (with low grade fever)�resolved
-no signs of infection
-WBC resolved
#Tachycardia with history of paroxysmal atrial fib
- metoprolol continued
- Eliquis on hold
#Chronic HFpEF
- patient not in acute exacerbation
- strict I &O,daily weight
#Diabetes mellitus type 2
- Glipizide and Jardiance on hold
- Continue SSI, Accu checks
- HbA1c 7.3
- Will resume oral medication after CEA
#HLD
-cont Crestor
#Essential HTN
-cont Norvasc and losartan
#PAD with stent to right leg
- Crestor 5 mg daily
#GERD, hx gastric ulcer
- PPI
#Tobacco use, former
- 47-year 3 pack a day, quit 2019
#Diverticulitis requiring colon resection and reanastomosis
#Hepatomegaly and hepatic fatty liver
DVT ppx - eliquis on hold, pt mobile
code status--full code
Anticipated Discharge: Within 24 hours
Subjective/Interval History
-
Date of Service: November 23, 2024
Patient was sitting and eating breakfast. Complained of some lightheadedness when getting up and moving around.
Objective Data
-
Labs:
Laboratory Results
11/23/24
04:10
WBC 8.9
Hgb 13.3
Hct 38.9 L
Plt Count 172
PT 14.0
INR 1.03
APTT 30.8
Sodium 135
Potassium 4.5
Chloride 105
Carbon Dioxide 24
BUN 10
Creatinine 0.4 L
Glucose 183 H
Calcium 8.9
Vital Signs:
Vital Signs
Temp Pulse Resp BP Pulse Ox
97.4 F 62 14 162/75 99
11/23/24 03:32 11/23/24 06:30 11/23/24 06:30 11/23/24 05:48 11/23/24 06:30
I&O
11/22/24 11/23/24 11/24/24
06:59 06:59 06:59
Intake Total 1280 / 1280 480 / 480
Output Total 1150 / 1150
Balance 1280 / 1280 -670 / -670
Review of Systems
-
All other systems: Reviewed and negative
Physical Exam
-
General: Well Developed and No Apparent Distress
HEENT: Normocephalic and Atraumatic
Respiratory: Clear to Auscultation
Cardiac: Regular Rhythm and S1/S2; Negative Murmur
GI: Soft, Nontender and Nondistended
Musculoskeletal: No Clubbing, No Cyanosis and No Edema
Skin: Warm
Neuro: Awake, Alert and Oriented
[2024-11-23 08:36] LABS: Glucose - Point of Care 143 mg/dl (70-99)
[2024-11-23] MEDS: NOVOLOG FLEXPEN-LOW RESISTANCE SC (08:47)
[2024-11-23] MEDS: LOW STRENGTH ASPIRIN 81 MG PO (08:48)
[2024-11-23] MEDS: TOPROL XL 100 MG PO (08:48)
[2024-11-23] MEDS: PROTONIX 40 MG PO (08:48)
[2024-11-23] MEDS: CRESTOR 5 MG PO (08:48)
--- NOTE | 2024-11-23 09:05 | PTCARENOTE ---
Pt quickly sat up at edge of bed with intent to get OOB to chair. With sitting up at edge of bed, pt reported feeling lightheaded. With short time of rest in bed, lightheadedness improved and pt assisted OOB to chair- gait steady, no further
dizziness. While OOB in chair, pt completed am hygiene w/ assistance. Call callaway w/in pt reach and no further complaints received or changes noted.
--- NOTE | 2024-11-23 09:52 | W.PN.CD ---
Today's Communication / Plan
-
.
Remained stable on telemetry
Continue metoprolol at current dosing
RESUME Eliquis when OK with medicine/neurology/vascular surgery
Call if additional assistance required
Impression / Plan
-
69 year old male with history of px-Afib s/p ablation in 2019, HFpEF, NIDDM, hyperlipidemia, PAD, GERD, and recent hospitalization for choledocholithiasis, ERCP, laparoscopic cholecystectomy, and necrotizing pancreatitis, who presented with
neurological symptoms, and developed tachycardia.
TIA - -no A-fib noted
- CEA 11/22/2024
CEA 11/22/2024
- Postop care per vascular surgery
.
SVT
- 12 lead EKG 11/18/2024 at 0251 hours was SVT at 173 bpm, mechanism uncertain AT vs reentrant SVT
- His metoprolol ncreased 11/18/2024 rhythm remained stable no recurrent SVT overnight. Continue current therapy
HFpEF, euvolemic
Paroxysmal afib, doing well since ablation in 2019,
-RESUME Eliquis when OK with medicine/neurology/vascular surgery
Essential hypertension
Subjective:
No CP or dyspnea.
Echo 12/2021: LVEF 65%, mild cLVH, SOV 3.9, mild MR
Physical Exam
Vital Signs/Labs
Vital Signs
Temp Pulse Resp BP Pulse Ox
97.2 F 79 14 122/86 99
11/23/24 08:00 11/23/24 08:48 11/23/24 06:30 11/23/24 08:48 11/23/24 06:30
11/22/24 11/23/24 11/24/24
06:59 06:59 06:59
Actual Weight 99.2 kg
11/23/24 04:10
11/23/24 04:10
PT 14.0 Sec (11.4-14.6) 11/23/24 04:10
INR 1.03 11/23/24 04:10
APTT 30.8 Sec (23.4-35.0) 11/23/24 04:10
Magnesium 1.8 mg/dl (1.6-2.3) 11/19/24 05:59
Triglycerides 111 mg/dl (10-149) 11/18/24 05:14
LDL Cholesterol, Calc 38 mg/dl 11/18/24 05:14
VLDL Cholesterol, Calc 22 mg/dl (0-30) 11/18/24 05:14
HDL Cholesterol 43 mg/dl 11/18/24 05:14
Physical Exam
Constitutional: No acute distress
Cardiovascular: Rhythm & rate is regular
Respiratory: Wheeze Absent and Rhonchi Absent
GI: Soft
Other: Other
Data Reviewed
-
Date of Service: November 23, 2024
Medical Decision Making: Reviewed Test Results
EKG: Other (Telemetry reviewed)
Medical Tests (PFT, Pathology etc): Report Reviewed by me
Labs: Labs Reviewed by me
--- NOTE | 2024-11-23 11:36 | CON.INTV ---
Consultation
Consultation Request
Date/Time Consultation Requested: 11/23/2024
Date/Time Consultation Performed: 11/23/2024
Reason for Consultation: Postop endarterectomy
Medical History
-
Chief Complaint: TIA/endarterectomy
History of Present Illness:
69-year-old male past ministry of A-fib on Eliquis, type 2 diabetes, hyperlipidemia, PUD, GERD, recent admission for necrotizing pancreatitis status post cholecystectomy, presented to the emergency department for numbness and tingling, weakness,
word finding difficulties. Concern for acute stroke in the emergency department, patient received head imaging which did not demonstrate any acute vascular abnormality. For he did not receive TNK. Brain MRI was performed which showed no
hyperacute, acute or early subacute infarct. He was diagnosed with a TIA. He received a carotid ultrasound which demonstrated 50 to 69% stenosis of the left carotid artery. He was kept for few days to washout his Eliquis prior to proceeding to
left carotid endarterectomy. Vascular surgery performed left carotid endarterectomy and patient was transferred to the ICU for postop management. As of this morning patient is doing well, reports some pain in his neck as to be expected, also
reports new onset bilateral headache. Vascular surgery saw the patient, discontinue his A-line, discontinue fluids advance his diet and initiated him on p.o. medications. They said that he is okay to be discharged from their standpoint today.
Currently patient is on no drips, only received 2 L oxygen overnight. Satting well on room air this morning. Patient is in the ICU for postop vascular surgery management and nursing vascular check requirements.
Past Medical History
Past Medical History: Other (Intrafibrillation status post ablation, on Eliquis, jyh-sqlaohp-aoatlaesw diabetes, hyperlipidemia, PAD, GERD,)
Past Surgical History: Cholecystectomy
Allergies / Home Medications
Allergies
Allergy/AdvReac Type Severity Reaction Status Date / Time
No Known Drug Allergies Allergy Unknown Verified 11/17/24 21:23
Home Medications
�Medication �Instructions �Recorded �Confirmed �Last Taken �Type
metoprolol succinate 50 mg 50 mg PO BID Blood Pressure 01/08/20 11/17/24 10/18/24 History
tablet,extended release 24 hr
potassium chloride 20 mEq 20 meq PO DAILY Supplement 01/08/20 11/17/24 10/18/24 History
tablet,extended release
apixaban 5 mg tablet (Eliquis) 5 mg PO BID Blood Clot 04/16/20 11/17/24 10/18/24 History
Prevention/Tx
rosuvastatin 5 mg tablet 5 mg PO DAILY High Cholesterol 04/16/20 11/17/24 10/18/24 History
empagliflozin 25 mg tablet 25 mg PO DAILY Diabetes 10/18/24 11/17/24 10/18/24 History
(Jardiance)
glipizide 10 mg tablet, extended 10 mg PO BID Diabetes 10/18/24 11/17/24 10/18/24 History
release 24 hr
omeprazole magnesium 20 mg 20 mg PO DAILY GERD 10/18/24 11/17/24 10/18/24 History
tablet,delayed release (Prilosec
OTC)
risankizumab-rzaa 75 mg/0.83 mL 150 mg SC Q12W Antipsoriatic Agent 10/18/24 10/18/24 Unknown History
subcutaneous syringe
amlodipine 5 mg tablet (Norvasc) 5 mg PO DAILY Blood Pressure 11/17/24 11/17/24 Unknown History
losartan 50 mg tablet 50 mg PO DAILY Blood Pressure 11/17/24 11/17/24 Unknown History
Review of Systems
-
History Source: Patient
Constitutional: No Symptoms
EENT: Other (Sore left neck)
Respiratory: No Symptoms
Cardiac: No Symptoms
Abdomen/GI: No Symptoms
Neuro: Headache (Bilateral headache)
Vitals / Labs / Diagnostic Testing
Vital Signs
Temp Pulse Resp BP Pulse Ox
97.2 F 79 14 122/86 99
11/23/24 08:00 11/23/24 08:48 11/23/24 06:30 11/23/24 08:48 11/23/24 06:30
Lab Data
11/23/24 04:10
11/23/24 04:10
Laboratory Results
11/22/24 11/23/24
18:42 04:10
PT 14.5 14.0
INR 1.07 1.03
APTT 30.9 30.8
Diagnostic Testing:
Physical Exam
-
Cardiovascular: S1/S2 and Regular Rhythm
Respiratory: Clear
GI: Soft and Non Distended
Neurology: Awake, Alert, Oriented and AO x 3
Skin: Other (Left neck surgical incision. Appears clean, tender to palpation, no redness, no foul smell)
Assessment
-
Assessment:
69-year-old male past ministry of A-fib on Eliquis, diabetes type 2, recent admission for necrotizing pancreatitis status postcholecystectomy presented to the emergency department with neurologic symptoms, tachycardia found to have left carotid
stenosis and was diagnosed with TIA after brain imaging revealed no infarct.
Plan:
#TIA
#Left internal carotid stenosis
Head CT negative, CTA demonstrates stenosis of left internal carotid artery
Confirmed on vascular ultrasound of neck
Neuro consulted and following
Brain MRI demonstrated no acute intracranial abnormality
Patient was on Eliquis for history of A-fib, Eliquis was held, sufficient washout, and patient went for carotid endarterectomy yesterday
Postop day 1, status post carotid endarterectomy, surgical site looks well,
Vascular surgery following, per note reports patient is doing well and will be appropriate for discharge later
Per vascular, DC A-line, DC IV fluids, recommend out of bed ambulation, reinitiate p.o. meds advance diet
Continue ICU level care until discharge later today if okay with vascular surgery, hospitalist, neurology
Continue vascular checks per nursing
Continue holding Eliquis until cleared by vascular/neurology
#History of atrial fibrillation on Eliquis
Currently patient is not in atrial fibrillation
Status post Eliquis washout, status post carotid endarterectomy
Continue holding Eliquis until cleared by vascular surgery/neurology
Currently holding DVT prophylaxis, vascular surgery recommends early out of bed ambulation
CODE STATUS full code
DVT prophylaxis, currently held, out of bed early ambulation recommended
Diet: Diabetic 1800-calorie
[2024-11-23 11:48] LABS: Glucose - Point of Care 207 mg/dl (70-99)
--- NOTE | 2024-11-23 12:00 | PTCARENOTE ---
Pt ambulated in hallway x2 w/ supervision. Tolerated well-gait steady. No further c/o dizziness. Medicated per pt request with Roxicodone for c/o neck discomfort. Tolerating diet. No additional changes noted.
[2024-11-23] MEDS: NOVOLOG FLEXPEN-LOW RESISTANCE 2 UNITS SC (12:36)
--- NOTE | 2024-11-23 13:03 | CM ---
Patient has been medically cleared for discharge to home with no additional skilled services. Patient has arranged for transport home.
--- NOTE | 2024-11-23 13:06 | W.DCSUMMARY ---
Addendum entered and electronically signed by Cristine Montes MD 11/23/24 13:37:
Read, reviewed, and agree. See same day progress note for additional details. Time spent coordinating care, DC planning, review of DC plan of care with resident, transition of care, review of records in EMR, med rec, consults, notes, d/w
consultants, nursing, family, and CM = 38 minutes
Original Note:
Discharge Summary
Discharge Data
Date of Admission: 11/19/24
Date of Discharge: 11/23/24
-
Pending Results: No
Hospital Course
Discharging Physician : ,
Disposition : Home
Principal Discharge diagnosis : Left ICA stenosis, mild lumbar/cervical stenosis
Chronic Discharge diagnosis : Chronic HFpEF, DM type II, HTN, severe PAD, GERD
Hospital Course : Patient is a 69y M with PMH significant for A-Fib on Eliquis, hypertension and DM-II who presents to ED complaining of L sided headache, word-finding difficulty and confusion. Upon arrival to ED, CTA neck showed 75% stenosis
in left ICA and vascular surgery and neurology were consulted. Patient was planned for a CEA and tolerated procedure well. He did experience some mild lightheadedness afterward which was contributed to surgery and was advised slow physical efforts
to avoid such side effects. During the hospitalization, patient had also experienced constipation/RUQ discomfort despite MiraLAX and an abdominal x-ray showed some stool burden along with findings suggestive of ileus. He was placed on a clear diet
and given milk of magnesia which had proved to be beneficial. With passage of bowel movements, patient's abdominal discomfort subsided. While working with physical therapy, patient had also experienced some numbness in bilateral legs and spinal
MRI was done which revealed mild cervical/lumbar stenosis. Patient had followed up with neurosurgery outpatient many years ago and was advised to follow-up again upon discharge for intermittent lung paresthesia. Patient's other chronic
comorbidities were stable. Upon patient improvement in condition and postsurgery, he was stable for discharge to home and advised to follow-up with family medicine residency practice, vascular surgery and neurosurgery.
Important imaging findings :
Abdomen x-ray 11/21:most suggestive of ileus. Early small bowel obstruction cannot be definitively excluded, considered less likely.
Lumbar spine MRI 11/20:Chronic degenerative changes of the lumbar spine including degenerative disc disease with multilevel disc bulges and facet arthrosis. Mild spinal canal stenosis at L3-L4.
Cervical spine MRI 11/20:Chronic degenerative changes of the cervical spine including degenerative disc disease with multilevel disc bulges, uncovertebral arthrosis, and facet arthrosis. Mild spinal canal stenoses at C4-C5 and C6-C7.
Brain MRI 11/18:No acute intracranial abnormality noted.
CTA neck 11/17: here is moderate stenosis of the right mid/distal common carotid artery secondary to noncalcified atherosclerotic plaque. Atherosclerotic calcifications of the left carotid bifurcation/proximal ICA with resultant approximate 75%
stenosis by [employer] criteria.
Discharge Plan
-
Patient Disposition: Home (Routine Discharge)
Discharge Diagnosis/Procedures: Left carotid endarterectomy, Mild lumbar/cervical stenosis, hypertension, diabetes mellitus, chronic congestive heart failure, peripheral arterial disease
Condition: Fair
Diet: As tolerated
Activity: No strenuous activity
Driving Restrictions: No driving for 2 weeks
Bathing Restrictions: OK to Shower
Others Tests: Your follow-up carotid ultrasound is scheduled on 12/13/24 at 2:30pm here at [facility]
Stand Alone Forms: Vascular Surg Discharge Instr
Referrals:
[facility] [Provider Group] - in one week (Please call [facility] [phone] to set up an appointment with a PCP in 1 week located [facility] [place]. )
Jacqui Larson MD [Active] - in two to four weeks
Khadijah Arnett CRNP [Specified Professional Personl] - 12/13/24 1:00 pm
Additional Discharge Medication Instructions: Can Resume Eliquis tonight.
Prescriptions:
Continued
metoprolol succinate 50 MG tablet extended release 24 hr
50 mg PO BID
potassium chloride 20 MEQ tablet extended release
20 meq PO DAILY
rosuvastatin 5 MG tablet
5 mg PO DAILY
Eliquis 5 MG tablet
5 mg PO BID
glipizide 10 mg Tablet Extended Release 24hr
10 mg PO BID
omeprazole magnesium [Prilosec OTC] 20 mg Tablet,Delayed Release (Dr/Ec)
20 mg PO DAILY
Jardiance 25 mg Tablet
25 mg PO DAILY
risankizumab-rzaa 75 mg/0.83 mL Syringe
150 mg SC Q12W
losartan 50 mg Tablet
50 mg PO DAILY
amlodipine [Norvasc] 5 mg Tablet
5 mg PO DAILY
Discharge Orders:
Discharge Patient (As Directed); Ordered 11/23/24
Ordered By: Sandra Mckeon
Discharge Date and Time
Print Language: K[place]ILI
--- NOTE | 2024-11-23 14:20 | PTCARENOTE ---
Pt's to bedside- Gil MOLINA visited and answered questions. Discharge order noted. Reviewed discharge instructions w/ pt and his . No changes noted from previous assessment findings. No complaints offered. IV sites d/c'ed and cardiac
monitor removed. Pt dressed independently and taken by WC to exit hospital w/ providing transportation home.
== END 2024-11-23 14:20 | disposition home or self-care (01) | DRG 37 ==
LOC: ICU 11:50
PROVIDERS: Nurse Practitioner Acute Care; Registered Nurse; Student in an Organized Health Care Education/Training Program; Surgery Vascular Surgery; ADMITTING PHYSICIAN Hospitalist; ATTENDING PHYSICIAN Internal Medicine; CONSULT PHYSICIAN Internal Medicine; CONSULT PHYSICIAN Internal Medicine Cardiovascular Disease; CONSULT PHYSICIAN Psychiatry & Neurology Clinical Neurophysiology; CONSULT PHYSICIAN Surgery Vascular Surgery; EMERGENCY PHYSICIAN Student in an Organized Health Care Education/Training Program
PROC: 03CJ0ZZ Extirpation of Matter from Left Common Carotid Artery, Open Approach (ICD-10-PCS; 2024-11-22)
PROC: 03UJ0KZ Supplement Left Common Carotid Artery with Nonautologous Tissue Substitute, Open Approach (ICD-10-PCS; 2024-11-22)
DX: I65.22 Occlusion and stenosis of left carotid artery (principal); G93.41 Metabolic encephalopathy; I50.42 Chronic combined systolic (congestive) and diastolic (congestive) heart failure; K56.609 Unspecified intestinal obstruction, unspecified as to partial versus complete obstruction; K57.32 Diverticulitis of large intestine without perforation or abscess without bleeding; Z87.891 Personal history of nicotine dependence; M48.02 Spinal stenosis, cervical region; E11.51 Type 2 diabetes mellitus with diabetic peripheral angiopathy without gangrene; E78.00 Pure hypercholesterolemia, unspecified; K21.9 Gastro-esophageal reflux disease without esophagitis; I48.0 Paroxysmal atrial fibrillation; Z79.01 Long term (current) use of anticoagulants; I11.0 Hypertensive heart disease with heart failure; I25.10 Atherosclerotic heart disease of native coronary artery without angina pectoris; Z79.82 Long term (current) use of aspirin; Z79.899 Other long term (current) drug therapy; Z87.11 Personal history of peptic ulcer disease
CPT/HCPCS: 88304; 88311; 0042T; 35301; 70450; 70496; 70498; 70551; 72141; 72148; 74018; 80048; 80053; 80061; 82962; 83735; 84484; 85025; 85027; 85610; 85730; 86850; 86900; 86901; 92523; 92526; 92610; 93005; 93880; 95938; 95941; 95955; 96361; 96374; 96375; 97163; 97166; 99285; Q9967

== ENCOUNTER → 2024-12-13 13:55 | Outpatient (REF) | payer OTHER, SELFPAY | LOC: RAD 13:55 | PROVIDERS: ATTENDING PHYSICIAN Physician Assistant | DX: I65.22 Occlusion and stenosis of left carotid artery (principal) | CPT/HCPCS: 93880 ==

== ENCOUNTER → 2024-12-20 09:00 | Outpatient (REF) | payer OTHER, SELFPAY | LOC: RAD 09:00 | PROVIDERS: ATTENDING PHYSICIAN Student in an Organized Health Care Education/Training Program; REFERRING PHYSICIAN Nurse Practitioner | DX: K85.90 Acute pancreatitis without necrosis or infection, unspecified (principal); K86.89 Other specified diseases of pancreas; R00.0 Tachycardia, unspecified | CPT/HCPCS: 74177; 93225; 93226; Q9967 ==

== ENCOUNTER 2024-12-20 18:53 | Inpatient (IN) | payer OTHER, SELFPAY ==
[2024-12-20] VITALS (8 sets, daily range): BP systolic 127–160; BP diastolic 76–91; BMI 28.3
[2024-12-20 16:17] LABS: % Basophils 0.2 % (0-2); % Eosinophils 0.7 % (0-6); % Immature Granulocytes 0.1 % (0-0.5); % Monocytes 9.9 % (1.7-9.3); % Neutrophils 74.1 % (42.2-75.2); Absolute Eosinophils 0.1 10^3/uL (0-0.7); Absolute Lymphocytes 1.2 10^3/uL (1.2-3.4); Absolute Monocytes 0.8 10^3/uL (0.1-0.6); Absolute Neutrophils 6.1 10^3/uL (1.4-6.5); Hematocrit 38.7 % (39.0-52.0); Hemoglobin 13.3 g/dL (13.0-18.0); Mean Corp Hgb Conc. 34.4 g/dL (33.0-37.0); Nucleated Red Blood Cells % 0 % (-); Platelet Count 191 10^3/uL (130-400); Red Blood Cell Count 4.16 10^6/uL (4.70-6.10); Red Cell Dist. Width 14.7 % (11.5-14.5); White Blood Cell Count 8.2 10^3/uL (4.8-10.8)
[2024-12-20 16:29] LABS: ALT (SGPT) 17 U/L (0-50); AST (SGOT) 23 U/L (17-59); Albumin 4.1 g/dl (3.5-5.0); Alkaline Phosphatase 53 U/L (38-126); Blood Urea Nitrogen 8 mg/dl (9-20); Carbon Dioxide 25 mmol/L (22-30); Chloride 109 mmol/L (98-107); Glucose 167 mg/dl (70-99); Lactic Acid 1.3 mmol/L (0.7-2.0); Lipase 105 U/L (23-300); Potassium 3.9 mmol/L (3.5-5.1); Sodium 143 mmol/L (135-145); Total Bilirubin 0.5 mg/dl (0.2-1.3); Total Protein 7.3 g/dl (6.3-8.2); eGFR > 60.00
--- NOTE | 2024-12-20 16:44 | ED.GENMED ---
History of Present Illness
General
Chief Complaint: Abdominal Pain
Source: patient and spouse
Time Seen by Provider: 12/20/24 15:51
History of Present Illness
History of Present Illness:
Note:
CHIEF COMPLAINT(S)
Abdominal pain and diarrhea.
HISTORY OF PRESENT ILLNESS
The patient is a 69-year-old male with a history of pancreatitis, referred here by Dr. Francois. The abdominal pain has persisted since undergoing an ERCP and cholecystectomy in October, and the patient reports soreness at the procedure sites. Pain
occurs postprandially and is accompanied by gas and a gurgling sensation. There have been episodes of salivation associated with nausea, but no vomiting. The patient experienced significant weight loss of 40 pounds during a previous hospital stay,
with weight stabilization upon discharge. Diarrhea is persistent, with stool described as liquid. He denies alcohol consumption, which he has abstained from for quite some time. Current symptoms include abdominal tenderness, particularly in the left
lower quadrant and epigastric region. no melena or hematochezia.
ADDITIONAL HISTORY OBTAINED FROM SOURCES OTHER THAN THE PATIENT
According to the spouse, the patient experiences a mild to moderate pain after eating. Additionally, there is mention of diarrhea and possible pancreatic abscesses seen in imaging, which radiology is re-evaluating.
ALLERGIES
The patient reports an allergy to amoxicillin, from childhood, although specifics are unclear.
REVIEW OF SYSTEMS
- Gastrointestinal: Abdominal pain postprandially, liquid diarrhea.
- General: Recent significant weight loss of 40 pounds, now stable.
- Neurological: No focal motor deficits reported.
PHYSICAL EXAM
- Cardiovascular: Normal heart sounds, no murmurs.
- Gastrointestinal: Mild to moderate tenderness in epigastric and left lower quadrant; normal bowel sounds; liquid stool.
- Neurological: Cranial nerves grossly intact; no focal motor deficits.
- Pulm: lungs clear, no resp distress
- skin: psoriatic changes noted
PROBLEM LIST
- Chronic abdominal pain post-ERCP and cholecystectomy.
- Pancreatic lesions potentially representing abscesses.
- Recent history of significant weight loss and persistent diarrhea.
PLAN
The patient will be admitted for further evaluation and management. Consideration of potential interventional radiology drainage of pancreatic collections will be based on further imaging reassessment. Antibiotic therapy initiation is planned,
pending the evaluation of cultures and overall patient response. Monitoring of possible complications related to the patients anticoagulation status with apixaban will be essential, given his atrial fibrillation and history of stents.
DIFFERENTIAL DIAGNOSIS
The Differential Diagnosis includes, in no particular order and is not limited to:
1. Pancreatic abscess
2. Post-cholecystectomy syndrome
3. Biliary stricture or leak
4. Chronic pancreatitis
5. Small intestinal bacterial overgrowth
6. Gastroenteritis
7. Peptic ulcer disease
8. Irritable bowel syndrome
9. Inflammatory bowel disease
10. Bowel obstruction
Disposition:
SUMMARY OF ENCOUNTER
The patient, a 69-year-old male with a history of cholecystectomy and ERCP in October, presents with persistent epigastric and postprandial pain. Recent CT imaging suggested collections at the pancreas level suspicious for abscesses.
ASSESSMENT
The patient shows signs that may suggest pancreatic abscesses, with persistent abdominal pain since procedures in October.
INDEPENDENT REVIEW OF LABS AND INTERPRETATION OF TESTS
My independent review of the CT scan today indicates collections at the pancreas level suspicious for abscesses. Labs reviewed reveal a normal white blood cell count, normal hemoglobin, and grossly normal chemistries.
MEDICATION RECONCILIATION
Initiation of IV antibiotics is planned with one dose given in the emergency department.
MEDICAL DECISION MAKING
Chronic conditions affecting care include the patients history of cholecystectomy and ERCP. Differential diagnoses include potential pancreatic abscesses. Data reviewed includes the CT scan and lab results. Consideration of admission/observation was
made due to complexity and risk. Admission to the hospital for IV antibiotics is appropriate based on CT findings and patient stability.
PLAN
The patient will be admitted to the hospital, kept NPO for now, and IV antibiotics will be administered. Further assessment will be conducted for a longer-term management plan.
PATHOLOGIES TO CONSIDER
Pancreatic abscess
Past History
Past History
ED Past Medical History: HTN
ED Past Surgical History: None
Social History
Tobacco: Non-smoker
Alcohol: None
Phy Exam
Physical Exam
Physical Exam:
.
Course
Orders/Labs/Results
Orders:
Orders
12/20/24 15:58
Urinalysis Reflex To Culture Urgent
12/20/24 16:07
Complete Blood Count/With Diff Urgent
Comprehensive Metabolic Panel Urgent
Lactic Acid Urgent
Lipase Urgent
Blood Culture Q30M
NIKKI Source: Blood/Venous
Specimen Description:
Blood Culture Q30M
NIKKI Source: Blood/Venous
Specimen Description:
12/20/24 16:49
LevoFLOXacin 750 MG/150 ML [Levaquin] 750 mg in 150 ml IV NOW
MetroNIDAZOLE 500 MG/100 ML [Flagyl 500 mg] 100 ml IV NOW
Abnormal Lab Results
12/20/24
16:07
RBC 4.16 L 10^6/uL
(4.70-6.10)
Hct 38.7 L %
(39.0-52.0)
MCH 32.0 H pg
(27.0-31.0)
RDW 14.7 H %
(11.5-14.5)
Absolute Monos (auto) 0.8 H 10^3/uL
(0.1-0.6)
Lymphocytes % 15.0 L %
(20.5-51.1)
Monocytes % 9.9 H %
(1.7-9.3)
Chloride 109 H mmol/L
(98-107)
BUN 8 L mg/dl
(9-20)
Glucose 167 H mg/dl
(70-99)
12/20/24 16:07
12/20/24 16:07
Vital Signs
Initial and Last Documented VS:
Initial Vital Signs
Temp Pulse Resp BP Pulse Ox
98.5 F 116 16 129/76 97
12/20/24 14:49 12/20/24 14:49 12/20/24 14:49 12/20/24 14:49 12/20/24 14:49
Last Documented Vital Signs
Temp Pulse Resp BP Pulse Ox
98.5 F 88 20 127/77 94
12/20/24 14:49 12/20/24 16:30 12/20/24 16:30 12/20/24 16:00 12/20/24 16:47
*Pulse Oximetry
SaO2: 97
Oxygen Mode of Delivery: Room air
Patient hypoxic: no
*Medical Transcription Supervisor Interpretation
Rate: normal
Interpretation: normal
Rhythm: sinus
*Critical Care Note
Total Time (30-74mins, 75-104mins- exclusive of procedures): Not Applicable
ED Attending Note
-
Portions of this chart may have been created with voice recognition software.� Occasional wrong word or��sound alike� substitutions may have occurred due to the inherent limitations of voice recognition software.
Discharge Plan
Departure
Patient Disposition: Admit
Date of Disposition: 12/20/24
Time of Disposition: 16:44
Admit to: Med/Surg
Presentation/result/management discussed w/ accepting MD/DO: Hospitalist
Discharge Problem:
Abscess of pancreas, Acute on chronic pancreatitis
Prescriptions:
No Action
metoprolol succinate 50 MG tablet extended release 24 hr
50 mg PO BID
potassium chloride 20 MEQ tablet extended release
20 meq PO DAILY
rosuvastatin 5 MG tablet
5 mg PO DAILY
Eliquis 5 MG tablet
5 mg PO BID
glipizide 10 mg Tablet Extended Release 24hr
10 mg PO BID
omeprazole magnesium [Prilosec OTC] 20 mg Tablet,Delayed Release (Dr/Ec)
20 mg PO DAILY
Jardiance 25 mg Tablet
25 mg PO DAILY
risankizumab-rzaa 75 mg/0.83 mL Syringe
150 mg SC Q12W
losartan 50 mg Tablet
50 mg PO DAILY
amlodipine [Norvasc] 5 mg Tablet
5 mg PO DAILY
Referrals:
Arnold Uribe MD, Resident [Family Provider, General]
Interventions
Interventions:
*Risk Screen - Suicide Last Done: 12/20/24 14:49
*General Assessment Last Done: 12/20/24 14:49
*Neglect/Abuse Screening Last Done: 12/20/24 14:49
*ED- Fall Risk Assessment Last Done: 12/20/24 14:49
*ED COVID-19 Vaccine History Last Done: 12/20/24 14:49
NU-Qqcaqt-Qoapylstrf Assessment Last Done: 12/20/24 15:59
Discharge Date and Time
Print Language: CAMBODIAN
[2024-12-20] MEDS: FLAGYL 500 MG 100 IV (16:53)
[2024-12-20] MEDS: LEVAQUIN 150 IV (16:53)
--- NOTE | 2024-12-20 17:39 | HPS.HSE ---
Family Physician
-
Family Physician: Arnold Uribe MD, Resident
Chief Complaint
-
OP CT AP suggest pancreatic abscesses
History of Present Illness
HPI
69F HX left CEA (11/22/24) due to TIA/ Aphasia 2/2 symptomatic Left ICA stenosis, Chronic HFpEF, DM type II, HTN, severe PAD, GERD, atrial fibrillation on Eliquis, HX pancreatitis referred to ER here by Dr. Jackson for OP CT AP suggest pancreatic
abscesses
- The abdominal pain has persisted since undergoing an ERCP and cholecystectomy in October
- reports soreness at the procedure sites.
- Pain occurs postprandially and is accompanied by gas and a gurgling sensation.
- episodes of salivation associated with nausea, but no vomiting.
- reports significant unintentional weight loss of 40 pounds during a previous hospital stay, with weight stabilization upon discharge.
- diarrhea is persistent, with stool described as liquid.
- Current symptoms include abdominal tenderness, particularly in the left lower quadrant and epigastric region
ROS
- denies alcohol consumption, which he has abstained from for quite some time.. no melena or hematochezia.
Medical History
Past Medical History
Past Medical History: Reports Other
Additional Past Medical History:
atrial fib
dyslipidemia
type 2 DM
mitral regurgitation
carotid stenosis
HTN
PAD
pulmonary arterial systolic hypertension
PAD
COPD
CHFleft eye cancer
necrotizing pancreatitis
choledocholithiasis
Past Surgical History: Reports Other
Additional Past Surgical History:
left femur surgery
cardioversion
cholecystectomy
Social History
Tobacco: Former Smoker
Alcohol: Former
Drug: None
Personal:
Living: With Family
Family History
Family History: Not pertinent
Allergies / Home Medications
Allergies reflects when Allergies were last updated in [facility].
Home Medications with original date entered in [facility]
Allergy/Medication List:
Allergies
Allergy/AdvReac Type Severity Reaction Status Date / Time
No Known Drug Allergies Allergy Unknown Verified 11/17/24 21:23
Home Medications
cilostazol 100 mg tablet 100 mg PO BID 08/10/19
sotalol 80 mg tablet 80 mg PO BID #60 tabs 08/20/19
metoprolol succinate 50 mg tablet,extended release 24 hr 50 mg PO BID 01/08/20
potassium chloride 20 mEq tablet,extended release 20 meq PO DAILY 01/08/20
apixaban 5 mg tablet (Eliquis) 5 mg PO BID 04/16/20
rosuvastatin 5 mg tablet 5 mg PO DAILY 04/16/20
empagliflozin 25 mg tablet (Jardiance) 25 mg PO DAILY 10/18/24
glipizide 10 mg tablet, extended release 24 hr 10 mg PO BID 10/18/24
omeprazole magnesium 20 mg tablet,delayed release (Prilosec OTC) 20 mg PO DAILY 10/18/24
risankizumab-rzaa 75 mg/0.83 mL subcutaneous syringe 150 mg SC Q12W 10/18/24
polyethylene glycol 3350 17 gram oral powder packet (Miralax) 17 g PO DAILY #14 ea 11/01/24
Review of Systems
-
Constitutional: Reports No Symptoms
EENT: Reports No Symptoms
Respiratory: Reports No Symptoms
Cardiac: Reports No Symptoms
: Reports No Symptoms
Musculoskeletal: Reports No Symptoms
Skin: Reports No Symptoms
Neurological: Reports No Symptoms
Endocrine: Reports No Symptoms
Hematologic/Lymphatic: Reports No Symptoms
Psych: Reports No Symptoms
Physical Exam
Vital Signs
Vital Signs
Temp Pulse Resp BP Pulse Ox
98.5 F 85 14 128/77 98
12/20/24 14:49 12/20/24 17:30 12/20/24 17:30 12/20/24 17:00 12/20/24 17:30
Physical Exam
General: Well Developed, Well Nourished and No Apparent Distress
HEENT: NormoCephalic, Moist mucous membranes and Atraumatic
Respiratory: Clear
Cardiac: S1/S2 and Regular Rhythm; No Murmur or Rub
GI: Soft and Tender ( left lower quadrant and epigastric region)
Rectal: Deferred by Provider
Musculoskeletal: No Clubbing, No Cyanosis and No Edema
Skin: No Rash
Neuro: Nonfocal/grossly intact
Laboratory Results
-
12/20/24 16:07
12/20/24 16:07
Laboratory Results
Lactic Acid 1.3 mmol/L (0.7-2.0) 12/20/24 16:07
Total Bilirubin 0.5 mg/dl (0.2-1.3) 12/20/24 16:07
AST 23 U/L (17-59) 12/20/24 16:07
ALT 17 U/L (0-50) 12/20/24 16:07
Alkaline Phosphatase 53 U/L (38-126) 12/20/24 16:07
Lipase 105 U/L (23-300) 12/20/24 16:07
Data Reviewed
-
CT Scan: Report Reviewed by me
Lab Data: Labs Reviewed by me
Old Records: Reviewed
Impression/Plan
-
Selected VS
12/20/24
14:49 12/20/24
15:52
Temp 98.5 F
Pulse 116 93
Resp Rate 16
Blood pressure 129/76
SaO2 97
Oxygen Mode of Delivery Room air
Labs
11/23/24 12/20/24
04:10 16:07
WBC 8.2
Hgb 13.3 13.3
Plt Count 172 191
BUN 8 L
Creatinine 0.7
eGFR > 60.00
Total Bilirubin 0.5
AST 23
ALT 17
Alkaline Phosphatase 53
Lipase 105
12/20/24 CT AP W Iv And Oral Contr
- sequela of severe pancreatitis.
- new 5.5 cm rim-enhancing fluid collection in the lesser sac just to left of midline; this is worrisome for abscess.
- also a 5.2 cm complex, less well organized fluid collection involving the head and distal pancreatic body consistent with abscess.
- additional 2.3 cm diameter abscess just superior to this contacts the posterior portion of gastric antrum, whose wall is secondarily thickened
- status post cholecystectomy.
- There is pneumobilia secondary to known previous biliary instrumentation.
- Fatty infiltration of liver, which is enlarged
- Findings discussed with Dr. Jackson
Last hospitalist admission: 11/19/24 -11/23/24
Principal Discharge diagnosis : left CEA (11/22/24) due to TIA/ Aphasia 2/2 symptomatic Left ICA stenosis, mild lumbar/cervical stenosis
Chronic Discharge diagnosis : Chronic HFpEF, DM type II, HTN, severe PAD, GERD
ASSESSMENT & PLAN
Pending Rx reconciliation
Multiple pancreatic abscesses s/p pancreatitis - afebrile, normal WCC, tender epigastrium and Lt upper quadrant
Prior ID consultation ruled out penicillin allergy and tolerated Augmentin 10/26/24 per ID
- Hemodynamically stable
- Empiric extended spectrum ABx IV Meropenem in place of LVQ and Flagyl
- GS consulted
- to consider ID consult in AM
HX Chronic HFpEF
- patient not in acute exacerbation
- on PROTECTION ENGINEER Jardiance and Metoprolol XL
- strict I &O,daily weight
Diabetes type 2
- c/w Glipizide and Jardiance
- Low ISS
- HbA1c 7.3 in November 2024
HLD
- on Crestor
Benign HTN
- c/w Norvasc and losartan
HX PAD with stent to right leg
- c/w PROTECTION ENGINEER Cilostazol and Crestor
GERD
HX gastric ulcer
- PO PPI
Tobacco use - former
- 49-year 3 pack a day, quit 2019
HX Diverticulitis requiring colon resection and reanastomosis
HX former alcohol abuse daily drinker stopped early 30s
HX Hepatomegaly and hepatic fatty liver
HX Former cocaine user�snorting in his 20s and 30s
DVT Px: on PROTECTION ENGINEER Eliquis
Code: Full
IP MS
[2024-12-20 17:55] LABS: Urine Albumin Negative (Neg - Trace); Urine Bilirubin Negative (Negative); Urine Character Clear (Clear); Urine Color Yellow; Urine Glucose 4+ (Negative); Urine Ketone Negative (Negative); Urine Leukocyte Negative (Negative); Urine Nitrite Negative (Negative); Urine Occult Blood Negative (Negative); Urine Urobilinogen Negative (Neg - 1+)
[2024-12-20] MEDS: ELIQUIS 5 MG PO (20:32)
[2024-12-20] MEDS: TOPROL XL 50 MG PO (20:32)
[2024-12-20 21:17] LABS: Glucose - Point of Care 102 mg/dl (70-99)
[2024-12-20] MEDS: STERILE WATER FOR INJECTION 10 ML IV (21:17)
[2024-12-20] MEDS: MERREM 500 MG IV (21:17)
[2024-12-20] MEDS: DILAUDID 0.25 MG IV (23:09)
[2024-12-21] MEDS: MERREM 500 MG IV ×2 (04:45→09:34)
[2024-12-21] MEDS: STERILE WATER FOR INJECTION 10 ML IV ×2 (04:45→09:35)
[2024-12-21 05:26] VITALS: BMI 28.4
[2024-12-21 07:25] LABS: Hematocrit 38.4 % (39.0-52.0); Hemoglobin 12.9 g/dL (13.0-18.0); Mean Corp Hgb Conc. 33.6 g/dL (33.0-37.0); Mean Corpuscular Hgb 31.8 pg (27.0-31.0); Mean Corpuscular Volume 94.6 fL (80.0-94.0); Mean Platelet Volume 10.5 fL (7.4-10.4); Platelet Count 148 10^3/uL (130-400); Red Blood Cell Count 4.06 10^6/uL (4.70-6.10); Red Cell Dist. Width 14.6 % (11.5-14.5); White Blood Cell Count 7.4 10^3/uL (4.8-10.8)
[2024-12-21 07:45] LABS: Blood Urea Nitrogen 10 mg/dl (9-20); Calcium 8.9 mg/dl (8.4-10.2); Carbon Dioxide 26 mmol/L (22-30); Chloride 108 mmol/L (98-107); Estimated Creatinine Clearance > 125 ml/min; Glucose 102 mg/dl (70-99); Potassium 3.5 mmol/L (3.5-5.1); Sodium 142 mmol/L (135-145); eGFR > 60.00
[2024-12-21 07:55] VITALS: BP 148/93
[2024-12-21 08:12] LABS: Glucose - Point of Care 107 mg/dl (70-99)
--- NOTE | 2024-12-21 08:38 | W.PN.HOSP.TC ---
Today's Communication/Plan
-
Discharge today
Assessment / Plan
Assessment / Plan
Physical Exam
General: Well Developed, Well Nourished and No Apparent Distress
HEENT: NormoCephalic, Moist mucous membranes and Atraumatic
Respiratory: Clear
Cardiac: S1/S2 and Regular Rhythm; No Murmur or Rub
GI: Soft. Positive bowel sounds. Mild tenderness.
Musculoskeletal: No Cyanosis and No Edema
Skin: Warm. Dry.
Neuro: AAOx3. Nonfocal/grossly intact
Assessment/Plan
Sequela of severe pancreatitis with several areas of fluid collections concerning for abscesses -- per radiologist: it is possible that the 3 fluid collections described about the pancreas could represent pseudocysts that are not infected (although
abscesses are considered more likely, given the presence of gas bubbles within these collections)
Complex Pancreatic fluid collections in recent CT (possible differential-WOPN versus pseudocyst versus abscess ( less likely considering clinical parameters) )
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
-Consulted ID, no need for antibiotics since patient shows no systemic signs of infection with no fevers or leukocytosis -- more likely that patient has pseudocysts rather than abscess
-Gastroenterology consulted, they discussed case with advanced GI team at [facility]-Dr. Jhonathan Samano ( advanced GI fellow ). After review of case, no indication for acute intervention at this point.
-Recommended outpatient GI follow-up with Dr. Rowe/Dr. Hopkins.
-Continue low-fat diet
-Continue Eliquis
Recent History of left CEA (11/22/24) due to TIA/ Aphasia with symptomatic Left ICA stenosis
History of PAD with stent right leg (Pletal)
-Continue Eliquis
-Continue with DATA PROCESSING MANAGER Crestor
-Patient and his both confirmed to me today by phone that he is NOT supposed to be taking Cilostazol anymore; they stated to me that they take only the meds that were on the discharge on the most hospitalization (see discharge summary from
11/23/24)
History of of Post-ERCP Pancreatitis (10/2024)
History of prior EtOH-induced Pancreatitis
History of Choledocholithiasis (s/p ERCP and CCY 10/23/24)
MASLD
Atrial Fibrillation on Eliquis (currently on)
-Okay to resume Eliquis on discharge, as per GI
History of Chronic HFpEF
- patient not in acute exacerbation
- on DATA PROCESSING MANAGER Jardiance and Metoprolol XL
- strict I &O,daily weight
Diabetes type 2
- c/w Glipizide and Jardiance
- Low ISS
- HbA1c 7.3 in November 2024
Hyperlipidemia
- on Crestor
Benign Hypertension
- c/w Norvasc and losartan
Psoriasis on Skyrizi
GERD
History of gastric ulcer
- PO PPI
Tobacco use - former
- 49-year 3 pack a day, quit 2019
Mild lumbar/cervical stenosis
History of Diverticulitis requiring colon resection and reanastomosis
History of former alcohol abuse daily drinker stopped early 30s
History of Hepatomegaly and hepatic fatty liver
History of Cholecystectomy
Former cocaine user�snorting in his 20s and 30s
DVT Prophylaxis: Continue Eliquis
Code: Full Code
More than 30 minutes spent in discharge including
Final examination of the patient
Summarizing hospital stay
Instructions for continuing care to all relevant caregivers
Preparation of discharge records, prescriptions, and referral forms
Total time spent (in minutes): 38
Anticipated Discharge: Today
Subjective/Interval History
-
Date of Service: December 21, 2024
Patient was seen and examined. He was doing okay and denied any new symptoms or complaints.
Objective Data
-
Labs:
Laboratory Results
12/21/24
06:21
WBC 7.4
Hgb 12.9 L
Hct 38.4 L
Plt Count 148 D
Sodium 142
Potassium 3.5
Chloride 108 H
Carbon Dioxide 26
BUN 10
Creatinine 0.6 L
Glucose 102 H
Calcium 8.9
Vital Signs:
Vital Signs
Temp Pulse Resp BP Pulse Ox
97.7 F 84 18 148/93 97
12/21/24 07:55 12/21/24 07:55 12/21/24 07:55 12/21/24 07:55 12/21/24 07:55
I&O
12/20/24 12/21/24 12/22/24
06:59 06:59 06:59
Intake Total 480 / 480
Balance 480 / 480
--- NOTE | 2024-12-21 08:50 | CON.GI ---
Addendum entered and electronically signed by Sindy Chavez MD 12/21/24 13:19:
I saw and examined the patient.
The ELEVATOR SERVICE MECHANIC's note was reviewed and I agree with the note.
Impression:
Complex Pancreatic fluid collections in recent CT (possible differential-WOPN versus pseudocyst versus abscess ( less likely considering clinical parameters) )
Hx of Post-ERCP Pancreatitis (10/2024)
Hx of Choledocholiathiasis (s/p ERCP and CCY 10/23/24)
Hx of prior EtOH-induced Pancreatitis
MASLD
Afib on Eliquis (currently on)
History of chronic HFpEF
Diabetes
Psoriasis on Skyrizi
Recent left CEA
History of PAD with stent right leg (Pletal)
plan
Patient is not clinically septic. No fever. WBC / LFT normal. Blood culture pending.
Case discussed with advanced GI team at [facility]-Dr. Jhonathan Samano ( advanced GI fellow ). Recent abdominal CT imaging reviewed via phone. Based on the clinical picture/imaging findings (the size of the left collection/no evidence of
gastric outlet obstruction) -no indication for acute intervention at this point. Okay to continue with diet as tolerated. Advised no instrumentation to the collection . Discontinue antibiotics . recommend outpatient GI follow-up. Will recommend
following up with Dr. Hopkins/Dr. Rowe as outpatient. Follow-up repeat imaging as outpatient
Advised on low-fat diet
Okay to continue anticoagulation
Plan discussed with patient/medical team
Original Note:
Consultation
-
Date/Time Consultation Requested: 12/21/24 0800
Date/Time Consultation Performed: 12/21/24 08
Requesting Provider: Mary Gustafson
Performing Provider: Dr. Chavez/JESSE Heard
Reason for Consultation: pancreatic collection
Medical History
Chief Complaint / HPI
Chief Complaint: pancreatic collection on CT
History of Present Illness:
69 y.o male with an extensive past medical history of HTN, HLD, non-IDDM II, GERD, A Fib (on eliquis), chronic HFpEF, hx of EtOH related pancreatitis, hx of gastric ulcer, MASLD, hx of diverticulitis (s/p sigmoid resection), COPD, psoriasis (on
Skyrizi), carotid stenosis, hx of PAD (s/p prior stent, on pletal), and recent hospitalization at from 10/18 to 11/01/24 for choledocholithiasis s/p ERCP and cholecystectomy and post-ERCP pancreatitis with peripancreatic fluid collections, left CEA
(11/22/2024) due to TIA/aphasia, episode of SVT (11/18/2024) currently on Holter monitor until Tuesday, who presents to the ER after having routine CT scan for evaluation of pancreatic fluid collections that showed concern for possible pancreatic
abscesses. We are asked to evaluate for the same. Patient states that he has had mild diffuse abdominal tenderness since the time of his initial event in October. He states that this is intermittent, worse after eating, usually associated with a
'gurgling' sensation. He states that certain meals can make this worse. He does notice that things such as coughing can make his discomfort worse. He still has loose watery stools. He can have nausea without any vomiting. He denies any fevers,
chills, melena, acholic stools, bilirubinuria, dysphagia or odynophagia. He has lost approximately 40 pounds since the beginning of October. The patient is afebrile, current temperature is 97.7, WBC 7.4, hemoglobin 12.9, hematocrit 38.4, platelets
148, sodium 142, potassium 3.5, BUN 10, creatinine 0.6, glucose 102, total bilirubin 0.5, AST 23, ALT 17, alk phos 53, lipase 105. CT of the abdomen and pelvis with IV and oral contrast shows sequela of severe pancreatitis with new 5.5 cm
rim-enhancing fluid collection in the lesser sac just left to the midline. Also 5.2 cm complex less well-organized fluid collection involving the head and distal pancreatic body. 2.3 cm fluid collection that contacts the posterior portion of the
gastric antrum whose wall is secondarily thickened. It is possible the 3 fluid collections described about the pancreas could represent pseudocyst that are not infected, there are presence of gas bubbles within these collections. Radiology raises
concerns for possible abscess. Patient is status post cholecystectomy. There is pneumobilia secondary to known previous biliary instrumentation. Fatty liver which is enlarged. On prior admission patient was treated with meropenem and completed
treatment. Patient is currently on meropenem at present time. ID consult pending. He continues on Eliquis 5 mg p.o. twice daily. Patient has hx of cilostazol use (do not see it listed on current meds now), patient states he last took yesterday
am.
Past Medical History
Past Medical History: Arrhythmias (PAF on Eliquis ), Cancer (left eye ), COPD, GERD, HTN, Hypercholesterolemia, NIDDM, Valvular Disease (moder MR, TR) and Other (PAD with LE stent, diverticulitis, obesity, prior tobacco use, gastric ulcers, former
ETOH use, former cocaine use, carotid stenosis, pancreatitis x 2 in past with ETOH use, fatty liver, Carotid artery disease, TIA)
Past Surgical History: Bowel Resection (for diverticular disease ), Cardiac (ablation ), Orthopedic (femoral cliff 1975, quad tendon repair) and Other (left CEA)
Social History
Tobacco: Former Smoker
Alcohol: Former
Drug: Former User
Personal:
Living: With Family
Employment: Retired
Family History
Family History: Other (brother with stage III colon CA)
Allergies / Home Medications
Allergy/AdvReac Type Severity Reaction Status Date / Time
No Known Drug Allergies Allergy Unknown Verified 12/20/24 14:52
�Medication �Instructions �Recorded
metoprolol succinate 50 mg 100 mg PO DAILY Blood Pressure 01/08/20
tablet,extended release 24 hr
potassium chloride 20 mEq 20 meq PO DAILY Supplement 01/08/20
tablet,extended release
apixaban 5 mg tablet (Eliquis) 5 mg PO BID Blood Clot 04/16/20
Prevention/Tx
rosuvastatin 5 mg tablet 5 mg PO DAILY High Cholesterol 04/16/20
empagliflozin 25 mg tablet 25 mg PO DAILY Diabetes 10/18/24
(Jardiance)
glipizide 10 mg tablet, extended 10 mg PO BID Diabetes 10/18/24
release 24 hr
omeprazole magnesium 20 mg 20 mg PO DAILY GERD 10/18/24
tablet,delayed release (Prilosec
OTC)
acetaminophen 500 mg tablet 1,000 mg PO DAILYPRN PRN mild pain 12/20/24
(Tylenol Extra Strength)
cilostazol 100 mg tablet 100 mg PO BID 12/20/24
metoprolol succinate 50 mg 50 mg PO DAILY@199912/20/24
tablet,extended release 24 hr
omega 1-epz-qvn-fish oil 1,200 mg 1 cap PO DAILY 12/20/24
(144 mg-216 mg) capsule (Fish Oil)
risankizumab-rzaa 150 mg/mL 150 mg SC Q10W 12/20/24
subcutaneous pen injector (Skyrizi)
therapeutic multivitamin 1 tab PO DAILY 12/20/24
Review of Systems
-
All other systems: A 12 pt ROS was Negative except as stated above in HPI
Vital Signs
Temp Pulse Resp BP Pulse Ox
97.7 F 84 18 148/93 97
12/21/24 07:55 12/21/24 07:55 12/21/24 07:55 12/21/24 07:55 12/21/24 07:55
Physical Exam
Exam
HEENT: Anicteric
Respiratory: Clear
Cardiac: Regular Rhythm
GI: Soft, Non Distended, Normal Bowel Sounds and Tender (mild tenderness from umbilicus to upper abdomen, mostly at incision sites)
Musculoskeletal: No Edema
Skin: Warm and Dry
Neuro: AO x 3
Psych: Calm
Results
WBC 7.4 10^3/uL (4.8-10.8) 12/21/24 06:21
Hgb 12.9 g/dL (13.0-18.0) L 12/21/24 06:21
Hct 38.4 % (39.0-52.0) L 12/21/24 06:21
MCV 94.6 fL (80.0-94.0) H 12/21/24 06:21
Plt Count 148 10^3/uL (130-400) D 12/21/24 06:21
Absolute Neuts (auto) 6.1 10^3/uL (1.4-6.5) 12/20/24 16:07
Sodium 142 mmol/L (135-145) 12/21/24 06:21
Potassium 3.5 mmol/L (3.5-5.1) 12/21/24 06:21
Chloride 108 mmol/L (98-107) H 12/21/24 06:21
Carbon Dioxide 26 mmol/L (22-30) 12/21/24 06:21
BUN 10 mg/dl (9-20) 12/21/24 06:21
Creatinine 0.6 mg/dL (0.7-1.3) L 12/21/24 06:21
Calcium 8.9 mg/dl (8.4-10.2) 12/21/24 06:21
Total Bilirubin 0.5 mg/dl (0.2-1.3) 12/20/24 16:07
AST 23 U/L (17-59) 12/20/24 16:07
ALT 17 U/L (0-50) 12/20/24 16:07
Alkaline Phosphatase 53 U/L (38-126) 12/20/24 16:07
Lipase 105 U/L (23-300) 12/20/24 16:07
Diagnostic Image Results:
CT Abd/Pelvis with IV and Oral contrast 12/20/24:
There are sequela of severe pancreatitis. This includes a new 5.5 cm rim-enhancing fluid collection in the lesser sac just to left of midline; this is worrisome for abscess. There is also a 5.2 cm complex, less well organized fluid collection
involving the head and distal pancreatic body. This is also consistent with abscess. Additional 2.3 cm diameter abscess just superior to this; this contacts the posterior portion of gastric antrum, whose wall is secondarily thickened
Status post cholecystectomy.
There is pneumobilia secondary to known previous biliary instrumentation.
Fatty infiltration of liver, which is enlarged
Findings discussed with Dr. Jackson
Addendum:
It is possible that the 3 fluid collections described about the pancreas could represent pseudocysts that are not infected (although abscesses are considered more likely, given the presence of gas bubbles within these collections). I discussed this
with Dr. Rowe
Electronically signed by Dk Easley MD, 12/20/2024 5:59 PM
Pertinent Prior GI Records / Data Review:
Prior EGD in 2019 (reportedly unremarkable) along with a colonoscopy in 2019 which was [address]
CT Abd/pelvis w/ IV contrast (abd pain, pancreatitis) 10/26/2024- Impression: Acute pancreatitis which appears new. Acute peripancreatic fluid collections superior to the pancreatic neck and body. Mild extrahepatic biliary dilatation. Recent
cholecystectomy. Severe diffuse hepatic steatosis and mild hepatosplenomegaly. Previous sigmoidectomy. Severe calcific atherosclerotic plaque and minimal bilateral pleural effusions
S/p lap dann on 10/23/2024 ([facility])
ERCP (choledocholithiasis, elevated LFTs) 10/22/2024- Impression: Choledocholithiasis was found. A total of four stones and sludge were removed. Complete removal was accomplished by biliary sphincterotomy and balloon extraction. The biliary tree was
swept multiple times. Final balloon cholangiogram without any additional filling defects at the end of the case. The major papilla appeared small and flat. The entire main bile duct was dilated up to 16 mm within the distal common bile duct,
secondary to stones and sludge causing an obstruction resulting in proximal dilation of the biliary tree and the biliary tree was otherwise normal. Patient received Indomethacin and IV LR to decrease risk of post-ERCP pancreatitis.
MRI/MRCP WWO contrast (CBD dilation) 10/19/2024- Impression: MRCP evidence for choledocholithiasis, intrahepatic and extrahepatic bile duct dilatation. Cholelithiasis. Hepatosplenomegaly and hepatic steatosis.
CT Abd/pelvis w/ IV contrast (lower abd pain) 10/18/2024- Impression: Dilation of the common bile duct. Mild intrahepatic biliary dilation. Mild distention of the gallbladder. No common bile duct filling defect identified. All these findings are new
as compared with previous examination and could be further evaluated with MRCP or ERCP. Unchanged benign 3 mm left lower lobe nodule. Hepatomegaly and hepatic fatty infiltration. Diverticulosis without diverticulitis. Post sigmoid resection with
anastomosis. No bowel obstruction. Subacute to chronic fracture anterior right seventh rib.
Assessment / Plan
-
69 y.o male with an extensive past medical history of HTN, HLD, non-IDDM II, GERD, A Fib (on eliquis), chronic HFpEF, hx of EtOH related pancreatitis, hx of gastric ulcer, MASLD, hx of diverticulitis (s/p sigmoid resection), COPD, psoriasis (on
Skyrizi), carotid stenosis, hx of PAD (s/p prior stent, on pletal), and recent hospitalization at from 10/18 to 11/01/24 for choledocholithiasis s/p ERCP and cholecystectomy and post-ERCP pancreatitis with peripancreatic fluid collections, left CEA
(11/22/2024) due to TIA/aphasia, episode of SVT (11/18/2024) currently on Holter monitor until Tuesday, who presents to the ER after having routine CT scan for evaluation of pancreatic fluid collections that showed concern for possible pancreatic
abscesses. We are asked to evaluate for the same. The patient is afebrile, current temperature is 97.7, WBC 7.4, hemoglobin 12.9, hematocrit 38.4, platelets 148, sodium 142, potassium 3.5, BUN 10, creatinine 0.6, glucose 102, total bilirubin 0.5,
AST 23, ALT 17, alk phos 53, lipase 105. CT of the abdomen and pelvis with IV and oral contrast shows sequela of severe pancreatitis with new 5.5 cm rim-enhancing fluid collection in the lesser sac just left to the midline. Also 5.2 cm complex
less well-organized fluid collection involving the head and distal pancreatic body. 2.3 cm fluid collection that contacts the posterior portion of the gastric antrum whose wall is secondarily thickened. It is possible the 3 fluid collections
described about the pancreas could represent pseudocyst that are not infected, there are presence of gas bubbles within these collections. Radiology raises concerns for possible abscess. Patient is status post cholecystectomy. There is
pneumobilia secondary to known previous biliary instrumentation. Fatty liver which is enlarged. On prior admission patient was treated with meropenem and completed treatment. Patient is currently on meropenem at present time. ID consult pending.
He continues on Eliquis 5 mg p.o. twice daily. Patient has hx of cilostazol use (do not see it listed on current meds now), patient states he last took yesterday am.
Impression:
Complex Pancreatic fluid collections x 3 (Possible abscess vs walled off necrosis)
Hx of Post-ERCP Pancreatitis (10/2024)
Hx of Choledocholiathiasis (s/p ERCP and CCY 10/23/24)
Hx of prior EtOH-induced Pancreatitis
MASLD
Afib on Eliquis (currently on)
History of chronic HFpEF
Diabetes
Psoriasis on Skyrizi
Recent left CEA
History of PAD with stent right leg (Pletal)
Plan:
-ID consulted
-Blood cultures x 2 pending
-Trend labs
-Continues on Mere at present time.
-[facility] there about options for drainage.
-Patient on Eliquis currently. I do not see Cilostazol on current meds, patient last took at home yesterday am.
-Further recommendations to be forthcoming.
-
-
Thank you for consultation and allowing me to participate in the patient's care. Please call the china and silverware salesperson GI physician during the after hours with any questions or concerns.
[2024-12-21] MEDS: GLUCOTROL XL (EXTENDED RELEASE) 10 MG PO (09:34)
[2024-12-21] MEDS: FARXIGA 10 MG PO (09:34)
[2024-12-21] MEDS: CRESTOR 5 MG PO (09:34)
[2024-12-21] MEDS: TOPROL XL 100 MG PO (09:34)
[2024-12-21] MEDS: ELIQUIS PO ×2 (09:47→09:52)
[2024-12-21 09:55] LABS: Glycohemoglobin (HgbA1c) 6.5 % (4.0-5.6)
--- NOTE | 2024-12-21 10:02 | PTCARENOTE ---
pt eliquis held for now this morning per Dr. Chavez. pt with abd pain and distention, after eating states the pain is increased. pt also verbalizing loose stools. pt received dilaudid 0.25 for severe pain overnight which helped resolve
significantly per patient. MD made aware. pain currently throughout abdomen sitting at 6/10.
--- NOTE | 2024-12-21 10:25 | CON.ID ---
Consultation
-
Date/Time Consultation Requested: 12/20/2024 2227
Date/Time Consultation Performed: 12/21/2024 0951
Requesting Provider: Dr. Hopkins
Performing Provider: Dr. Wilkinson
Reason for Consultation: Pancreatic collection
Chief Complaint / Past History
History of Present Illness
Eze Young is a 69-year-old man being evaluated at the request of Dr. Hopkins in regards to a pancreatic collection noted on CAT scan. History is obtained from chart review, along with patient interview. The patient reports he was in his usual
state of health until mid October when he presented to the emergency room for evaluation of nausea and vomiting which she reported had been going on for several weeks prior. During the period of time he denied any abdominal pain, but noted
intermittent chills. He was initially seen at an urgent care on 10/18, and sent to the emergency room here at [facility] for further evaluation. His hospital course at that point in time was significant for the findings of
choledocholithiasis and chronic cholecystitis. The patient ultimately underwent a laparoscopic cholecystectomy on 10/23/2024. He was seen by Infectious Diseases on 10/25 for evaluation of postoperative leukocytosis. Ultimately, the patient was
discharged to home on 11/01. He was not on antibiotics.
He additionally had another admission in November, during which he underwent a left CEA secondary to TIA and aphasia from left ICA stenosis.
He presents back to the emergency room on 12/20, having been sent in by [facility] regarding the findings of the pancreatic cyst on outpatient CT exam. At this point in time, the patient reports some ongoing right upper quadrant pain, along with
localized pain at his anterior abdominal trocar site. He denies left-sided abdominal discomfort. He reports ongoing diarrhea, but no nausea. He denies fevers or chills at present.
Past History
Additional Past Medical History:
HTN
HLD
DM type II
GERD
A-fib (on Eliquis)
Chronic CHF
Hx EtOH pancreatitis
COPD
Psoriasis (on Skyrizi)
PAD
Choledocholithiasis
Additional Past Surgical History:
Left CEA (11/22/2024)
Cholecystectomy (10/23/2024)
Bowel resection
Cardiac ablation
Femoral cliff
Quadricep tendon repair
Allergy History:
No Known Drug Allergies Allergy (Verified 12/20/24 14:52)
Unknown
Current Antibiotics:
Meropenem
Social History
Tobacco: Former Smoker
Alcohol: Former
Drug: None
Personal:
Living: With Family
Employment: Retired
Review of Systems
Vital Signs
Temp Pulse Resp BP Pulse Ox
97.7 F 84 18 148/93 97
12/21/24 07:55 12/21/24 07:55 12/21/24 07:55 12/21/24 09:34 12/21/24 07:55
Physical Exam
Physical Exam
Constitutional: No Acute Distress, Comfortable and Non-toxic
Eyes: No Conjunctival Hemorrhage and Sclera Anicteric
Oral: No Thrush and No Ulcers
Cardiovascular: Regular Rate and S1/S2; Negative S3/S4
Pulmonary: Clear; Negative Wheezes or Rales
Gastrointestinal: Soft, Tender (Mild, and only over prior upper abd trocar site. Overlying skin well-healed, with no evidence of cellulitis), Distended, Normal Bowel Sounds, No Rebound and No Guarding
Genito-Urinary: Negative Rowley
Extremities: Negative Edema, Clubbing or Cyanosis
Neurological: Awake and Alert
Psychological: Calm
.
Lab / Diagnostic Study Results
12/21/24 06:21
12/21/24 06:21
Abs Immat Gran (auto) 0.0 10^3/uL (0-0.05) 12/20/24 16:07
Absolute Neuts (auto) 6.1 10^3/uL (1.4-6.5) 12/20/24 16:07
Absolute Lymphs (auto) 1.2 10^3/uL (1.2-3.4) 12/20/24 16:07
Absolute Monos (auto) 0.8 10^3/uL (0.1-0.6) H 12/20/24 16:07
Absolute Basos (auto) 0.0 10^3/uL (0-0.2) 12/20/24 16:07
Immature Gran % 0.1 % (0-0.5) 12/20/24 16:07
Neutrophils % 74.1 % (42.2-75.2) 12/20/24 16:07
Lymphocytes % 15.0 % (20.5-51.1) L 12/20/24 16:07
Monocytes % 9.9 % (1.7-9.3) H 12/20/24 16:07
Eosinophils % 0.7 % (0-6) 12/20/24 16:07
Basophils % 0.2 % (0-2) 12/20/24 16:07
Lactic Acid 1.3 mmol/L (0.7-2.0) 12/20/24 16:07
Microbiology Results
Micro:
12/20/24 16:07 Blood Culture - Pending
Blood/Venous
12/20/24 16:07 Blood Culture - Pending
Blood/Venous
Imaging:
12/20/2024 CT abdomen/pelvis with contrast: There are sequela of severe pancreatitis. This includes a new 5.5 cm rim-enhancing fluid collection in the lesser sac just to left of midline; this is worrisome for abscess. There is also a 5.2 cm complex,
less well organized fluid collection involving the head and distal pancreatic body. This is also consistent with abscess. Additional 2.3 cm diameter abscess just superior to this; this contacts the posterior portion of gastric antrum, whose wall is
secondarily thickened. Status post cholecystectomy. There is pneumobilia secondary to known previous biliary instrumentation. Fatty infiltration of liver, which is enlarged. Please see full dictation for additional detail. Film personally viewed.
Assessment / Plan
Pancreatic cysts
Recent history of pancreatitis
HTN
HLD
DM type II
GERD
A-fib (on Eliquis)
Chronic CHF
Hx EtOH pancreatitis
COPD
Psoriasis (on Skyrizi)
PAD
Choledocholithiasis
Recommendations:
At present, patient is without systemic signs of infection. Specifically, no history of recent fevers. No leukocytosis or left shift.
Lack of systemic findings is more suggestive of collection being a pseudocyst rather than infection/abscess.
Would favor discontinuing further antibiotics with close observation.
If it is felt that antibiotics needed, would base selection on cultures from the cyst.
Case discussed with GI
Care Review
Plan reviewed with: Physician (Gastroenterology)
[2024-12-21 10:42] VITALS: BMI 28.4
[2024-12-21 12:54] LABS: Glucose - Point of Care 98 mg/dl (70-99)
--- NOTE | 2024-12-21 14:38 | CM ---
Reviewed the chart notes and spoke with the patient and spouse at the bedside. The patient resides with his spouse in a two story home with two steps to enter. The patient reports no DME/VN/SNF in the past. The patient confirmed his pharmacy of
choice is [facility]. CM continues to be available to patient/family and is monitoring medical plan for needs at discharge.
Plan: Discharge to home when medically stable. No needs anticipated.
[2024-12-21 15:52] VITALS: BP 154/83
[2024-12-21] MEDS: KCL 20 MEQ PO (16:30)
--- NOTE | 2024-12-21 16:31 | W.DCSUMMARY ---
Discharge Summary
Discharge Data
Date of Admission: 12/20/24
Date of Discharge: 12/21/24
Total time spent discharging patient (in min): 38
-
Pending Results: Yes
Additional Pending Results:
Final results of blood cultures
Hospital Course
69 y/o male who presented after being advised by surgeon Dr. Jackson to come into the ER because of concerning findings on outpatient imaging -- he had a routine CT scan for evaluation of pancreatic fluid collections that showed concern for possible
pancreatic abscesses. Patient has been having persistent abdominal pain since having ERCP and cholecystectomy a few months prior. Patient was placed on intravenous antibiotics. Gastroenterology and Infectious Disease were consulted. The
gastroenterology team spoke with the [facility] team at [facility], and it was noted that no intervention was needed at this time. Since patient did not have leukocytosis or fevers, infectious disease recommended
stopping antibiotics. Patient was stable for discharge.
Discharge Plan
-
Patient Disposition: Home (Routine Discharge)
Discharge Diagnosis/Procedures: Sequela of severe pancreatitis with several areas of fluid collections concerning for abscesses -- per radiologist: it is possible that the 3 fluid collections described about the pancreas could represent pseudocysts
that are not infected (although abscesses are considered more likely, given the presence of gas bubbles within these collections)
Complex Pancreatic fluid collections in recent CT (possible differential-WOPN versus pseudocyst versus abscess ( less likely considering clinical parameters) )
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
Recent History of left CEA (11/22/24) due to TIA/ Aphasia with symptomatic Left ICA stenosis
History of PAD with stent right leg (Pletal)
History of of Post-ERCP Pancreatitis (10/2024)
History of prior Alcohol-induced Pancreatitis
History of Choledocholithiasis (s/p ERCP and CCY 10/23/24)
Metabolic Dysfunction-Associated Steatotic Liver Disease
Atrial Fibrillation on outpatient Eliquis
History of Chronic HFpEF
Type 2 Diabetes Mellitus
Hyperlipidemia
Benign Hypertension
Psoriasis on Skyrizi
Gastroesophageal Reflux Disease
History of gastric ulcer
Former Tobacco Use
Mild lumbar/cervical stenosis
History of Diverticulitis requiring colon resection and re-anastomosis
History of former alcohol abuse daily drinker stopped early 30s
History of Hepatomegaly and hepatic fatty liver
History of Cholecystectomy
Former cocaine user
Condition: Good
Diet: Low Fat, Low Sodium, 2 Gram Sodium, Diabetic, Carb Controlled and Restrict fluids to 64 oz
Activity: As tolerated
Specialty Instructions: Weigh Daily- Call MD for wt gain/loss 3 lbs overnight/5 lbs in 1 week
Referrals:
Arnold Uribe MD, Resident [Family Provider, General] - in less than 1 week
Referral Note: Hospital Follow-Up
Adalid Rowe, [Active, Gastroenterology] - in one to two weeks
Referral Note: Hospital Follow-Up
Additional Discharge Medication Instructions: Patient and his stated that he DOES NOT take Cilostazol at home. Please check KASHMIR with Dr. Jauregui your vascular surgeon which medications you need to be on for your peripheral artery disease.
Prescriptions:
Continued
metoprolol succinate 50 MG tablet extended release 24 hr
100 mg PO DAILY
potassium chloride 20 MEQ tablet extended release
20 meq PO DAILY
rosuvastatin 5 MG tablet
5 mg PO DAILY
Eliquis 5 MG tablet
5 mg PO BID
glipizide 10 mg Tablet Extended Release 24hr
10 mg PO BID
omeprazole magnesium [Prilosec OTC] 20 mg Tablet,Delayed Release (Dr/Ec)
20 mg PO DAILY
Jardiance 25 mg Tablet
25 mg PO DAILY
metoprolol succinate 50 mg Tablet Extended Release 24 Hr
50 mg PO DAILY@1999
therapeutic multivitamin Tablet
1 tab PO DAILY
acetaminophen [Tylenol Extra Strength] 500 mg Tablet
1,000 mg PO DAILYPRN PRN (Reason: mild pain)
omega 2-egx-ldw-fish oil [Fish Oil] 1,200 (144-216) mg Capsule
1 cap PO DAILY
Skyrizi 150 mg/mL pen injector
150 mg SC Q10W
Patient Comments:
12/20/2024, had 'a couple weeks ago' per pt.
Discontinued
cilostazol 100 mg Tablet
100 mg PO BID
Discharge Orders:
Discharge Patient (As Directed); Ordered 12/21/24
Ordered By: Mehul Cowan
Discharge Date and Time
Discharge Date/Time: 12/21/24 16:40
Print Language: HUNGARIAN
== END 2024-12-21 16:40 | disposition home or self-care (01) | DRG 439 ==
LOC: 2 NORTH 18:53
PROVIDERS: ADMITTING PHYSICIAN Internal Medicine; ATTENDING PHYSICIAN Hospitalist; CONSULT PHYSICIAN Internal Medicine Gastroenterology; EMERGENCY PHYSICIAN Emergency Medicine; OTHER PHYSICIAN Internal Medicine Infectious Disease
DX: K85.91 Acute pancreatitis with uninfected necrosis, unspecified (principal); I50.32 Chronic diastolic (congestive) heart failure; Z87.891 Personal history of nicotine dependence; E11.9 Type 2 diabetes mellitus without complications; I11.0 Hypertensive heart disease with heart failure; K21.9 Gastro-esophageal reflux disease without esophagitis; I48.0 Paroxysmal atrial fibrillation; Z79.01 Long term (current) use of anticoagulants; E78.00 Pure hypercholesterolemia, unspecified; L40.9 Psoriasis, unspecified
CPT/HCPCS: 80048; 80053; 81003; 82962; 83036; 83605; 83690; 85025; 85027; 87040; 93005; 96365; 96367; 99284

== ENCOUNTER → 2025-03-26 09:35 | Outpatient (REF) | payer OTHER, SELFPAY | LOC: RAD 09:35 | PROVIDERS: ATTENDING PHYSICIAN Surgery Vascular Surgery | DX: I65.22 Occlusion and stenosis of left carotid artery (principal) | CPT/HCPCS: 93880 ==

== ENCOUNTER 2025-05-01 06:24 | Day surgery (SDC) | payer OTHER, SELFPAY ==
[2025-05-01 09:13] LABS: Glucose - Point of Care 174 mg/dl (70-99)
== END 2025-05-01 12:16 | disposition home or self-care (01) ==
LOC: GI 06:24
PROVIDERS: ATTENDING PHYSICIAN Student in an Organized Health Care Education/Training Program
DX: Z12.11 Encounter for screening for malignant neoplasm of colon (principal); K57.30 Diverticulosis of large intestine without perforation or abscess without bleeding; K64.8 Other hemorrhoids; K63.89 Other specified diseases of intestine; K62.89 Other specified diseases of anus and rectum; D12.2 Benign neoplasm of ascending colon; D12.3 Benign neoplasm of transverse colon; D12.4 Benign neoplasm of descending colon; K63.5 Polyp of colon; K62.1 Rectal polyp; D17.5 Benign lipomatous neoplasm of intra-abdominal organs; Z80.0 Family history of malignant neoplasm of digestive organs
CPT/HCPCS: 45385; 45380; 82962; 88305

== ENCOUNTER → 2025-06-20 12:25 | Outpatient (REF) | payer OTHER, SELFPAY | LOC: MRI 3T 12:25 | PROVIDERS: ATTENDING PHYSICIAN Student in an Organized Health Care Education/Training Program | DX: K85.90 Acute pancreatitis without necrosis or infection, unspecified (principal); K86.89 Other specified diseases of pancreas | CPT/HCPCS: 74183; A9575 ==